=== PATIENT | male | born 1950 | race Caucasian/White ===

== ENCOUNTER 2016-05-29 13:26 | Emergency (ER) | payer OTHER ==
[2016-05-29 13:32] VITALS: BP 106/54; BMI 20.9
--- NOTE | 2016-05-29 13:58 | DR.GENAD ---
HPI - Complaint/Symptoms Chief Complaint Doctors Comments: Patient admits to being an alcoholic drank a quart today but ususlly much more. Patient is not ready to quit drinking Chief Complaint:: headache, patient's stated that patient fell and hit his head on the sidewalk. stated that patient has been drinking - Source History Provided: Patient - Mode of Arrival Mode of Arrival: EMS - Timing Onset of Chief Complaint: 05/29/16 PMH - PMH Past Medical History: Yes Past Medical History: Anxiety, Depression, Hypertension Past Surgical History: Yes Surgical History: Other Unable to Obtain Due To: Altered mental status - Family History History of Family Medical Conditions: Yes Family Medical History: Hypertension - Social History Does patient currently use any type of tobacco product: Yes Have you used tobacco products in the last 12 months: Yes Type of Tobacco Use: Smokeless Does any household member use tobacco: No Alcohol Use: Heavy Do you use any recreational Drugs:: No Lives With: Spouse Lives Where: Home - infectious screening In the last 2 months have you had wt loss of >10#?: NO Have you had fever, night sweats or hemotysis?: No Have you traveled outside the country in the last 6 months?: No Isolation: Standard ROS - Review of Systems Constitutional: No Symptoms Reported Eyes: No Symptoms Reported ENTM: No Symptoms Reported Cardiovascular: No Symptoms Reported Gastrointestinal/Abdominal: No Symptoms Reported Genitourinary: No Symptoms Reported Neurological: No Symptoms Reported Musculoskeletal: No Symptoms Reported Integumentary: No Symptoms Reported Hematologic/Lymphatic: No Symptoms Reported Endocrine: No Symptoms Reported Psychiatric: No Symptoms Reported All Other Systems: Reviewed and Negative PE - Vital Signs Vitals: Temperature 98.9 F Pulse Rate 77 Respiratory Rate 18 Blood Pressure [Left Arm] 132/66 Blood Pressure [Right Arm] 150/68 Blood Pressure 106/54 O2 Sat by Pulse Oximetry 96 - General Limitations: No Limitations General Appearance: Alert, In No Apparent Distress - Head Head Exam: Normal Inspection, Atraumatic - Eyes Eye exam: Normal Appearance, PERRL - ENT ENT Exam: Normal Exam TM/Canal Exam: Bilateral Normal Nose Exam: Normal Nose Exam Mouth Exam: Normal Inspection Throat Exam: Normal Inspection - Neck Neck Exam: Normal Inspection - Chest Chest Inspection: Normal Inspection - Respiratory Respiratory Exam: Normal Lung Sounds Bilat Respiratory Exam: Bilateral Clear to Auscultation - Cardiovascular Cardiovascular Exam: Regular Rate, Normal Rhythm - Abdominal Exam Abdominal Exam: Normal Inspection Abdominal Tenderness: negative: RUQ, RLQ, LUQ, LLQ, Epigastrium, Suprapubic, Diffuse, Mild, Moderate, Severe, Other - Extremities Extremities Exam: Normal Inspection, Full ROM - Back Back Exam: Normal Inspection - Neurologic Neurological Exam: Alert, Oriented X3, CN II-XII Intact - Psychiatric Psychiatric Exam: Normal Affect. negative: Homicidal Ideation, Suicidal Ideation - Skin Skin Exam: Warm, Dry, Intact ROR - Labs Reviewed Laboratory Results Reviewed?: Yes (Etoh: 285) Result Diagrams: 05/29/16 14:13 05/29/16 14:13 Laboratory: WBC 4.4 X10^3/uL (3.6-10.0) 05/29/16 14:13 RBC 3.98 X10^6/uL (4.7-6.0) L 05/29/16 14:13 Hgb 12.9 g/dL (13.5-18.0) L 05/29/16 14:13 Hct 38.4 % (42.0-54.0) L 05/29/16 14:13 MCV 96.6 fL (80.0-100.0) 05/29/16 14:13 MCH 32.5 pg (27.0-34.0) 05/29/16 14:13 MCHC 33.7 g/dL (33.0-35.0) 05/29/16 14:13 RDW 13.1 % (11.6-16.5) 05/29/16 14:13 Plt Count 222 X10^3/uL (150.0-450.0) 05/29/16 14:13 MPV 8.4 fL (7.4-11.0) 05/29/16 14:13 Neut % 53.2 % (42.0-75.0) 05/29/16 14:13 Lymph % 28.5 % (21.0-51.0) 05/29/16 14:13 [place] % 12.7 % (0.0-13.0) 05/29/16 14:13 Eos % 4.9 % (0.9-2.9) H 05/29/16 14:13 Baso % 0.7 % (0.2-1.0) 05/29/16 14:13 Neut # 2.3 x10^3/uL (2.2-4.8) 05/29/16 14:13 Lymph # 1.3 X10^3/uL (1.3-2.9) 05/29/16 14:13 [place] # 0.6 x10^3/uL (0.3-0.8) 05/29/16 14:13 Eos # 0.2 x10^3/uL (0.0-0.2) 05/29/16 14:13 Baso # 0.0 X10^3/uL (0.0-0.1) 05/29/16 14:13 Absolute Nucleated RBC 0.1 /100WBC 05/29/16 14:13 Sodium 141 mmol/L (136-145) 05/29/16 14:13 Corrected Sodium TNP 05/29/16 14:13 Potassium 4.1 mmol/L (3.5-5.1) 05/29/16 14:13 Chloride 108 mmol/L (98-107) H 05/29/16 14:13 Carbon Dioxide 27.3 mmol/L (21-32) 05/29/16 14:13 BUN 9 mg/dL (7-18) 05/29/16 14:13 Creatinine 1.05 mg/dL (0.70-1.30) 05/29/16 14:13 Est GFR (MDRD) Af Amer > 60 (>60) 05/29/16 14:13 Est GFR (MDRD) Non-Af > 60 (>60) 05/29/16 14:13 Glucose 88 mg/dL (65-99) 05/29/16 14:13 Calcium 7.9 mg/dL (8.5-10.1) L 05/29/16 14:13 Corrected Calcium 8.6 mg/dL (8.5-10.1) 05/29/16 14:13 Total Bilirubin 0.20 mg/dL (0.2-1.0) 05/29/16 14:13 AST 28 Units/L (15-37) 05/29/16 14:13 ALT 33 Units/L (12-78) 05/29/16 14:13 Alkaline Phosphatase 66 Units/L (46-116) 05/29/16 14:13 Total Protein 6.6 g/dL (6.4-8.2) 05/29/16 14:13 Albumin 3.1 g/dL (3.4-5.0) L 05/29/16 14:13 Globulin 3.5 g/dL (2.5-4.5) 05/29/16 14:13 Albumin/Globulin Ratio 0.9 Ratio (1.1-2.1) L 05/29/16 14:13 Urine Opiates Screen Negative (NEG=<300) 05/29/16 14:13 Urine Methadone Screen Negative (NEG=<300) 05/29/16 14:13 Ur Barbiturates Screen Negative (NEG=<200) 05/29/16 14:13 Ur Phencyclidine Scrn Negative (NEG=<25) 05/29/16 14:13 Ur Amphetamines Screen Negative (NEG=<1000) 05/29/16 14:13 U Benzodiazepines Scrn Negative (NEG=<200) 05/29/16 14:13 Urine Cocaine Screen Positive (NEG=<300) 05/29/16 14:13 U Marijuana (THC) Screen Negative (NEG=<50) 05/29/16 14:13 Ethyl Alcohol mg/dL 257 mg/dL (0-19.9) H 05/29/16 14:13 - Diagnosis Discharge Problem: Alcohol intoxication Qualifiers: Complication of substance-induced condition: uncomplicated Qualified Code(s): F10.120 - Alcohol abuse with intoxication, uncomplicated - Discharge Plan Condition: Stable - Follow ups/Referrals Follow ups/Referrals: Misc [Primary Care Provider] - 3 days - Instructions
[2016-05-29 14:33] LABS: ALANINE AMINOTRANSFERASE 33 Units/L (12-78); ALBUMIN 3.1 g/dL (3.4-5.0); ALKALINE PHOSPHATASE 66 Units/L (46-116); ASPARTATE AMINO TRANSFERASE 28 Units/L (15-37); BLOOD ALCOHOL 257 mg/dL (0-19.9); BLOOD UREA NITROGEN 9 mg/dL (7-18); CALCIUM 7.9 mg/dL (8.5-10.1); CARBON DIOXIDE 27.3 mmol/L (21-32); CHLORIDE 108 mmol/L (98-107); COR CA(FOR HYPOALB) 8.6 mg/dL (8.5-10.1); CREATININE 1.05 mg/dL (0.70-1.30); GLUCOSE 88 mg/dL (65-99); SODIUM 141 mmol/L (136-145); TOTAL PROTEIN 6.6 g/dL (6.4-8.2); eGFR BLACK RACES > 60 (>60); eGFR NON BLACK RACES > 60 (>60)
[2016-05-29 14:36] LABS: BASOPHILS % (AUTO) 0.7 % (0.2-1.0); EOSINOPHILS # (AUTO) 0.2 x10^3/uL (0.0-0.2); EOSINOPHILS % (AUTO) 4.9 % (0.9-2.9); HEMATOCRIT 38.4 % (42.0-54.0); HEMOGLOBIN 12.9 g/dL (13.5-18.0); LYMPHOCYTES # (AUTO) 1.3 X10^3/uL (1.3-2.9); LYMPHOCYTES % (AUTO) 28.5 % (21.0-51.0); MEAN CORPUSCULAR HEMOGLOBIN 32.5 pg (27.0-34.0); MEAN CORPUSCULAR HGB CONC 33.7 g/dL (33.0-35.0); MEAN CORPUSCULAR VOLUME 96.6 fL (80.0-100.0); MEAN PLATELET VOLUME 8.4 fL (7.4-11.0); MONOCYTES # (AUTO) 0.6 x10^3/uL (0.3-0.8); MONOCYTES % (AUTO) 12.7 % (0.0-13.0); NEUTROPHILS # (AUTO) 2.3 x10^3/uL (2.2-4.8); NEUTROPHILS % (AUTO) 53.2 % (42.0-75.0); PLATELET COUNT 222 X10^3/uL (150.0-450.0); RED BLOOD COUNT 3.98 X10^6/uL (4.7-6.0); RED CELL DISTRIBUTION WIDTH 13.1 % (11.6-16.5); WHITE BLOOD COUNT 4.4 X10^3/uL (3.6-10.0)
--- NOTE | 2016-05-29 14:51 | CT ---
HISTORY: Fall, occipital trauma Study: CT brain without contrast Comparison: 03/28/2016 Technique: Multiple axial images of the brain were obtained from the skull base to the vertex without administr ation of IV contrast. Dose reduction techniques including Automated Exposure Control (AEC) and adju stment of mA and kV were utilized. Findings: Overall stable appearance of the brain parenchyma with mild cerebral atrophy and nonspecific white m atter hypoattenuation. No evidence of acute hemorrhage, midline shift, mass effect or abnormal extr a-axial fluid collection. The ventricular system is symmetric and nondilated. The soft tissues and osseous structures are unremarkable. The visualized paranasal sinuses are clear. IMPRESSION: 1. Stable head CT without acute abnormality. Reported By:
== END 2016-05-29 15:08 | disposition home or self-care (01) ==
LOC: ER 13:26
DX: F10.120 Alcohol abuse with intoxication, uncomplicated (principal); R51 Headache
CPT/HCPCS: 36415; 70450; 80053; 80307; 80320; 85025; 99283; G0434; G6040

== ENCOUNTER 2016-07-08 13:54 | Emergency (ER) | payer OTHER ==
[2016-07-08 14:01] VITALS: BP 114/61; BMI 24.3
--- NOTE | 2016-07-08 15:13 | DR.GENAD ---
HPI - PCP Primary Care Physician: ana - HPI Comment HPI Comment: PATIENT HAVE SWELLING RIGHT LEG WITH PALPABLE CORD. CHEST PAIN AND COUGH ALSO. HISTORY PULMONARY EMBOLISM IN THE PAST. NO FEVER. - Complaint/Symptoms Chief Complaint Doctors Comments: PAIN RIGHT LEG WITH PALPABLE CORD TIMES 3 DAYS. CHEST PAIN AND COUGH TIMES ONE DAY. Chief Complaint:: right leg pain and swelling x 3 days - Nurses notes reviewed Nurses Notes Review: Yes - Source History Provided: Patient - Mode of Arrival Mode of Arrival: Ambulatory - Timing Onset of Chief Complaint: 07/05/16 Came on: Suddenly - Duration Duration: Constant Duration: Days - Severity Severity: Moderate PMH - PMH Past Medical History: Yes Past Medical History: Anxiety, Depression, Hypertension Past Surgical History: Yes Surgical History: Other Past Surgical History Comment: robles filter - Family History History of Family Medical Conditions: Yes Family Medical History: Hypertension - Social History Does patient currently use any type of tobacco product: No Have you used tobacco products in the last 12 months: No Type of Tobacco Use: None Does any household member use tobacco: No Alcohol Use: None Do you use any recreational Drugs:: No Lives With: Family Lives Where: Home - infectious screening In the last 2 months have you had wt loss of >10#?: NO Have you had fever, night sweats or hemotysis?: No Have you traveled outside the country in the last 6 months?: No Isolation: Standard ROS - Review of Systems Constitutional: No Symptoms Reported. negative: See HPI, Fever, Weakness, Fatigue Eyes: No Symptoms Reported. negative: Eye Pain, Discharge ENTM: Nose Congestion. negative: Ear Pain, Nose Discharge, Throat Pain Respiratoy: Productive Cough, Short of Breath. negative: Wheezing, Hemoptysis Cardiovascular: Chest Pain. negative: Edema, Palpitations, Syncope Gastrointestinal/Abdominal: No Symptoms Reported. negative: Abdominal Pain, Diarrhea, Nausea, Vomiting Genitourinary: No Symptoms Reported. negative: Dysuria, Frequency, Hematuria Neurological: negative: Headache, Weakness, Dizziness Musculoskeletal: Muscle Pain Integumentary: Other (PALPABLE CORD.) Hematologic/Lymphatic: Blood Clots (PREVIOUSLY) Endocrine: No Symptoms Reported All Other Systems: Reviewed and Negative PE - Vital Signs Vitals: Temperature 99.1 F Pulse Rate 89 Respiratory Rate 16 Blood Pressure [Left Arm] 132/66 Blood Pressure [Right Arm] 150/68 Blood Pressure 114/61 O2 Sat by Pulse Oximetry 98 - General Limitations: No Limitations General Appearance: Alert - Head Head Exam: Normal Inspection - Eyes Eye exam: Normal Appearance - ENT ENT Exam: Normal External Ear Exam External Ear Exam: Normal External Inspection TM/Canal Exam: Bilateral Normal Nose Exam: Normal Nose Exam Mouth Exam: Normal Inspection Throat Exam: Normal Inspection - Neck Neck Exam: Normal Inspection - Chest Chest Inspection: Symmetric Chest Wall Rise - Respiratory Respiratory Exam: Normal Lung Sounds Bilat Respiratory Exam: Bilateral Rhonchi, Lower Rhonchi - Cardiovascular Cardiovascular Exam: Regular Rate, Normal Rhythm, Normal Heart Sounds - Abdominal Exam Abdominal Exam: Normal Bowel Sounds, Soft. negative: Tenderness - Extremities Extremities Exam: Tenderness (ANTERIOR RIGHT LEG WITH PALPABLE CORD.) - Back Back Exam: Normal Inspection - Neurologic Neurological Exam: Alert, Oriented X3, CN II-XII Intact, Normal Gait, Reflexes Normal. negative: Motor Sensory Deficit - Psychiatric Psychiatric Exam: Normal Affect, Normal Mood - Skin Skin Exam: Erythema MDM - Additional Information Additional Information Obtained From: Family - Differential Diagnosis Differential Diagnosis: DVT, PULMONARY EMBOLISM, PNEUMONIA, BRONCHITIS Course - Treatment Treatment: SEE ORDERS. - Reevaluation 1st: Improved - Consultation Consultation Comments: DIACUSS PATIENT WITH DR. KERR. HE WANT PATIENT TO HAVE ASPIRIN AND FOLLOW UP WITH HIM IN THE OFFICE. - Education/Counseling Education/Counseling: Patient, Family, Education Educated On: Treatment, Diagnosis, Needs for Follow Up ROR - Labs Reviewed Laboratory Results Reviewed?: Yes Result Diagrams: 07/08/16 15:34 07/08/16 15:34 Laboratory: WBC 8.0 X10^3/uL (3.6-10.0) 07/08/16 15:34 RBC 4.80 X10^6/uL (4.7-6.0) 07/08/16 15:34 Hgb 15.6 g/dL (13.5-18.0) 07/08/16 15:34 Hct 46.2 % (42.0-54.0) 07/08/16 15:34 MCV 96.4 fL (80.0-100.0) 07/08/16 15:34 MCH 32.6 pg (27.0-34.0) 07/08/16 15:34 MCHC 33.8 g/dL (33.0-35.0) 07/08/16 15:34 RDW 13.1 % (11.6-16.5) 07/08/16 15:34 Plt Count 213 X10^3/uL (150.0-450.0) 07/08/16 15:34 MPV 8.4 fL (7.4-11.0) 07/08/16 15:34 Neut % 89.2 % (42.0-75.0) H 07/08/16 15:34 Lymph % 4.7 % (21.0-51.0) L 07/08/16 15:34 [place] % 4.8 % (0.0-13.0) 07/08/16 15:34 Eos % 0.9 % (0.9-2.9) 07/08/16 15:34 Baso % 0.4 % (0.2-1.0) 07/08/16 15:34 Neut # 7.1 x10^3/uL (2.2-4.8) H 07/08/16 15:34 Lymph # 0.4 X10^3/uL (1.3-2.9) L 07/08/16 15:34 [place] # 0.4 x10^3/uL (0.3-0.8) 07/08/16 15:34 Eos # 0.1 x10^3/uL (0.0-0.2) 07/08/16 15:34 Baso # 0.0 X10^3/uL (0.0-0.1) 07/08/16 15:34 Absolute Nucleated RBC 0.0 /100WBC 07/08/16 15:34 INR Target Range - 07/08/16 15:34 INR 0.98 (0.8-1.3) 07/08/16 15:34 PTT 38.2 SECONDS (22.9-36.5) H 07/08/16 15:34 PTT Comment - 07/08/16 15:34 D-Dimer 1870 ng/mL (0-400) H* 07/08/16 15:34 Sodium 143 mmol/L (136-145) 07/08/16 15:34 Corrected Sodium 143 mmol/L (136-145) 07/08/16 15:34 Potassium 4.7 mmol/L (3.5-5.1) 07/08/16 15:34 Chloride 104 mmol/L (98-107) 07/08/16 15:34 Carbon Dioxide 32.7 mmol/L (21-32) H 07/08/16 15:34 BUN 15 mg/dL (7-18) 07/08/16 15:34 Creatinine 1.20 mg/dL (0.70-1.30) 07/08/16 15:34 Est GFR (MDRD) Af Amer > 60 (>60) 07/08/16 15:34 Est GFR (MDRD) Non-Af > 60 (>60) 07/08/16 15:34 Glucose 116 mg/dL (65-99) H 07/08/16 15:34 Calcium 9.2 mg/dL (8.5-10.1) 07/08/16 15:34 Corrected Calcium TNP 07/08/16 15:34 Total Bilirubin 0.50 mg/dL (0.2-1.0) 07/08/16 15:34 AST 35 Units/L (15-37) 07/08/16 15:34 ALT 31 Units/L (12-78) 07/08/16 15:34 Alkaline Phosphatase 91 Units/L (46-116) 07/08/16 15:34 Total Protein 8.1 g/dL (6.4-8.2) 07/08/16 15:34 Albumin 3.7 g/dL (3.4-5.0) 07/08/16 15:34 Globulin 4.4 g/dL (2.5-4.5) 07/08/16 15:34 Albumin/Globulin Ratio 0.8 Ratio (1.1-2.1) L 07/08/16 15:34 - XRAY XRAY Interpreted by: Radiologist XRAY Findings: REPORT DISCUSS WITH PATIENT. - Diagnosis Discharge Problem: Bronchitis Superficial thrombophlebitis Qualifiers: Superficial thrombophlebitis-Involved body area: lower extremity Laterality: right Qualified Code(s): I80.01 - Phlebitis and thrombophlebitis of superficial vessels of right lower extremity Chest pain Qualifiers: Chest pain type: other chest pain Qualified Code(s): R07.89 - Other chest pain ; R07.8 - Other chest pain - Discharge Plan Disposition: HOME, SELF-CARE Condition: Stable Prescriptions: Aspirin [ASPIRIN 325 MG *] 325 mg PO DAILY #100 tab Cephalexin [Keflex Cap 500 mg] 500 mg PO BID #20 cap Tramadol HCl 50 mg PO Q8H PRN #15 tab PRN Reason: Pain - Follow ups/Referrals Follow ups/Referrals: JANES KERR [Primary Care Provider] - 3 days - Instructions Instructions: Venous Thromboembolism, Venous Thromboembolism Prevention, Acute Bronchitis, Decb-ng-[id number] Additional Instructions: return to ed if worse.
[2016-07-08] MEDS ORDERED: TORADOL 60 MG VIAL IM ONE (15:17)
[2016-07-08] MEDS ORDERED: TORADOL 60 MG VIAL ONE (15:22)
[2016-07-08 15:43] LABS: BASOPHILS % (AUTO) 0.4 % (0.2-1.0); EOSINOPHILS # (AUTO) 0.1 x10^3/uL (0.0-0.2); EOSINOPHILS % (AUTO) 0.9 % (0.9-2.9); HEMATOCRIT 46.2 % (42.0-54.0); HEMOGLOBIN 15.6 g/dL (13.5-18.0); LYMPHOCYTES # (AUTO) 0.4 X10^3/uL (1.3-2.9); LYMPHOCYTES % (AUTO) 4.7 % (21.0-51.0); MEAN CORPUSCULAR HEMOGLOBIN 32.6 pg (27.0-34.0); MEAN CORPUSCULAR HGB CONC 33.8 g/dL (33.0-35.0); MEAN CORPUSCULAR VOLUME 96.4 fL (80.0-100.0); MEAN PLATELET VOLUME 8.4 fL (7.4-11.0); MONOCYTES # (AUTO) 0.4 x10^3/uL (0.3-0.8); MONOCYTES % (AUTO) 4.8 % (0.0-13.0); NEUTROPHILS # (AUTO) 7.1 x10^3/uL (2.2-4.8); NEUTROPHILS % (AUTO) 89.2 % (42.0-75.0); PLATELET COUNT 213 X10^3/uL (150.0-450.0); RED CELL DISTRIBUTION WIDTH 13.1 % (11.6-16.5)
[2016-07-08 16:05] LABS: ALANINE AMINOTRANSFERASE 31 Units/L (12-78); ALBUMIN 3.7 g/dL (3.4-5.0); ALKALINE PHOSPHATASE 91 Units/L (46-116); ASPARTATE AMINO TRANSFERASE 35 Units/L (15-37); BLOOD UREA NITROGEN 15 mg/dL (7-18); CALCIUM 9.2 mg/dL (8.5-10.1); CARBON DIOXIDE 32.7 mmol/L (21-32); CHLORIDE 104 mmol/L (98-107); COR NA(FOR HYPERGLY) 143 mmol/L (136-145); GLUCOSE 116 mg/dL (65-99); SODIUM 143 mmol/L (136-145); TOTAL PROTEIN 8.1 g/dL (6.4-8.2); eGFR BLACK RACES > 60 (>60); eGFR NON BLACK RACES > 60 (>60)
[2016-07-08 16:22] LABS: D DIMER 1870 ng/mL (0-400)
--- NOTE | 2016-07-08 16:38 | VAS ---
HISTORY: Pain Study: Venous Doppler study of the right leg. Comparison: None TECHNIQUE: Multiple minor scale and color flow Doppler images of the deep venous system were obtaine d of the right lower extremity. FINDINGS: The deep venous system of the right lower extremity was evaluated from the level of the common femor al vein through the popliteal vein. Normal color flow and augmentation can be observed in the commo n femoral, superficial femoral and popliteal vein. There is a prominent collateral vessel extending from the popliteal vein medially with echogenic thrombus seen throughout the collateral vein with no flow within it.. In addition, normal compression pain throughout the deep venous system. IMPRESSION: Segmental thrombus seen in a popliteal collateral vein extending superficially with no clot seen in the deep venous system in the right leg. Reported By:
[2016-07-08] MEDS ORDERED: ZOFRAN INJ 4 MG VIAL IVP ONE (17:13)
[2016-07-08] MEDS ORDERED: MORPHINE SULFATE INJ 4 MG IVP ONE (17:13)
[2016-07-08] MEDS ORDERED: ZOFRAN INJ 4 MG VIAL ONE (17:18)
[2016-07-08] MEDS ORDERED: MORPHINE SULFATE INJ 4 MG ONE (17:18)
[2016-07-08] MEDS ORDERED: NS 100 ML IV 100 ML IV ONE (17:28)
--- NOTE | 2016-07-08 18:07 | CT ---
HISTORY: Chest pain history of thrombophlebitis Study: CTA chest with contrast Comparison: 10/18/2015 Technique: Multiple axial images of the chest were obtained from the thoracic inlet to the upper abd omen after the administration of 75 cc Omnipaque 350. Coronal and sagittal 3D MIP reconstructions we re performed. Findings: The thyroid gland is unremarkable. The aorta is normal caliber with no filling defects. The pulmonar y arteries are well opacified with no filling defect or vessel cut off seen. There are some small ly mph nodes scattered along the AP window measuring up to 9 mm which are less prominent . There are so me small pretracheal lymph nodes with the largest at the ree measuring 9 mm which are also less p rominent. The adrenals are normal. There is an IVC filter in place with the tip of the filter just b elow or at the right renal vein which and unchanged in position . The visualized upper abdomen is un remarkable. Mild degenerative changes are seen throughout the spine with no aggressive osseous lesio n. There is mild pleural thickening and scarring along both apices extending into the upper lobes po steriorly which is unchanged. There is mild linear scarring along the lung bases which is unchanged. There is a 7 mm pleural-based nodule along the left lung base extending into the posterior sulcus w hich is noncalcified and was not seen previously .There is a tiny 2-3 mm subpleural nodule or scar a long the right middle lobe anteriorly which is more apparent along the right upper lobe anteriorly w hich is more which is unchanged. Moderate degenerative changes are seen throughout the spine with no aggressive osseous lesion. IMPRESSION: No evidence of a pulmonary embolus. Unremarkable thoracic aorta. Small lymph nodes scattered throughout the mediastinum which are not pathologic by size criteria and appear less prominent and less numerous. 7 mm pleural-based nodule left lower lobe which is more apparent ,recommend short-term followup to a ssure stability . Mildb biapical pleural thickening and scarring and mild linear scarring along the lung bases with a subpleural nodule or scar along the right upper lobe anteriorly which is unchanged with no acute inf iltrate or effusion. IVC filter in good position and unchanged from the prior study. Reported By:
[2016-07-08] MEDS ORDERED: ECOTRIN TAB 325 MG PO ONE (19:00)
[2016-07-08] MEDS ORDERED: ASPIRIN ONE (19:01)
== END 2016-07-08 19:12 | disposition home or self-care (01) ==
LOC: ER 14:08
DX: J40 Bronchitis, not specified as acute or chronic (principal); I80.01 Phlebitis and thrombophlebitis of superficial vessels of right lower extremity; R07.89 Other chest pain
CPT/HCPCS: 36415; 71275; 80053; 85025; 85378; 85610; 85730; 93971; 96365; 96372; 96374; 96375; 99283; A4222; J1885; J2270; J2405

== ENCOUNTER 2016-08-16 12:26 | Inpatient (IN) | payer OTHER ==
[2016-08-16 12:47] LABS: BASOPHILS % (AUTO) 0.3 % (0.2-1.0); EOSINOPHILS # (AUTO) 0.1 x10^3/uL (0.0-0.2); HEMATOCRIT 43.1 % (42.0-54.0); HEMOGLOBIN 14.2 g/dL (13.5-18.0); LYMPHOCYTES # (AUTO) 1.1 X10^3/uL (1.3-2.9); LYMPHOCYTES % (AUTO) 15.6 % (21.0-51.0); MEAN PLATELET VOLUME 8.2 fL (7.4-11.0); MONOCYTES # (AUTO) 0.8 x10^3/uL (0.3-0.8); MONOCYTES % (AUTO) 10.5 % (0.0-13.0); NEUTROPHILS # (AUTO) 5.3 x10^3/uL (2.2-4.8); NEUTROPHILS % (AUTO) 72.6 % (42.0-75.0); PLATELET COUNT 124 X10^3/uL (150.0-450.0); RED BLOOD COUNT 4.31 X10^6/uL (4.7-6.0); RED CELL DISTRIBUTION WIDTH 14.9 % (11.6-16.5); WHITE BLOOD COUNT 7.3 X10^3/uL (3.6-10.0)
--- NOTE | 2016-08-16 12:50 | RAD ---
HISTORY: Respiratory distress. Study: Portable chest. Comparison: Chest x-ray dated April 06, 2016. Findings: The trachea is midline. The cardiac silhouette is unremarkable. The lungs are clear without focal infiltrate or effusion. The bony thorax is unremarkable. IMPRESSION: 1. No acute cardiopulmonary disease. Reported By:
--- NOTE | 2016-08-16 12:52 | DR.SOBA ---
HPI - Time Seen Time seen: 12:40 - Primary Care Physician Primary Care Physician: NFD - Complaints Chief Complaint Doctors Comments: I agree with complaint of admitting nurse concerning patient.. Chief Complaint:: EMS WAS CALLED OUT FOR A FALL WITH LEG PAIN. UPON ARRIVAL OF EMS PT WAS FOUND SITTING IN RECYLNER, SOB, LABORED BREATHING, SKIN CYNOTIC SPO2 NOTED 73% ON ROOM AIR. UPON ARRIVAL TO ED NOTED PT TO BE A&OX3. RT LOWER EXT SWOLLEN AND WARM TO TOUCH LT LOWER EXT WARM TO TOUCH. PT STATES HE HAS BEEN TREATED FOR DVT PREVIOUSLY. PT ALSO STATES HE HAS INGESTED 1/2 QUART OF LIQUOR. - Source History Provided: Patient, EMS - Mode of Arrival Mode of Arrival: EMS - Timing Onset of Chief Complaint: 08/16/16 PMH - PMH Past Medical History: Yes Past Medical History: Anxiety, Depression, Hypertension Past Medical History Comment: ETOH ABUSE Past Surgical History: Yes Surgical History: Other - Family History History of Family Medical Conditions: Yes Family Medical History: Hypertension - Social History Does any household member use tobacco: No Alcohol Use: DAILY Do you use any recreational Drugs:: No Lives With: Family Lives Where: Home - infectious screening In the last 2 months have you had wt loss of >10#?: NO Have you had fever, night sweats or hemotysis?: No Have you traveled outside the country in the last 6 months?: No Isolation: Standard ROS - Review of Systems Eyes: No Symptoms Reported ENTM: No Symptoms Reported Respiratoy: No Symptoms Reported Cardiovascular: No Symptoms Reported Gastrointestinal/Abdominal: No Symptoms Reported Genitourinary: No Symptoms Reported Neurological: No Symptoms Reported Musculoskeletal: No Symptoms Reported Integumentary: No Symptoms Reported Hematologic/Lymphatic: No Symptoms Reported Endocrine: No Symptoms Reported Psychiatric: No Symptoms Reported All Other Systems: Reviewed and Negative PE - Vital Signs Vitals: Temperature 97.9 F Pulse Rate [Right Brachial] 84 Pulse Rate 109 Respiratory Rate 18 Blood Pressure [Left Arm] 132/66 Blood Pressure [Right Arm] 122/59 Blood Pressure 106/58 O2 Sat by Pulse Oximetry 95 - General Limitations: No Limitations General Appearance: Alert, In No Apparent Distress - Head Head Exam: Normal Inspection, Atraumatic - Eyes Eye exam: Normal Appearance, PERRL, EOMI - ENT ENT Exam: Normal Exam - Neck Neck Exam: Normal Inspection, Full ROM - Chest Chest Inspection: Normal Inspection - Respiratory Respiratory Exam: Normal Lung Sounds Bilat Respiratory Exam: Bilateral Clear to Auscultation - Cardiovascular Cardiovascular Exam: Regular Rate - Abdominal Exam Abdominal Exam: Normal Inspection Abdominal Tenderness: negative: RUQ, RLQ, LUQ, LLQ, Epigastrium, Suprapubic, Diffuse, Mild, Moderate, Severe, Other - Extremities Extremities Exam: Normal Inspection, Full ROM - Back Back Exam: Normal Inspection - Neurologic Neurological Exam: Alert, Oriented X3, CN II-XII Intact - Psychiatric Psychiatric Exam: Normal Affect - Skin Skin Exam: Warm, Dry, Intact Course - Reevaluation 1st: Improved - Consultation Called: 02:45 (Dr Kerr agreed to admit for further therapy) ROR - Labs Reviewed Result Diagrams: 08/16/16 12:35 08/16/16 12:35 Laboratory: WBC 7.3 X10^3/uL (3.6-10.0) 08/16/16 12:35 RBC 4.31 X10^6/uL (4.7-6.0) L 08/16/16 12:35 Hgb 14.2 g/dL (13.5-18.0) 08/16/16 12:35 Hct 43.1 % (42.0-54.0) 08/16/16 12:35 MCV 100.0 fL (80.0-100.0) 08/16/16 12:35 MCH 33.0 pg (27.0-34.0) 08/16/16 12:35 MCHC 33.0 g/dL (33.0-35.0) 08/16/16 12:35 RDW 14.9 % (11.6-16.5) 08/16/16 12:35 Plt Count 124 X10^3/uL (150.0-450.0) L 08/16/16 12:35 MPV 8.2 fL (7.4-11.0) 08/16/16 12:35 Neut % 72.6 % (42.0-75.0) 08/16/16 12:35 Lymph % 15.6 % (21.0-51.0) L 08/16/16 12:35 [place] % 10.5 % (0.0-13.0) 08/16/16 12:35 Eos % 1.0 % (0.9-2.9) 08/16/16 12:35 Baso % 0.3 % (0.2-1.0) 08/16/16 12:35 Neut # 5.3 x10^3/uL (2.2-4.8) H 08/16/16 12:35 Lymph # 1.1 X10^3/uL (1.3-2.9) L 08/16/16 12:35 [place] # 0.8 x10^3/uL (0.3-0.8) 08/16/16 12:35 Eos # 0.1 x10^3/uL (0.0-0.2) 08/16/16 12:35 Baso # 0.0 X10^3/uL (0.0-0.1) 08/16/16 12:35 Absolute Nucleated RBC 0.0 /100WBC 08/16/16 12:35 D-Dimer 3310 ng/mL (0-400) H* 08/16/16 12:35 Sample Site Right radial 08/16/16 13:50 ABG pH 7.380 (7.35-7.45) 08/16/16 13:50 ABG pCO2 31.0 mmHg (35.0-45.0) L 08/16/16 13:50 ABG pO2 63.0 mmHg (80.0-100.0) L 08/16/16 13:50 ABG HCO3 18.3 mmol/L (22-26) L 08/16/16 13:50 ABG O2 Saturation 91.0 % (90-100) 08/16/16 13:50 ABG Base Excess -5.8 mmol/L (-2.0-2.0) L 08/16/16 13:50 Harpreet Test Pos 08/16/16 13:50 A-a Gradient 48.0 mmHg 08/16/16 13:50 FiO2 21.000 08/16/16 13:50 Blood Gas Comments Margarita well aw 08/16/16 13:50 Sodium 140 mmol/L (136-145) 08/16/16 12:35 Corrected Sodium 141 mmol/L (136-145) 08/16/16 12:35 Potassium 4.8 mmol/L (3.5-5.1) 08/16/16 12:35 Chloride 102 mmol/L (98-107) 08/16/16 12:35 Carbon Dioxide 16.8 mmol/L (21-32) L 08/16/16 12:35 BUN 9 mg/dL (7-18) 08/16/16 12:35 Creatinine 1.23 mg/dL (0.70-1.30) 08/16/16 12:35 Est GFR (MDRD) Af Amer > 60 (>60) 08/16/16 12:35 Est GFR (MDRD) Non-Af > 60 (>60) 08/16/16 12:35 Glucose 162 mg/dL (65-99) H 08/16/16 12:35 Calcium 8.4 mg/dL (8.5-10.1) L 08/16/16 12:35 Corrected Calcium 9.0 mg/dL (8.5-10.1) 08/16/16 12:35 Total Bilirubin 0.70 mg/dL (0.2-1.0) 08/16/16 12:35 AST 33 Units/L (15-37) 08/16/16 12:35 ALT 29 Units/L (12-78) 08/16/16 12:35 Alkaline Phosphatase 99 Units/L (46-116) 08/16/16 12:35 Creatine Kinase 100 Units/L (39-308) 08/16/16 12:35 CK-MB (CK-2) < 1.0 ng/mL (0-4.0) 08/16/16 12:35 CK/CKMB % Calc 1.0 % (<4) 08/16/16 12:35 Troponin I < 0.02 ng/mL (0-1.5) 08/16/16 12:35 Total Protein 7.3 g/dL (6.4-8.2) 08/16/16 12:35 Albumin 3.3 g/dL (3.4-5.0) L 08/16/16 12:35 Globulin 4.0 g/dL (2.5-4.5) 08/16/16 12:35 Albumin/Globulin Ratio 0.8 Ratio (1.1-2.1) L 08/16/16 12:35 Ethyl Alcohol mg/dL 49 mg/dL (0-19.9) H 08/16/16 12:35 - XRAY XRAY Interpreted by: Radiologist (CTA with contrast:Impression Exam positive for acute pulmonary thromboembolic disease involving 1 segmental branch to the lower lobe on the right and 2 segmental branches to the lower lobe on the left. Peripheral infiltrate laterally in the left lower lobe possible early developinng infarct. Bibasilar bronchiectasis) - Diagnosis Discharge Problem: Pulmonary embolism on right, Pulmonary embolism on left - Discharge Plan Condition: Stable - Follow ups/Referrals Follow ups/Referrals: JANES KERR [Primary Care Provider] - 3 days - Instructions
[2016-08-16 13:11] LABS: BLOOD UREA NITROGEN 9 mg/dL (7-18); CALCIUM 8.4 mg/dL (8.5-10.1); CARBON DIOXIDE 16.8 mmol/L (21-32); CHLORIDE 102 mmol/L (98-107); COR NA(FOR HYPERGLY) 141 mmol/L (136-145); CREATININE 1.23 mg/dL (0.70-1.30); GLUCOSE 162 mg/dL (65-99); SODIUM 140 mmol/L (136-145); TROPONIN I < 0.02 ng/mL (0-1.5); eGFR BLACK RACES > 60 (>60); eGFR NON BLACK RACES > 60 (>60)
[2016-08-16 13:16] LABS: ALANINE AMINOTRANSFERASE 29 Units/L (12-78); ALBUMIN 3.3 g/dL (3.4-5.0); ALKALINE PHOSPHATASE 99 Units/L (46-116); ASPARTATE AMINO TRANSFERASE 33 Units/L (15-37); CREATINE KINASE 100 Units/L (39-308); CREATINE KINASE MB < 1.0 ng/mL (0-4.0); TOTAL PROTEIN 7.3 g/dL (6.4-8.2)
[2016-08-16 13:24] LABS: D DIMER 3310 ng/mL (0-400)
[2016-08-16] MEDS ORDERED: NS 100 ML IV 100 ML IV ONE (13:34)
[2016-08-16 14:03] LABS: ABG ALLEN TEST POS; ABG BASE EXCESS -5.8 mmol/L (-2.0-2.0); ABG HCO3 18.3 mmol/L (22-26)
--- NOTE | 2016-08-16 14:34 | CT ---
HISTORY: Shortness of breath, elevated D-dimer Study: CTA chest with contrast for pulmonary embolism Comparison: July 08, 2016 Technique: Axial post-contrast images with coronal, sagittal, and 3 dimensional maximum intensity pr ojection images obtained in evaluated. Dose reduction procedures were use with MA/kv adjusted for xenia dy size Findings: The examination is positive for acute pulmonary thromboembolic disease involving 2 segmental branche s to the left lower lobe at a single vessel to a posterior medial right lower lobe segment. No other emboli are identified. These findings are best visualized on series 8 coronal image 30, series 8 co tc image 36 and series 8 coronal image 39. Examination of the mediastinum demonstrated no evidenc e for enlarged mediastinal or hilar adenopathy. No pleural effusions are identified. Those portions of the upper abdominal organs visualized were within normal limits. Examination of the lung oneill d emonstrated mild biapical pleural thickening no parenchymal nodules, or peribronchial thickening is identified. Moderate bibasilar bronchiectasis is present. There is a peripheral infiltrate in the l eft lower lobe in the area supply by the affected left lower lobe arteries possibly indicating early infarction. IMPRESSION: Exam positive for acute pulmonary thromboembolic disease involving 1 segmental branch to the lower l obe on the right and 2 segmental branches to the lower lobe on the left Peripheral infiltrate laterally in the left lower lobe possibly early developing infarct. Bibasilar bronchiectasis Reported By:
[2016-08-16] MEDS ORDERED: LOVENOX INJ 80 MG SYR SC ONE (16:17)
[2016-08-16] MEDS: LOVENOX INJ 80 MG SYR SC SCH (16:23)
[2016-08-16 17:10] VITALS: BMI 25.1
[2016-08-16] MEDS ORDERED: PREVNAR 13 IM ONE (17:13)
[2016-08-16] MEDS: NS 1000 ML 1,000 ML IV SCH (18:27)
[2016-08-16] MEDS: ULTRAM PO PRN (20:16)
[2016-08-16] MEDS: ELIQUIS PO SCH (20:16)
[2016-08-16 23:29] LABS: BILIRUBIN,URINE NEGATIVE (NEGATIVE); BLOOD/HEMOGLOBIN,URINE 2+ (NEGATIVE); GLUCOSE, URINE NEGATIVE (NEGATIVE); KETONES,URINE NEGATIVE (NEGATIVE); LEUKOCYTE ESTERASE ,URINE NEGATIVE (NEGATIVE); NITRITES,URINE NEGATIVE (NEGATIVE); PROTEIN,URINE 1+ (NEGATIVE); UROBILINOGEN,URINE NORMAL (NORMAL)
[2016-08-16 23:36] LABS: APPEARANCE,URINE CLEAR (CLEAR); BACTERIA,URINE NEGATIVE /HPF (NEGATIVE); COLOR,URINE YELLOW (YELLOW); RBC,URINE 0-3 /HPF (NEGATIVE); SQUAMOUS EPITHELIAL CELL,UR RARE /HPF (NEGATIVE)
[2016-08-17] MEDS: ULTRAM PO PRN (04:23)
[2016-08-17] MEDS: LOVENOX INJ 80 MG SYR SC SCH (04:34)
[2016-08-17 06:18] LABS: BASOPHILS % (AUTO) 0.3 % (0.2-1.0); EOSINOPHILS % (AUTO) 0.6 % (0.9-2.9); HEMATOCRIT 39.3 % (42.0-54.0); HEMOGLOBIN 13.3 g/dL (13.5-18.0); LYMPHOCYTES # (AUTO) 0.7 X10^3/uL (1.3-2.9); LYMPHOCYTES % (AUTO) 14.2 % (21.0-51.0); MEAN CORPUSCULAR HEMOGLOBIN 32.9 pg (27.0-34.0); MEAN CORPUSCULAR HGB CONC 33.9 g/dL (33.0-35.0); MEAN CORPUSCULAR VOLUME 96.9 fL (80.0-100.0); MEAN PLATELET VOLUME 8.7 fL (7.4-11.0); MONOCYTES # (AUTO) 0.6 x10^3/uL (0.3-0.8); MONOCYTES % (AUTO) 11.6 % (0.0-13.0); NEUTROPHILS # (AUTO) 3.7 x10^3/uL (2.2-4.8); NEUTROPHILS % (AUTO) 73.3 % (42.0-75.0); PLATELET COUNT 99 X10^3/uL (150.0-450.0); RED BLOOD COUNT 4.06 X10^6/uL (4.7-6.0); RED CELL DISTRIBUTION WIDTH 14.7 % (11.6-16.5)
[2016-08-17 06:20] LABS: ALANINE AMINOTRANSFERASE 24 Units/L (12-78); ALBUMIN 2.9 g/dL (3.4-5.0); ALKALINE PHOSPHATASE 83 Units/L (46-116); ASPARTATE AMINO TRANSFERASE 27 Units/L (15-37); BLOOD UREA NITROGEN 10 mg/dL (7-18); CALCIUM 8.2 mg/dL (8.5-10.1); CARBON DIOXIDE 29.3 mmol/L (21-32); CHLORIDE 103 mmol/L (98-107); COR CA(FOR HYPOALB) 9.1 mg/dL (8.5-10.1); CREATININE 0.86 mg/dL (0.70-1.30); GLUCOSE 86 mg/dL (65-99); SODIUM 140 mmol/L (136-145); TOTAL PROTEIN 6.8 g/dL (6.4-8.2); eGFR BLACK RACES > 60 (>60); eGFR NON BLACK RACES > 60 (>60)
[2016-08-17] MEDS: NS 1000 ML 1,000 ML IV SCH (06:52)
[2016-08-17] MEDS: ELIQUIS PO SCH (08:47)
[2016-08-17 10:08] VITALS: BP 136/66
== END 2016-08-17 15:22 | disposition home or self-care (01) | DRG 176 ==
LOC: ER 12:35 → ICU 14:53
PROVIDERS: ADMIT Obstetrics & Gynecology Obstetrics; ATTEND Obstetrics & Gynecology Obstetrics
PROC: 3E0234Z Introduction of Serum, Toxoid and Vaccine into Muscle, Percutaneous Approach (ICD-10-PCS; principal; 2016-08-16)
DX: I26.99 Other pulmonary embolism without acute cor pulmonale (principal); I82.493 Acute embolism and thrombosis of other specified deep vein of lower extremity, bilateral; M79.89 Other specified soft tissue disorders; W18.39XA Other fall on same level, initial encounter; I10 Essential (primary) hypertension; Z86.711 Personal history of pulmonary embolism; F10.129 Alcohol abuse with intoxication, unspecified; R06.02 Shortness of breath; Z23 Encounter for immunization
CPT/HCPCS: 36415; 36600; 71010; 71275; 80053; 80320; 81001; 82550; 82553; 82803; 84484; 85025; 85378; 85610; 93005; 93010; 96365; 99284; A4216; 90670; G6040; J1650

== ENCOUNTER 2016-10-24 14:30 | Emergency (ER) | payer OTHER ==
[2016-10-24 14:40] VITALS: BP 96/61; BMI 24.4
--- NOTE | 2016-10-24 15:26 | DR.GENAD ---
HPI - PCP Primary Care Physician: CIRILO - HPI Comment HPI Comment: Pt c/o 2 day h/o exertional SOB and dizziness. He reports taking his BP meds only when his BP is elevated. PMH is significant for PEs s/p Patricia filter placement. He admits to drinking at least "a 25 ounce of beer daily and I had one this morning". - Complaint/Symptoms Chief Complaint Doctors Comments: "I'm dizzy and SOB when I try to do anything". Chief Complaint:: BLOOD CLOT AND SHORTNESS OF BREATH. WAS DIAGNOSISED WITH BLOOD CLOT TO LUNGS AND LEG. HAS HAD INCREASED SHORTNESS OF BREATH WITH WALKING THIS PAST FRIDAY Self Treatment fo Chief Complaint: TAKING HOME MEDS - Nurses notes reviewed Nurses Notes Review: Yes - Source History Provided: Patient - Mode of Arrival Mode of Arrival: Ambulatory - Timing Onset of Chief Complaint: 10/22/16 - Duration Duration: Intermittent How lon Duration: Days - Severity Severity: Moderate - Modifying Factors Worsens:: movement, walking Improves:: rest PMH - PMH Past Medical History: Yes Past Medical History: Anxiety, Depression, Hypertension Past Medical History Comment: BLOOD CLOTS Past Surgical History: Yes Surgical History: Other - Family History History of Family Medical Conditions: Yes Family Medical History: Hypertension - Social History Does patient currently use any type of tobacco product: Yes (dips) Have you used tobacco products in the last 12 months: Yes Type of Tobacco Use: dip How many years tobacco product used: 30 Alcohol Use: Rarely Do you use any recreational Drugs:: No Lives With: Family Lives Where: Home - infectious screening In the last 2 months have you had wt loss of >10#?: NO Have you had fever, night sweats or hemotysis?: No Have you traveled outside the country in the last 6 months?: No Isolation: Standard ROS - Review of Systems Constitutional: Weakness Eyes: No Symptoms Reported ENTM: No Symptoms Reported Respiratoy: See HPI, Short of Breath Cardiovascular: No Symptoms Reported Gastrointestinal/Abdominal: No Symptoms Reported Genitourinary: No Symptoms Reported Neurological: See HPI, Dizziness Musculoskeletal: No Symptoms Reported Integumentary: No Symptoms Reported Hematologic/Lymphatic: No Symptoms Reported Endocrine: No Symptoms Reported Psychiatric: No Symptoms Reported All Other Systems: Reviewed and Negative PE - Vital Signs Vitals: Temperature 98.4 F Pulse Rate 88 Respiratory Rate 16 Blood Pressure [Left Arm] 136/66 Blood Pressure [Right Arm] 116/60 Blood Pressure 96/61 O2 Sat by Pulse Oximetry 97 - General Limitations: No Limitations General Appearance: Alert, In No Apparent Distress - Head Head Exam: Normal Inspection - Eyes Eye exam: Normal Appearance - ENT Throat Exam: Normal Inspection - Neck Neck Exam: Normal Inspection, Full ROM, Trachea Midline - Chest Chest Inspection: Normal Inspection, Symmetric Chest Wall Rise - Respiratory Respiratory Exam: Normal Lung Sounds Bilat Respiratory Exam: Bilateral Clear to Auscultation - Cardiovascular Cardiovascular Exam: Regular Rate, Normal Rhythm, Normal Heart Sounds - Abdominal Exam Abdominal Exam: Normal Inspection, Normal Bowel Sounds, Soft - Extremities Extremities Exam: Normal Inspection - Neurologic Neurological Exam: Alert, Oriented X3, CN II-XII Intact - Psychiatric Psychiatric Exam: Normal Affect, Normal Mood - Skin Skin Exam: Warm, Dry, Intact, Normal Color [facility] - Differential Diagnosis Differential Diagnosis: bronchitis, bronchospasms, PE, ROR - Labs Reviewed Result Diagrams: 10/24/16 15:41 10/24/16 15:41 Laboratory: WBC 5.4 X10^3/uL (3.6-10.0) 10/24/16 15:41 RBC 3.79 X10^6/uL (4.7-6.0) L 10/24/16 15:41 Hgb 12.5 g/dL (13.5-18.0) L 10/24/16 15:41 Hct 36.9 % (42.0-54.0) L 10/24/16 15:41 MCV 97.3 fL (80.0-100.0) 10/24/16 15:41 MCH 32.8 pg (27.0-34.0) 10/24/16 15:41 MCHC 33.7 g/dL (33.0-35.0) 10/24/16 15:41 RDW 14.2 % (11.6-16.5) 10/24/16 15:41 Plt Count 139 X10^3/uL (150.0-450.0) L 10/24/16 15:41 MPV 8.1 fL (7.4-11.0) 10/24/16 15:41 Neut % 77.5 % (42.0-75.0) H 10/24/16 15:41 Lymph % 13.7 % (21.0-51.0) L 10/24/16 15:41 [place] % 7.1 % (0.0-13.0) 10/24/16 15:41 Eos % 1.4 % (0.9-2.9) 10/24/16 15:41 Baso % 0.3 % (0.2-1.0) 10/24/16 15:41 Neut # 4.2 x10^3/uL (2.2-4.8) 10/24/16 15:41 Lymph # 0.7 X10^3/uL (1.3-2.9) L 10/24/16 15:41 [place] # 0.4 x10^3/uL (0.3-0.8) 10/24/16 15:41 Eos # 0.1 x10^3/uL (0.0-0.2) 10/24/16 15:41 Baso # 0.0 X10^3/uL (0.0-0.1) 10/24/16 15:41 Absolute Nucleated RBC 0.0 /100WBC 10/24/16 15:41 D-Dimer 4760 ng/mL (0-400) H* 10/24/16 15:41 Sodium 140 mmol/L (136-145) 10/24/16 15:41 Corrected Sodium TNP 10/24/16 15:41 Potassium 4.5 mmol/L (3.5-5.1) 10/24/16 15:41 Chloride 105 mmol/L (98-107) 10/24/16 15:41 Carbon Dioxide 28.5 mmol/L (21-32) 10/24/16 15:41 BUN 8 mg/dL (7-18) 10/24/16 15:41 Creatinine 1.01 mg/dL (0.70-1.30) 10/24/16 15:41 Est GFR (MDRD) Af Amer > 60 (>60) 10/24/16 15:41 Est GFR (MDRD) Non-Af > 60 (>60) 10/24/16 15:41 Glucose 87 mg/dL (65-99) 10/24/16 15:41 Calcium 8.1 mg/dL (8.5-10.1) L 10/24/16 15:41 Corrected Calcium 8.7 mg/dL (8.5-10.1) 10/24/16 15:41 Total Bilirubin 0.40 mg/dL (0.2-1.0) 10/24/16 15:41 AST 20 Units/L (15-37) 10/24/16 15:41 ALT 20 Units/L (12-78) 10/24/16 15:41 Alkaline Phosphatase 71 Units/L (46-116) 10/24/16 15:41 Total Protein 6.9 g/dL (6.4-8.2) 10/24/16 15:41 Albumin 3.2 g/dL (3.4-5.0) L 10/24/16 15:41 Globulin 3.7 g/dL (2.5-4.5) 10/24/16 15:41 Albumin/Globulin Ratio 0.9 Ratio (1.1-2.1) L 10/24/16 15:41 Specimen Type Clean catch urine 10/24/16 16:13 Urine Color Yellow (YELLOW) 10/24/16 16:13 Urine Appearance Hazy (CLEAR) 10/24/16 16:13 Urine pH 5.0 (5.0 - 8.0) 10/24/16 16:13 Ur Specific [place] 1.010 (1.000-1.030) 10/24/16 16:13 Urine Protein 1+ (NEGATIVE) 10/24/16 16:13 Urine Glucose (UA) Negative (NEGATIVE) 10/24/16 16:13 Urine Ketones Negative (NEGATIVE) 10/24/16 16:13 Urine Occult Blood 1+ (NEGATIVE) 10/24/16 16:13 Urine Nitrite Negative (NEGATIVE) 10/24/16 16:13 Urine Bilirubin Negative (NEGATIVE) 10/24/16 16:13 Urine Urobilinogen Normal (NORMAL) 10/24/16 16:13 Ur Leukocyte Esterase 1+ (NEGATIVE) 10/24/16 16:13 Urine RBC 0-2 /HPF (NEGATIVE) 10/24/16 16:13 Urine WBC 3-5 /HPF (NEGATIVE) 10/24/16 16:13 Ur Squamous Epith Cells Rare /HPF (NEGATIVE) 10/24/16 16:13 Urine Bacteria Trace /HPF (NEGATIVE) 10/24/16 16:13 Hyaline Casts Few /LPF (NEGATIVE) 10/24/16 16:13 Urine Mucus Few /HPF (NEGATIVE) 10/24/16 16:13 Ur Culture Indicated? No/not indicated 10/24/16 16:13 Urine Opiates Screen Positive (NEG=<300) 10/24/16 16:13 Urine Methadone Screen Negative (NEG=<300) 10/24/16 16:13 Ur Barbiturates Screen Negative (NEG=<200) 10/24/16 16:13 Ur Phencyclidine Scrn Negative (NEG=<25) 10/24/16 16:13 Ur Amphetamines Screen Negative (NEG=<1000) 10/24/16 16:13 U Benzodiazepines Scrn Negative (NEG=<200) 10/24/16 16:13 Urine Cocaine Screen Positive (NEG=<300) 10/24/16 16:13 U Marijuana (THC) Screen Negative (NEG=<50) 10/24/16 16:13 - Diagnosis Discharge Problem: SOB (shortness of breath) on exertion, Dizziness, Cocaine abuse - Discharge Plan Disposition: 01 HOME, SELF-CARE Condition: Stable - Follow ups/Referrals Follow ups/Referrals: JANES KERR [Primary Care Provider] - 3 days - Instructions Instructions: Shortness of Breath, [id number]
[2016-10-24 15:50] LABS: BASOPHILS % (AUTO) 0.3 % (0.2-1.0); EOSINOPHILS # (AUTO) 0.1 x10^3/uL (0.0-0.2); EOSINOPHILS % (AUTO) 1.4 % (0.9-2.9); HEMATOCRIT 36.9 % (42.0-54.0); HEMOGLOBIN 12.5 g/dL (13.5-18.0); LYMPHOCYTES # (AUTO) 0.7 X10^3/uL (1.3-2.9); LYMPHOCYTES % (AUTO) 13.7 % (21.0-51.0); MEAN CORPUSCULAR HEMOGLOBIN 32.8 pg (27.0-34.0); MEAN CORPUSCULAR HGB CONC 33.7 g/dL (33.0-35.0); MEAN CORPUSCULAR VOLUME 97.3 fL (80.0-100.0); MEAN PLATELET VOLUME 8.1 fL (7.4-11.0); MONOCYTES # (AUTO) 0.4 x10^3/uL (0.3-0.8); MONOCYTES % (AUTO) 7.1 % (0.0-13.0); NEUTROPHILS # (AUTO) 4.2 x10^3/uL (2.2-4.8); NEUTROPHILS % (AUTO) 77.5 % (42.0-75.0); PLATELET COUNT 139 X10^3/uL (150.0-450.0); RED BLOOD COUNT 3.79 X10^6/uL (4.7-6.0); RED CELL DISTRIBUTION WIDTH 14.2 % (11.6-16.5); WHITE BLOOD COUNT 5.4 X10^3/uL (3.6-10.0)
[2016-10-24 16:00] LABS: ALANINE AMINOTRANSFERASE 20 Units/L (12-78); ALBUMIN 3.2 g/dL (3.4-5.0); ALKALINE PHOSPHATASE 71 Units/L (46-116); ASPARTATE AMINO TRANSFERASE 20 Units/L (15-37); BLOOD UREA NITROGEN 8 mg/dL (7-18); CALCIUM 8.1 mg/dL (8.5-10.1); CARBON DIOXIDE 28.5 mmol/L (21-32); CHLORIDE 105 mmol/L (98-107); COR CA(FOR HYPOALB) 8.7 mg/dL (8.5-10.1); CREATININE 1.01 mg/dL (0.70-1.30); GLUCOSE 87 mg/dL (65-99); SODIUM 140 mmol/L (136-145); TOTAL PROTEIN 6.9 g/dL (6.4-8.2); eGFR BLACK RACES > 60 (>60); eGFR NON BLACK RACES > 60 (>60)
[2016-10-24 16:21] LABS: D DIMER 4760 ng/mL (0-400)
[2016-10-24 16:21] LABS: BILIRUBIN,URINE NEGATIVE (NEGATIVE); BLOOD/HEMOGLOBIN,URINE 1+ (NEGATIVE); GLUCOSE, URINE NEGATIVE (NEGATIVE); KETONES,URINE NEGATIVE (NEGATIVE); LEUKOCYTE ESTERASE ,URINE 1+ (NEGATIVE); NITRITES,URINE NEGATIVE (NEGATIVE); PROTEIN,URINE 1+ (NEGATIVE); UROBILINOGEN,URINE NORMAL (NORMAL)
[2016-10-24 16:27] LABS: APPEARANCE,URINE HAZY (CLEAR); BACTERIA,URINE TRACE /HPF (NEGATIVE); COLOR,URINE YELLOW (YELLOW); HYALINE CASTS, URINE FEW /LPF (NEGATIVE); MUCUS,URINE FEW /HPF (NEGATIVE); RBC,URINE 0-2 /HPF (NEGATIVE); SQUAMOUS EPITHELIAL CELL,UR RARE /HPF (NEGATIVE)
[2016-10-24] MEDS ORDERED: NS 100 ML IV 100 ML IV ONE (16:31)
--- NOTE | 2016-10-24 16:38 | RAD ---
HISTORY: Shortness of breath. Blood clot to lung and leg. Study: Chest two views Comparison: August 16, 2016. Findings: The trachea is midline. The cardiac silhouette is unremarkable. The lungs are clear without focal infiltrate or effusion. The bony thorax is unremarkable. IMPRESSION: 1. No acute cardiopulmonary disease. Reported By:
--- NOTE | 2016-10-24 17:44 | CT ---
History: Chest pain and shortness of breath Study: CTA chest with contrast. Sagittal and coronal and axial MIPS of the pulmonary arteries were d isplayed. Comparison: August 16, 2016 Findings: The lungs are hyperinflated and there is minimal subsegmental atelectasis in the right low er lobe. There is unchanged thrombosis in the posterior basilar segment of the right lower lobe pulm onary artery. There is persistent thrombosis in the lateral basilar segment of the left lower lobe p ulmonary artery as well as the superior segment branch. The aorta is unremarkable. There is a filter in the IVC. There is no adenopathy. There is no pleural effusion. 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 Reported By:
== END 2016-10-24 18:30 | disposition home or self-care (01) ==
LOC: ER 14:30
DX: R06.02 Shortness of breath (principal); R42 Dizziness and giddiness; F14.10 Cocaine abuse, uncomplicated
CPT/HCPCS: 36415; 71020; 71275; 80053; 80307; 81001; 85025; 85378; 93005; 93010; 96365; 96374; 99283; A4222; G0434

== ENCOUNTER 2016-10-27 11:17 | Inpatient (IN) | payer OTHER ==
--- NOTE | 2016-10-27 11:30 | DR.GENAD ---
HPI - PCP Primary Care Physician: KERR - Complaint/Symptoms Chief Complaint Doctors Comments: Patient admits to swelling and pain of the right lower extremity. He denies trauma. He has a history of DVT and is on Eliquis. Chief Complaint:: PT C/O RT LOWER LEG WITH SWELLING. PT STATES HE HAS BEEN HAVING PAIN FOR A FEW DAYS. NOTED RT LOWER LEG TO BE WARM TO TOUCH. - Source History Provided: Patient, EMS - Mode of Arrival Mode of Arrival: EMS - Timing Onset of Chief Complaint: 10/25/16 PMH - PMH Past Medical History: Yes Past Medical History: Anxiety, Depression, Hypertension Past Surgical History: Yes Surgical History: Other - Family History History of Family Medical Conditions: Yes Family Medical History: Hypertension - Social History Does any household member use tobacco: No Alcohol Use: Heavy Do you use any recreational Drugs:: No Lives With: Family Lives Where: Home - infectious screening In the last 2 months have you had wt loss of >10#?: NO Have you had fever, night sweats or hemotysis?: No Have you traveled outside the country in the last 6 months?: No Isolation: Standard ROS - Review of Systems Constitutional: negative: Diaphoresis Eyes: No Symptoms Reported ENTM: No Symptoms Reported Respiratoy: No Symptoms Reported Cardiovascular: No Symptoms Reported Gastrointestinal/Abdominal: No Symptoms Reported Genitourinary: No Symptoms Reported Neurological: No Symptoms Reported Musculoskeletal: Leg (bilateral leg pain) Integumentary: Change in Color (dusky) Hematologic/Lymphatic: No Symptoms Reported Endocrine: No Symptoms Reported Psychiatric: No Symptoms Reported All Other Systems: Reviewed and Negative PE - Vital Signs Vitals: Temperature 99.5 F Pulse Rate 67 Respiratory Rate 20 Blood Pressure [Left Arm] 136/66 Blood Pressure [Right Arm] 116/60 Blood Pressure 111/60 O2 Sat by Pulse Oximetry 97 - General Limitations: No Limitations General Appearance: Alert, In No Apparent Distress - Head Head Exam: Normal Inspection, Atraumatic - Eyes Eye exam: Normal Appearance, PERRL, EOMI - ENT ENT Exam: Normal Exam External Ear Exam: Normal External Inspection TM/Canal Exam: Bilateral Normal Nose Exam: Normal Nose Exam, Sinus Tenderness Mouth Exam: Normal Inspection Throat Exam: Normal Inspection - Neck Neck Exam: Normal Inspection, Full ROM - Chest Chest Inspection: Normal Inspection, Symmetric Chest Wall Rise - Respiratory Respiratory Exam: Normal Lung Sounds Bilat Respiratory Exam: Bilateral Clear to Auscultation - Cardiovascular Cardiovascular Exam: Regular Rate, Normal Rhythm - Abdominal Exam Abdominal Exam: Normal Inspection, Normal Bowel Sounds, Soft Abdominal Tenderness: negative: RUQ, RLQ, LUQ, LLQ, Epigastrium, Suprapubic, Diffuse, Mild, Moderate, Severe, Other - Extremities Extremities Exam: Tenderness, Edema - Back Back Exam: Normal Inspection - Neurologic Neurological Exam: Alert, Oriented X3, CN II-XII Intact - Psychiatric Psychiatric Exam: Normal Affect, Normal Mood - Skin Skin Exam: Warm, Dry, Intact Course - Consultation Called: 14:50 (Dr Whitlock agreed to admit for further evaluation and treatment) ROR - Labs Reviewed Result Diagrams: 10/27/16 11:36 10/27/16 11:36 Laboratory: WBC 7.5 X10^3/uL (3.6-10.0) 10/27/16 11:36 RBC 3.64 X10^6/uL (4.7-6.0) L 10/27/16 11:36 Hgb 12.0 g/dL (13.5-18.0) L 10/27/16 11:36 Hct 34.8 % (42.0-54.0) L 10/27/16 11:36 MCV 95.8 fL (80.0-100.0) 10/27/16 11:36 MCH 33.0 pg (27.0-34.0) 10/27/16 11:36 MCHC 34.4 g/dL (33.0-35.0) 10/27/16 11:36 RDW 14.4 % (11.6-16.5) 10/27/16 11:36 Plt Count 128 X10^3/uL (150.0-450.0) L 10/27/16 11:36 MPV 8.5 fL (7.4-11.0) 10/27/16 11:36 Neut % 79.7 % (42.0-75.0) H 10/27/16 11:36 Lymph % 9.8 % (21.0-51.0) L 10/27/16 11:36 [place] % 7.3 % (0.0-13.0) 10/27/16 11:36 Eos % 2.2 % (0.9-2.9) 10/27/16 11:36 Baso % 1.0 % (0.2-1.0) 10/27/16 11:36 Neut # 6.0 x10^3/uL (2.2-4.8) H 10/27/16 11:36 Lymph # 0.7 X10^3/uL (1.3-2.9) L 10/27/16 11:36 [place] # 0.5 x10^3/uL (0.3-0.8) 10/27/16 11:36 Eos # 0.2 x10^3/uL (0.0-0.2) 10/27/16 11:36 Baso # 0.1 X10^3/uL (0.0-0.1) 10/27/16 11:36 Absolute Nucleated RBC 0.0 /100WBC 10/27/16 11:36 D-Dimer > 5000 ng/mL (0-400) H* 10/27/16 11:36 Sodium 141 mmol/L (136-145) 10/27/16 11:36 Corrected Sodium TNP 10/27/16 11:36 Potassium 4.0 mmol/L (3.5-5.1) 10/27/16 11:36 Chloride 104 mmol/L (98-107) 10/27/16 11:36 Carbon Dioxide 29.9 mmol/L (21-32) 10/27/16 11:36 BUN 8 mg/dL (7-18) 10/27/16 11:36 Creatinine 0.96 mg/dL (0.70-1.30) 10/27/16 11:36 Est GFR (MDRD) Af Amer > 60 (>60) 10/27/16 11:36 Est GFR (MDRD) Non-Af > 60 (>60) 10/27/16 11:36 Glucose 87 mg/dL (65-99) 10/27/16 11:36 Calcium 8.0 mg/dL (8.5-10.1) L 10/27/16 11:36 Corrected Calcium 8.9 mg/dL (8.5-10.1) 10/27/16 11:36 Total Bilirubin 0.60 mg/dL (0.2-1.0) 10/27/16 11:36 AST 14 Units/L (15-37) L 10/27/16 11:36 ALT 16 Units/L (12-78) 10/27/16 11:36 Alkaline Phosphatase 73 Units/L (46-116) 10/27/16 11:36 Total Protein 6.8 g/dL (6.4-8.2) 10/27/16 11:36 Albumin 2.9 g/dL (3.4-5.0) L 10/27/16 11:36 Globulin 3.9 g/dL (2.5-4.5) 10/27/16 11:36 Albumin/Globulin Ratio 0.7 Ratio (1.1-2.1) L 10/27/16 11:36 - XRAY XRAY Interpreted by: Radiologist (Findings: The deep venous system of the right and left lower extremities were evaluated from the level of the common femoral vein through the popliteal vein. Absent flow, compression and augmentation in the common femoral vein, superficial femoral veins and popliteal veins bilaterally consistent with bilateral DVT. Impression: Venous Doppler of the bilateral lower extremities demonstrates extensive thrombosis of the bilateral lower extremity venous system as discussed.) - Diagnosis Discharge Problem: DVT, bilateral lower limbs Qualifiers: Affected thrombotic vein of extremity: femoral Chronicity: acute Qualified Code (s): I82.413 - Acute embolism and thrombosis of femoral vein, bilateral - Discharge Plan Condition: Stable - Follow ups/Referrals Follow ups/Referrals: JANES KERR [Primary Care Provider] - 3 days - Instructions
[2016-10-27 11:51] LABS: BASOPHILS # (AUTO) 0.1 X10^3/uL (0.0-0.1); EOSINOPHILS # (AUTO) 0.2 x10^3/uL (0.0-0.2); EOSINOPHILS % (AUTO) 2.2 % (0.9-2.9); HEMATOCRIT 34.8 % (42.0-54.0); LYMPHOCYTES # (AUTO) 0.7 X10^3/uL (1.3-2.9); LYMPHOCYTES % (AUTO) 9.8 % (21.0-51.0); MEAN CORPUSCULAR HGB CONC 34.4 g/dL (33.0-35.0); MEAN CORPUSCULAR VOLUME 95.8 fL (80.0-100.0); MEAN PLATELET VOLUME 8.5 fL (7.4-11.0); MONOCYTES # (AUTO) 0.5 x10^3/uL (0.3-0.8); MONOCYTES % (AUTO) 7.3 % (0.0-13.0); NEUTROPHILS % (AUTO) 79.7 % (42.0-75.0); PLATELET COUNT 128 X10^3/uL (150.0-450.0); RED BLOOD COUNT 3.64 X10^6/uL (4.7-6.0); RED CELL DISTRIBUTION WIDTH 14.4 % (11.6-16.5); WHITE BLOOD COUNT 7.5 X10^3/uL (3.6-10.0)
[2016-10-27 12:01] LABS: ALANINE AMINOTRANSFERASE 16 Units/L (12-78); ALBUMIN 2.9 g/dL (3.4-5.0); ALKALINE PHOSPHATASE 73 Units/L (46-116); ASPARTATE AMINO TRANSFERASE 14 Units/L (15-37); BLOOD UREA NITROGEN 8 mg/dL (7-18); CARBON DIOXIDE 29.9 mmol/L (21-32); CHLORIDE 104 mmol/L (98-107); COR CA(FOR HYPOALB) 8.9 mg/dL (8.5-10.1); CREATININE 0.96 mg/dL (0.70-1.30); GLUCOSE 87 mg/dL (65-99); SODIUM 141 mmol/L (136-145); TOTAL PROTEIN 6.8 g/dL (6.4-8.2); eGFR BLACK RACES > 60 (>60); eGFR NON BLACK RACES > 60 (>60)
[2016-10-27] MEDS ORDERED: DILAUDID INJ IM ONE (12:06)
[2016-10-27] MEDS ORDERED: DILAUDID INJ ONE (12:11)
[2016-10-27 12:16] LABS: D DIMER > 5000 ng/mL (0-400)
--- NOTE | 2016-10-27 14:32 | VAS ---
HISTORY: Elevated D-dimer. Bilateral leg pain. Known history of pulmonary artery clot in IVC filter. Study: Bilateral lower extremity venous Doppler Comparison: none TECHNIQUE: Multiple minor scale and color flow Doppler images of the deep venous system were obtaine d of the right and left lower extremity. FINDINGS: The deep venous system of the right and left lower extremities were evaluated from the level of the common femoral vein through the popliteal vein Absent flow, compression and augmentation in the common femoral vein, superficial femoral veins and popliteal veins bilaterally consistent with bilateral DVT. IMPRESSION: Venous Doppler of the bilateral lower extremities demonstrates extensive thrombosis of the bilateral lower extremity venous system as discussed above Reported By:
[2016-10-27] MEDS ORDERED: ZOFRAN INJ 4 MG VIAL IVP PRN (15:26)
[2016-10-27] MEDS ORDERED: HEPARIN SODIUM IN D5W 25,000 UNITS/500 ML BAG IV ONE (15:44)
[2016-10-27] MEDS ORDERED: NS 1000 ML 1,000 ML ONE (15:44)
[2016-10-27] MEDS ORDERED: HEPARIN SODIUM INJ 5000 UNITS ONE ×2 (15:46→22:40)
[2016-10-27] MEDS ORDERED: HEPARIN SODIUM INJ 5000 UNITS IVP ONE ×2 (15:56→22:40)
[2016-10-27] MEDS: HEPARIN SODIUM IN D5W 25,000 UNITS/500 ML BAG IV PRN (15:57)
[2016-10-27] MEDS: NS 1000 ML 1,000 ML IV SCH (15:58)
[2016-10-27 17:08] VITALS: BMI 25.1
[2016-10-27] MEDS: MORPHINE SULFATE INJ 4 MG IVP PRN (17:28)
[2016-10-27 18:39] LABS: BILIRUBIN,URINE NEGATIVE (NEGATIVE); BLOOD/HEMOGLOBIN,URINE 2+ (NEGATIVE); GLUCOSE, URINE NEGATIVE (NEGATIVE); KETONES,URINE NEGATIVE (NEGATIVE); LEUKOCYTE ESTERASE ,URINE 2+ (NEGATIVE); NITRITES,URINE NEGATIVE (NEGATIVE); PROTEIN,URINE NEGATIVE (NEGATIVE); UROBILINOGEN,URINE NORMAL (NORMAL)
[2016-10-27 18:50] LABS: APPEARANCE,URINE CLEAR (CLEAR); COLOR,URINE YELLOW (YELLOW)
[2016-10-27 19:11] LABS: AMORPHOUS SEDIMENT,UR 1+ /HPF (NEGATIVE); BACTERIA,URINE NEGATIVE /HPF (NEGATIVE); SQUAMOUS EPITHELIAL CELL,UR RARE /HPF (NEGATIVE)
[2016-10-27 19:12] LABS: FINE GRANULAR CASTS,URINE FEW /LPF (NEGATIVE); HYALINE CASTS, URINE MODERATE /LPF (NEGATIVE); MUCUS,URINE MODERATE /HPF (NEGATIVE)
[2016-10-28] MEDS: MORPHINE SULFATE INJ 4 MG IVP PRN ×2 (00:05→07:50)
[2016-10-28] MEDS: NS 1000 ML 1,000 ML IV SCH ×3 (00:07→21:28)
[2016-10-28 05:38] LABS: BASOPHILS % (AUTO) 0.3 % (0.2-1.0); EOSINOPHILS # (AUTO) 0.2 x10^3/uL (0.0-0.2); EOSINOPHILS % (AUTO) 3.9 % (0.9-2.9); HEMATOCRIT 31.7 % (42.0-54.0); HEMOGLOBIN 10.8 g/dL (13.5-18.0); LYMPHOCYTES # (AUTO) 0.9 X10^3/uL (1.3-2.9); LYMPHOCYTES % (AUTO) 16.5 % (21.0-51.0); MEAN CORPUSCULAR HEMOGLOBIN 33.3 pg (27.0-34.0); MEAN CORPUSCULAR HGB CONC 34.1 g/dL (33.0-35.0); MEAN CORPUSCULAR VOLUME 97.8 fL (80.0-100.0); MEAN PLATELET VOLUME 8.8 fL (7.4-11.0); MONOCYTES # (AUTO) 0.5 x10^3/uL (0.3-0.8); MONOCYTES % (AUTO) 9.6 % (0.0-13.0); NEUTROPHILS # (AUTO) 3.8 x10^3/uL (2.2-4.8); NEUTROPHILS % (AUTO) 69.7 % (42.0-75.0); PLATELET COUNT 115 X10^3/uL (150.0-450.0); RED BLOOD COUNT 3.24 X10^6/uL (4.7-6.0); RED CELL DISTRIBUTION WIDTH 14.5 % (11.6-16.5); WHITE BLOOD COUNT 5.4 X10^3/uL (3.6-10.0)
[2016-10-28 05:44] LABS: ALANINE AMINOTRANSFERASE 12 Units/L (12-78); ALBUMIN 2.3 g/dL (3.4-5.0); ALKALINE PHOSPHATASE 61 Units/L (46-116); ASPARTATE AMINO TRANSFERASE 12 Units/L (15-37); BLOOD UREA NITROGEN 9 mg/dL (7-18); CALCIUM 7.3 mg/dL (8.5-10.1); CARBON DIOXIDE 29.2 mmol/L (21-32); CHLORIDE 106 mmol/L (98-107); COR CA(FOR HYPOALB) 8.7 mg/dL (8.5-10.1); CREATININE 0.92 mg/dL (0.70-1.30); GLUCOSE 98 mg/dL (65-99); SODIUM 140 mmol/L (136-145); TOTAL PROTEIN 5.8 g/dL (6.4-8.2); eGFR BLACK RACES > 60 (>60); eGFR NON BLACK RACES > 60 (>60)
[2016-10-28] MEDS ORDERED: LEXAPRO ONE (10:36)
[2016-10-28] MEDS: ULTRAM PO PRN ×3 (10:42→23:44)
[2016-10-28] MEDS: XARELTO PO SCH ×2 (10:43→21:27)
[2016-10-28] MEDS: LEXAPRO PO SCH (10:43)
[2016-10-28] MEDS: HEPARIN SODIUM IN D5W 25,000 UNITS/500 ML BAG IV PRN (13:55)
[2016-10-29] MEDS: ULTRAM PO PRN ×4 (06:33→21:14)
[2016-10-29] MEDS ORDERED: LEXAPRO ONE (08:38)
[2016-10-29] MEDS: XARELTO PO SCH ×2 (09:08→21:14)
[2016-10-29] MEDS: LEXAPRO PO SCH (09:08)
[2016-10-29] MEDS: NS 1000 ML 1,000 ML IV SCH ×2 (10:49→22:16)
[2016-10-30] MEDS: ULTRAM PO PRN ×4 (02:26→17:10)
[2016-10-30 07:47] LABS: BASOPHILS % (AUTO) 0.5 % (0.2-1.0); EOSINOPHILS # (AUTO) 0.2 x10^3/uL (0.0-0.2); HEMATOCRIT 33.4 % (42.0-54.0); HEMOGLOBIN 11.4 g/dL (13.5-18.0); LYMPHOCYTES # (AUTO) 0.6 X10^3/uL (1.3-2.9); MEAN CORPUSCULAR HEMOGLOBIN 33.1 pg (27.0-34.0); MEAN CORPUSCULAR HGB CONC 34.3 g/dL (33.0-35.0); MEAN CORPUSCULAR VOLUME 96.6 fL (80.0-100.0); MEAN PLATELET VOLUME 7.9 fL (7.4-11.0); MONOCYTES # (AUTO) 0.5 x10^3/uL (0.3-0.8); MONOCYTES % (AUTO) 10.2 % (0.0-13.0); NEUTROPHILS # (AUTO) 3.2 x10^3/uL (2.2-4.8); NEUTROPHILS % (AUTO) 70.3 % (42.0-75.0); PLATELET COUNT 205 X10^3/uL (150.0-450.0); RED BLOOD COUNT 3.46 X10^6/uL (4.7-6.0); RED CELL DISTRIBUTION WIDTH 14.1 % (11.6-16.5); WHITE BLOOD COUNT 4.5 X10^3/uL (3.6-10.0)
[2016-10-30 08:00] LABS: ALANINE AMINOTRANSFERASE 12 Units/L (12-78); ALBUMIN 2.4 g/dL (3.4-5.0); ALKALINE PHOSPHATASE 58 Units/L (46-116); ASPARTATE AMINO TRANSFERASE 13 Units/L (15-37); BLOOD UREA NITROGEN 8 mg/dL (7-18); CALCIUM 7.8 mg/dL (8.5-10.1); CARBON DIOXIDE 33.2 mmol/L (21-32); CHLORIDE 108 mmol/L (98-107); COR CA(FOR HYPOALB) 9.1 mg/dL (8.5-10.1); CREATININE 0.83 mg/dL (0.70-1.30); GLUCOSE 84 mg/dL (65-99); SODIUM 142 mmol/L (136-145); TOTAL PROTEIN 6.3 g/dL (6.4-8.2); eGFR BLACK RACES > 60 (>60); eGFR NON BLACK RACES > 60 (>60)
[2016-10-30] MEDS ORDERED: LEXAPRO ONE (08:51)
[2016-10-30] MEDS: XARELTO PO SCH ×2 (08:53→21:10)
[2016-10-30] MEDS: LEXAPRO PO SCH (08:53)
[2016-10-30] MEDS: TORADOL 30 MG VIAL IVP PRN ×2 (13:15→19:46)
[2016-10-30] MEDS: NS 1000 ML 1,000 ML IV SCH (17:23)
--- NOTE | 2016-10-30 21:09 | PCM.PROG ---
Progress Note - Progress Note for Day of Date: 10/30/16 - Subjective Subjective: IS A PATIENT OF WHO WAS ADMITTED FOR BILATERAL LOWER EXTREMITY DVTs. HE IS ALERT AND ORIENTED THIS AM. HE IS LYING IN BED WITH AT BEDSIDE. HE HAS COMPLAINTS OF BILATERAL LEG PAIN. VITALS THIS AM ARE 98.4-69-18-97%-167/81. CBC WNL EXCEPT RBC 3.46, HGB 11.4, HCT 33.4. PTT 73.3. CMP WNL EXCEPT CHLORIDE 108, CARBON DIOXIDE 33.2, CALCIUM 7.8, AST 13, TOTAL PROTEIN 6.3, ALBUMIN 2.4. WE WILL ORDER TORADOL 30MG IVP Q8H PRN AND CONTINUE WITH CURRENT PLAN OF CARE. WE WILL RECHECK LABS AND FOLLOW UP WITH PATIENT IN AM. - Past Medical Family Social History Past Med/Fam/Surg Hx: No changes since H&P Allergies: Allergies No Known Drug Allergies Allergy (Verified 10/24/16 14:33) - Review of Systems ROS: No change since H&P - Vital Signs and I&O's Vital Signs: Temperature 98.4 F Pulse Rate [Right Brachial] 68 Pulse Rate 67 Respiratory Rate 18 Blood Pressure [Left Arm] 136/66 Blood Pressure [Right Arm] 180/83 Blood Pressure 111/60 O2 Sat by Pulse Oximetry 97 Intake and Output: Intake & Output 10/28/16 10/29/16 10/30/16 10/31/16 11:59 11:59 11:59 11:59 Intake Total 3545 3341 3580 1640 Output Total 1000 1200 2500 200 Balance 2545 2141 1080 1440 - Physical Exam Oriented: Normal Eyes: Normal Ear: Normal Nose: Normal Throat: Normal Respiratory: Normal Cardiovascular: Normal, Edema (BILATERAL LOWER EXTREMITY EDEMA ) : Normal Auscultation: Bowel Sounds: Normal Palpation: Normal Tenderness: Normal Skin: Red (BILATERAL LOWER EXTREMITIES ), Tender Musculoskeletal: Normal Psychiatric: Normal Mood Description: Calm Affect: Normal Speech Pattern: Clear, Appropriate - Laboratory and Diagnostics Result Diagrams: 10/30/16 07:30 10/30/16 07:30 Labs: 10/27/16 18:14 Urine,Clean Catch Urine Culture - Final Laboratory WBC 4.5 X10^3/uL (3.6-10.0) 10/30/16 07:30 RBC 3.46 X10^6/uL (4.7-6.0) L 10/30/16 07:30 Hgb 11.4 g/dL (13.5-18.0) L 10/30/16 07:30 Hct 33.4 % (42.0-54.0) L 10/30/16 07:30 MCV 96.6 fL (80.0-100.0) 10/30/16 07:30 MCH 33.1 pg (27.0-34.0) 10/30/16 07: MCHC 34.3 g/dL (33.0-35.0) 10/30/16 07:30 RDW 14.1 % (11.6-16.5) 10/30/16 07:30 Plt Count 205 X10^3/uL (150.0-450.0) 10/30/16 07:30 MPV 7.9 fL (7.4-11.0) 10/30/16 07:30 Neut % 70.3 % (42.0-75.0) 10/30/16 07:30 Lymph % 14.0 % (21.0-51.0) L 10/30/16 07:30 [place] % 10.2 % (0.0-13.0) 10/30/16 07:30 Eos % 5.0 % (0.9-2.9) H 10/30/16 07:30 Baso % 0.5 % (0.2-1.0) 10/30/16 07:30 Neut # 3.2 x10^3/uL (2.2-4.8) 10/30/16 07:30 Lymph # 0.6 X10^3/uL (1.3-2.9) L 10/30/16 07:30 [place] # 0.5 x10^3/uL (0.3-0.8) 10/30/16 07:30 Eos # 0.2 x10^3/uL (0.0-0.2) 10/30/16 07:30 Baso # 0.0 X10^3/uL (0.0-0.1) 10/30/16 07:30 Absolute Nucleated RBC 0.0 /100WBC 10/30/16 07:30 PTT 73.3 SECONDS (22.9-36.5) H 10/29/16 06:15 PTT Comment - 10/29/16 06:15 D-Dimer > 5000 ng/mL (0-400) H* 10/27/16 11:36 Sodium 142 mmol/L (136-145) 10/30/16 07:30 Corrected Sodium TNP 10/30/16 07:30 Potassium 4.1 mmol/L (3.5-5.1) 10/30/16 07:30 Chloride 108 mmol/L (98-107) H 10/30/16 07:30 Carbon Dioxide 33.2 mmol/L (21-32) H 10/30/16 07:30 BUN 8 mg/dL (7-18) 10/30/16 07:30 Creatinine 0.83 mg/dL (0.70-1.30) 10/30/16 07:30 Est GFR (MDRD) Af Amer > 60 (>60) 10/30/16 07:30 Est GFR (MDRD) Non-Af > 60 (>60) 10/30/16 07:30 Glucose 84 mg/dL (65-99) 10/30/16 07:30 Calcium 7.8 mg/dL (8.5-10.1) L 10/30/16 07:30 Corrected Calcium 9.1 mg/dL (8.5-10.1) 10/30/16 07:30 Total Bilirubin 0.20 mg/dL (0.2-1.0) 10/30/16 07:30 AST 13 Units/L (15-37) L 10/30/16 07:30 ALT 12 Units/L (12-78) 10/30/16 07:30 Alkaline Phosphatase 58 Units/L (46-116) 10/30/16 07:30 Total Protein 6.3 g/dL (6.4-8.2) L 10/30/16 07:30 Albumin 2.4 g/dL (3.4-5.0) L 10/30/16 07:30 Globulin 3.9 g/dL (2.5-4.5) 10/30/16 07:30 Albumin/Globulin Ratio 0.6 Ratio (1.1-2.1) L 10/30/16 07:30 Specimen Type Clean catch urine 10/27/16 18:14 Urine Color Yellow (YELLOW) 10/27/16 18:14 Urine Appearance Clear (CLEAR) 10/27/16 18:14 Urine pH 5.0 (5.0 - 8.0) 10/27/16 18:14 Ur Specific [place] 1.015 (1.000-1.030) 10/27/16 18:14 Urine Protein Negative (NEGATIVE) 10/27/16 18:14 Urine Glucose (UA) Negative (NEGATIVE) 10/27/16 18:14 Urine Ketones Negative (NEGATIVE) 10/27/16 18:14 Urine Occult Blood 2+ (NEGATIVE) 10/27/16 18:14 Urine Nitrite Negative (NEGATIVE) 10/27/16 18:14 Urine Bilirubin Negative (NEGATIVE) 10/27/16 18:14 Urine Urobilinogen Normal (NORMAL) 10/27/16 18:14 Ur Leukocyte Esterase 2+ (NEGATIVE) 10/27/16 18:14 Urine RBC 01 - 04 /HPF (NEGATIVE) 10/27/16 18:14 Urine WBC 25 - 35 /HPF (NEGATIVE) 10/27/16 18:14 Ur Squamous Epith Cells Rare /HPF (NEGATIVE) 10/27/16 18:14 Amorphous Sediment 1+ /HPF (NEGATIVE) 10/27/16 18:14 Urine Bacteria Negative /HPF (NEGATIVE) 10/27/16 18:14 Hyaline Casts Moderate /LPF (NEGATIVE) 10/27/16 18:14 Fine Granular Casts Few /LPF (NEGATIVE) 10/27/16 18:14 Urine Mucus Moderate /HPF (NEGATIVE) 10/27/16 18:14 Ur Culture Indicated? Yes/culture set up 10/27/16 18:14 - Plan (1) DVT, bilateral lower limbs Status: Acute Qualifiers: Affected thrombotic vein of extremity: femoral Chronicity: acute Qualified Code(s): I82.413 - Acute embolism and thrombosis of femoral vein, bilateral Plan: CONTINUE XARELTO, CONTINUE TO MONITOR
[2016-10-30] MEDS: ROCEPHIN VIAL 1 GM 1 GM in NS 50 ML IV + SPIKE MINIBAG* 50 ML IV SCH (22:39)
[2016-10-31] MEDS: TORADOL 30 MG VIAL IVP PRN ×4 (02:11→20:43)
[2016-10-31] MEDS: NS 1000 ML 1,000 ML IV SCH ×2 (05:30→11:05)
[2016-10-31 05:51] LABS: ALANINE AMINOTRANSFERASE 12 Units/L (12-78); ALBUMIN 2.4 g/dL (3.4-5.0); ALKALINE PHOSPHATASE 56 Units/L (46-116); ASPARTATE AMINO TRANSFERASE 14 Units/L (15-37); BLOOD UREA NITROGEN 12 mg/dL (7-18); CARBON DIOXIDE 33.4 mmol/L (21-32); CHLORIDE 107 mmol/L (98-107); COR CA(FOR HYPOALB) 9.3 mg/dL (8.5-10.1); CREATININE 0.85 mg/dL (0.70-1.30); GLUCOSE 89 mg/dL (65-99); SODIUM 145 mmol/L (136-145); TOTAL PROTEIN 6.2 g/dL (6.4-8.2); eGFR BLACK RACES > 60 (>60); eGFR NON BLACK RACES > 60 (>60)
[2016-10-31 06:23] LABS: BASOPHILS % (AUTO) 0.5 % (0.2-1.0); EOSINOPHILS # (AUTO) 0.2 x10^3/uL (0.0-0.2); EOSINOPHILS % (AUTO) 5.8 % (0.9-2.9); HEMATOCRIT 32.7 % (42.0-54.0); HEMOGLOBIN 11.1 g/dL (13.5-18.0); LYMPHOCYTES # (AUTO) 0.8 X10^3/uL (1.3-2.9); LYMPHOCYTES % (AUTO) 23.3 % (21.0-51.0); MEAN CORPUSCULAR HEMOGLOBIN 32.6 pg (27.0-34.0); MEAN CORPUSCULAR HGB CONC 34.1 g/dL (33.0-35.0); MEAN CORPUSCULAR VOLUME 95.8 fL (80.0-100.0); MEAN PLATELET VOLUME 8.1 fL (7.4-11.0); MONOCYTES # (AUTO) 0.4 x10^3/uL (0.3-0.8); MONOCYTES % (AUTO) 10.5 % (0.0-13.0); NEUTROPHILS # (AUTO) 2.2 x10^3/uL (2.2-4.8); NEUTROPHILS % (AUTO) 59.9 % (42.0-75.0); PLATELET COUNT 249 X10^3/uL (150.0-450.0); RED BLOOD COUNT 3.41 X10^6/uL (4.7-6.0); RED CELL DISTRIBUTION WIDTH 14.7 % (11.6-16.5); WHITE BLOOD COUNT 3.6 X10^3/uL (3.6-10.0)
[2016-10-31] MEDS ORDERED: LEXAPRO ONE (07:59)
[2016-10-31] MEDS: ROCEPHIN VIAL 1 GM 1 GM in NS 50 ML IV + SPIKE MINIBAG* 50 ML IV SCH (08:49)
[2016-10-31] MEDS: LEXAPRO PO SCH (08:50)
[2016-10-31] MEDS: XARELTO PO SCH (08:50)
[2016-10-31] MEDS ORDERED: ZOFRAN INJ 4 MG VIAL IVP PRN (11:06)
--- NOTE | 2016-10-31 12:02 | PCM.PROG ---
Progress Note - Subjective Subjective: IS ALERT AND ORIENTED THIS AM. HE IS LYING IN BED WITH AT BEDSIDE. HE CONTINUES WITH COMPLAINTS OF BILATERAL LEG PAIN. VITALS THIS AM ARE 97.5-66-20-98%-186/95. CBC WNL EXCEPT RBC 3.41, HGB 11.1, HCT 32.7. INR 1.55, PTT 66.7. CMP WNL EXCEPT CARBON DIOXIDE 33.4, CALCIUM 8.0, AST 14, TOTAL PROTEIN 6.2, ALBUMIN 2.4. WE SPOKE WITH PATIENT ABOUT COURSE OF TREATMENT AND ABILITY TO OBTAIN MEDICATIONS AFTER DISCHARGE. PATIENT REPORTED THAT HE WOULD NOT BE ABLE TO PAY FOR THE XARELTO OR ELIQUIS DUE TO HIGH COST. WE WILL DISCONTINUE XARELTO AND START COUMADIN 5MG HS. WE WILL TRANSFER PATIENT TO ICU AND PLACE ON A HEPARIN DRIP UNTIL WE CAN GET PATIENT TO A THERAPUTIC LEVEL ON COUMADIN. WE WILL RECHECK LABS AND FOLLOW UP WITH PATIENT IN AM. - Past Medical Family Social History Past Med/Fam/Surg Hx: No changes since H&P Allergies: Allergies No Known Drug Allergies Allergy (Verified 10/24/16 14:33) - Review of Systems ROS: No change since H&P - Vital Signs and I&O's Vital Signs: Temperature 97.5 F Pulse Rate [Right Brachial] 67 Pulse Rate 67 Respiratory Rate 12 Blood Pressure [Left Arm] 136/66 Blood Pressure [Right Arm] 161/80 Blood Pressure 111/60 O2 Sat by Pulse Oximetry 98 Intake and Output: Intake & Output 10/28/16 10/29/16 10/30/16 10/31/16 11:59 11:59 11:59 11:59 Intake Total 3545 3341 3580 5279 Output Total 1000 1200 2500 2950 Balance 2545 2141 1080 2329 - Physical Exam Oriented: Normal Eyes: Normal Ear: Normal Nose: Normal Throat: Normal Respiratory: Normal Cardiovascular: Normal, Edema (BILATERAL LOWER EXTREMITY EDEMA ) : Normal Auscultation: Bowel Sounds: Normal Palpation: Normal Tenderness: Normal Skin: Red (BILATERAL LOWER EXTREMITIES ), Tender Musculoskeletal: Normal Psychiatric: Normal Mood Description: Calm Affect: Normal Speech Pattern: Clear, Appropriate - Laboratory and Diagnostics Result Diagrams: 10/31/16 04:00 10/31/16 04:00 Labs: 10/27/16 18:14 Urine,Clean Catch Urine Culture - Final Laboratory WBC 3.6 X10^3/uL (3.6-10.0) 10/31/16 04:00 RBC 3.41 X10^6/uL (4.7-6.0) L 10/31/16 04:00 Hgb 11.1 g/dL (13.5-18.0) L 10/31/16 04:00 Hct 32.7 % (42.0-54.0) L 10/31/16 04:00 MCV 95.8 fL (80.0-100.0) 10/31/16 04:00 MCH 32.6 pg (27.0-34.0) 10/31/16 04:00 MCHC 34.1 g/dL (33.0-35.0) 10/31/16 04:00 RDW 14.7 % (11.6-16.5) 10/31/16 04:00 Plt Count 249 X10^3/uL (150.0-450.0) 10/31/16 04:00 MPV 8.1 fL (7.4-11.0) 10/31/16 04:00 Neut % 59.9 % (42.0-75.0) 10/31/16 04:00 Lymph % 23.3 % (21.0-51.0) 10/31/16 04:00 [place] % 10.5 % (0.0-13.0) 10/31/16 04:00 Eos % 5.8 % (0.9-2.9) H 10/31/16 04:00 Baso % 0.5 % (0.2-1.0) 10/31/16 04:00 Neut # 2.2 x10^3/uL (2.2-4.8) 10/31/16 04:00 Lymph # 0.8 X10^3/uL (1.3-2.9) L 10/31/16 04:00 [place] # 0.4 x10^3/uL (0.3-0.8) 10/31/16 04:00 Eos # 0.2 x10^3/uL (0.0-0.2) 10/31/16 04:00 Baso # 0.0 X10^3/uL (0.0-0.1) 10/31/16 04:00 Absolute Nucleated RBC 0.1 /100WBC 10/31/16 04:00 INR Target Range - 10/31/16 04:00 INR 1.55 (0.8-1.3) H 10/31/16 04:00 PTT 73.3 SECONDS (22.9-36.5) H 10/29/16 06:15 PTT Comment - 10/29/16 06:15 D-Dimer > 5000 ng/mL (0-400) H* 10/27/16 11:36 Sodium 145 mmol/L (136-145) 10/31/16 04:00 Corrected Sodium TNP 10/31/16 04:00 Potassium 3.7 mmol/L (3.5-5.1) 10/31/16 04:00 Chloride 107 mmol/L (98-107) 10/31/16 04:00 Carbon Dioxide 33.4 mmol/L (21-32) H 10/31/16 04:00 BUN 12 mg/dL (7-18) 10/31/16 04:00 Creatinine 0.85 mg/dL (0.70-1.30) 10/31/16 04:00 Est GFR (MDRD) Af Amer > 60 (>60) 10/31/16 04:00 Est GFR (MDRD) Non-Af > 60 (>60) 10/31/16 04:00 Glucose 89 mg/dL (65-99) 10/31/16 04:00 Calcium 8.0 mg/dL (8.5-10.1) L 10/31/16 04:00 Corrected Calcium 9.3 mg/dL (8.5-10.1) 10/31/16 04:00 Total Bilirubin 0.20 mg/dL (0.2-1.0) 10/31/16 04:00 AST 14 Units/L (15-37) L 10/31/16 04:00 ALT 12 Units/L (12-78) 10/31/16 04:00 Alkaline Phosphatase 56 Units/L (46-116) 10/31/16 04:00 Total Protein 6.2 g/dL (6.4-8.2) L 10/31/16 04:00 Albumin 2.4 g/dL (3.4-5.0) L 10/31/16 04:00 Globulin 3.8 g/dL (2.5-4.5) 10/31/16 04:00 Albumin/Globulin Ratio 0.6 Ratio (1.1-2.1) L 10/31/16 04:00 Specimen Type Clean catch urine 10/27/16 18:14 Urine Color Yellow (YELLOW) 10/27/16 18:14 Urine Appearance Clear (CLEAR) 10/27/16 18:14 Urine pH 5.0 (5.0 - 8.0) 10/27/16 18:14 Ur Specific [place] 1.015 (1.000-1.030) 10/27/16 18:14 Urine Protein Negative (NEGATIVE) 10/27/16 18:14 Urine Glucose (UA) Negative (NEGATIVE) 10/27/16 18:14 Urine Ketones Negative (NEGATIVE) 10/27/16 18:14 Urine Occult Blood 2+ (NEGATIVE) 10/27/16 18:14 Urine Nitrite Negative (NEGATIVE) 10/27/16 18:14 Urine Bilirubin Negative (NEGATIVE) 10/27/16 18:14 Urine Urobilinogen Normal (NORMAL) 10/27/16 18:14 Ur Leukocyte Esterase 2+ (NEGATIVE) 10/27/16 18:14 Urine RBC 01 - 04 /HPF (NEGATIVE) 10/27/16 18:14 Urine WBC 25 - 35 /HPF (NEGATIVE) 10/27/16 18:14 Ur Squamous Epith Cells Rare /HPF (NEGATIVE) 10/27/16 18:14 Amorphous Sediment 1+ /HPF (NEGATIVE) 10/27/16 18:14 Urine Bacteria Negative /HPF (NEGATIVE) 10/27/16 18:14 Hyaline Casts Moderate /LPF (NEGATIVE) 10/27/16 18:14 Fine Granular Casts Few /LPF (NEGATIVE) 10/27/16 18:14 Urine Mucus Moderate /HPF (NEGATIVE) 10/27/16 18:14 Ur Culture Indicated? Yes/culture set up 10/27/16 18:14 - Plan (1) DVT, bilateral lower limbs Status: Acute Qualifiers: Affected thrombotic vein of extremity: femoral Chronicity: acute Qualified Code(s): I82.413 - Acute embolism and thrombosis of femoral vein, bilateral Plan: D/C XARELTO, START COUMADIN 5MG HS AND HEPARIN DRIP PER PROTOCOL, CONTINUE TO MONITOR LABS
[2016-10-31] MEDS ORDERED: HEPARIN SODIUM INJ 5000 UNITS IVP ONE (12:13)
[2016-10-31] MEDS: HEPARIN SODIUM IN D5W 25,000 UNITS/500 ML BAG IV PRN (12:24)
[2016-10-31] MEDS: COUMADIN TAB 5 MG PO SCH (20:44)
[2016-11-01] MEDS: NS 1000 ML 1,000 ML IV SCH ×2 (00:08→14:12)
[2016-11-01] MEDS: TORADOL 30 MG VIAL IVP PRN ×4 (02:37→20:49)
[2016-11-01 05:51] LABS: BASOPHILS % (AUTO) 0.7 % (0.2-1.0); EOSINOPHILS # (AUTO) 0.3 x10^3/uL (0.0-0.2); HEMATOCRIT 32.8 % (42.0-54.0); HEMOGLOBIN 11.2 g/dL (13.5-18.0); LYMPHOCYTES % (AUTO) 22.1 % (21.0-51.0); MEAN CORPUSCULAR HEMOGLOBIN 32.5 pg (27.0-34.0); MEAN CORPUSCULAR HGB CONC 34.1 g/dL (33.0-35.0); MEAN CORPUSCULAR VOLUME 95.4 fL (80.0-100.0); MEAN PLATELET VOLUME 8.3 fL (7.4-11.0); MONOCYTES # (AUTO) 0.5 x10^3/uL (0.3-0.8); MONOCYTES % (AUTO) 10.6 % (0.0-13.0); NEUTROPHILS # (AUTO) 2.6 x10^3/uL (2.2-4.8); NEUTROPHILS % (AUTO) 60.6 % (42.0-75.0); PLATELET COUNT 262 X10^3/uL (150.0-450.0); RED BLOOD COUNT 3.44 X10^6/uL (4.7-6.0); RED CELL DISTRIBUTION WIDTH 14.3 % (11.6-16.5); WHITE BLOOD COUNT 4.3 X10^3/uL (3.6-10.0)
[2016-11-01 05:59] LABS: ALANINE AMINOTRANSFERASE 14 Units/L (12-78); ALBUMIN 2.5 g/dL (3.4-5.0); ALKALINE PHOSPHATASE 54 Units/L (46-116); ASPARTATE AMINO TRANSFERASE 18 Units/L (15-37); BLOOD UREA NITROGEN 13 mg/dL (7-18); CALCIUM 8.1 mg/dL (8.5-10.1); CARBON DIOXIDE 34.9 mmol/L (21-32); CHLORIDE 106 mmol/L (98-107); COR CA(FOR HYPOALB) 9.3 mg/dL (8.5-10.1); CREATININE 0.83 mg/dL (0.70-1.30); GLUCOSE 84 mg/dL (65-99); SODIUM 144 mmol/L (136-145); TOTAL PROTEIN 6.5 g/dL (6.4-8.2); eGFR BLACK RACES > 60 (>60); eGFR NON BLACK RACES > 60 (>60)
[2016-11-01] MEDS ORDERED: LEXAPRO ONE (08:14)
[2016-11-01] MEDS: LEXAPRO PO SCH (08:24)
[2016-11-01] MEDS: ROCEPHIN VIAL 1 GM 1 GM in NS 50 ML IV + SPIKE MINIBAG* 50 ML IV SCH (08:24)
--- NOTE | 2016-11-01 10:46 | PCM.PROG ---
Progress Note - Progress Note for Day of Date: 11/01/16 - Subjective Subjective: IS ALERT AND ORIENTED THIS AM. HE IS LYING IN BED WITH AT BEDSIDE. HE DENIES PAIN AND VOICES NO COMPLAINTS THIS AM. HE REPORTS FEELING WELL. HE CONTINUES WITH BILATERAL LOWER EXTREMITY EDEMA. VITALS THIS AM ARE 98.4-65-16-98%-154/79. CBC WNL EXCEPT RBC 3.44, HGB 11.2, HCT 32.8. INR 1.16 , PTT 76.5. CMP WNL EXCEPT CARBON DIOXIDE 34.9, CALCIUM 8.1, ALBUMIN 2.5. WE WILL CONTINUE ON HEPARIN DRIP UNTIL WE CAN GET PATIENT TO A THERAPUTIC LEVEL ON COUMADIN. WE PLAN TO RECHECK LABS AND FOLLOW UP WITH PATIENT IN AM. - Past Medical Family Social History Past Med/Fam/Surg Hx: No changes since H&P Allergies: Allergies No Known Drug Allergies Allergy (Verified 10/24/16 14:33) - Review of Systems ROS: No change since H&P - Vital Signs and I&O's Vital Signs: Temperature 98.4 F Pulse Rate [Right Brachial] 65 Pulse Rate 67 Respiratory Rate 16 Blood Pressure [Left Arm] 136/66 Blood Pressure [Right Arm] 154/79 Blood Pressure 111/60 O2 Sat by Pulse Oximetry 98 Intake and Output: Intake & Output 10/29/16 10/30/16 10/31/16 11/01/16 11:59 11:59 11:59 11:59 Intake Total 3341 3580 5279 4825 Output Total 1200 2500 2950 3240 Balance 2141 1080 2329 1585 - Physical Exam Oriented: Normal Eyes: Normal Ear: Normal Nose: Normal Throat: Normal Respiratory: Normal Cardiovascular: Normal, Edema (BILATERAL LOWER EXTREMITY EDEMA ) : Normal Auscultation: Bowel Sounds: Normal Palpation: Normal Tenderness: Normal Skin: Red (BILATERAL LOWER EXTREMITIES ), Tender Musculoskeletal: Normal Psychiatric: Normal Mood Description: Calm Affect: Normal Speech Pattern: Clear, Appropriate - Laboratory and Diagnostics Result Diagrams: 11/01/16 04:30 11/01/16 04:30 Labs: 10/27/16 18:14 Urine,Clean Catch Urine Culture - Final Laboratory WBC 4.3 X10^3/uL (3.6-10.0) 11/01/16 04:30 RBC 3.44 X10^6/uL (4.7-6.0) L 11/01/16 04:30 Hgb 11.2 g/dL (13.5-18.0) L 11/01/16 04:30 Hct 32.8 % (42.0-54.0) L 11/01/16 04:30 MCV 95.4 fL (80.0-100.0) 11/01/16 04:30 MCH 32.5 pg (27.0-34.0) 11/01/16 04:30 MCHC 34.1 g/dL (33.0-35.0) 11/01/16 04:30 RDW 14.3 % (11.6-16.5) 11/01/16 04:30 Plt Count 262 X10^3/uL (150.0-450.0) 11/01/16 04:30 MPV 8.3 fL (7.4-11.0) 11/01/16 04:30 Neut % 60.6 % (42.0-75.0) 11/01/16 04:30 Lymph % 22.1 % (21.0-51.0) 11/01/16 04:30 [place] % 10.6 % (0.0-13.0) 11/01/16 04:30 Eos % 6.0 % (0.9-2.9) H 11/01/16 04:30 Baso % 0.7 % (0.2-1.0) 11/01/16 04:30 Neut # 2.6 x10^3/uL (2.2-4.8) 11/01/16 04:30 Lymph # 1.0 X10^3/uL (1.3-2.9) L 11/01/16 04:30 [place] # 0.5 x10^3/uL (0.3-0.8) 11/01/16 04:30 Eos # 0.3 x10^3/uL (0.0-0.2) H 11/01/16 04:30 Baso # 0.0 X10^3/uL (0.0-0.1) 11/01/16 04:30 Absolute Nucleated RBC 0.1 /100WBC 11/01/16 04:30 INR Target Range - 11/01/16 04:30 INR 1.16 (0.8-1.3) 11/01/16 04:30 PTT 76.5 SECONDS (22.9-36.5) H 11/01/16 07:08 PTT Comment - 11/01/16 07:08 D-Dimer > 5000 ng/mL (0-400) H* 10/27/16 11:36 Sodium 144 mmol/L (136-145) 11/01/16 04:30 Corrected Sodium TNP 11/01/16 04:30 Potassium 3.7 mmol/L (3.5-5.1) 11/01/16 04:30 Chloride 106 mmol/L (98-107) 11/01/16 04:30 Carbon Dioxide 34.9 mmol/L (21-32) H 11/01/16 04:30 BUN 13 mg/dL (7-18) 11/01/16 04:30 Creatinine 0.83 mg/dL (0.70-1.30) 11/01/16 04:30 Est GFR (MDRD) Af Amer > 60 (>60) 11/01/16 04:30 Est GFR (MDRD) Non-Af > 60 (>60) 11/01/16 04:30 Glucose 84 mg/dL (65-99) 11/01/16 04:30 Calcium 8.1 mg/dL (8.5-10.1) L 11/01/16 04:30 Corrected Calcium 9.3 mg/dL (8.5-10.1) 11/01/16 04:30 Total Bilirubin 0.20 mg/dL (0.2-1.0) 11/01/16 04:30 AST 18 Units/L (15-37) 11/01/16 04:30 ALT 14 Units/L (12-78) 11/01/16 04:30 Alkaline Phosphatase 54 Units/L (46-116) 11/01/16 04:30 Total Protein 6.5 g/dL (6.4-8.2) 11/01/16 04:30 Albumin 2.5 g/dL (3.4-5.0) L 11/01/16 04:30 Globulin 4.0 g/dL (2.5-4.5) 11/01/16 04:30 Albumin/Globulin Ratio 0.6 Ratio (1.1-2.1) L 11/01/16 04:30 Specimen Type Clean catch urine 10/27/16 18:14 Urine Color Yellow (YELLOW) 10/27/16 18:14 Urine Appearance Clear (CLEAR) 10/27/16 18:14 Urine pH 5.0 (5.0 - 8.0) 10/27/16 18:14 Ur Specific [place] 1.015 (1.000-1.030) 10/27/16 18:14 Urine Protein Negative (NEGATIVE) 10/27/16 18:14 Urine Glucose (UA) Negative (NEGATIVE) 10/27/16 18:14 Urine Ketones Negative (NEGATIVE) 10/27/16 18:14 Urine Occult Blood 2+ (NEGATIVE) 10/27/16 18:14 Urine Nitrite Negative (NEGATIVE) 10/27/16 18:14 Urine Bilirubin Negative (NEGATIVE) 10/27/16 18:14 Urine Urobilinogen Normal (NORMAL) 10/27/16 18:14 Ur Leukocyte Esterase 2+ (NEGATIVE) 10/27/16 18:14 Urine RBC 01 - 04 /HPF (NEGATIVE) 10/27/16 18:14 Urine WBC 25 - 35 /HPF (NEGATIVE) 10/27/16 18:14 Ur Squamous Epith Cells Rare /HPF (NEGATIVE) 10/27/16 18:14 Amorphous Sediment 1+ /HPF (NEGATIVE) 10/27/16 18:14 Urine Bacteria Negative /HPF (NEGATIVE) 10/27/16 18:14 Hyaline Casts Moderate /LPF (NEGATIVE) 10/27/16 18:14 Fine Granular Casts Few /LPF (NEGATIVE) 10/27/16 18:14 Urine Mucus Moderate /HPF (NEGATIVE) 10/27/16 18:14 Ur Culture Indicated? Yes/culture set up 10/27/16 18:14 - Plan (1) DVT, bilateral lower limbs Status: Acute Qualifiers: Affected thrombotic vein of extremity: femoral Chronicity: acute Qualified Code(s): I82.413 - Acute embolism and thrombosis of femoral vein, bilateral Plan: CONTINUE COUMADIN 5MG HS AND HEPARIN DRIP PER PROTOCOL, CONTINUE TO MONITOR LABS
[2016-11-01] MEDS: HEPARIN SODIUM IN D5W 25,000 UNITS/500 ML BAG IV PRN (11:15)
[2016-11-01] MEDS: COUMADIN TAB 5 MG PO SCH (20:48)
[2016-11-01] MEDS: KLONOPIN TAB 0.5 MG PO SCH (20:48)
[2016-11-02] MEDS: NS 1000 ML 1,000 ML IV SCH ×2 (03:30→21:13)
[2016-11-02] MEDS: TORADOL 30 MG VIAL IVP PRN ×4 (03:30→21:14)
[2016-11-02 05:21] LABS: BASOPHILS % (AUTO) 0.4 % (0.2-1.0); EOSINOPHILS # (AUTO) 0.3 x10^3/uL (0.0-0.2); HEMATOCRIT 33.3 % (42.0-54.0); HEMOGLOBIN 11.5 g/dL (13.5-18.0); LYMPHOCYTES % (AUTO) 24.5 % (21.0-51.0); MEAN CORPUSCULAR HEMOGLOBIN 33.1 pg (27.0-34.0); MEAN CORPUSCULAR HGB CONC 34.4 g/dL (33.0-35.0); MEAN CORPUSCULAR VOLUME 96.1 fL (80.0-100.0); MEAN PLATELET VOLUME 7.9 fL (7.4-11.0); MONOCYTES # (AUTO) 0.5 x10^3/uL (0.3-0.8); MONOCYTES % (AUTO) 12.5 % (0.0-13.0); NEUTROPHILS # (AUTO) 2.4 x10^3/uL (2.2-4.8); NEUTROPHILS % (AUTO) 56.6 % (42.0-75.0); PLATELET COUNT 289 X10^3/uL (150.0-450.0); RED BLOOD COUNT 3.47 X10^6/uL (4.7-6.0); WHITE BLOOD COUNT 4.2 X10^3/uL (3.6-10.0)
[2016-11-02 05:27] LABS: ALANINE AMINOTRANSFERASE 15 Units/L (12-78); ALBUMIN 2.6 g/dL (3.4-5.0); ALKALINE PHOSPHATASE 53 Units/L (46-116); ASPARTATE AMINO TRANSFERASE 20 Units/L (15-37); BLOOD UREA NITROGEN 10 mg/dL (7-18); CALCIUM 8.5 mg/dL (8.5-10.1); CARBON DIOXIDE 33.1 mmol/L (21-32); CHLORIDE 105 mmol/L (98-107); COR CA(FOR HYPOALB) 9.6 mg/dL (8.5-10.1); CREATININE 0.82 mg/dL (0.70-1.30); GLUCOSE 84 mg/dL (65-99); SODIUM 143 mmol/L (136-145); TOTAL PROTEIN 6.7 g/dL (6.4-8.2); eGFR BLACK RACES > 60 (>60); eGFR NON BLACK RACES > 60 (>60)
[2016-11-02 06:08] LABS: MAGNESIUM 1.5 mg/dL (1.7-2.9)
[2016-11-02] MEDS ORDERED: POTASSIUM CHLORIDE LIQ 20 MEQ UDC ONE (06:20)
[2016-11-02] MEDS ORDERED: MAGNESIUM SULFATE 1 GM/100 mL PREMIX 1 GM/100 ML BAG IV ONE ×2 (06:20→06:23)
[2016-11-02] MEDS ORDERED: K-DUR TAB 20 MEQ PO ONE ×2 (06:20→06:21)
[2016-11-02] MEDS ORDERED: K-RIDER 10 MEQ/NS 100 ML 10 MEQ/100 ML BAG IV PRN (06:23)
[2016-11-02] MEDS ORDERED: POTASSIUM CHLORIDE LIQ 20 MEQ UDC PO PRN (06:23)
[2016-11-02] MEDS ORDERED: K-LYTE EFFERVESCENT PO PRN (06:23)
[2016-11-02] MEDS: K-DUR TAB 20 MEQ PO PRN (06:29)
[2016-11-02] MEDS ORDERED: LEXAPRO ONE (07:52)
[2016-11-02] MEDS: ROCEPHIN VIAL 1 GM 1 GM in NS 50 ML IV + SPIKE MINIBAG* 50 ML IV SCH (08:00)
[2016-11-02] MEDS: HEPARIN SODIUM IN D5W 25,000 UNITS/500 ML BAG IV PRN (08:00)
[2016-11-02] MEDS: ULTRAM PO PRN ×3 (09:11→21:14)
[2016-11-02] MEDS: LEXAPRO PO SCH (09:12)
[2016-11-02] MEDS: KLONOPIN TAB 0.5 MG PO SCH (21:14)
[2016-11-02] MEDS: COUMADIN TAB 5 MG PO SCH (21:15)
[2016-11-03] MEDS: HEPARIN SODIUM IN D5W 25,000 UNITS/500 ML BAG IV PRN ×2 (02:40→21:28)
[2016-11-03] MEDS: TORADOL 30 MG VIAL IVP PRN ×4 (03:44→21:27)
[2016-11-03] MEDS: ULTRAM PO PRN ×4 (03:45→21:26)
[2016-11-03] MEDS: NS 1000 ML 1,000 ML IV SCH ×3 (04:00→17:43)
[2016-11-03 06:27] LABS: BASOPHILS % (AUTO) 0.9 % (0.2-1.0); EOSINOPHILS # (AUTO) 0.3 x10^3/uL (0.0-0.2); EOSINOPHILS % (AUTO) 6.9 % (0.9-2.9); HEMATOCRIT 35.4 % (42.0-54.0); HEMOGLOBIN 11.9 g/dL (13.5-18.0); LYMPHOCYTES # (AUTO) 1.1 X10^3/uL (1.3-2.9); LYMPHOCYTES % (AUTO) 28.4 % (21.0-51.0); MEAN CORPUSCULAR HGB CONC 33.5 g/dL (33.0-35.0); MEAN CORPUSCULAR VOLUME 95.3 fL (80.0-100.0); MEAN PLATELET VOLUME 7.4 fL (7.4-11.0); MONOCYTES # (AUTO) 0.4 x10^3/uL (0.3-0.8); MONOCYTES % (AUTO) 10.3 % (0.0-13.0); NEUTROPHILS # (AUTO) 2.1 x10^3/uL (2.2-4.8); NEUTROPHILS % (AUTO) 53.5 % (42.0-75.0); PLATELET COUNT 337 X10^3/uL (150.0-450.0); RED BLOOD COUNT 3.72 X10^6/uL (4.7-6.0); RED CELL DISTRIBUTION WIDTH 14.2 % (11.6-16.5); WHITE BLOOD COUNT 3.9 X10^3/uL (3.6-10.0)
[2016-11-03 06:51] LABS: ALANINE AMINOTRANSFERASE 19 Units/L (12-78); ALBUMIN 2.8 g/dL (3.4-5.0); ALKALINE PHOSPHATASE 53 Units/L (46-116); ASPARTATE AMINO TRANSFERASE 24 Units/L (15-37); BLOOD UREA NITROGEN 13 mg/dL (7-18); CHLORIDE 106 mmol/L (98-107); GLUCOSE 86 mg/dL (65-99); SODIUM 142 mmol/L (136-145); TOTAL PROTEIN 6.8 g/dL (6.4-8.2); eGFR BLACK RACES > 60 (>60); eGFR NON BLACK RACES > 60 (>60)
[2016-11-03] MEDS ORDERED: LEXAPRO ONE (09:54)
[2016-11-03] MEDS: ROCEPHIN VIAL 1 GM 1 GM in NS 50 ML IV + SPIKE MINIBAG* 50 ML IV SCH (09:56)
[2016-11-03] MEDS: LEXAPRO PO SCH (09:57)
[2016-11-03] MEDS ORDERED: COUMADIN TAB 5 MG PO ONE (15:02)
[2016-11-03] MEDS ORDERED: COUMADIN TAB 7.5 MG PO SCH (21:00)
[2016-11-03] MEDS: KLONOPIN TAB 0.5 MG PO SCH (21:26)
[2016-11-04] MEDS: ULTRAM PO PRN ×4 (03:40→21:33)
[2016-11-04] MEDS: TORADOL 30 MG VIAL IVP PRN ×4 (03:40→21:34)
[2016-11-04 05:32] LABS: BASOPHILS % (AUTO) 0.9 % (0.2-1.0); EOSINOPHILS # (AUTO) 0.3 x10^3/uL (0.0-0.2); EOSINOPHILS % (AUTO) 6.6 % (0.9-2.9); HEMATOCRIT 32.8 % (42.0-54.0); HEMOGLOBIN 11.2 g/dL (13.5-18.0); LYMPHOCYTES # (AUTO) 1.2 X10^3/uL (1.3-2.9); LYMPHOCYTES % (AUTO) 27.1 % (21.0-51.0); MEAN CORPUSCULAR HEMOGLOBIN 32.8 pg (27.0-34.0); MEAN CORPUSCULAR HGB CONC 34.2 g/dL (33.0-35.0); MEAN CORPUSCULAR VOLUME 95.9 fL (80.0-100.0); MEAN PLATELET VOLUME 8.4 fL (7.4-11.0); MONOCYTES # (AUTO) 0.4 x10^3/uL (0.3-0.8); MONOCYTES % (AUTO) 9.8 % (0.0-13.0); NEUTROPHILS # (AUTO) 2.5 x10^3/uL (2.2-4.8); NEUTROPHILS % (AUTO) 55.6 % (42.0-75.0); PLATELET COUNT 307 X10^3/uL (150.0-450.0); RED BLOOD COUNT 3.42 X10^6/uL (4.7-6.0); RED CELL DISTRIBUTION WIDTH 14.3 % (11.6-16.5); WHITE BLOOD COUNT 4.5 X10^3/uL (3.6-10.0)
[2016-11-04 05:34] LABS: ALANINE AMINOTRANSFERASE 15 Units/L (12-78); ALBUMIN 2.6 g/dL (3.4-5.0); ALKALINE PHOSPHATASE 47 Units/L (46-116); ASPARTATE AMINO TRANSFERASE 22 Units/L (15-37); BLOOD UREA NITROGEN 17 mg/dL (7-18); CALCIUM 8.5 mg/dL (8.5-10.1); CARBON DIOXIDE 31.8 mmol/L (21-32); CHLORIDE 108 mmol/L (98-107); COR CA(FOR HYPOALB) 9.6 mg/dL (8.5-10.1); CREATININE 0.88 mg/dL (0.70-1.30); GLUCOSE 85 mg/dL (65-99); SODIUM 143 mmol/L (136-145); TOTAL PROTEIN 6.3 g/dL (6.4-8.2); eGFR BLACK RACES > 60 (>60); eGFR NON BLACK RACES > 60 (>60)
[2016-11-04] MEDS: NS 1000 ML 1,000 ML IV SCH ×2 (06:21→14:47)
[2016-11-04] MEDS ORDERED: HEPARIN SODIUM INJ 5000 UNITS ONE (07:53)
[2016-11-04] MEDS ORDERED: HEPARIN SODIUM INJ 5000 UNITS IVP ONE (07:54)
[2016-11-04] MEDS ORDERED: LEXAPRO ONE (08:17)
[2016-11-04] MEDS: ROCEPHIN VIAL 1 GM 1 GM in NS 50 ML IV + SPIKE MINIBAG* 50 ML IV SCH (08:22)
[2016-11-04] MEDS: K-DUR TAB 20 MEQ PO PRN (08:23)
[2016-11-04] MEDS: LEXAPRO PO SCH (08:23)
[2016-11-04] MEDS ORDERED: THIAMINE HCL INJ IV SCH (09:00)
[2016-11-04] MEDS ORDERED: THIAMINE HCL INJ IM SCH (09:00)
[2016-11-04] MEDS: THIAMINE HCL INJ IM SCH (09:54)
[2016-11-04] MEDS: COUMADIN TAB 10 MG PO SCH ×2 (09:55→20:19)
[2016-11-04] MEDS: HEPARIN SODIUM IN D5W 25,000 UNITS/500 ML BAG IV PRN (17:33)
[2016-11-04] MEDS: KLONOPIN TAB 0.5 MG PO SCH (20:20)
[2016-11-05] MEDS: NS 1000 ML 1,000 ML IV SCH ×3 (03:46→18:02)
[2016-11-05] MEDS: TORADOL 30 MG VIAL IVP PRN ×4 (04:10→22:23)
[2016-11-05] MEDS: ULTRAM PO PRN ×4 (04:18→22:23)
[2016-11-05 04:54] LABS: BASOPHILS % (AUTO) 0.8 % (0.2-1.0); EOSINOPHILS # (AUTO) 0.3 x10^3/uL (0.0-0.2); EOSINOPHILS % (AUTO) 4.7 % (0.9-2.9); HEMOGLOBIN 11.5 g/dL (13.5-18.0); LYMPHOCYTES # (AUTO) 1.3 X10^3/uL (1.3-2.9); LYMPHOCYTES % (AUTO) 22.8 % (21.0-51.0); MEAN CORPUSCULAR HEMOGLOBIN 32.4 pg (27.0-34.0); MEAN CORPUSCULAR HGB CONC 33.7 g/dL (33.0-35.0); MEAN CORPUSCULAR VOLUME 96.2 fL (80.0-100.0); MEAN PLATELET VOLUME 8.4 fL (7.4-11.0); MONOCYTES # (AUTO) 0.5 x10^3/uL (0.3-0.8); NEUTROPHILS # (AUTO) 3.5 x10^3/uL (2.2-4.8); NEUTROPHILS % (AUTO) 62.7 % (42.0-75.0); PLATELET COUNT 319 X10^3/uL (150.0-450.0); RED BLOOD COUNT 3.54 X10^6/uL (4.7-6.0); RED CELL DISTRIBUTION WIDTH 14.4 % (11.6-16.5); WHITE BLOOD COUNT 5.5 X10^3/uL (3.6-10.0)
[2016-11-05 05:04] LABS: ALANINE AMINOTRANSFERASE 21 Units/L (12-78); ALBUMIN 2.7 g/dL (3.4-5.0); ALKALINE PHOSPHATASE 47 Units/L (46-116); ASPARTATE AMINO TRANSFERASE 25 Units/L (15-37); BLOOD UREA NITROGEN 14 mg/dL (7-18); CALCIUM 8.7 mg/dL (8.5-10.1); CARBON DIOXIDE 31.1 mmol/L (21-32); CHLORIDE 107 mmol/L (98-107); COR CA(FOR HYPOALB) 9.7 mg/dL (8.5-10.1); CREATININE 0.88 mg/dL (0.70-1.30); GLUCOSE 90 mg/dL (65-99); SODIUM 145 mmol/L (136-145); TOTAL PROTEIN 6.5 g/dL (6.4-8.2); eGFR BLACK RACES > 60 (>60); eGFR NON BLACK RACES > 60 (>60)
[2016-11-05] MEDS ORDERED: LEXAPRO ONE (08:08)
[2016-11-05] MEDS: ROCEPHIN VIAL 1 GM 1 GM in NS 50 ML IV + SPIKE MINIBAG* 50 ML IV SCH (08:50)
[2016-11-05] MEDS: THIAMINE HCL INJ IM SCH (08:51)
[2016-11-05] MEDS: LEXAPRO PO SCH (08:51)
[2016-11-05] MEDS ORDERED: COUMADIN TAB 10 MG PO ONE (08:56)
[2016-11-05] MEDS: COZAAR PO SCH (09:49)
[2016-11-05] MEDS: HEPARIN SODIUM IN D5W 25,000 UNITS/500 ML BAG IV PRN (11:45)
[2016-11-05] MEDS: KLONOPIN TAB 0.5 MG PO SCH (20:45)
[2016-11-05] MEDS: COUMADIN TAB 10 MG PO SCH (20:45)
[2016-11-06] MEDS: NS 1000 ML 1,000 ML IV SCH ×3 (04:05→20:32)
[2016-11-06] MEDS: ULTRAM PO PRN ×4 (04:30→22:51)
[2016-11-06 05:24] LABS: BASOPHILS % (AUTO) 0.5 % (0.2-1.0); EOSINOPHILS # (AUTO) 0.3 x10^3/uL (0.0-0.2); EOSINOPHILS % (AUTO) 4.8 % (0.9-2.9); HEMATOCRIT 33.3 % (42.0-54.0); HEMOGLOBIN 11.3 g/dL (13.5-18.0); LYMPHOCYTES # (AUTO) 0.8 X10^3/uL (1.3-2.9); LYMPHOCYTES % (AUTO) 14.9 % (21.0-51.0); MEAN CORPUSCULAR HEMOGLOBIN 32.6 pg (27.0-34.0); MEAN CORPUSCULAR HGB CONC 34.1 g/dL (33.0-35.0); MEAN CORPUSCULAR VOLUME 95.6 fL (80.0-100.0); MEAN PLATELET VOLUME 7.8 fL (7.4-11.0); MONOCYTES # (AUTO) 0.5 x10^3/uL (0.3-0.8); MONOCYTES % (AUTO) 9.2 % (0.0-13.0); NEUTROPHILS # (AUTO) 3.9 x10^3/uL (2.2-4.8); NEUTROPHILS % (AUTO) 70.6 % (42.0-75.0); PLATELET COUNT 300 X10^3/uL (150.0-450.0); RED BLOOD COUNT 3.48 X10^6/uL (4.7-6.0); RED CELL DISTRIBUTION WIDTH 14.3 % (11.6-16.5); WHITE BLOOD COUNT 5.5 X10^3/uL (3.6-10.0)
[2016-11-06 05:32] LABS: ALANINE AMINOTRANSFERASE 22 Units/L (12-78); ALBUMIN 2.8 g/dL (3.4-5.0); ALKALINE PHOSPHATASE 50 Units/L (46-116); ASPARTATE AMINO TRANSFERASE 24 Units/L (15-37); BLOOD UREA NITROGEN 10 mg/dL (7-18); CALCIUM 8.8 mg/dL (8.5-10.1); CARBON DIOXIDE 31.2 mmol/L (21-32); CHLORIDE 107 mmol/L (98-107); COR CA(FOR HYPOALB) 9.8 mg/dL (8.5-10.1); CREATININE 0.78 mg/dL (0.70-1.30); GLUCOSE 92 mg/dL (65-99); SODIUM 143 mmol/L (136-145); TOTAL PROTEIN 6.7 g/dL (6.4-8.2); eGFR BLACK RACES > 60 (>60); eGFR NON BLACK RACES > 60 (>60)
[2016-11-06] MEDS: HEPARIN SODIUM IN D5W 25,000 UNITS/500 ML BAG IV PRN ×3 (05:53→12:45)
[2016-11-06] MEDS ORDERED: LEXAPRO ONE (09:27)
[2016-11-06] MEDS: COZAAR PO SCH (09:35)
[2016-11-06] MEDS: THIAMINE HCL INJ IM SCH (09:36)
[2016-11-06] MEDS: LEXAPRO PO SCH (09:36)
[2016-11-06] MEDS: TORADOL 30 MG VIAL IVP PRN ×3 (11:12→22:51)
[2016-11-06] MEDS: KLONOPIN TAB 0.5 MG PO SCH (20:29)
[2016-11-06] MEDS: COUMADIN TAB 10 MG PO SCH ×2 (20:29→22:25)
[2016-11-07] MEDS: TORADOL 30 MG VIAL IVP PRN ×4 (05:01→23:39)
[2016-11-07] MEDS: ULTRAM PO PRN ×3 (05:01→17:17)
[2016-11-07] MEDS: HEPARIN SODIUM IN D5W 25,000 UNITS/500 ML BAG IV PRN (05:01)
[2016-11-07] MEDS ORDERED: LEXAPRO ONE (08:33)
[2016-11-07] MEDS: NS 1000 ML 1,000 ML IV SCH ×2 (08:36→13:20)
[2016-11-07] MEDS: COZAAR PO SCH (08:36)
[2016-11-07] MEDS: NORVASC TAB 5 MG PO SCH (08:37)
[2016-11-07] MEDS: LEXAPRO PO SCH (08:37)
[2016-11-07] MEDS: THIAMINE HCL INJ IM SCH (08:38)
[2016-11-07] MEDS: COUMADIN TAB 10 MG PO SCH (21:13)
[2016-11-07] MEDS: KLONOPIN TAB 0.5 MG PO SCH (21:15)
[2016-11-08] MEDS: NS 1000 ML 1,000 ML IV SCH (01:21)
[2016-11-08] MEDS: TORADOL 30 MG VIAL IVP PRN (06:06)
[2016-11-08] MEDS: ULTRAM PO PRN (06:08)
[2016-11-08] MEDS: HEPARIN SODIUM IN D5W 25,000 UNITS/500 ML BAG IV PRN (06:23)
[2016-11-08] MEDS ORDERED: LEXAPRO ONE (08:23)
[2016-11-08] MEDS: NORVASC TAB 5 MG PO SCH (08:31)
[2016-11-08] MEDS: THIAMINE HCL INJ IM SCH (08:31)
[2016-11-08] MEDS: COZAAR PO SCH (08:31)
[2016-11-08] MEDS: LEXAPRO PO SCH (08:31)
[2016-11-08 12:08] VITALS: BP 196/93
== END 2016-11-08 12:10 | disposition home or self-care (01) | DRG 300 ==
LOC: ER 11:28 → ICU 15:19 → MED/SURG 10-29 13:40 → ICU 10-31 10:40
PROVIDERS: ADMIT Internal Medicine; ATTEND Obstetrics & Gynecology Obstetrics
DX: I82.413 Acute embolism and thrombosis of femoral vein, bilateral (principal); I27.82 Chronic pulmonary embolism; E51.2 Wernicke's encephalopathy; M79.604 Pain in right leg; M79.89 Other specified soft tissue disorders; Z86.718 Personal history of other venous thrombosis and embolism; F41.8 Other specified anxiety disorders; I10 Essential (primary) hypertension; F32.89 Other specified depressive episodes; R60.0 Localized edema; Z79.01 Long term (current) use of anticoagulants
CPT/HCPCS: 36415; 80053; 81001; 83735; 84132; 85025; 85378; 85610; 85730; 87086; 93306; 93970; 96365; 96372; 96374; 96375; 99284; A4216; A4222; J0696; J1644; J1885; J2270; J3411

== ENCOUNTER 2016-11-10 18:44 | Emergency (ER) | payer OTHER ==
[2016-11-10 18:51] VITALS: BP 154/78; BMI 25.1
[2016-11-10] MEDS ORDERED: ULTRAM PO ONE (21:54)
[2016-11-10] MEDS ORDERED: ULTRAM ONE ×2 (21:58→22:25)
--- NOTE | 2016-11-10 21:58 | DR.GENAD ---
HPI - PCP Primary Care Physician: ana - HPI Comment HPI Comment: pain in legs - Complaint/Symptoms Chief Complaint Doctors Comments: He complained of pain his legs. He came in to be seen as he was concerned about this. He relates a hx. of just being d/c from this hospital on 11/08/16 after about 1 week of stay. He was treated for b /l DVT of LEs. There is a hx of chronic P.E. He was sent home 2 days ago on Coumadin 17.5 mg daily with directions to have an INR repeated tomorrow. PCP f/ u is on 11/15/16. He has not taken his Coumadin dose yet today. Chief Complaint:: pt states" i just got out of the hospital friday and my rt leg is still hurting" - Nurses notes reviewed Nurses Notes Review: Yes - Source History Provided: Patient - Mode of Arrival Mode of Arrival: Ambulatory - Timing Onset of Chief Complaint: 11/10/16 Came on: Gradually - Modifying Factors Worsens:: nothing Improves:: nothing - Associated Signs and Symptoms Associated Signs and Symptoms: none PMH - PMH Past Medical History: Yes Past Medical History: Anxiety, Depression, Hypertension Past Medical History Comment: B/L DVT (Recent), Chronic DVT Past Surgical History: Yes Surgical History: Other - Family History History of Family Medical Conditions: Yes Family Medical History: Hypertension - Social History Type of Tobacco Use: Cigarettes Does any household member use tobacco: No Alcohol Use: Occasionally Do you use any recreational Drugs:: No Lives With: Family Lives Where: Home - infectious screening In the last 2 months have you had wt loss of >10#?: NO Have you had fever, night sweats or hemotysis?: No Have you traveled outside the country in the last 6 months?: No Isolation: Standard ROS - Review of Systems Constitutional: No Symptoms Reported Eyes: No Symptoms Reported ENTM: No Symptoms Reported Respiratoy: No Symptoms Reported Cardiovascular: No Symptoms Reported Gastrointestinal/Abdominal: No Symptoms Reported Genitourinary: No Symptoms Reported Neurological: No Symptoms Reported Musculoskeletal: No Symptoms Reported, Leg (Rt. leg pain) Integumentary: No Symptoms Reported Hematologic/Lymphatic: No Symptoms Reported Endocrine: No Symptoms Reported Psychiatric: No Symptoms Reported All Other Systems: Reviewed and Negative PE - Vital Signs Vitals: Temperature 98.2 F Pulse Rate 77 Respiratory Rate 18 Blood Pressure [Left Arm] 136/66 Blood Pressure [Right Arm] 196/93 Blood Pressure 154/78 O2 Sat by Pulse Oximetry 98 - General Limitations: No Limitations General Appearance: Alert, In No Apparent Distress - Head Head Exam: Normal Inspection - Eyes Eye exam: Normal Appearance - ENT ENT Exam: Normal Exam External Ear Exam: Normal External Inspection TM/Canal Exam: Bilateral Normal Nose Exam: Normal Nose Exam Mouth Exam: Normal Inspection Throat Exam: Normal Inspection - Neck Neck Exam: Normal Inspection - Chest Chest Inspection: Normal Inspection - Respiratory Respiratory Exam: Normal Lung Sounds Bilat Respiratory Exam: Bilateral Clear to Auscultation - Cardiovascular Cardiovascular Exam: Regular Rate, Normal Rhythm - Abdominal Exam Abdominal Exam: Normal Inspection, Normal Bowel Sounds, Soft - Extremities Extremities Exam: Normal Inspection, Other (mild swelling to Rt. leg. Negative Moe's sign.) - Back Back Exam: Normal Inspection - Neurologic Neurological Exam: Alert, Oriented X3 - Psychiatric Psychiatric Exam: Normal Affect, Normal Mood - Skin Skin Exam: Warm, Dry, Intact, Normal Color - Diagnosis Discharge Problem: DVT (deep venous thrombosis) - Discharge Plan Disposition: HOME, SELF-CARE Condition: Stable - Follow ups/Referrals Follow ups/Referrals: JANES KERR [Primary Care Provider] - 3 days - Instructions Additional Instructions: Take Coumadin dose daily and on time (about same time of day every day). Have INR done tomorrow and see PCP as schedule for next coming Friday- 11/15/16
== END 2016-11-10 22:29 | disposition home or self-care (01) ==
LOC: ER 18:56
DX: I82.403 Acute embolism and thrombosis of unspecified deep veins of lower extremity, bilateral (principal)
CPT/HCPCS: 99282

== ENCOUNTER → 2016-11-11 | Outpatient (CLI) | payer OTHER ==
[2016-11-10 18:51] VITALS: BP 154/78
== END | disposition home or self-care (01) ==
LOC: LAB 09:47
PROVIDERS: ATTEND Obstetrics & Gynecology Obstetrics
DX: I82.499 Acute embolism and thrombosis of other specified deep vein of unspecified lower extremity (principal); Z79.01 Long term (current) use of anticoagulants
CPT/HCPCS: 36415; 85610

== ENCOUNTER → 2016-11-15 | Outpatient (CLI) | payer OTHER ==
[2016-11-10 18:51] VITALS: BP 154/78
== END ==
LOC: LAB 09:23
PROVIDERS: ATTEND Obstetrics & Gynecology Obstetrics
DX: I82.409 Acute embolism and thrombosis of unspecified deep veins of unspecified lower extremity (principal); Z79.01 Long term (current) use of anticoagulants
CPT/HCPCS: 36415; 85610

== ENCOUNTER → 2016-11-20 | Outpatient (CLI) | payer OTHER ==
[2016-11-10 18:51] VITALS: BP 154/78
== END | disposition home or self-care (01) ==
LOC: LAB 10:21
PROVIDERS: ATTEND Obstetrics & Gynecology Obstetrics
DX: I82.409 Acute embolism and thrombosis of unspecified deep veins of unspecified lower extremity (principal); Z79.01 Long term (current) use of anticoagulants
CPT/HCPCS: 36415; 85610

== ENCOUNTER 2016-11-27 04:07 | Emergency (ER) | payer OTHER ==
[2016-11-27 04:22] VITALS: BP 142/72; BMI 24.4
[2016-11-27 04:54] LABS: BILIRUBIN,URINE NEGATIVE (NEGATIVE); BLOOD/HEMOGLOBIN,URINE 5+ (NEGATIVE); GLUCOSE, URINE NEGATIVE (NEGATIVE); KETONES,URINE NEGATIVE (NEGATIVE); LEUKOCYTE ESTERASE ,URINE 1+ (NEGATIVE); NITRITES,URINE NEGATIVE (NEGATIVE); PROTEIN,URINE 2+ (NEGATIVE); UROBILINOGEN,URINE NORMAL (NORMAL)
--- NOTE | 2016-11-27 04:55 | DR.GENAD ---
HPI - PCP Primary Care Physician: kerr - Complaint/Symptoms Chief Complaint Doctors Comments: Patient reports that he urine had some blood earlier yesterday but cleared. He states that bleeding time was prolonged last week and his pcp took him of coumadin. He has had two clots in his lower extremities recently. Chief Complaint:: pt states" i been voiding blood in my urine my stomach and back bone hurts" - Source History Provided: Patient - Mode of Arrival Mode of Arrival: Ambulatory - Timing Onset of Chief Complaint: 11/26/16 PMH - PMH Past Medical History: Yes Past Medical History: Anxiety, Depression, Hypertension Past Surgical History: Yes Surgical History: Other - Family History History of Family Medical Conditions: Yes Family Medical History: Hypertension - Social History Type of Tobacco Use: Cigarettes Does any household member use tobacco: No Alcohol Use: Heavy Do you use any recreational Drugs:: No Lives With: Family Lives Where: Home - infectious screening In the last 2 months have you had wt loss of >10#?: NO Have you had fever, night sweats or hemotysis?: No Have you traveled outside the country in the last 6 months?: No Isolation: Standard ROS - Review of Systems Eyes: No Symptoms Reported ENTM: No Symptoms Reported Respiratoy: No Symptoms Reported Cardiovascular: No Symptoms Reported Gastrointestinal/Abdominal: No Symptoms Reported, Abdominal Pain Genitourinary: No Symptoms Reported Neurological: No Symptoms Reported Musculoskeletal: No Symptoms Reported Integumentary: No Symptoms Reported Hematologic/Lymphatic: No Symptoms Reported Endocrine: No Symptoms Reported Psychiatric: No Symptoms Reported All Other Systems: Reviewed and Negative PE - Vital Signs Vitals: Temperature 98.6 F Pulse Rate 81 Respiratory Rate 18 Blood Pressure [Left Arm] 136/66 Blood Pressure [Right Arm] 196/93 Blood Pressure 142/72 O2 Sat by Pulse Oximetry 99 - General Limitations: No Limitations General Appearance: Alert, In No Apparent Distress - Head Head Exam: Normal Inspection, Atraumatic - Eyes Eye exam: Normal Appearance, PERRL, EOMI - ENT ENT Exam: Normal Exam External Ear Exam: Normal External Inspection TM/Canal Exam: Bilateral Normal Nose Exam: Normal Nose Exam Mouth Exam: Normal Inspection Throat Exam: Normal Inspection - Neck Neck Exam: Normal Inspection - Chest Chest Inspection: Normal Inspection - Respiratory Respiratory Exam: Normal Lung Sounds Bilat Respiratory Exam: Bilateral Clear to Auscultation - Cardiovascular Cardiovascular Exam: Regular Rate, Normal Rhythm - Abdominal Exam Abdominal Exam: Normal Inspection Abdominal Tenderness: negative: RUQ, RLQ, LUQ, LLQ, Epigastrium, Suprapubic, Diffuse, Mild, Moderate, Severe, Other - Extremities Extremities Exam: Normal Inspection - Back Back Exam: Normal Inspection - Neurologic Neurological Exam: Alert, Oriented X3, CN II-XII Intact - Psychiatric Psychiatric Exam: Normal Affect, Normal Mood - Skin Skin Exam: Warm, Dry, Intact ROR - Labs Reviewed Result Diagrams: 11/27/16 05:10 11/27/16 05:10 Laboratory: WBC 4.1 X10^3/uL (3.6-10.0) 11/27/16 05:10 RBC 3.62 X10^6/uL (4.7-6.0) L 11/27/16 05:10 Hgb 11.6 g/dL (13.5-18.0) L 11/27/16 05:10 Hct 34.0 % (42.0-54.0) L 11/27/16 05:10 MCV 93.8 fL (80.0-100.0) 11/27/16 05:10 MCH 32.1 pg (27.0-34.0) 11/27/16 05:10 MCHC 34.2 g/dL (33.0-35.0) 11/27/16 05:10 RDW 15.2 % (11.6-16.5) 11/27/16 05:10 Plt Count 213 X10^3/uL (150.0-450.0) 11/27/16 05:10 MPV 7.9 fL (7.4-11.0) 11/27/16 05:10 Neut % 67.7 % (42.0-75.0) 11/27/16 05:10 Lymph % 17.3 % (21.0-51.0) L 11/27/16 05:10 [place] % 9.1 % (0.0-13.0) 11/27/16 05:10 Eos % 5.4 % (0.9-2.9) H 11/27/16 05:10 Baso % 0.5 % (0.2-1.0) 11/27/16 05:10 Neut # 2.7 x10^3/uL (2.2-4.8) 11/27/16 05:10 Lymph # 0.7 X10^3/uL (1.3-2.9) L 11/27/16 05:10 [place] # 0.4 x10^3/uL (0.3-0.8) 11/27/16 05:10 Eos # 0.2 x10^3/uL (0.0-0.2) 11/27/16 05:10 Baso # 0.0 X10^3/uL (0.0-0.1) 11/27/16 05:10 Absolute Nucleated RBC 0.0 /100WBC 11/27/16 05:10 INR Target Range - 11/27/16 05:10 INR 1.91 (0.8-1.3) H 11/27/16 05:10 PTT 64.2 SECONDS (22.9-36.5) H 11/27/16 05:10 PTT Comment - 11/27/16 05:10 Sodium 141 mmol/L (136-145) 11/27/16 05:10 Corrected Sodium TNP 11/27/16 05:10 Potassium 4.1 mmol/L (3.5-5.1) 11/27/16 05:10 Chloride 106 mmol/L (98-107) 11/27/16 05:10 Carbon Dioxide 24.5 mmol/L (21-32) 11/27/16 05:10 BUN 17 mg/dL (7-18) 11/27/16 05:10 Creatinine 1.06 mg/dL (0.70-1.30) 11/27/16 05:10 Est GFR (MDRD) Af Amer > 60 (>60) 11/27/16 05:10 Est GFR (MDRD) Non-Af > 60 (>60) 11/27/16 05:10 Glucose 93 mg/dL (65-99) 11/27/16 05:10 Calcium 9.1 mg/dL (8.5-10.1) 11/27/16 05:10 Corrected Calcium TNP 11/27/16 05:10 Total Bilirubin 0.40 mg/dL (0.2-1.0) 11/27/16 05:10 AST 22 Units/L (15-37) 11/27/16 05:10 ALT 21 Units/L (12-78) 11/27/16 05:10 Alkaline Phosphatase 77 Units/L (46-116) 11/27/16 05:10 Total Protein 7.7 g/dL (6.4-8.2) 11/27/16 05:10 Albumin 3.6 g/dL (3.4-5.0) 11/27/16 05:10 Globulin 4.1 g/dL (2.5-4.5) 11/27/16 05:10 Albumin/Globulin Ratio 0.9 Ratio (1.1-2.1) L 11/27/16 05:10 Amylase 64 Units/L (25-115) 11/27/16 05:10 Lipase 129 Units/L (73-393) 11/27/16 05:10 Specimen Type Clean catch urine 11/27/16 04:41 Urine Color Yellow (YELLOW) 11/27/16 04:41 Urine Appearance Cloudy (CLEAR) 11/27/16 04:41 Urine pH 5.0 (5.0 - 8.0) 11/27/16 04:41 Ur Specific [place] 1.020 (1.000-1.030) 11/27/16 04:41 Urine Protein 2+ (NEGATIVE) 11/27/16 04:41 Urine Glucose (UA) Negative (NEGATIVE) 11/27/16 04:41 Urine Ketones Negative (NEGATIVE) 11/27/16 04:41 Urine Occult Blood 5+ (NEGATIVE) 11/27/16 04:41 Urine Nitrite Negative (NEGATIVE) 11/27/16 04:41 Urine Bilirubin Negative (NEGATIVE) 11/27/16 04:41 Urine Urobilinogen Normal (NORMAL) 11/27/16 04:41 Ur Leukocyte Esterase 1+ (NEGATIVE) 11/27/16 04:41 Urine RBC Tntc /HPF (NEGATIVE) 11/27/16 04:41 Urine WBC 6-8 /HPF (NEGATIVE) 11/27/16 04:41 Ur Squamous Epith Cells Rare /HPF (NEGATIVE) 11/27/16 04:41 Urine Bacteria 1+ /HPF (NEGATIVE) 11/27/16 04:41 Ur Culture Indicated? Yes/culture set up 11/27/16 04:41 Ethyl Alcohol mg/dL 48 mg/dL (0-19.9) H 11/27/16 05:10 - XRAY XRAY Interpreted by: Radiologist (CT abd/pelv: No evidence for obstructing renal or ureteral calculi; no significant abnormality on unenhanced examination) - Diagnosis Discharge Problem: No evidence of renal or ureteral calculi UTI (urinary tract infection) Qualifiers: Urinary tract infection type: acute cystitis Hematuria presence: with hematuria Qualified Code(s): N30.01 - Acute cystitis with hematuria - Discharge Plan Condition: Stable - Follow ups/Referrals Follow ups/Referrals: JANES KERR [Primary Care Provider] - 3 days - Instructions
[2016-11-27 05:01] LABS: APPEARANCE,URINE CLOUDY (CLEAR); BACTERIA,URINE 1+ /HPF (NEGATIVE); COLOR,URINE YELLOW (YELLOW); RBC,URINE TNTC /HPF (NEGATIVE); SQUAMOUS EPITHELIAL CELL,UR RARE /HPF (NEGATIVE)
[2016-11-27 05:23] LABS: BASOPHILS % (AUTO) 0.5 % (0.2-1.0); EOSINOPHILS # (AUTO) 0.2 x10^3/uL (0.0-0.2); EOSINOPHILS % (AUTO) 5.4 % (0.9-2.9); HEMOGLOBIN 11.6 g/dL (13.5-18.0); LYMPHOCYTES # (AUTO) 0.7 X10^3/uL (1.3-2.9); LYMPHOCYTES % (AUTO) 17.3 % (21.0-51.0); MEAN CORPUSCULAR HEMOGLOBIN 32.1 pg (27.0-34.0); MEAN CORPUSCULAR HGB CONC 34.2 g/dL (33.0-35.0); MEAN CORPUSCULAR VOLUME 93.8 fL (80.0-100.0); MEAN PLATELET VOLUME 7.9 fL (7.4-11.0); MONOCYTES # (AUTO) 0.4 x10^3/uL (0.3-0.8); MONOCYTES % (AUTO) 9.1 % (0.0-13.0); NEUTROPHILS # (AUTO) 2.7 x10^3/uL (2.2-4.8); NEUTROPHILS % (AUTO) 67.7 % (42.0-75.0); PLATELET COUNT 213 X10^3/uL (150.0-450.0); RED BLOOD COUNT 3.62 X10^6/uL (4.7-6.0); RED CELL DISTRIBUTION WIDTH 15.2 % (11.6-16.5); WHITE BLOOD COUNT 4.1 X10^3/uL (3.6-10.0)
[2016-11-27 05:48] LABS: AMYLASE 64 Units/L (25-115); BLOOD ALCOHOL 48 mg/dL (0-19.9); LIPASE 129 Units/L (73-393)
[2016-11-27 05:52] LABS: ALANINE AMINOTRANSFERASE 21 Units/L (12-78); ALBUMIN 3.6 g/dL (3.4-5.0); ALKALINE PHOSPHATASE 77 Units/L (46-116); ASPARTATE AMINO TRANSFERASE 22 Units/L (15-37); BLOOD UREA NITROGEN 17 mg/dL (7-18); CALCIUM 9.1 mg/dL (8.5-10.1); CARBON DIOXIDE 24.5 mmol/L (21-32); CHLORIDE 106 mmol/L (98-107); CREATININE 1.06 mg/dL (0.70-1.30); SODIUM 141 mmol/L (136-145); TOTAL PROTEIN 7.7 g/dL (6.4-8.2); eGFR BLACK RACES > 60 (>60); eGFR NON BLACK RACES > 60 (>60)
[2016-11-27] MEDS ORDERED: MORPHINE SULFATE INJ 4 MG IVP ONE (06:32)
[2016-11-27] MEDS ORDERED: MORPHINE SULFATE INJ 4 MG IM ONE (06:34)
[2016-11-27] MEDS ORDERED: MORPHINE SULFATE INJ 4 MG ONE (06:35)
--- NOTE | 2016-11-27 06:44 | CT ---
HISTORY: Lower abdominal pain, hematuria Study: CT abdomen pelvis without contrast Comparison: March 01, 2013 Technique: Axial non contrast images with coronal and sagittal reformats. Dose reduction procedures w ere used with MA/kv adjusted for body size. Findings: The lung bases are clear. The liver, spleen, adrenal glands, and pancreas are within normal limits to the limitations of an unenhanced examination. No opaque stones are visible within the gallbladder. T here is a CAVAL FILTER present. The kidneys are unobstructed and without stones. No ureteral calculi are identified. No intraperitoneal or retroperitoneal lymphadenopathy of significance is identified. The appendix is not identified with absolute certainty. There are no secondary signs of appendicitis present. There are no findings suggestive of diverticulitis or colitis. Examination of the pelvis dem onstrated no definite evidence for pelvic masses, pelvic fluid, or pelvic lymphadenopathy. No definit e bladder abnormality is identified. The bladder is incompletely distended. No lytic or blastic skele april lesions are identified. IMPRESSION: No evidence for obstructing renal or ureteral calculi. No significant abnormality on unenhanced examination Reported By:
== END 2016-11-27 07:32 | disposition home or self-care (01) ==
LOC: ER 04:07
DX: N30.01 Acute cystitis with hematuria (principal)
CPT/HCPCS: 36415; 74176; 80053; 80320; 81001; 82150; 83690; 85025; 85610; 85730; 87086; 96372; 99282; 99283; G6040; J2270

== ENCOUNTER → 2016-12-06 | Outpatient (CLI) | payer OTHER ==
[2016-11-27 04:22] VITALS: BP 142/72
== END ==
LOC: LAB 09:26
PROVIDERS: ATTEND Obstetrics & Gynecology Obstetrics
DX: I82.409 Acute embolism and thrombosis of unspecified deep veins of unspecified lower extremity (principal)
CPT/HCPCS: 36415; 85610

== ENCOUNTER 2016-12-26 19:15 | Emergency (ER) | payer OTHER ==
[2016-12-26 19:26] VITALS: BMI 25.1
--- NOTE | 2016-12-26 20:42 | DR.GENAD ---
HPI - PCP Primary Care Physician: nfd - Complaint/Symptoms Chief Complaint Doctors Comments: Patient states that he fell when getting out of the shower two days ago. Today he complains of left rib pain Chief Complaint:: left rib pain - Source History Provided: Patient - Mode of Arrival Mode of Arrival: Ambulatory - Timing Onset of Chief Complaint: 12/24/16 PMH - PMH Past Medical History: Yes Past Medical History: Anxiety, Depression, Hypertension Past Medical History Comment: blood clots in legs Past Surgical History: Yes Surgical History: Other Past Surgical History Comment: venous filter - Family History History of Family Medical Conditions: No Family Medical History: Hypertension - Social History Does patient currently use any type of tobacco product: No Have you used tobacco products in the last 12 months: No Type of Tobacco Use: None Alcohol Use: Occasionally Do you use any recreational Drugs:: No Lives With: Spouse Lives Where: Home - infectious screening In the last 2 months have you had wt loss of >10#?: NO Have you had fever, night sweats or hemotysis?: No Have you traveled outside the country in the last 6 months?: No Isolation: Standard ROS - Review of Systems Eyes: No Symptoms Reported ENTM: No Symptoms Reported Respiratoy: No Symptoms Reported Cardiovascular: No Symptoms Reported Gastrointestinal/Abdominal: No Symptoms Reported Genitourinary: No Symptoms Reported Neurological: No Symptoms Reported Musculoskeletal: Rib(s) (left lower rib pain) Integumentary: No Symptoms Reported, Other (ecchymosis of left iliac crest) Hematologic/Lymphatic: No Symptoms Reported Endocrine: No Symptoms Reported Psychiatric: No Symptoms Reported PE - Vital Signs Vitals: Temperature 98.6 F Pulse Rate 76 Respiratory Rate 16 Blood Pressure [Left Arm] 136/66 Blood Pressure [Right Arm] 196/93 Blood Pressure 121/56 O2 Sat by Pulse Oximetry 97 - General Limitations: No Limitations General Appearance: Alert, In No Apparent Distress - Head Head Exam: Normal Inspection, Atraumatic - Eyes Eye exam: Normal Appearance, PERRL, EOMI - ENT ENT Exam: Normal Exam External Ear Exam: Normal External Inspection TM/Canal Exam: Bilateral Normal Nose Exam: Normal Nose Exam Mouth Exam: Normal Inspection Throat Exam: Normal Inspection - Neck Neck Exam: Normal Inspection - Chest Chest Inspection: Normal Inspection - Respiratory Respiratory Exam: Normal Lung Sounds Bilat Respiratory Exam: Bilateral Clear to Auscultation - Cardiovascular Cardiovascular Exam: Regular Rate, Normal Rhythm - Abdominal Exam Abdominal Exam: Normal Inspection, Normal Bowel Sounds Abdominal Tenderness: negative: RUQ, RLQ, LUQ, LLQ, Epigastrium, Suprapubic, Diffuse, Mild, Moderate, Severe, Other - Extremities Extremities Exam: Normal Inspection, Full ROM - Back Back Exam: Normal Inspection, Full ROM - Neurologic Neurological Exam: Alert, Oriented X3, CN II-XII Intact - Psychiatric Psychiatric Exam: Normal Affect, Normal Mood - Skin Skin Exam: Warm, Other (ecchymosis of left lower rib cage and iliac crest) Course - Reevaluation 1st: Improved ROR - XRAY XRAY Interpreted by: Radiologist (Chest/Ribs: nondisplaced left 8th through 11th rib fractures laterally; No acute cardiopulmonary process) - Diagnosis Discharge Problem: Nondisplaced left 8th-11th rib fracture - Discharge Plan Condition: Stable - Follow ups/Referrals Follow ups/Referrals: NFD,None [Primary Care Provider] - 3 days - Instructions
--- NOTE | 2016-12-26 20:55 | RAD ---
HISTORY: Fall with left lower rib pain Study: Single frontal view of the chest and 3 views of the ribs. Comparison: None Findings: The cardiomediastinal silhouette is normal. No focal consolidations, pleural effusions or pneumothora x. Osseous structures demonstrate no acute abnormality. There appear to be acute, minimally displaced fractures of the left lateral 8th through 11th ribs. IMPRESSION: 1. Nondisplaced left 8th through 11th rib fractures laterally. 2. No acute cardiopulmonary process. Reported By:
[2016-12-26] MEDS ORDERED: MORPHINE SULFATE INJ 4 MG IM ONE (21:16)
[2016-12-26] MEDS ORDERED: MORPHINE SULFATE INJ 4 MG ONE (21:17)
[2016-12-26 21:37] VITALS: BP 124/66
== END 2016-12-26 21:35 | disposition home or self-care (01) ==
LOC: ER 19:29
DX: S22.42XA Multiple fractures of ribs, left side, initial encounter for closed fracture (principal); W19.XXXA Unspecified fall, initial encounter; Y92.89 Other specified places as the place of occurrence of the external cause
CPT/HCPCS: 71111; 96372; 99282; J2270

== ENCOUNTER → 2016-12-31 | Outpatient (CLI) | payer OTHER ==
[2016-12-26 21:37] VITALS: BP 124/66
[2016-12-31 08:52] LABS: BASOPHILS % (AUTO) 0.4 % (0.2-1.0); EOSINOPHILS # (AUTO) 0.1 x10^3/uL (0.0-0.2); EOSINOPHILS % (AUTO) 4.8 % (0.9-2.9); HEMATOCRIT 34.3 % (42.0-54.0); HEMOGLOBIN 11.6 g/dL (13.5-18.0); LYMPHOCYTES # (AUTO) 0.6 X10^3/uL (1.3-2.9); MEAN CORPUSCULAR HGB CONC 33.9 g/dL (33.0-35.0); MEAN CORPUSCULAR VOLUME 94.6 fL (80.0-100.0); MEAN PLATELET VOLUME 7.8 fL (7.4-11.0); MONOCYTES # (AUTO) 0.3 x10^3/uL (0.3-0.8); MONOCYTES % (AUTO) 10.7 % (0.0-13.0); NEUTROPHILS # (AUTO) 1.6 x10^3/uL (2.2-4.8); NEUTROPHILS % (AUTO) 61.1 % (42.0-75.0); PLATELET COUNT 157 X10^3/uL (150.0-450.0); RED BLOOD COUNT 3.62 X10^6/uL (4.7-6.0); RED CELL DISTRIBUTION WIDTH 16.6 % (11.6-16.5); WHITE BLOOD COUNT 2.7 X10^3/uL (3.6-10.0)
[2016-12-31 09:07] LABS: ALANINE AMINOTRANSFERASE 52 Units/L (12-78); ALBUMIN 3.6 g/dL (3.4-5.0); ALKALINE PHOSPHATASE 75 Units/L (46-116); ASPARTATE AMINO TRANSFERASE 101 Units/L (15-37); BLOOD UREA NITROGEN 10 mg/dL (7-18); CALCIUM 8.4 mg/dL (8.5-10.1); CARBON DIOXIDE 27.7 mmol/L (21-32); CHLORIDE 103 mmol/L (98-107); CHOLESTEROL 222 mg/dL (0-200); CREATININE 1.08 mg/dL (0.70-1.30); HDL CHOLESTEROL > 150 mg/dL (40-60); SODIUM 138 mmol/L (136-145); TOTAL PROTEIN 7.5 g/dL (6.4-8.2); TRIGLYCERIDES 37 mg/dL (0-150); eGFR BLACK RACES > 60 (>60); eGFR NON BLACK RACES > 60 (>60)
[2016-12-31 09:41] LABS: TOTAL PSA 0.61 ng/mL (0.13-4.0)
--- NOTE | 2016-12-31 09:45 | RAD ---
HISTORY: Knee pain Study: Right knee series Comparison: None Findings: There is mild joint space narrowing in the knee with minimal osteophytes. No fracture or dislocation is seen. There is moderate narrowing of the patellofemoral joint with mild osteophytes. There is a sm all suprapatellar effusion. No calcifications are seen in the joint and the bones are well mineralize d. IMPRESSION: Mild osteoarthritic changes in the knee and a small suprapatellar effusion with no acute bony abnorma lity. Reported By:
--- NOTE | 2016-12-31 10:13 | RAD ---
History: Hip and knee pain Study: Hips bilateral Findings: Supine views of the pelvis in neutral and frog leg positions are performed. There are no pr evious studies for comparative purposes. Within the inner trochanteric region of the right femur is a 5.1 by 4.6 cm lesion with thin peripheral calcification. This may represent an enchondroma consideri ng calcification of the internal matrix as well. The hip joints are symmetric and in appearance with minimal spurring from the femoral necks. The SI joints appear unremarkable. No fracture or bony destr uctive process is seen. Impression: Mild osteoarthrosis of both hips. Probable enchondroma proximal right femur. Reported By:
--- NOTE | 2016-12-31 10:21 | RAD ---
HISTORY: Left knee pain Study: Three views of the left knee Comparison: None Findings: Images demonstrate tricompartment space narrowing. Spurring is seen along the medial tibial plateau. Spurring is also demonstrated along the superior and posterior margins of the patella. No evidence of acute displaced fracture or dislocation is identified. IMPRESSION: 1. Degenerative changes as noted above. Reported By:
== END | disposition home or self-care (01) ==
LOC: LAB 08:06
PROVIDERS: ATTEND Nurse Practitioner Family
DX: Z51.81 Encounter for therapeutic drug level monitoring (principal); I10 Essential (primary) hypertension; E78.4 Other hyperlipidemia; Z12.5 Encounter for screening for malignant neoplasm of prostate; M25.561 Pain in right knee; M25.562 Pain in left knee; M25.551 Pain in right hip; M25.552 Pain in left hip; M16.0 Bilateral primary osteoarthritis of hip; M25.461 Effusion, right knee; M17.0 Bilateral primary osteoarthritis of knee; R35.0 Frequency of micturition
CPT/HCPCS: 36415; 73521; 73560; 80053; 80061; 84153; 85025; 85610

== ENCOUNTER → 2017-02-04 | Outpatient (CLI) | payer OTHER ==
[2017-02-07 06:37] LABS: VITAMIN D 25 OH 29 ng/mL (30-80)
== END ==
LOC: LAB 12:33
PROVIDERS: ATTEND Nurse Practitioner Family
DX: D53.8 Other specified nutritional anemias (principal)
CPT/HCPCS: 36415; 82306; 82607; 82728; 82746; 83540; 83550; 83918; 84466

== ENCOUNTER 2017-02-05 10:48 | Emergency (ER) | payer OTHER ==
[2017-02-05 10:54] VITALS: BP 154/73
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
[2017-02-05 12:12] LABS: BILIRUBIN,URINE NEGATIVE (NEGATIVE); BLOOD/HEMOGLOBIN,URINE 1+ (NEGATIVE); GLUCOSE, URINE NEGATIVE (NEGATIVE); KETONES,URINE NEGATIVE (NEGATIVE); LEUKOCYTE ESTERASE ,URINE NEGATIVE (NEGATIVE); NITRITES,URINE NEGATIVE (NEGATIVE); PROTEIN,URINE NEGATIVE (NEGATIVE); UROBILINOGEN,URINE NORMAL (NORMAL)
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
[2017-02-05 12:23] LABS: APPEARANCE,URINE CLEAR (CLEAR); BACTERIA,URINE NEGATIVE /HPF (NEGATIVE); COLOR,URINE YELLOW (YELLOW); RBC,URINE NONE SEEN /HPF (NEGATIVE); SQUAMOUS EPITHELIAL CELL,UR RARE /HPF (NEGATIVE)
[2017-02-05 12:24] LABS: AMORPHOUS SEDIMENT,UR TRACE /HPF (NEGATIVE); WHITE BLOOD CELL CASTS, URINE FEW /LPF (NEGATIVE)
[2017-02-05] MEDS ORDERED: TORADOL 60 MG VIAL IM ONE (12:35)
[2017-02-05] MEDS ORDERED: TORADOL 60 MG VIAL ONE (12:39)
[2017-02-05] MEDS ORDERED: XYLOCAINE 2 % (PLAIN) ONE (12:58)
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
== END 2017-02-05 14:30 | disposition home or self-care (01) ==
LOC: ER 10:50
PROC: 0WQ00ZZ Repair Head, Open Approach (ICD-10-PCS; principal; 2017-02-05)
DX: S01.91XA Laceration without foreign body of unspecified part of head, initial encounter (principal); S43.409A Unspecified sprain of unspecified shoulder joint, initial encounter; R51 Headache; M54.2 Cervicalgia; X58.XXXA Exposure to other specified factors, initial encounter; Y92.9 Unspecified place or not applicable
CPT/HCPCS: 70450; 72125; 73030; 81001; 96372; 99282; 99283; J1885; J2001

== ENCOUNTER 2017-02-13 08:46 | Outpatient (CLI) | payer OTHER ==
[2017-02-13 10:11] VITALS: BMI 28.1
--- NOTE | 2017-02-13 10:54 | VAS ---
HISTORY: Right calf pain. Study: Right lower extremity venous Doppler Comparison: October 27, 2016. TECHNIQUE: Real-time dynamic grayscale, color flow and complete spectral Doppler ultrasound examinat ion of the major deep venous structures were obtained of the right lower extremity. FINDINGS: Right lower extremity: Real-time examination shows occlusive thrombus within the common femoral, sup erficial femoral, and popliteal veins. There is poor compressibility throughout. Color flow imaging s hows no venous blood flow within the major vessels. Doppler examination shows absent venous waveforms . IMPRESSION: 1. Abnormal right lower extremity venous Doppler, with occlusive DVT identified from the common femo ral to popliteal veins. Reported By:
--- NOTE | 2017-02-17 09:32 | US ---
HISTORY: Abnormal LFTs Study: Liver ultrasound: Multiplanar ultrasonographic examination of the right upper abdominal quad rant was performed. Comparison: CT of the abdomen and pelvis from 03/01/2013 Findings: The liver is of normal size and echotexture. Mild fatty infiltration of the liver is noted. No evid ence of intrahepatic biliary duct dilatation is noted. The gallbladder shows no evidence of gallston es, pericholecystic fluid or gallbladder wall thickening. The common bile duct is normal at 1.9 mm. The right kidney is of normal size, echogenicity and echotexture measuring 10.4 cm in length by 5.6 by 5.3 cm. The pancreas nonvisualized. IMPRESSION: 1. Mild fatty infiltration of the liver. 2. Otherwise , negative right upper quadrant ultrasound. Reported By:
== END 2017-02-13 10:10 | disposition home or self-care (01) ==
LOC: RAD 08:46
PROVIDERS: ATTEND Nurse Practitioner Family
DX: M79.661 Pain in right lower leg (principal); R74.8 Abnormal levels of other serum enzymes; I82.491 Acute embolism and thrombosis of other specified deep vein of right lower extremity
CPT/HCPCS: 76705; 93971

== ENCOUNTER 2017-02-13 13:50 | Observation (INO) | payer OTHER ==
[2017-02-13 16:44] VITALS: BMI 24.3
--- NOTE | 2017-02-13 17:01 | RAD ---
Examination: AP chest History: SOB Comparison reference 10/24/2016. Findings: Continued normal heart size with clear lungs and pleural spaces. Impression: No change; no acute disease. Reported By:
[2017-02-13 17:19] LABS: BASOPHILS % (AUTO) 0.5 % (0.2-1.0); EOSINOPHILS % (AUTO) 0.9 % (0.9-2.9); HEMATOCRIT 38.4 % (42.0-54.0); LYMPHOCYTES # (AUTO) 0.7 X10^3/uL (1.3-2.9); LYMPHOCYTES % (AUTO) 14.6 % (21.0-51.0); MEAN CORPUSCULAR HEMOGLOBIN 32.7 pg (27.0-34.0); MEAN CORPUSCULAR HGB CONC 33.8 g/dL (33.0-35.0); MEAN CORPUSCULAR VOLUME 96.8 fL (80.0-100.0); MEAN PLATELET VOLUME 7.9 fL (7.4-11.0); MONOCYTES # (AUTO) 0.3 x10^3/uL (0.3-0.8); MONOCYTES % (AUTO) 6.3 % (0.0-13.0); NEUTROPHILS # (AUTO) 3.8 x10^3/uL (2.2-4.8); NEUTROPHILS % (AUTO) 77.7 % (42.0-75.0); PLATELET COUNT 297 X10^3/uL (150.0-450.0); RED BLOOD COUNT 3.97 X10^6/uL (4.7-6.0); RED CELL DISTRIBUTION WIDTH 16.5 % (11.6-16.5); WHITE BLOOD COUNT 4.9 X10^3/uL (3.6-10.0)
[2017-02-13 17:31] LABS: ALANINE AMINOTRANSFERASE 29 Units/L (12-78); ALBUMIN 4.1 g/dL (3.4-5.0); ALKALINE PHOSPHATASE 76 Units/L (46-116); ASPARTATE AMINO TRANSFERASE 37 Units/L (15-37); BLOOD UREA NITROGEN 11 mg/dL (7-18); CALCIUM 8.5 mg/dL (8.5-10.1); CARBON DIOXIDE 25.8 mmol/L (21-32); CHLORIDE 102 mmol/L (98-107); SODIUM 141 mmol/L (136-145); TOTAL PROTEIN 8.6 g/dL (6.4-8.2); eGFR BLACK RACES > 60 (>60); eGFR NON BLACK RACES > 60 (>60)
[2017-02-13] MEDS: LOVENOX INJ 80 MG SYR SC SCH (17:40)
[2017-02-13] MEDS: NS 1000 ML 1,000 ML IV SCH (17:41)
[2017-02-14] MEDS: NS 1000 ML 1,000 ML IV SCH ×2 (05:51→17:21)
[2017-02-14 06:10] LABS: BASOPHILS % (AUTO) 0.3 % (0.2-1.0); EOSINOPHILS # (AUTO) 0.1 x10^3/uL (0.0-0.2); EOSINOPHILS % (AUTO) 2.1 % (0.9-2.9); HEMATOCRIT 33.8 % (42.0-54.0); HEMOGLOBIN 11.4 g/dL (13.5-18.0); LYMPHOCYTES # (AUTO) 0.8 X10^3/uL (1.3-2.9); LYMPHOCYTES % (AUTO) 14.4 % (21.0-51.0); MEAN CORPUSCULAR HEMOGLOBIN 32.5 pg (27.0-34.0); MEAN CORPUSCULAR HGB CONC 33.9 g/dL (33.0-35.0); MEAN CORPUSCULAR VOLUME 95.9 fL (80.0-100.0); MEAN PLATELET VOLUME 7.9 fL (7.4-11.0); MONOCYTES # (AUTO) 0.4 x10^3/uL (0.3-0.8); MONOCYTES % (AUTO) 7.5 % (0.0-13.0); NEUTROPHILS % (AUTO) 75.7 % (42.0-75.0); PLATELET COUNT 248 X10^3/uL (150.0-450.0); RED BLOOD COUNT 3.52 X10^6/uL (4.7-6.0); RED CELL DISTRIBUTION WIDTH 16.1 % (11.6-16.5); WHITE BLOOD COUNT 5.3 X10^3/uL (3.6-10.0)
[2017-02-14 06:17] LABS: ALANINE AMINOTRANSFERASE 26 Units/L (12-78); ALKALINE PHOSPHATASE 61 Units/L (46-116); ASPARTATE AMINO TRANSFERASE 29 Units/L (15-37); BLOOD UREA NITROGEN 9 mg/dL (7-18); CALCIUM 7.9 mg/dL (8.5-10.1); CARBON DIOXIDE 25.1 mmol/L (21-32); CHLORIDE 111 mmol/L (98-107); COR CA(FOR HYPOALB) 8.7 mg/dL (8.5-10.1); CREATININE 0.91 mg/dL (0.70-1.30); SODIUM 147 mmol/L (136-145); TOTAL PROTEIN 6.9 g/dL (6.4-8.2); eGFR BLACK RACES > 60 (>60); eGFR NON BLACK RACES > 60 (>60)
[2017-02-14] MEDS: LOVENOX INJ 80 MG SYR SC SCH ×3 (09:00→22:18)
[2017-02-14] MEDS: COZAAR PO SCH (10:09)
[2017-02-14] MEDS: NORVASC TAB 5 MG PO SCH (10:09)
[2017-02-14] MEDS: XANAX PO SCH ×2 (10:38→22:14)
[2017-02-14] MEDS: PERCOCET TAB 5/325 MG PO PRN ×3 (10:38→22:14)
--- NOTE | 2017-02-14 11:06 | DR.H&P ---
H&P - History & Physical for Day of: H&P Date: 02/13/17 - Chief Complaint Chief Complaint: RLE PAIN AND SWELLING, DVT - Allergies Allergies/Adverse Reactions: Allergies Allergy/AdvReac Type Severity Reaction Status Date / Time No Known Drug Allergies Allergy Verified 02/05/17 10:49 - History of Present Illness History of Present Illness: IS A 66 YEAR OLD PATIENT OF OURS WHO IS A DIRECT ADMISSION FOR A RIGHT LOWER EXTREMITY DVT, CONFIRMED BY A VENOUS DOPPLER YESTERDAY. HE PRESENTED WITH COMPLAINTS OF RIGHT LOWER EXTREMITY PAIN AND SWELLING AND SHORTNESS OF BREATH. PATIENT HAS A KNOWN HISTORY OF DEEP VEIN THROMBOSIS, FOR WHICH HE IS PRESCRIBED COUMADIN. PATIENT WAS SENT FOR AN OUTPATIENT VENOUS DOPPLER WHICH REPORTED ABNORMAL RIGHT LOWER EXTREMITY VENOUS DOPPLER, WITH OCCLUSIVE DVT IDENTIFIED FROM THE COMMON FEMORAL TO POPLITEAL VEINS. WE PLANNED TO ADMIT PATIENT TO THE HOSPITAL FOR FURTHER EVALUATION AND TREATMENT. HE WAS STARTED ON LOVENOX 80MG SC BID. ON ARRIVAL TO THE FLOOR, PATIENTS VITAL SIGNS WERE 97.6-63-18-98%-150/77. LABS AND CHEST XRAY WERE OBTAINED. ABNORMAL LAB VALUES INCLUDE THE FOLLOWING: RBC 3.52, HGB 11.4, HCT 33.8, INR 3.60, TOTAL PROTEIN 8.6, A/G RATIO 0.9. CHEST XRAY REPORTED NO ACUTE CARDIOPULMONARY DISEASE. WE PLAN TO FOLLOW UP WITH AM LABS AND CONTINUE TO MONITOR PATIENT. - Past Medical History Past Medical History: Anxiety, Depression, Hypertension Additional Medical History: Hx Umbilical Hernia, DVTs. - Past Surgical History Surgical History: Other - Family History Family Medical History: Hypertension - Social History Does patient currently use any type of tobacco product: No Have you used tobacco products in the last 12 months: No Alcohol Use: DAILY Drug Use: None - Review of Systems Constitutional: No Symptoms Reported. denies: See HPI, Fever, Chills, Sweats, Weakness, Malaise, Other Eyes: No Symptoms Reported. denies: See HPI, Pain, Vision Change, Conjunctivae Inflammation, Eyelid Inflammation, Redness, Other ENT: No Symptoms Reported. denies: See HPI, Ear Pain, Ear Discharge, Nose Pain , Nose Discharge, Nose Congestion, Mouth Pain, Mouth Swelling, Throat Pain, Throat Swelling, Other Respiratory: Shortness of Breath Cardiovascular: Edema Gastrointestinal: No Symptoms Reported. denies: See HPI, Nausea, Vomiting, Abdominal Pain, Diarrhea, Constipation, Melena, Hematochezia, Other Genitourinary: No Symptoms Reported. denies: See HPI, Dysuria, Frequency, Incontinence, Hematuria, Retention, Other Musculoskeletal: Leg Pain (RIGHT LOWER EXTREMITY PAIN ) Skin: No Symptoms Reported. denies: See HPI, Rash, Lesions, Jaundice, Bruising , Wound, Ecchymosis, Other Neurological: No Symptoms Reported. denies: See HPI, Weakness, Numbness, Incoordination, Change in Speech, Confusion, Seizures, Other - Physical Exam Vital Signs: Temperature 100.1 F Pulse Rate [Right Radial] 68 Respiratory Rate 20 Blood Pressure [Left Arm] 136/66 Blood Pressure [Right Arm] 144/76 Blood Pressure 154/73 O2 Sat by Pulse Oximetry 97 Oriented: Normal Eyes: Normal. negative: Blurred Vision, Diplopia, Discharge, Pain, Redness, Photophobia, Other Ear: Normal. negative: Right, Left, Swelling, Ecchymosis, Hemotypanum, Abrasion , Laceration Nose: Normal. negative: Injected, Discharge, Blood, Other Throat: Normal. negative: Tonsillar Hypertrophy, Red, Exudate, Dry, Other Respiratory: Diminished Throughout. negative: Clear Throughout, Rhonchi Throughout, Rales Throughout, Wheezes Throughout, RUL Clear, RML Clear, RLL Clear, PAMELA Clear, LML Clear, LLL Clear, RUL Diminished, RML Diminished, RLL Diminished, PAMELA Diminished, LML Diminished, LLL Diminished, RUL Absent, RML Absent, RLL Absent, PAMELA Absent, LML Absent, LLL Absent, RUL Rhonchi, RML Rhonchi , RLL Rhonchi, PAMELA Rhonchi, LML Rhonchi, LLL Rhonchi, RUL Insp. Wheeze, RML Insp. Wheeze, RLL Insp. Wheeze, PAMELA Insp.Wheeze, LML Insp.Wheeze, LLL Insp.Wheeze, RUL Exp. Wheeze, RML Exp. Wheeze, RLL Exp. Wheeze, PAMELA Exp. Wheeze , LML Exp. Wheeze, LLL Exp. Wheeze, RUL Rales, RML Rales, RLL Rales, PAMELA Rales, LML Rales, LLL Rales, RUL Rub, RML Rub, RLL Rub, PAMELA Rub, LML Rub, LLL Rub, RUL Squeak, RML Squeak, RLL Squeak, PAMELA Squeak, LML Squeak, LLL Squeak Cardiovascular: Normal : Normal. negative: Dysuria, Hematuria, Frequency, Discharge, Testicular Pain , Bleeding, , Other Auscultation: Bowel Sounds: Normal. negative: Bruit, Absent, Increased, Decreased, High Pitched, Other Palpation: Normal. negative: Spleen Enlarged, Liver Enlarged, Mass Pulsatile, Other Tenderness: Normal. negative: Rebound, Guarding, Rigidity Skin: Normal Musculoskeletal: Right, Leg, Swelling, Tender Psychiatric: Normal Mood Description: Calm Affect: Normal Speech Pattern: Clear - Assessment/Plan (1) DVT (deep venous thrombosis) Qualifiers: DVT location: lower extremity Affected thrombotic vein of extremity: other lower extremity vein Chronicity: acute Laterality: right Qualified Code(s) : I82.491 - Acute embolism and thrombosis of other specified deep vein of right lower extremity Status: Acute Plan: LOVENOX 80MG SC BID, CONTINUE TO MONITOR
[2017-02-14] MEDS: XANAX PO PRN (16:43)
--- NOTE | 2017-02-14 22:35 | PCM.PROG ---
Progress Note - Progress Note for Day of Date: 02/14/17 - Subjective Subjective: WAS ADMITTED FOR RLE DVT. TODAY, HE IS ALERT AND ORIENTED , LYING IN BED ON MORNING ROUNDS. HE IS NOTED WITH COMPLAINTS OF RLE PAIN AND SWELLING. HE ALSO COMPLAINS OF ANXIETY AND RESTLESSNESS. ON EXAMINATION, PUPILS PERRL. HEART REGULAR IN RATE AND RHYTHM. LUNG SOUNDS ARE DIMINISHED THROUGHOUT. HE IS NOTED TO BE UTILIZING OXYGEN VIA NASAL CANNULA AT THIS TIME. ABDOMEN IS ROUND, SOFT, AND NON-TENDER WITH NORMAL BOWEL SOUNDS NOTED IN ALL QUADRANTS. RIGHT LOWER EXTREMITY IS NOTED WITH REDNESS AND EDEMA. PATIENT COMPLAINS OF TENDERNESS WHEN PALPATED. THERE IS GOOD MOVEMENT NOTED IN ALL EXTREMITIES. HIS VITAL SIGNS THIS MORNING ARE 100.1, 68,20-97%-144/76. ABNORMAL LAB VALUES INCLUDE THE FOLLOWING: RBC 3.52, HGB 1.4, HCT 33.8, INR 3.60, SODIUM 147, CHLORIDE 111, CALCIUM 7.9, TOTAL BILI 0.10, ALBUMIN 3.0. TODAY, WE WILL START XANAX 0.5 MG FOR ANXIETY AND PERCOCET 5/325MG PRN FOR PAIN. HE REPORTS A HISTORY OF PULMONARY EMBOLISM. WE WILL OBTAIN A CHEST CT WITH CONTRAST IN THE MORNING TO RULE OUT PE. OTHERWISE, WE WILL CONTINUE WITH CURRENT PLAN OF CARE. WE PLAN TO FOLLOW UP WITH AM LABS AND CONTINUE TO MONITOR PATIENT. - Past Medical Family Social History Past Med/Fam/Surg Hx: No changes since H&P Allergies: Allergies No Known Drug Allergies Allergy (Verified 02/05/17 10:49) - Review of Systems ROS: No change since H&P - Vital Signs and I&O's Vital Signs: Temperature 98.2 F Pulse Rate [Right Radial] 65 Respiratory Rate 20 Blood Pressure [Left Arm] 136/66 Blood Pressure [Right Arm] 121/63 Blood Pressure 154/73 O2 Sat by Pulse Oximetry 98 Intake and Output: Intake & Output 02/12/17 02/13/17 02/14/17 02/15/17 11:59 11:59 11:59 11:59 Intake Total 511 1582 Output Total 350 1200 Balance 161 382 - Physical Exam Oriented: Normal Eyes: Normal. negative: Blurred Vision, Diplopia, Discharge, Pain, Redness, Photophobia, Other Ear: Normal. negative: Right, Left, Swelling, Ecchymosis, Hemotypanum, Abrasion , Laceration Nose: Normal. negative: Injected, Discharge, Blood, Other Throat: Normal. negative: Tonsillar Hypertrophy, Red, Exudate, Dry, Other Respiratory: Right, Left, Generalized, Diminished Cardiovascular: Normal : Normal. negative: Dysuria, Hematuria, Frequency, Discharge, Testicular Pain , Bleeding, , Other Auscultation: Bowel Sounds: Normal. negative: Bruit, Absent, Increased, Decreased, High Pitched, Other Palpation: Normal Tenderness: Normal. negative: Rebound, Guarding, Rigidity Skin: Normal Musculoskeletal: Right, Leg, Swelling, Tender Psychiatric: Normal Mood Description: Calm Affect: Normal Speech Pattern: Clear, Appropriate - Laboratory and Diagnostics Result Diagrams: 02/14/17 05:55 02/14/17 05:55 Labs: Laboratory WBC 5.3 X10^3/uL (3.6-10.0) 02/14/17 05:55 RBC 3.52 X10^6/uL (4.7-6.0) L 02/14/17 05:55 Hgb 11.4 g/dL (13.5-18.0) L 02/14/17 05:55 Hct 33.8 % (42.0-54.0) L 02/14/17 05:55 MCV 95.9 fL (80.0-100.0) 02/14/17 05:55 MCH 32.5 pg (27.0-34.0) 02/14/17 05:55 MCHC 33.9 g/dL (33.0-35.0) 02/14/17 05:55 RDW 16.1 % (11.6-16.5) 02/14/17 05:55 Plt Count 248 X10^3/uL (150.0-450.0) 02/14/17 05:55 MPV 7.9 fL (7.4-11.0) 02/14/17 05:55 Neut % 75.7 % (42.0-75.0) H 02/14/17 05:55 Lymph % 14.4 % (21.0-51.0) L 02/14/17 05:55 [place] % 7.5 % (0.0-13.0) 02/14/17 05:55 Eos % 2.1 % (0.9-2.9) 02/14/17 05:55 Baso % 0.3 % (0.2-1.0) 02/14/17 05:55 Neut # 4.0 x10^3/uL (2.2-4.8) 02/14/17 05:55 Lymph # 0.8 X10^3/uL (1.3-2.9) L 02/14/17 05:55 [place] # 0.4 x10^3/uL (0.3-0.8) 02/14/17 05:55 Eos # 0.1 x10^3/uL (0.0-0.2) 02/14/17 05:55 Baso # 0.0 X10^3/uL (0.0-0.1) 02/14/17 05:55 Absolute Nucleated RBC 0.1 /100WBC 02/14/17 05:55 INR Target Range - 02/14/17 05:55 INR 3.60 (0.8-1.3) H 02/14/17 05:55 Sodium 147 mmol/L (136-145) H 02/14/17 05:55 Corrected Sodium TNP 02/14/17 05:55 Potassium 3.7 mmol/L (3.5-5.1) 02/14/17 05:55 Chloride 111 mmol/L (98-107) H 02/14/17 05:55 Carbon Dioxide 25.1 mmol/L (21-32) 02/14/17 05:55 BUN 9 mg/dL (7-18) 02/14/17 05:55 Creatinine 0.91 mg/dL (0.70-1.30) 02/14/17 05:55 Est GFR (MDRD) Af Amer > 60 (>60) 02/14/17 05:55 Est GFR (MDRD) Non-Af > 60 (>60) 02/14/17 05:55 Glucose 94 mg/dL (65-99) 02/14/17 05:55 Calcium 7.9 mg/dL (8.5-10.1) L 02/14/17 05:55 Corrected Calcium 8.7 mg/dL (8.5-10.1) 02/14/17 05:55 Total Bilirubin 0.10 mg/dL (0.2-1.0) L 02/14/17 05:55 AST 29 Units/L (15-37) 02/14/17 05:55 ALT 26 Units/L (12-78) 02/14/17 05:55 Alkaline Phosphatase 61 Units/L (46-116) 02/14/17 05:55 Total Protein 6.9 g/dL (6.4-8.2) 02/14/17 05:55 Albumin 3.0 g/dL (3.4-5.0) L 02/14/17 05:55 Globulin 3.9 g/dL (2.5-4.5) 02/14/17 05:55 Albumin/Globulin Ratio 0.8 Ratio (1.1-2.1) L 02/14/17 05:55 - Plan (1) DVT (deep venous thrombosis) Status: Acute Qualifiers: DVT location: lower extremity Affected thrombotic vein of extremity: other lower extremity vein Chronicity: acute Laterality: right Qualified Code(s) : I82.491 - Acute embolism and thrombosis of other specified deep vein of right lower extremity Plan: LOVENOX 80MG SC BID, CONTINUE TO MONITOR
[2017-02-15 05:49] LABS: ALANINE AMINOTRANSFERASE 21 Units/L (12-78); ALBUMIN 2.7 g/dL (3.4-5.0); ALKALINE PHOSPHATASE 60 Units/L (46-116); ASPARTATE AMINO TRANSFERASE 18 Units/L (15-37); BLOOD UREA NITROGEN 14 mg/dL (7-18); CALCIUM 7.9 mg/dL (8.5-10.1); CARBON DIOXIDE 26.8 mmol/L (21-32); CHLORIDE 111 mmol/L (98-107); COR CA(FOR HYPOALB) 8.9 mg/dL (8.5-10.1); CREATININE 1.01 mg/dL (0.70-1.30); SODIUM 145 mmol/L (136-145); TOTAL PROTEIN 6.1 g/dL (6.4-8.2); eGFR BLACK RACES > 60 (>60); eGFR NON BLACK RACES > 60 (>60)
[2017-02-15] MEDS: NS 1000 ML 1,000 ML IV SCH ×3 (05:52→20:25)
[2017-02-15] MEDS: PERCOCET TAB 5/325 MG PO PRN ×3 (05:52→18:36)
[2017-02-15] MEDS: XANAX PO PRN ×2 (05:52→15:12)
[2017-02-15 06:10] LABS: BASOPHILS % (AUTO) 0.2 % (0.2-1.0); EOSINOPHILS # (AUTO) 0.1 x10^3/uL (0.0-0.2); EOSINOPHILS % (AUTO) 2.2 % (0.9-2.9); HEMATOCRIT 31.9 % (42.0-54.0); HEMOGLOBIN 10.8 g/dL (13.5-18.0); LYMPHOCYTES # (AUTO) 0.9 X10^3/uL (1.3-2.9); LYMPHOCYTES % (AUTO) 18.8 % (21.0-51.0); MEAN CORPUSCULAR HEMOGLOBIN 33.1 pg (27.0-34.0); MEAN CORPUSCULAR HGB CONC 33.9 g/dL (33.0-35.0); MEAN CORPUSCULAR VOLUME 97.5 fL (80.0-100.0); MEAN PLATELET VOLUME 8.6 fL (7.4-11.0); MONOCYTES # (AUTO) 0.5 x10^3/uL (0.3-0.8); MONOCYTES % (AUTO) 10.5 % (0.0-13.0); NEUTROPHILS # (AUTO) 3.3 x10^3/uL (2.2-4.8); NEUTROPHILS % (AUTO) 68.3 % (42.0-75.0); PLATELET COUNT 219 X10^3/uL (150.0-450.0); RED BLOOD COUNT 3.27 X10^6/uL (4.7-6.0); RED CELL DISTRIBUTION WIDTH 16.2 % (11.6-16.5); WHITE BLOOD COUNT 4.8 X10^3/uL (3.6-10.0)
--- NOTE | 2017-02-15 06:44 | CT ---
CT angiogram chest with contrast Indication: History of pulmonary thromboembolus. Dyspnea. Comparison: 10/24/2016 CT chest Technique: Helical images through the chest after IV contrast per protocol. Coronal and sagittal refo rmats provided. Findings: Limited images through the upper abdomen show no acute abnormality. IVC filter is in place. Review of bone windows shows no destructive osseous lesion. Chest: Aortic arch and branch vessels are patent. Heart size is normal. Pulmonary artery bolus timing is adequate. Previous right lower lung segmental pulmonary thromboembolic filling defect has resolve d. Left lower lobe pulmonary artery filling defects have resolved. Minimal dependent atelectasis note d. There is no pneumothorax, effusion or consolidation. Impression: 1. Interval resolution of the bilateral lower lung pulmonary artery filling defects Two. No other acute abnormality seen. Reported By:
[2017-02-15] MEDS: COZAAR PO SCH (10:08)
[2017-02-15] MEDS: NORVASC TAB 5 MG PO SCH (10:08)
[2017-02-15] MEDS: LOVENOX INJ 80 MG SYR SC SCH ×3 (10:08→20:20)
[2017-02-15] MEDS: XANAX PO SCH ×3 (10:10→20:21)
[2017-02-16] MEDS: PERCOCET TAB 5/325 MG PO PRN ×2 (00:30→06:20)
[2017-02-16] MEDS: XANAX PO PRN ×2 (00:31→06:20)
--- NOTE | 2017-02-16 01:30 | PCM.PROG ---
Progress Note - Progress Note for Day of Date: 02/15/17 - Subjective Subjective: WAS ADMITTED FOR RLE DVT. TODAY, HE IS ALERT AND ORIENTED , LYING IN BED ON MORNING ROUNDS. HE CONTINUES WITH COMPLAINTS OF MODERATE RLE PAIN AND SWELLING. HE ALSO COMPLAINS OF ANXIETY AND RESTLESSNESS. ON EXAMINATION , PUPILS PERRL. HEART REGULAR IN RATE AND RHYTHM. LUNG SOUNDS ARE DIMINISHED THROUGHOUT. HE IS NOTED TO BE UTILIZING OXYGEN VIA NASAL CANNULA AT THIS TIME. ABDOMEN IS ROUND, SOFT, AND NON-TENDER WITH NORMAL BOWEL SOUNDS NOTED IN ALL QUADRANTS. RIGHT LOWER EXTREMITY IS NOTED WITH REDNESS AND EDEMA. PATIENT COMPLAINS OF MODERATE TENDERNESS WHEN PALPATED. THERE IS GOOD MOVEMENT NOTED IN ALL EXTREMITIES. HIS VITAL SIGNS THIS MORNING ARE 97.8-51-18-98%-133/77. HE REMAINS HEMODYNAMICALLY STABLE TODAY. INR IS WITHIN NORMAL RANGE AT 2.86. WE OBTAINED A CHEST CT WITH CONTRAST THIS MORNING TO RULE OUT PE DUE TO A KNOWN HISTORY OF PEs. 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 NO OTHER ACUTE ABNORMALITY SEEN. MINIMAL DEPENDENT ATELECTASIS NOTED. WE WILL CONTINUE WITH CURRENT PLAN OF CARE TODAY. WE PLAN TO FOLLOW UP WITH AM LABS AND CONTINUE TO MONITOR PATIENT. - Past Medical Family Social History Past Med/Fam/Surg Hx: No changes since H&P Allergies: Allergies No Known Drug Allergies Allergy (Verified 02/05/17 10:49) - Review of Systems ROS: No change since H&P - Vital Signs and I&O's Vital Signs: Temperature 97.9 F Pulse Rate [Left Brachial] 64 Pulse Rate [Right Radial] 57 Respiratory Rate 20 Blood Pressure [Left Arm] 141/67 Blood Pressure [Right Arm] 137/77 Blood Pressure 154/73 O2 Sat by Pulse Oximetry 98 Intake and Output: Intake & Output 02/13/17 02/14/17 02/15/17 02/16/17 11:59 11:59 11:59 11:59 Intake Total 511 3662 3973 Output Total 350 1200 1545 Balance 161 1222 2428 - Physical Exam Oriented: Normal Eyes: Normal. negative: Blurred Vision, Diplopia, Discharge, Pain, Redness, Photophobia, Other Ear: Normal. negative: Right, Left, Swelling, Ecchymosis, Hemotypanum, Abrasion , Laceration Nose: Normal. negative: Injected, Discharge, Blood, Other Throat: Normal. negative: Tonsillar Hypertrophy, Red, Exudate, Dry, Other Respiratory: Right, Left, Generalized, Diminished Cardiovascular: Normal : Normal. negative: Dysuria, Hematuria, Frequency, Discharge, Testicular Pain , Bleeding, , Other Auscultation: Bowel Sounds: Normal. negative: Bruit, Absent, Increased, Decreased, High Pitched, Other Palpation: Normal Tenderness: Normal. negative: Rebound, Guarding, Rigidity Skin: Normal Musculoskeletal: Right, Leg, Swelling, Tender Psychiatric: Normal Mood Description: Calm Affect: Normal Speech Pattern: Clear, Appropriate - Laboratory and Diagnostics Result Diagrams: 02/15/17 04:20 02/15/17 04:20 Labs: Laboratory WBC 4.8 X10^3/uL (3.6-10.0) 02/15/17 04:20 RBC 3.27 X10^6/uL (4.7-6.0) L 02/15/17 04:20 Hgb 10.8 g/dL (13.5-18.0) L 02/15/17 04:20 Hct 31.9 % (42.0-54.0) L 02/15/17 04:20 MCV 97.5 fL (80.0-100.0) 02/15/17 04:20 MCH 33.1 pg (27.0-34.0) 02/15/17 04:20 MCHC 33.9 g/dL (33.0-35.0) 02/15/17 04:20 RDW 16.2 % (11.6-16.5) 02/15/17 04:20 Plt Count 219 X10^3/uL (150.0-450.0) 02/15/17 04:20 MPV 8.6 fL (7.4-11.0) 02/15/17 04:20 Neut % 68.3 % (42.0-75.0) 02/15/17 04:20 Lymph % 18.8 % (21.0-51.0) L 02/15/17 04:20 [place] % 10.5 % (0.0-13.0) 02/15/17 04:20 Eos % 2.2 % (0.9-2.9) 02/15/17 04:20 Baso % 0.2 % (0.2-1.0) 02/15/17 04:20 Neut # 3.3 x10^3/uL (2.2-4.8) 02/15/17 04:20 Lymph # 0.9 X10^3/uL (1.3-2.9) L 02/15/17 04:20 Pierce # 0.5 x10^3/uL (0.3-0.8) 02/15/17 04:20 Eos # 0.1 x10^3/uL (0.0-0.2) 02/15/17 04:20 Baso # 0.0 X10^3/uL (0.0-0.1) 02/15/17 04:20 Absolute Nucleated RBC 0.0 /100WBC 02/15/17 04:20 INR Target Range - 02/15/17 04:20 INR 2.86 (0.8-1.3) H 02/15/17 04:20 Sodium 145 mmol/L (136-145) 02/15/17 04:20 Corrected Sodium TNP 02/15/17 04:20 Potassium 4.1 mmol/L (3.5-5.1) 02/15/17 04:20 Chloride 111 mmol/L (98-107) H 02/15/17 04:20 Carbon Dioxide 26.8 mmol/L (21-32) 02/15/17 04:20 BUN 14 mg/dL (7-18) 02/15/17 04:20 Creatinine 1.01 mg/dL (0.70-1.30) 02/15/17 04:20 Est GFR (MDRD) Af Amer > 60 (>60) 02/15/17 04:20 Est GFR (MDRD) Non-Af > 60 (>60) 02/15/17 04:20 Glucose 90 mg/dL (65-99) 02/15/17 04:20 Calcium 7.9 mg/dL (8.5-10.1) L 02/15/17 04:20 Corrected Calcium 8.9 mg/dL (8.5-10.1) 02/15/17 04:20 Total Bilirubin 0.30 mg/dL (0.2-1.0) 02/15/17 04:20 AST 18 Units/L (15-37) 02/15/17 04:20 ALT 21 Units/L (12-78) 02/15/17 04:20 Alkaline Phosphatase 60 Units/L (46-116) 02/15/17 04:20 Total Protein 6.1 g/dL (6.4-8.2) L 02/15/17 04:20 Albumin 2.7 g/dL (3.4-5.0) L 02/15/17 04:20 Globulin 3.4 g/dL (2.5-4.5) 02/15/17 04:20 Albumin/Globulin Ratio 0.8 Ratio (1.1-2.1) L 02/15/17 04:20 - Plan (1) DVT (deep venous thrombosis) Status: Acute Qualifiers: DVT location: lower extremity Affected thrombotic vein of extremity: other lower extremity vein Chronicity: acute Laterality: right Qualified Code(s) : I82.491 - Acute embolism and thrombosis of other specified deep vein of right lower extremity Plan: LOVENOX 80MG SC BID, CONTINUE TO MONITOR (2) Hypertension Status: Chronic Qualifiers: Hypertension type: essential hypertension Qualified Code(s): I10 - Essential (primary) hypertension Plan: CONTINUE NORVASC, CONTINUE COZAAR, CONTINUE TO MONITOR
[2017-02-16 06:07] LABS: BASOPHILS % (AUTO) 0.7 % (0.2-1.0); EOSINOPHILS # (AUTO) 0.2 x10^3/uL (0.0-0.2); EOSINOPHILS % (AUTO) 3.9 % (0.9-2.9); HEMATOCRIT 31.4 % (42.0-54.0); HEMOGLOBIN 10.5 g/dL (13.5-18.0); LYMPHOCYTES # (AUTO) 0.9 X10^3/uL (1.3-2.9); LYMPHOCYTES % (AUTO) 22.7 % (21.0-51.0); MEAN CORPUSCULAR HEMOGLOBIN 32.5 pg (27.0-34.0); MEAN CORPUSCULAR HGB CONC 33.3 g/dL (33.0-35.0); MEAN CORPUSCULAR VOLUME 97.6 fL (80.0-100.0); MEAN PLATELET VOLUME 9.1 fL (7.4-11.0); MONOCYTES # (AUTO) 0.4 x10^3/uL (0.3-0.8); MONOCYTES % (AUTO) 9.5 % (0.0-13.0); NEUTROPHILS # (AUTO) 2.5 x10^3/uL (2.2-4.8); NEUTROPHILS % (AUTO) 63.2 % (42.0-75.0); PLATELET COUNT 201 X10^3/uL (150.0-450.0); RED BLOOD COUNT 3.22 X10^6/uL (4.7-6.0); WHITE BLOOD COUNT 3.9 X10^3/uL (3.6-10.0)
[2017-02-16 06:25] LABS: ALANINE AMINOTRANSFERASE 19 Units/L (12-78); ALBUMIN 2.7 g/dL (3.4-5.0); ALKALINE PHOSPHATASE 51 Units/L (46-116); ASPARTATE AMINO TRANSFERASE 15 Units/L (15-37); BLOOD UREA NITROGEN 10 mg/dL (7-18); CALCIUM 7.8 mg/dL (8.5-10.1); CARBON DIOXIDE 24.1 mmol/L (21-32); CHLORIDE 110 mmol/L (98-107); COR CA(FOR HYPOALB) 8.8 mg/dL (8.5-10.1); CREATININE 0.92 mg/dL (0.70-1.30); SODIUM 143 mmol/L (136-145); TOTAL PROTEIN 5.9 g/dL (6.4-8.2); eGFR BLACK RACES > 60 (>60); eGFR NON BLACK RACES > 60 (>60)
[2017-02-16 08:32] VITALS: BP 154/67
[2017-02-16] MEDS ORDERED: MILK OF MAGNESIA PO SCH (09:00)
[2017-02-16] MEDS ORDERED: COLACE CAP 100 MG PO SCH (09:00)
[2017-02-16] MEDS: LOVENOX INJ 80 MG SYR SC SCH (09:23)
[2017-02-16] MEDS: COZAAR PO SCH (09:24)
[2017-02-16] MEDS: XANAX PO SCH (09:24)
[2017-02-16] MEDS: NORVASC TAB 5 MG PO SCH (09:24)
== END 2017-02-16 12:05 | disposition home or self-care (01) ==
LOC: UNDOADMOB 13:50 → MED/SURG 13:50 → OBS 16:10 → MED/SURG 16:10 → OBS 16:15 → MED/SURG 16:15 → OBS 19:23 → MED/SURG 02-14 17:53
PROVIDERS: ADMIT Internal Medicine; ATTEND Internal Medicine
DX: I82.431 Acute embolism and thrombosis of right popliteal vein (principal); I82.411 Acute embolism and thrombosis of right femoral vein; R06.02 Shortness of breath; Z79.01 Long term (current) use of anticoagulants; R79.1 Abnormal coagulation profile; F41.8 Other specified anxiety disorders; F32.89 Other specified depressive episodes; I10 Essential (primary) hypertension; D64.89 Other specified anemias
CPT/HCPCS: 36415; 71010; 71275; 76705; 80053; 85025; 85610; 93971; 94760; A4216; A4222; G0378; J1650

== ENCOUNTER → 2017-02-18 | Outpatient (CLI) | payer OTHER ==
[2017-02-05 10:54] VITALS: BP 154/73
--- NOTE | 2017-02-20 12:28 | MRI ---
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 The lesion demonstrates moderate, heterogeneous increased T2 signal; however, on T1 imaging there are multiple foci of increased T1 signal within the lesion which potentially represents inter lesion al deposition of fat however does not demonstrate complete saturation on fat saturated imaging potent ially representing proteinaceous debris or small amount intralesional hemorrhage. There is a thin jeremiah ear area of decreased T1 signal surrounding the margin of the lesion. There is no adjacent endosteal scalloping. There is no periosteal reaction or edema within the adjacent cortex. There is no apprecia ble marrow edema surrounding the lesion. No soft tissue mass or cortical breakthrough. Remaining right femur demonstrates no marrow signal abnormality. Soft tissues are normal within the r ight leg. 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 There are no aggressive features within the lesion. The lesion does not appear significantly changed from prior CT examination dating back to 2012. A one yaer MRI follow-up can be obtained as clinically warranted particularly if patient develops new onset pain in this location. Reported By:
== END | disposition home or self-care (01) | DRG 566 ==
LOC: RAD 08:58
PROVIDERS: ATTEND Nurse Practitioner Family
DX: D16.21 Benign neoplasm of long bones of right lower limb (principal)
CPT/HCPCS: 73721

== ENCOUNTER → 2017-02-19 | Outpatient (CLI) | payer OTHER ==
[2017-02-16 08:32] VITALS: BP 154/67
[2017-02-19 09:29] LABS: ALANINE AMINOTRANSFERASE 48 Units/L (12-78); ASPARTATE AMINO TRANSFERASE 43 Units/L (15-37)
== END ==
LOC: LAB 08:57
PROVIDERS: ATTEND Nurse Practitioner Family
DX: R74.8 Abnormal levels of other serum enzymes (principal)
CPT/HCPCS: 36415; 84450; 84460

== ENCOUNTER 2017-03-18 12:51 | Inpatient (IN) | payer OTHER ==
[2017-03-18] MEDS ORDERED: NS 1000 ML 1,000 ML IV ONE (14:40)
[2017-03-18] MEDS ORDERED: TORADOL 30 MG VIAL IVP ONE (14:41)
--- NOTE | 2017-03-18 14:44 | DR.GENAD ---
HPI - PCP Primary Care Physician: GRACE - Complaint/Symptoms Chief Complaint Doctors Comments: Patient presents with complaint of not feeling well, muscle aches, headache decrease appetite for a few days. Chief Complaint:: SICK. CAN'T HARDLY BREATH, EARS HURT, HAVEN'T BEEN ABLE TO EAT OR DRINK. - Source History Provided: Patient - Mode of Arrival Mode of Arrival: Ambulatory - Timing Onset of Chief Complaint: 03/16/17 PMH - PMH Past Medical History: Yes Past Medical History: Anxiety, Depression, Hypertension Past Surgical History: Yes Surgical History: Other Past Surgical History Comment: GREEN FILTER - Family History History of Family Medical Conditions: Yes Family Medical History: Hypertension - Social History Does any household member use tobacco: No Alcohol Use: DAILY Do you use any recreational Drugs:: No Lives With: Alone Lives Where: Home - infectious screening In the last 2 months have you had wt loss of >10#?: NO Have you had fever, night sweats or hemotysis?: No Have you traveled outside the country in the last 6 months?: No Isolation: Standard ROS - Review of Systems Constitutional: Chills, Weakness, Loss of Appetite Eyes: No Symptoms Reported ENTM: No Symptoms Reported Respiratoy: No Symptoms Reported Cardiovascular: No Symptoms Reported Gastrointestinal/Abdominal: No Symptoms Reported Genitourinary: No Symptoms Reported Neurological: No Symptoms Reported Musculoskeletal: No Symptoms Reported Integumentary: No Symptoms Reported Hematologic/Lymphatic: No Symptoms Reported Endocrine: No Symptoms Reported Psychiatric: No Symptoms Reported All Other Systems: Reviewed and Negative PE - Vital Signs Vitals: Temperature 100.1 F Pulse Rate 110 Respiratory Rate 18 Blood Pressure [Left Arm] 154/67 Blood Pressure [Right Arm] 137/77 Blood Pressure 104/57 O2 Sat by Pulse Oximetry 97 - General Limitations: No Limitations General Appearance: Alert, In No Apparent Distress - Head Head Exam: Normal Inspection, Atraumatic - Eyes Eye exam: Normal Appearance, PERRL, EOMI - ENT ENT Exam: Normal Exam External Ear Exam: Normal External Inspection TM/Canal Exam: Bilateral Normal Nose Exam: Normal Nose Exam, Sinus Tenderness Mouth Exam: Normal Inspection Throat Exam: Normal Inspection - Neck Neck Exam: Normal Inspection, Full ROM - Chest Chest Inspection: Normal Inspection - Respiratory Respiratory Exam: Normal Lung Sounds Bilat Respiratory Exam: Bilateral Clear to Auscultation - Cardiovascular Cardiovascular Exam: Regular Rate, Normal Rhythm - Abdominal Exam Abdominal Exam: Normal Inspection, Normal Bowel Sounds Abdominal Tenderness: negative: RUQ, RLQ, LUQ, LLQ, Epigastrium, Suprapubic, Diffuse, Mild, Moderate, Severe, Other - Extremities Extremities Exam: Normal Inspection, Full ROM - Back Back Exam: Normal Inspection, Full ROM - Neurologic Neurological Exam: Alert, Oriented X3, CN II-XII Intact - Psychiatric Psychiatric Exam: Normal Affect - Skin Skin Exam: Warm, Dry, Intact Course - Reevaluation 1st: Unchanged - Consultation Called: 19:20 (Dr Whitlock agreed to admit for further treatment) ROR - Labs Reviewed Result Diagrams: 03/18/17 14:48 03/18/17 14:48 Laboratory: 03/18/17 16:48 Sputum - Expectorated Sputum - Final WBC 12.4 X10^3/uL (3.6-10.0) H 03/18/17 14:48 RBC 3.99 X10^6/uL (4.7-6.0) L 03/18/17 14:48 Hgb 13.1 g/dL (13.5-18.0) L 03/18/17 14:48 Hct 37.4 % (42.0-54.0) L 03/18/17 14:48 MCV 93.8 fL (80.0-100.0) 03/18/17 14:48 MCH 32.7 pg (27.0-34.0) 03/18/17 14:48 MCHC 34.9 g/dL (33.0-35.0) 03/18/17 14:48 RDW 14.3 % (11.6-16.5) 03/18/17 14:48 Plt Count 381 X10^3/uL (150.0-450.0) 03/18/17 14:48 MPV 8.4 fL (7.4-11.0) 03/18/17 14:48 Neut % 93.0 % (42.0-75.0) H 03/18/17 14:48 Lymph % 4.0 % (21.0-51.0) L 03/18/17 14:48 [place] % 2.9 % (0.0-13.0) 03/18/17 14:48 Eos % 0.0 % (0.9-2.9) L 03/18/17 14:48 Baso % 0.1 % (0.2-1.0) L 03/18/17 14:48 Neut # 11.5 x10^3/uL (2.2-4.8) H 03/18/17 14:48 Lymph # 0.5 X10^3/uL (1.3-2.9) L 03/18/17 14:48 [place] # 0.4 x10^3/uL (0.3-0.8) 03/18/17 14:48 Eos # 0.0 x10^3/uL (0.0-0.2) 03/18/17 14:48 Baso # 0.0 X10^3/uL (0.0-0.1) 03/18/17 14:48 Absolute Nucleated RBC 0.1 /100WBC 03/18/17 14:48 Sodium 134 mmol/L (136-145) L 03/18/17 14:48 Corrected Sodium 134 mmol/L (136-145) L 03/18/17 14:48 Potassium 2.7 mmol/L (3.5-5.1) L* 03/18/17 14:48 Chloride 97 mmol/L (98-107) L 03/18/17 14:48 Carbon Dioxide 23.4 mmol/L (21-32) 03/18/17 14:48 BUN 24 mg/dL (7-18) H 03/18/17 14:48 Creatinine 1.24 mg/dL (0.70-1.30) 03/18/17 14:48 Est GFR (MDRD) Af Amer > 60 (>60) 03/18/17 14:48 Est GFR (MDRD) Non-Af > 60 (>60) 03/18/17 14:48 Glucose 113 mg/dL (65-99) H 03/18/17 14:48 Calcium 9.9 mg/dL (8.5-10.1) 03/18/17 14:48 Corrected Calcium 11.3 mg/dL (8.5-10.1) H 03/18/17 14:48 Total Bilirubin 0.70 mg/dL (0.2-1.0) 03/18/17 14:48 AST 24 Units/L (15-37) 03/18/17 14:48 ALT 21 Units/L (12-78) 03/18/17 14:48 Alkaline Phosphatase 84 Units/L (46-116) 03/18/17 14:48 Total Protein 8.1 g/dL (6.4-8.2) 03/18/17 14:48 Albumin 2.3 g/dL (3.4-5.0) L 03/18/17 14:48 Globulin 5.8 g/dL (2.5-4.5) H 03/18/17 14:48 Albumin/Globulin Ratio 0.4 Ratio (1.1-2.1) L 03/18/17 14:48 Influenza Type A (PCR) Negative (NEGATIVE) 03/18/17 15:29 Influenza Type B (PCR) Negative (NEGATIVE) 03/18/17 15:29 - XRAY XRAY Interpreted by: Radiologist (Chest: New patchy right upper lobe peripheral pneumonia) - Diagnosis Discharge Problem: Hypokalemia Right upper lobe pneumonia Qualifiers: Pneumonia type: due to unspecified organism Qualified Code(s): J18.1 - Lobar pneumonia, unspecified organism - Discharge Plan Condition: Stable - Follow ups/Referrals Follow ups/Referrals: Chivo Arreguin [Primary Care Provider] - 3 days - Instructions
[2017-03-18] MEDS ORDERED: NS 1000 ML 1,000 ML ONE (14:47)
[2017-03-18] MEDS ORDERED: TORADOL 30 MG VIAL ONE (14:49)
[2017-03-18 15:07] LABS: BASOPHILS % (AUTO) 0.1 % (0.2-1.0); HEMATOCRIT 37.4 % (42.0-54.0); HEMOGLOBIN 13.1 g/dL (13.5-18.0); LYMPHOCYTES # (AUTO) 0.5 X10^3/uL (1.3-2.9); MEAN CORPUSCULAR HEMOGLOBIN 32.7 pg (27.0-34.0); MEAN CORPUSCULAR HGB CONC 34.9 g/dL (33.0-35.0); MEAN CORPUSCULAR VOLUME 93.8 fL (80.0-100.0); MEAN PLATELET VOLUME 8.4 fL (7.4-11.0); MONOCYTES # (AUTO) 0.4 x10^3/uL (0.3-0.8); MONOCYTES % (AUTO) 2.9 % (0.0-13.0); NEUTROPHILS # (AUTO) 11.5 x10^3/uL (2.2-4.8); PLATELET COUNT 381 X10^3/uL (150.0-450.0); RED BLOOD COUNT 3.99 X10^6/uL (4.7-6.0); RED CELL DISTRIBUTION WIDTH 14.3 % (11.6-16.5); WHITE BLOOD COUNT 12.4 X10^3/uL (3.6-10.0)
--- NOTE | 2017-03-18 15:12 | RAD ---
History: Fever Study: Portable AP chest Comparison: CT chest performed today at 6:16 a.m. Findings: There is new patchy airspace disease peripherally in the right upper lobe. The left lung is clear and the heart size is normal. Impression: New patchy right upper lobe peripheral pneumonia Reported By:
[2017-03-18 15:14] LABS: BLOOD UREA NITROGEN 24 mg/dL (7-18); CALCIUM 9.9 mg/dL (8.5-10.1); CARBON DIOXIDE 23.4 mmol/L (21-32); CHLORIDE 97 mmol/L (98-107); COR NA(FOR HYPERGLY) 134 mmol/L (136-145); CREATININE 1.24 mg/dL (0.70-1.30); SODIUM 134 mmol/L (136-145); eGFR BLACK RACES > 60 (>60); eGFR NON BLACK RACES > 60 (>60)
[2017-03-18 15:20] LABS: ALANINE AMINOTRANSFERASE 21 Units/L (12-78); ALBUMIN 2.3 g/dL (3.4-5.0); ALKALINE PHOSPHATASE 84 Units/L (46-116); ASPARTATE AMINO TRANSFERASE 24 Units/L (15-37); COR CA(FOR HYPOALB) 11.3 mg/dL (8.5-10.1); TOTAL PROTEIN 8.1 g/dL (6.4-8.2)
[2017-03-18] MEDS ORDERED: K-LYTE EFFERVESCENT PO STA (15:23)
[2017-03-18] MEDS ORDERED: K-LYTE EFFERVESCENT ONE (15:27)
[2017-03-18] MEDS ORDERED: ROCEPHIN VIAL 1 GM ONE (19:57)
[2017-03-18] MEDS ORDERED: NS 100 ML IV + SPIKE MINIBAG* 100 ML IV ONE (19:57)
[2017-03-18] MEDS ORDERED: NS 1/2 1000 ML IV 1,000 ML IV ONE (19:59)
[2017-03-18] MEDS ORDERED: LEVAQUIN PREMIX IV 750 MG 750 MG/150 ML BAG IV SCH (20:00)
[2017-03-18] MEDS ORDERED: ROCEPHIN VIAL 1 GM 1 GM in NS 100 ML IV + SPIKE MINIBAG* 100 ML IV SCH (20:15)
[2017-03-18] MEDS: POTASSIUM CHLORIDE IV SCH ×2 (20:22)
[2017-03-18] MEDS: NS IV SCH ×2 (20:22)
[2017-03-18] MEDS ORDERED: VIBRAMYCIN 100 MG in NS 100 ML IV + SPIKE MINIBAG* 100 ML IV SCH (21:00)
[2017-03-18 21:01] VITALS: BMI 23.2
[2017-03-18] MEDS: ROBITUSSIN DM PO SCH (21:25)
[2017-03-18] MEDS: TUSSIONEX PENNKINETIC SUSP PO PRN (21:25)
[2017-03-19] MEDS: DUONEB 0.5 MG/3 MG NEB SCH ×6 (01:35→21:36)
[2017-03-19 06:11] LABS: BASOPHILS % (AUTO) 0.1 % (0.2-1.0); EOSINOPHILS % (AUTO) 0.4 % (0.9-2.9); HEMATOCRIT 32.5 % (42.0-54.0); HEMOGLOBIN 11.3 g/dL (13.5-18.0); LYMPHOCYTES # (AUTO) 0.4 X10^3/uL (1.3-2.9); LYMPHOCYTES % (AUTO) 4.3 % (21.0-51.0); MEAN CORPUSCULAR HEMOGLOBIN 32.6 pg (27.0-34.0); MEAN CORPUSCULAR HGB CONC 34.7 g/dL (33.0-35.0); MEAN CORPUSCULAR VOLUME 93.8 fL (80.0-100.0); MEAN PLATELET VOLUME 8.3 fL (7.4-11.0); MONOCYTES # (AUTO) 0.4 x10^3/uL (0.3-0.8); MONOCYTES % (AUTO) 3.8 % (0.0-13.0); NEUTROPHILS # (AUTO) 9.3 x10^3/uL (2.2-4.8); NEUTROPHILS % (AUTO) 91.4 % (42.0-75.0); PLATELET COUNT 330 X10^3/uL (150.0-450.0); RED BLOOD COUNT 3.46 X10^6/uL (4.7-6.0); WHITE BLOOD COUNT 10.2 X10^3/uL (3.6-10.0)
[2017-03-19 06:47] LABS: ALANINE AMINOTRANSFERASE 30 Units/L (12-78); ALBUMIN 1.9 g/dL (3.4-5.0); ALKALINE PHOSPHATASE 65 Units/L (46-116); ASPARTATE AMINO TRANSFERASE 46 Units/L (15-37); BLOOD UREA NITROGEN 23 mg/dL (7-18); CALCIUM 8.6 mg/dL (8.5-10.1); CARBON DIOXIDE 22.1 mmol/L (21-32); CHLORIDE 101 mmol/L (98-107); COR CA(FOR HYPOALB) 10.3 mg/dL (8.5-10.1); SODIUM 135 mmol/L (136-145); TOTAL PROTEIN 6.8 g/dL (6.4-8.2); eGFR BLACK RACES > 60 (>60); eGFR NON BLACK RACES > 60 (>60)
[2017-03-19 07:09] LABS: BAND NEUTROPHILS % 4 % (0-10)
[2017-03-19 07:10] LABS: PLATELET MORPHOLOGY COMMENT NORMAL (NORMAL)
--- NOTE | 2017-03-19 07:16 | RAD ---
HISTORY: Follow-up pneumonia Study: Chest AP portable Comparison: 03/18/2017 Findings: The heart is within normal limits in size. The jie are normal. Peripheral right upper lobe pneumonia is unchanged. The remainder of the lung noeill are free of acute alveolar infiltrates. No pleural ef fusions are identified. The bony thorax is unremarkable. IMPRESSION: No change right upper lobe pneumonia Reported By:
[2017-03-19] MEDS ORDERED: POTASSIUM CHLORIDE LIQ 20 MEQ UDC PO PRN (07:39)
[2017-03-19] MEDS ORDERED: K-LYTE EFFERVESCENT PO PRN (07:39)
[2017-03-19] MEDS ORDERED: POTASSIUM CHL 40 MEQ/NS 0.45% 500 ML IV PRN (07:39)
[2017-03-19] MEDS ORDERED: POTASSIUM CHL 60 MEQ/NS 0.45% 500 ML IV PRN (07:39)
[2017-03-19] MEDS: VIBRAMYCIN 100 MG in NS 100 ML IV 100 ML IV SCH ×2 (08:58→20:33)
[2017-03-19] MEDS ORDERED: COUMADIN TAB 10 MG PO SCH (09:00)
[2017-03-19] MEDS ORDERED: ROCEPHIN VIAL 1 GM ONE (09:17)
[2017-03-19] MEDS: ROBITUSSIN DM PO SCH ×4 (09:35→20:41)
[2017-03-19] MEDS: COZAAR PO SCH (09:35)
[2017-03-19] MEDS: POTASSIUM CHLORIDE IV SCH ×2 (09:45)
[2017-03-19] MEDS: NS IV SCH ×2 (09:45)
[2017-03-19] MEDS ORDERED: NORCO 5/325 MG TAB ONE (10:03)
[2017-03-19] MEDS: ROCEPHIN VIAL 1 GM 1 GM in NS 100 ML IV 100 ML IV SCH (10:49)
[2017-03-19] MEDS: NORCO 5/325 MG TAB PO PRN ×2 (11:06→16:03)
[2017-03-19] MEDS: MAGNESIUM SULFATE 1 GM/100 mL PREMIX 1 GM/100 ML BAG IV PRN ×3 (11:30→14:03)
--- NOTE | 2017-03-19 12:43 | DR.H&P ---
H&P - History & Physical for Day of: H&P Date: 03/18/17 - Chief Complaint Chief Complaint: SHORT OF BREATH, HEADACHE, BODY ACHES, LOSS OF APPETITIE - Allergies Allergies/Adverse Reactions: Allergies Allergy/AdvReac Type Severity Reaction Status Date / Time No Known Drug Allergies Allergy Verified 02/05/17 10:49 - History of Present Illness History of Present Illness: IS A 66 YEAR OLD PATIENT OF [facility] WHO PRESENTED TO THE EMERGENCY ROOM WITH COMPLAINTS OF SHONTNESS OF BREATH, GENERALIZED MUSCLE ACHES, HEADACE, AND DECREASED APPETITITE FOR TWO DAYS. HE REPORTS HAVING CHILLS BUT IS NOT CERTAIN TO WHETHER HE HAS RAN A FEVER OR NOT. ON EXAMINATION, HEART IS REGULAR IN RATE AND RHYTHM. LUNG SOUNDS ARE DIMINISHED THROUGHOUT. ABDOMEN IS ROUND, SOFT, AND NON-TENDER WITH NORMAL BOWEL SOUNDS NOTED IN ALL QUADRANTS. THERE IS NORMAL RANGE OF MOTION NOTED IN ALL EXTREMITIES. ON ARRIVAL TO THE ER, HIS VITAL SIGNS WERE 100.1-111-18-95%-104/ 57. LABS AND CHEST XRAY WERE OBTAINED. ABNORMAL LAB VALUES INCLUDE THE FOLLOWING : WBC 12.4, RBC 3.99, HGB 13.1, HCT 37.4, SODIUM 134, POTASSIUM 2.7, CHLORIDE 97 , BUN 24, GLUCOSE 113, ALBUMIN 2.3, GLOBULIN 5.8. CHEST XRAY REPORTED NEW PATCHY RIGHT UPPER LOBE PERIPHERAL PNEUMONIA. PATIENT WAS GIVEN A BOLUS OF NORMAL SALINE, TORADOL 30MG IV X 1, ROCEPHIN 1GM IV X 1, AND VIBRAMYCIN 100MG IV X 1 IN THE ER. HE WAS PLACED ON OXYGEN VIA NASAL CANNULA AT 2L/MIN. SLIGHT IMPROVEMENT IN SYMPTOMS NOTED. WE ADMITTED PATIENT FOR FURTHER TREATMENT AND EVALUATION. HE WAS STARTED ON THE PNEUMONIA PROTOCOL. WE PLAN TO FOLLOW UP WITH AM LABS AND CHEST XRAY AND CONTINUE TO MONITOR PATIENT. - Past Medical History Past Medical History: Anxiety, Depression, Hypertension Additional Medical History: Hx Umbilical Hernia, DVTs. - Past Surgical History Surgical History: Other - Family History Family Medical History: Hypertension - Social History Does patient currently use any type of tobacco product: No Have you used tobacco products in the last 12 months: No Type of Tobacco Use: None Does any household member use tobacco: No Alcohol Use: DAILY Drug Use: None - Review of Systems Constitutional: See HPI, Chills, Malaise Eyes: No Symptoms Reported. denies: See HPI, Pain, Vision Change, Conjunctivae Inflammation, Eyelid Inflammation, Redness, Other ENT: Ear Pain (BILATERAL EAR PAIN ) Respiratory: Shortness of Breath Cardiovascular: No Symptoms Reported Gastrointestinal: No Symptoms Reported Genitourinary: No Symptoms Reported Musculoskeletal: Other (GENERALIZED BODY/MUSCLE ACHES ) Skin: No Symptoms Reported Neurological: No Symptoms Reported - Physical Exam Vital Signs: Temperature 98.6 F Pulse Rate [Right Radial] 82 Pulse Rate 75 Respiratory Rate 20 Blood Pressure [Left Arm] 113/60 Blood Pressure [Right Arm] 105/57 Blood Pressure 104/57 O2 Sat by Pulse Oximetry 99 Oriented: Normal Eyes: Normal Ear: Normal Nose: Normal Throat: Normal Respiratory: Diminished Throughout Cardiovascular: Normal. negative: S3, S4, Murmur : Normal Auscultation: Bowel Sounds: Normal Palpation: Normal Tenderness: Normal Skin: Normal Musculoskeletal: Normal Psychiatric: Normal Mood Description: Calm Affect: Normal Speech Pattern: Clear - Assessment/Plan (1) Right upper lobe pneumonia Qualifiers: Pneumonia type: due to unspecified organism Qualified Code(s): J18.1 - Lobar pneumonia, unspecified organism Status: Acute Plan: PNEUMONIA PROTOCOL, ROCEPHIN 1GM IV DAILY, DOXYCYCLINE 100MG IV Q12H, SUPPLEMENTAL OXYGEN, RESPIRATORY TX, CONTINUE TO MONITOR
[2017-03-19] MEDS: COUMADIN TAB 10 MG PO SCH (20:12)
[2017-03-19] MEDS: TORADOL 15 MG VIAL IVP PRN (20:33)
[2017-03-19] MEDS: KLONOPIN TAB 1 MG PO SCH (20:34)
[2017-03-20] MEDS: DUONEB 0.5 MG/3 MG NEB SCH ×6 (01:57→20:16)
[2017-03-20] MEDS: TORADOL 15 MG VIAL IVP PRN ×3 (03:44→18:04)
[2017-03-20] MEDS: TUSSIONEX PENNKINETIC SUSP PO PRN ×2 (03:44→20:11)
[2017-03-20] MEDS: NS IV SCH ×4 (04:08→19:08)
[2017-03-20] MEDS: POTASSIUM CHLORIDE IV SCH ×4 (04:08→19:08)
[2017-03-20 06:22] LABS: BASOPHILS # (AUTO) 0.1 X10^3/uL (0.0-0.1); BASOPHILS % (AUTO) 0.7 % (0.2-1.0); EOSINOPHILS # (AUTO) 0.2 x10^3/uL (0.0-0.2); EOSINOPHILS % (AUTO) 2.4 % (0.9-2.9); HEMATOCRIT 31.4 % (42.0-54.0); HEMOGLOBIN 10.7 g/dL (13.5-18.0); LYMPHOCYTES # (AUTO) 0.5 X10^3/uL (1.3-2.9); LYMPHOCYTES % (AUTO) 6.2 % (21.0-51.0); MEAN CORPUSCULAR HEMOGLOBIN 32.5 pg (27.0-34.0); MEAN CORPUSCULAR HGB CONC 34.1 g/dL (33.0-35.0); MEAN CORPUSCULAR VOLUME 95.3 fL (80.0-100.0); MEAN PLATELET VOLUME 7.9 fL (7.4-11.0); MONOCYTES # (AUTO) 0.3 x10^3/uL (0.3-0.8); MONOCYTES % (AUTO) 4.2 % (0.0-13.0); NEUTROPHILS # (AUTO) 6.8 x10^3/uL (2.2-4.8); NEUTROPHILS % (AUTO) 86.5 % (42.0-75.0); PLATELET COUNT 352 X10^3/uL (150.0-450.0); RED BLOOD COUNT 3.29 X10^6/uL (4.7-6.0); RED CELL DISTRIBUTION WIDTH 14.1 % (11.6-16.5); WHITE BLOOD COUNT 7.8 X10^3/uL (3.6-10.0)
[2017-03-20 06:36] LABS: ALANINE AMINOTRANSFERASE 46 Units/L (12-78); ALBUMIN 1.6 g/dL (3.4-5.0); ALKALINE PHOSPHATASE 69 Units/L (46-116); ASPARTATE AMINO TRANSFERASE 62 Units/L (15-37); BLOOD UREA NITROGEN 13 mg/dL (7-18); CALCIUM 8.4 mg/dL (8.5-10.1); CARBON DIOXIDE 21.3 mmol/L (21-32); CHLORIDE 110 mmol/L (98-107); COR CA(FOR HYPOALB) 10.3 mg/dL (8.5-10.1); COR NA(FOR HYPERGLY) 141 mmol/L (136-145); CREATININE 0.82 mg/dL (0.70-1.30); MAGNESIUM 1.7 mg/dL (1.7-2.9); SODIUM 141 mmol/L (136-145); TOTAL PROTEIN 6.1 g/dL (6.4-8.2); eGFR BLACK RACES > 60 (>60); eGFR NON BLACK RACES > 60 (>60)
[2017-03-20] MEDS ORDERED: NS 100 ML IV 100 ML IV ONE (07:03)
--- NOTE | 2017-03-20 08:03 | CT ---
HISTORY: Shortness of breath Study: CT chest with contrast Comparison: 02/15/2017 Technique: Axial post-contrast images with coronal and sagittal reformats. Dose reduction procedures were used with mA/kv adjusted for body size. Findings: Examination of the mediastinum demonstrated no evidence for enlarged mediastinal or enlarged hilar ad enopathy. Nonenlarged mediastinal nodes are present no pleural effusions are identified. No chest wal l or axillary abnormality is identified. Those portions of the upper abdominal organs visualized were within normal limits. There is a caval filter present. Examination of the lung oneill demonstrate mu ltifocal patchy and confluent alveolar infiltrates throughout the right lung with some right basilar consolidation most consistent with multifocal pneumonia. There is a left basilar infiltrate also pres ent. No nodules or masses are present. Bilateral lower lobe bronchiectasis is present with peribronch ial thickening consistent with bronchitis which could be acute, chronic, or both. IMPRESSION: Patchy and confluent right lung infiltrates with some consolidating infiltrates in the lung bases molly aterally most consistent with multifocal pneumonia Bibasilar cylindrical bronchiectasis with peribronchial thickening consistent with bronchitis which c ould be acute, chronic, or both. Reported By:
[2017-03-20] MEDS: ROCEPHIN VIAL 1 GM 1 GM in NS 100 ML IV 100 ML IV SCH (08:41)
[2017-03-20] MEDS: COZAAR PO SCH (08:41)
[2017-03-20] MEDS: VIBRAMYCIN 100 MG in NS 100 ML IV 100 ML IV SCH ×2 (08:42→20:05)
[2017-03-20] MEDS: ROBITUSSIN DM PO SCH ×4 (08:42→20:05)
[2017-03-20 16:27] LABS: BASOPHILS % (AUTO) 0.4 % (0.2-1.0); EOSINOPHILS # (AUTO) 0.2 x10^3/uL (0.0-0.2); HEMATOCRIT 32.1 % (42.0-54.0); HEMOGLOBIN 10.9 g/dL (13.5-18.0); LYMPHOCYTES # (AUTO) 0.4 X10^3/uL (1.3-2.9); LYMPHOCYTES % (AUTO) 4.7 % (21.0-51.0); MEAN CORPUSCULAR HEMOGLOBIN 33.1 pg (27.0-34.0); MEAN CORPUSCULAR HGB CONC 34.1 g/dL (33.0-35.0); MEAN CORPUSCULAR VOLUME 97.1 fL (80.0-100.0); MEAN PLATELET VOLUME 7.9 fL (7.4-11.0); MONOCYTES # (AUTO) 0.4 x10^3/uL (0.3-0.8); NEUTROPHILS # (AUTO) 8.3 x10^3/uL (2.2-4.8); NEUTROPHILS % (AUTO) 88.9 % (42.0-75.0); PLATELET COUNT 450 X10^3/uL (150.0-450.0); RED CELL DISTRIBUTION WIDTH 14.6 % (11.6-16.5); WHITE BLOOD COUNT 9.3 X10^3/uL (3.6-10.0)
[2017-03-20 16:33] LABS: BLOOD UREA NITROGEN 12 mg/dL (7-18); CALCIUM 8.8 mg/dL (8.5-10.1); CARBON DIOXIDE 24.9 mmol/L (21-32); CHLORIDE 105 mmol/L (98-107); COR NA(FOR HYPERGLY) 139 mmol/L (136-145); CREATININE 1.02 mg/dL (0.70-1.30); MAGNESIUM 1.3 mg/dL (1.7-2.9); SODIUM 139 mmol/L (136-145); eGFR BLACK RACES > 60 (>60); eGFR NON BLACK RACES > 60 (>60)
[2017-03-20 16:53] LABS: BAND NEUTROPHILS % 2 % (0-10); PLATELET MORPHOLOGY COMMENT NORMAL (NORMAL)
[2017-03-20] MEDS: MAGNESIUM SULFATE 1 GM/100 mL PREMIX 1 GM/100 ML BAG IV PRN ×3 (18:05→18:28)
[2017-03-20] MEDS: MAG-OX TAB PO PRN (18:08)
[2017-03-20] MEDS: K-RIDER 10 MEQ/NS 100 ML 10 MEQ/100 ML BAG IV PRN ×4 (19:16→22:15)
--- NOTE | 2017-03-20 19:56 | PCM.PROG ---
Progress Note - Progress Note for Day of Date: 03/19/17 - Subjective Subjective: WAS ADMITTED FOR RIGHT UPPER LOBE PNEUMONIA. TODAY, HE IS ALERT AND ORIENTED, LYING IN BED ON MORNING ROUNDS. HE CONTINUES WITH COMPLAINTS OF SHORTNESS OF BREATH, PERSISTENT COUGH, AND CHEST AND RIB PAIN. HE ALSO REPORTS NOT BEING ABLE TO REST THROUGHOUT THE NIGHT. ON EXAMINATION, HEART IS REGULAR IN RATE AND RHYTHM. BILATERAL LUNGS CONTINUE WITH SCATTERED WHEEZING. HE IS CURRENTLY UTILIZING OXYGEN VIA NASAL CANNULA AT 2L/MIN. ABDOMEN IS ROUND, SOFT, AND NON-TENDER WITH NORMAL BOWEL SOUNDS NOTED IN ALL QUADRANTS. NORMAL RANGE OF MOTION NOTED IN ALL EXTREMITIES. HIS VITALS THIS MORNING ARE 99.0-78-18-98%-105/57. LABS WERE OBTAINED THIS MORNING. ABNORMAL LAB VALUES INCLUDE THE FOLLOWING: WBC 10.2, RBC 3.46, HGB 11.3, HCT 32.5, SODIUM 135, POTASSIUM 2.7, BUN 23, GLUCOSE 106, AST 46, ALBUMIN 1.9. A CHEST XRAY WAS OBTAINED THIS MORNING AND REPORTS PERIPHERAL RIGHT UPPER LOBE PNEUMONIA UNCHANED. TODAY, WE WILL START TORADOL 15MG IV Q6H PRN FOR CHEST DISCOMFORT DUE TO PLEURISY. WE WILL ALSO START KLONOPIN 1MG AT BEDTIME. A CHEST CT WITH CONTRAST WILL BE ORDER FOR IN THE MORNING DUE TO PERSISTENT SHORNTESS OF BREATH AND HISTORY OF PUMONARY EMBOLISMS. OTHERWISE, WE WILL CONTINUE IV ANTIBIOTICS AND RESPIRATORY TX. WE WILL FOLLOW UP WITH AM LABS AND CONTINUE TO MONITOR PATIENT. - Past Medical Family Social History Past Med/Fam/Surg Hx: No changes since H&P Allergies: Allergies No Known Drug Allergies Allergy (Verified 02/05/17 10:49) - Review of Systems ROS: No change since H&P - Vital Signs and I&O's Vital Signs: Temperature 101.4 F Pulse Rate [Apical] 80 Pulse Rate [Right Radial] 80 Pulse Rate 63 Respiratory Rate 22 Blood Pressure [Left Arm] 105/66 Blood Pressure [Right Arm] 130/69 Blood Pressure 104/57 O2 Sat by Pulse Oximetry 100 Intake and Output: Intake & Output 03/18/17 03/19/17 03/20/17 03/21/17 11:59 11:59 11:59 11:59 Intake Total 2140 4508 1275 Output Total 402 1900 1075 Balance 1738 2608 200 - Physical Exam Oriented: Normal Eyes: Normal Ear: Normal Nose: Normal Throat: Normal Respiratory: Right, Left, Generalized, Wheezes Cardiovascular: Normal. negative: S3, S4, Murmur : Normal Auscultation: Bowel Sounds: Normal Palpation: Normal Tenderness: Normal Skin: Normal Musculoskeletal: Normal Psychiatric: Normal Mood Description: Calm Affect: Normal Speech Pattern: Clear, Appropriate - Laboratory and Diagnostics Result Diagrams: 03/20/17 16:16 03/20/17 16:16 Labs: 03/18/17 15:47 Blood Blood Culture - Preliminary 03/18/17 15:41 Blood Blood Culture - Preliminary 03/18/17 16:48 Sputum - Expectorated Sputum Sputum Culture - Final 03/18/17 16:48 Sputum - Expectorated Sputum - Final Laboratory WBC 9.3 X10^3/uL (3.6-10.0) 03/20/17 16:16 RBC 3.30 X10^6/uL (4.7-6.0) L 03/20/17 16:16 Hgb 10.9 g/dL (13.5-18.0) L 03/20/17 16:16 Hct 32.1 % (42.0-54.0) L 03/20/17 16:16 MCV 97.1 fL (80.0-100.0) 03/20/17 16:16 MCH 33.1 pg (27.0-34.0) 03/20/17 16:16 MCHC 34.1 g/dL (33.0-35.0) 03/20/17 16:16 RDW 14.6 % (11.6-16.5) 03/20/17 16:16 Plt Count 450 X10^3/uL (150.0-450.0) 03/20/17 16:16 Plt Count Comment Adequate (ADEQUATE) 03/20/17 16:16 MPV 7.9 fL (7.4-11.0) 03/20/17 16:16 Neut % 88.9 % (42.0-75.0) H 03/20/17 16:16 Lymph % 4.7 % (21.0-51.0) L 03/20/17 16:16 [place] % 4.0 % (0.0-13.0) 03/20/17 16:16 Eos % 2.0 % (0.9-2.9) 03/20/17 16:16 Baso % 0.4 % (0.2-1.0) 03/20/17 16:16 Neut # 8.3 x10^3/uL (2.2-4.8) H 03/20/17 16:16 Lymph # 0.4 X10^3/uL (1.3-2.9) L 03/20/17 16:16 [place] # 0.4 x10^3/uL (0.3-0.8) 03/20/17 16:16 Eos # 0.2 x10^3/uL (0.0-0.2) 03/20/17 16:16 Baso # 0.0 X10^3/uL (0.0-0.1) 03/20/17 16:16 Absolute Nucleated RBC 0.0 /100WBC 03/20/17 16:16 Total Counted 100 03/20/17 16:16 Neutrophils % (Manual) 84 % (39-76) H 03/20/17 16:16 Band Neutrophils % 2 % (0-10) 03/20/17 16:16 Lymphocytes % (Manual) 7 % (13-43) L 03/20/17 16:16 Monocytes % (Manual) 5 % (4-9) 03/20/17 16:16 Eosinophils % (Manual) 2 % (0-6) 03/20/17 16:16 Plt Morphology Comment Normal (NORMAL) 03/20/17 16:16 RBC Morphology Normal (NORMAL) 03/20/17 16:16 INR Target Range - 03/19/17 05:30 INR 1.27 (0.8-1.3) 03/19/17 05:30 Sodium 139 mmol/L (136-145) 03/20/17 16:16 Corrected Sodium 139 mmol/L (136-145) 03/20/17 16:16 Potassium 3.3 mmol/L (3.5-5.1) L 03/20/17 16:16 Chloride 105 mmol/L (98-107) 03/20/17 16:16 Carbon Dioxide 24.9 mmol/L (21-32) 03/20/17 16:16 BUN 12 mg/dL (7-18) 03/20/17 16:16 Creatinine 1.02 mg/dL (0.70-1.30) 03/20/17 16:16 Est GFR (MDRD) Af Amer > 60 (>60) 03/20/17 16:16 Est GFR (MDRD) Non-Af > 60 (>60) 03/20/17 16:16 Glucose 112 mg/dL (65-99) H 03/20/17 16:16 Calcium 8.8 mg/dL (8.5-10.1) 03/20/17 16:16 Corrected Calcium 10.3 mg/dL (8.5-10.1) H 03/20/17 05:55 Magnesium 1.3 mg/dL (1.7-2.9) L 03/20/17 16:16 Total Bilirubin 0.20 mg/dL (0.2-1.0) 03/20/17 05:55 AST 62 Units/L (15-37) H 03/20/17 05:55 ALT 46 Units/L (12-78) 03/20/17 05:55 Alkaline Phosphatase 69 Units/L (46-116) 03/20/17 05:55 Total Protein 6.1 g/dL (6.4-8.2) L 03/20/17 05:55 Albumin 1.6 g/dL (3.4-5.0) L 03/20/17 05:55 Globulin 4.5 g/dL (2.5-4.5) 03/20/17 05:55 Albumin/Globulin Ratio 0.4 Ratio (1.1-2.1) L 03/20/17 05:55 Influenza Type A (PCR) Negative (NEGATIVE) 03/18/17 15:29 Influenza Type B (PCR) Negative (NEGATIVE) 03/18/17 15:29 - Plan (1) Right upper lobe pneumonia Status: Acute Qualifiers: Pneumonia type: due to unspecified organism Qualified Code(s): J18.1 - Lobar pneumonia, unspecified organism Plan: PNEUMONIA PROTOCOL, ROCEPHIN 1GM IV DAILY, DOXYCYCLINE 100MG IV Q12H, SUPPLEMENTAL OXYGEN, RESPIRATORY TX, CONTINUE TO MONITOR (2) History of DVT of lower extremity Status: Chronic Plan: continue waarfarin 10mg po hs, monitor inr, continue to monitor
[2017-03-20] MEDS: KLONOPIN TAB 1 MG PO SCH (20:04)
[2017-03-20] MEDS: COUMADIN TAB 10 MG PO SCH (20:04)
[2017-03-20] MEDS: NORCO 5/325 MG TAB PO PRN (20:15)
[2017-03-21] MEDS: TORADOL 15 MG VIAL IVP PRN ×4 (00:32→20:31)
[2017-03-21] MEDS: DUONEB 0.5 MG/3 MG NEB SCH ×6 (01:00→20:10)
[2017-03-21] MEDS: POTASSIUM CHLORIDE IV SCH ×4 (05:37→10:43)
[2017-03-21] MEDS: NS IV SCH ×4 (05:37→10:43)
[2017-03-21 06:08] LABS: BASOPHILS % (AUTO) 0.4 % (0.2-1.0); EOSINOPHILS # (AUTO) 0.2 x10^3/uL (0.0-0.2); EOSINOPHILS % (AUTO) 2.2 % (0.9-2.9); HEMATOCRIT 30.7 % (42.0-54.0); HEMOGLOBIN 10.5 g/dL (13.5-18.0); LYMPHOCYTES # (AUTO) 0.7 X10^3/uL (1.3-2.9); LYMPHOCYTES % (AUTO) 7.1 % (21.0-51.0); MEAN CORPUSCULAR HEMOGLOBIN 32.7 pg (27.0-34.0); MEAN CORPUSCULAR HGB CONC 34.2 g/dL (33.0-35.0); MEAN CORPUSCULAR VOLUME 95.7 fL (80.0-100.0); MEAN PLATELET VOLUME 8.2 fL (7.4-11.0); MONOCYTES # (AUTO) 0.5 x10^3/uL (0.3-0.8); MONOCYTES % (AUTO) 4.7 % (0.0-13.0); NEUTROPHILS # (AUTO) 8.7 x10^3/uL (2.2-4.8); NEUTROPHILS % (AUTO) 85.6 % (42.0-75.0); PLATELET COUNT 419 X10^3/uL (150.0-450.0); RED BLOOD COUNT 3.21 X10^6/uL (4.7-6.0); RED CELL DISTRIBUTION WIDTH 14.4 % (11.6-16.5); WHITE BLOOD COUNT 10.2 X10^3/uL (3.6-10.0)
[2017-03-21 06:24] LABS: ALANINE AMINOTRANSFERASE 45 Units/L (12-78); ALBUMIN 1.8 g/dL (3.4-5.0); ALKALINE PHOSPHATASE 71 Units/L (46-116); ASPARTATE AMINO TRANSFERASE 40 Units/L (15-37); BLOOD UREA NITROGEN 10 mg/dL (7-18); CALCIUM 8.8 mg/dL (8.5-10.1); CARBON DIOXIDE 24.9 mmol/L (21-32); CHLORIDE 107 mmol/L (98-107); COR CA(FOR HYPOALB) 10.6 mg/dL (8.5-10.1); CREATININE 0.82 mg/dL (0.70-1.30); SODIUM 140 mmol/L (136-145); TOTAL PROTEIN 6.6 g/dL (6.4-8.2); eGFR BLACK RACES > 60 (>60); eGFR NON BLACK RACES > 60 (>60)
[2017-03-21] MEDS: MAG-OX TAB PO PRN (06:30)
--- NOTE | 2017-03-21 07:17 | RAD ---
Examination: Portable AP chest History: Body ache and fever Comparison 03/19/2017 Findings: Continued normal heart size, grossly clear left lung. Persistent infiltrates in right upper and right lower lobes. No developing pleural fluid or pneumothorax. Impression: Findings remain consistent with pneumonia. No interval change. Reported By:
[2017-03-21] MEDS: COZAAR PO SCH (08:27)
[2017-03-21] MEDS: ROCEPHIN VIAL 1 GM 1 GM in NS 100 ML IV 100 ML IV SCH (08:27)
[2017-03-21] MEDS: ROBITUSSIN DM PO SCH ×4 (08:28→20:28)
[2017-03-21] MEDS: VIBRAMYCIN 100 MG in NS 100 ML IV 100 ML IV SCH ×2 (08:29→21:30)
[2017-03-21] MEDS: NORCO 5/325 MG TAB PO PRN ×3 (08:30→21:34)
--- NOTE | 2017-03-21 16:58 | PCM.PROG ---
Progress Note - Progress Note for Day of Date: 03/20/17 - Subjective Subjective: WAS ADMITTED FOR RIGHT UPPER LOBE PNEUMONIA. TODAY, HE IS ALERT AND ORIENTED, LYING IN BED ON MORNING ROUNDS. HE CONTINUES WITH COMPLAINTS OF SHORTNESS OF BREATH, PERSISTENT COUGH, AND CHEST AND RIB PAIN. ON EXAMINATION, HEART IS REGULAR IN RATE AND RHYTHM. BILATERAL LUNGS CONTINUE WITH SCATTERED WHEEZING. HE IS CURRENTLY UTILIZING OXYGEN VIA NASAL CANNULA AT 2L/ MIN. ABDOMEN IS ROUND, SOFT, AND NON-TENDER WITH NORMAL BOWEL SOUNDS NOTED IN ALL QUADRANTS. NORMAL RANGE OF MOTION NOTED IN ALL EXTREMITIES. HIS VITALS THIS MORNING ARE 98.9-63-22-96%-131/66. LABS WERE OBTAINED THIS MORNING. ABNORMAL LAB VALUES INCLUDE THE FOLLOWING: WBC 10.2, RBC 3.21, HGB 10.5, HCT 30.7, MAGNESIUM 1.5, AST 40, ALBUMIN 1.8, GLOBULIN 4.8. PRELIMINARY BLOOD CULTURES CONTINUE TO REPORT NO GROWTH. A CHEST CT WAS OBTAINED THIS MORNING AND REPORTED PATCHY AND CONFLUENT RIGHT LUNG INFILTRATES WITH SOME CONSOLIDATING INFILTRATES IN THE LUNG BASES BILATERALLY MOST CONSISTENT WITH MULTIFOCAL PNEUMONIA. 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 TODAY, WE PLAN TO CONTINUE IV ANTIBIOTICS AND RESPIRATORY TREATMENTS. WE WILL REPLACE MAGNESIUM PER MAGNESIUM PROTOCOL. OTHERWISE, WE PLAN TO FOLLOW UP WITH AM LABS AND CONTINUE TO MONITOR PATIENT. - Past Medical Family Social History Past Med/Fam/Surg Hx: No changes since H&P Allergies: Allergies No Known Drug Allergies Allergy (Verified 02/05/17 10:49) - Review of Systems ROS: No change since H&P - Vital Signs and I&O's Vital Signs: Temperature 98.7 F Pulse Rate [Apical] 80 Pulse Rate [Right Radial] 80 Pulse Rate 78 Respiratory Rate 22 Blood Pressure [Left Arm] 105/66 Blood Pressure [Right Arm] 115/77 Blood Pressure 104/57 O2 Sat by Pulse Oximetry 95 Intake and Output: Intake & Output 03/19/17 03/20/17 03/21/17 03/22/17 11:59 11:59 11:59 11:59 Intake Total 2140 4508 4695 1120 Output Total 402 1900 4525 1050 Balance 1738 2608 170 70 - Physical Exam Oriented: Normal Eyes: Normal Ear: Normal Nose: Normal Throat: Normal Respiratory: Right, Left, Generalized, Wheezes Cardiovascular: Normal. negative: S3, S4, Murmur : Normal Auscultation: Bowel Sounds: Normal Palpation: Normal Tenderness: Normal Skin: Normal Musculoskeletal: Normal Psychiatric: Normal Mood Description: Calm Affect: Normal Speech Pattern: Clear, Appropriate - Laboratory and Diagnostics Result Diagrams: 03/21/17 05:31 03/21/17 05:31 Labs: 03/18/17 15:47 Blood Blood Culture - Preliminary 03/18/17 15:41 Blood Blood Culture - Preliminary 03/18/17 16:48 Sputum - Expectorated Sputum Sputum Culture - Final 03/18/17 16:48 Sputum - Expectorated Sputum - Final Laboratory WBC 10.2 X10^3/uL (3.6-10.0) H 03/21/17 05:31 RBC 3.21 X10^6/uL (4.7-6.0) L 03/21/17 05:31 Hgb 10.5 g/dL (13.5-18.0) L 03/21/17 05:31 Hct 30.7 % (42.0-54.0) L 03/21/17 05:31 MCV 95.7 fL (80.0-100.0) 03/21/17 05:31 MCH 32.7 pg (27.0-34.0) 03/21/17 05:31 MCHC 34.2 g/dL (33.0-35.0) 03/21/17 05:31 RDW 14.4 % (11.6-16.5) 03/21/17 05:31 Plt Count 419 X10^3/uL (150.0-450.0) 03/21/17 05:31 Plt Count Comment Adequate (ADEQUATE) 03/20/17 16:16 MPV 8.2 fL (7.4-11.0) 03/21/17 05:31 Neut % 85.6 % (42.0-75.0) H 03/21/17 05:31 Lymph % 7.1 % (21.0-51.0) L 03/21/17 05:31 [place] % 4.7 % (0.0-13.0) 03/21/17 05:31 Eos % 2.2 % (0.9-2.9) 03/21/17 05:31 Baso % 0.4 % (0.2-1.0) 03/21/17 05:31 Neut # 8.7 x10^3/uL (2.2-4.8) H 03/21/17 05:31 Lymph # 0.7 X10^3/uL (1.3-2.9) L 03/21/17 05:31 [place] # 0.5 x10^3/uL (0.3-0.8) 03/21/17 05:31 Eos # 0.2 x10^3/uL (0.0-0.2) 03/21/17 05:31 Baso # 0.0 X10^3/uL (0.0-0.1) 03/21/17 05:31 Absolute Nucleated RBC 0.0 /100WBC 03/21/17 05:31 Total Counted 100 03/20/17 16:16 Neutrophils % (Manual) 84 % (39-76) H 03/20/17 16:16 Band Neutrophils % 2 % (0-10) 03/20/17 16:16 Lymphocytes % (Manual) 7 % (13-43) L 03/20/17 16:16 Monocytes % (Manual) 5 % (4-9) 03/20/17 16:16 Eosinophils % (Manual) 2 % (0-6) 03/20/17 16:16 Plt Morphology Comment Normal (NORMAL) 03/20/17 16:16 RBC Morphology Normal (NORMAL) 03/20/17 16:16 INR Target Range - 03/21/17 05:31 INR 1.08 (0.8-1.3) 03/21/17 05:31 Sodium 140 mmol/L (136-145) 03/21/17 05:31 Corrected Sodium TNP 03/21/17 05:31 Potassium 4.0 mmol/L (3.5-5.1) 03/21/17 05:31 Chloride 107 mmol/L (98-107) 03/21/17 05:31 Carbon Dioxide 24.9 mmol/L (21-32) 03/21/17 05:31 BUN 10 mg/dL (7-18) 03/21/17 05:31 Creatinine 0.82 mg/dL (0.70-1.30) 03/21/17 05:31 Est GFR (MDRD) Af Amer > 60 (>60) 03/21/17 05:31 Est GFR (MDRD) Non-Af > 60 (>60) 03/21/17 05:31 Glucose 98 mg/dL (65-99) 03/21/17 05:31 Calcium 8.8 mg/dL (8.5-10.1) 03/21/17 05:31 Corrected Calcium 10.6 mg/dL (8.5-10.1) H 03/21/17 05:31 Magnesium 1.5 mg/dL (1.7-2.9) L 03/21/17 05:31 Total Bilirubin 0.20 mg/dL (0.2-1.0) 03/21/17 05:31 AST 40 Units/L (15-37) H 03/21/17 05:31 ALT 45 Units/L (12-78) 03/21/17 05:31 Alkaline Phosphatase 71 Units/L (46-116) 03/21/17 05:31 Total Protein 6.6 g/dL (6.4-8.2) 03/21/17 05:31 Albumin 1.8 g/dL (3.4-5.0) L 03/21/17 05:31 Globulin 4.8 g/dL (2.5-4.5) H 03/21/17 05:31 Albumin/Globulin Ratio 0.4 Ratio (1.1-2.1) L 03/21/17 05:31 Influenza Type A (PCR) Negative (NEGATIVE) 03/18/17 15:29 Influenza Type B (PCR) Negative (NEGATIVE) 03/18/17 15:29 - Plan (1) Right upper lobe pneumonia Status: Acute Qualifiers: Pneumonia type: due to unspecified organism Qualified Code(s): J18.1 - Lobar pneumonia, unspecified organism Plan: PNEUMONIA PROTOCOL, ROCEPHIN 1GM IV DAILY, DOXYCYCLINE 100MG IV Q12H, SUPPLEMENTAL OXYGEN, RESPIRATORY TX, CONTINUE TO MONITOR (2) Pleurisy Status: Acute Plan: TORADOL 15MG IV Q6H, CONTINUE TO MONTITOR (3) Hypomagnesemia Status: Acute Plan: REPLACEMENT WITH MAGNESIUM PROTOCOL, CONTINUE TO MONITOR (4) History of DVT of lower extremity Status: Chronic Plan: continue warfarin 10mg po hs, monitor inr, continue to monitor
[2017-03-21] MEDS: KLONOPIN TAB 1 MG PO SCH (20:28)
[2017-03-21] MEDS: COUMADIN TAB 10 MG PO SCH (20:29)
--- NOTE | 2017-03-21 21:09 | PCM.PROG ---
Progress Note - Progress Note for Day of Date: 03/21/17 - Subjective Subjective: WAS ADMITTED FOR RIGHT UPPER LOBE PNEUMONIA. TODAY, HE IS LYING IN BED WITH EYES CLOSED ON MORNING ROUNDS. HE IS DROWSY THIS MORNING COMPARED TO OUR VISIT YESTERDAY. HE CONTINUES WITH COMPLAINTS OF SHORTNESS OF BREATH, PERSISTENT COUGH, AND CHEST PAIN. ON EXAMINATION, HEART IS REGULAR IN RATE AND RHYTHM. BILATERAL LUNGS CONTINUE WITH SCATTERED WHEEZING. HE IS CURRENTLY UTILIZING OXYGEN VIA NASAL CANNULA AT 2L/MIN. ABDOMEN IS ROUND, SOFT, AND NON-TENDER WITH NORMAL BOWEL SOUNDS NOTED IN ALL QUADRANTS. NORMAL RANGE OF MOTION NOTED IN ALL EXTREMITIES. HIS VITALS THIS MORNING ARE 98.9-71-22-100%-127 /73. LABS WERE OBTAINED THIS MORNING. ABNORMAL LAB VALUES INCLUDE THE FOLLOWING : WBC 10.2, RBC 3.21, HGB 10.5, HCT 30.7, MAGNESIUM 1.5, AST 40, ALBUMIN 1.8, GLOBULIN 4.8. PRELIMINARY BLOOD CULTURES CONTINUE TO REPORT NO GROWTH. SPUTUM CULTURE REPORTS NORMAL LILO. A CHEST XRAY WAS OBTAINED TODAY AND REPORTS PERSISTENT INFILTRATES IN RIGHT UPPER AND RIGHT LOWER LOBES. TODAY, WE PLAN TO CONTINUE IV ANTIBIOTICS AND RESPIRATORY TREATMENTS. WE WILL REPLACE MAGNESIUM PER MAGNESIUM PROTOCOL AND CONTINUE ALBUMIN. OTHERWISE, WE PLAN TO FOLLOW UP WITH AM LABS AND CONTINUE TO MONITOR PATIENT. - Past Medical Family Social History Past Med/Fam/Surg Hx: No changes since H&P Allergies: Allergies No Known Drug Allergies Allergy (Verified 02/05/17 10:49) - Review of Systems ROS: No change since H&P - Vital Signs and I&O's Vital Signs: Temperature 98.7 F Pulse Rate [Apical] 80 Pulse Rate [Right Radial] 80 Pulse Rate 86 Respiratory Rate 22 Blood Pressure [Left Arm] 105/66 Blood Pressure [Right Arm] 115/77 Blood Pressure 104/57 O2 Sat by Pulse Oximetry 96 Intake and Output: Intake & Output 03/19/17 03/20/17 03/21/17 03/22/17 11:59 11:59 11:59 11:59 Intake Total 2140 4508 4695 1370 Output Total 402 1900 4525 1050 Balance 1738 2608 170 320 - Physical Exam Oriented: Normal Eyes: Normal Ear: Normal Nose: Normal Throat: Normal Respiratory: Right, Left, Generalized, Wheezes Cardiovascular: Normal. negative: S3, S4, Murmur : Normal Auscultation: Bowel Sounds: Normal Palpation: Normal Tenderness: Normal Skin: Normal Musculoskeletal: Normal Psychiatric: Normal Mood Description: Calm Affect: Normal Speech Pattern: Clear, Appropriate - Laboratory and Diagnostics Result Diagrams: 03/21/17 05:31 03/21/17 05:31 Labs: 03/18/17 15:47 Blood Blood Culture - Preliminary 03/18/17 15:41 Blood Blood Culture - Preliminary 03/18/17 16:48 Sputum - Expectorated Sputum Sputum Culture - Final 03/18/17 16:48 Sputum - Expectorated Sputum - Final Laboratory WBC 10.2 X10^3/uL (3.6-10.0) H 03/21/17 05:31 RBC 3.21 X10^6/uL (4.7-6.0) L 03/21/17 05:31 Hgb 10.5 g/dL (13.5-18.0) L 03/21/17 05:31 Hct 30.7 % (42.0-54.0) L 03/21/17 05:31 MCV 95.7 fL (80.0-100.0) 03/21/17 05:31 MCH 32.7 pg (27.0-34.0) 03/21/17 05:31 MCHC 34.2 g/dL (33.0-35.0) 03/21/17 05:31 RDW 14.4 % (11.6-16.5) 03/21/17 05:31 Plt Count 419 X10^3/uL (150.0-450.0) 03/21/17 05:31 Plt Count Comment Adequate (ADEQUATE) 03/20/17 16:16 MPV 8.2 fL (7.4-11.0) 03/21/17 05:31 Neut % 85.6 % (42.0-75.0) H 03/21/17 05:31 Lymph % 7.1 % (21.0-51.0) L 03/21/17 05:31 [place] % 4.7 % (0.0-13.0) 03/21/17 05:31 Eos % 2.2 % (0.9-2.9) 03/21/17 05:31 Baso % 0.4 % (0.2-1.0) 03/21/17 05:31 Neut # 8.7 x10^3/uL (2.2-4.8) H 03/21/17 05:31 Lymph # 0.7 X10^3/uL (1.3-2.9) L 03/21/17 05:31 [place] # 0.5 x10^3/uL (0.3-0.8) 03/21/17 05:31 Eos # 0.2 x10^3/uL (0.0-0.2) 03/21/17 05:31 Baso # 0.0 X10^3/uL (0.0-0.1) 03/21/17 05:31 Absolute Nucleated RBC 0.0 /100WBC 03/21/17 05:31 Total Counted 100 03/20/17 16:16 Neutrophils % (Manual) 84 % (39-76) H 03/20/17 16:16 Band Neutrophils % 2 % (0-10) 03/20/17 16:16 Lymphocytes % (Manual) 7 % (13-43) L 03/20/17 16:16 Monocytes % (Manual) 5 % (4-9) 03/20/17 16:16 Eosinophils % (Manual) 2 % (0-6) 03/20/17 16:16 Plt Morphology Comment Normal (NORMAL) 03/20/17 16:16 RBC Morphology Normal (NORMAL) 03/20/17 16:16 INR Target Range - 03/21/17 05:31 INR 1.08 (0.8-1.3) 03/21/17 05:31 Sodium 140 mmol/L (136-145) 03/21/17 05:31 Corrected Sodium TNP 03/21/17 05:31 Potassium 4.0 mmol/L (3.5-5.1) 03/21/17 05:31 Chloride 107 mmol/L (98-107) 03/21/17 05:31 Carbon Dioxide 24.9 mmol/L (21-32) 03/21/17 05:31 BUN 10 mg/dL (7-18) 03/21/17 05:31 Creatinine 0.82 mg/dL (0.70-1.30) 03/21/17 05:31 Est GFR (MDRD) Af Amer > 60 (>60) 03/21/17 05:31 Est GFR (MDRD) Non-Af > 60 (>60) 03/21/17 05:31 Glucose 98 mg/dL (65-99) 03/21/17 05:31 Calcium 8.8 mg/dL (8.5-10.1) 03/21/17 05:31 Corrected Calcium 10.6 mg/dL (8.5-10.1) H 03/21/17 05:31 Magnesium 1.5 mg/dL (1.7-2.9) L 03/21/17 05:31 Total Bilirubin 0.20 mg/dL (0.2-1.0) 03/21/17 05:31 AST 40 Units/L (15-37) H 03/21/17 05:31 ALT 45 Units/L (12-78) 03/21/17 05:31 Alkaline Phosphatase 71 Units/L (46-116) 03/21/17 05:31 Total Protein 6.6 g/dL (6.4-8.2) 03/21/17 05:31 Albumin 1.8 g/dL (3.4-5.0) L 03/21/17 05:31 Globulin 4.8 g/dL (2.5-4.5) H 03/21/17 05:31 Albumin/Globulin Ratio 0.4 Ratio (1.1-2.1) L 03/21/17 05:31 Influenza Type A (PCR) Negative (NEGATIVE) 03/18/17 15:29 Influenza Type B (PCR) Negative (NEGATIVE) 03/18/17 15:29 - Plan (1) Right upper lobe pneumonia Status: Acute Qualifiers: Pneumonia type: due to unspecified organism Qualified Code(s): J18.1 - Lobar pneumonia, unspecified organism Plan: PNEUMONIA PROTOCOL, ROCEPHIN 1GM IV DAILY, DOXYCYCLINE 100MG IV Q12H, SUPPLEMENTAL OXYGEN, RESPIRATORY TX, CONTINUE TO MONITOR (2) Pleurisy Status: Acute Plan: TORADOL 15MG IV Q6H, CONTINUE TO MONTITOR (3) Hypomagnesemia Status: Acute Plan: REPLACEMENT WITH MAGNESIUM PROTOCOL, CONTINUE TO MONITOR (4) History of DVT of lower extremity Status: Chronic Plan: continue warfarin 10mg po hs, monitor inr, continue to monitor (5) Hypoalbuminemia Status: Acute Plan: ALBUMIN 25% IV DAILY, CONTINUE TO MONITOR
[2017-03-22] MEDS: DUONEB 0.5 MG/3 MG NEB SCH ×6 (00:06→20:42)
[2017-03-22] MEDS: POTASSIUM CHLORIDE IV SCH ×4 (03:33→20:11)
[2017-03-22] MEDS: NS IV SCH ×4 (03:33→20:11)
[2017-03-22] MEDS: TORADOL 15 MG VIAL IVP PRN ×3 (04:35→19:55)
[2017-03-22] MEDS: TUSSIONEX PENNKINETIC SUSP PO PRN (05:00)
[2017-03-22 06:17] LABS: BASOPHILS % (AUTO) 0.3 % (0.2-1.0); EOSINOPHILS # (AUTO) 0.2 x10^3/uL (0.0-0.2); EOSINOPHILS % (AUTO) 2.5 % (0.9-2.9); HEMATOCRIT 30.8 % (42.0-54.0); HEMOGLOBIN 10.4 g/dL (13.5-18.0); LYMPHOCYTES # (AUTO) 0.7 X10^3/uL (1.3-2.9); LYMPHOCYTES % (AUTO) 7.5 % (21.0-51.0); MEAN CORPUSCULAR HEMOGLOBIN 32.3 pg (27.0-34.0); MEAN CORPUSCULAR HGB CONC 33.7 g/dL (33.0-35.0); MEAN CORPUSCULAR VOLUME 95.7 fL (80.0-100.0); MEAN PLATELET VOLUME 7.8 fL (7.4-11.0); MONOCYTES # (AUTO) 0.4 x10^3/uL (0.3-0.8); MONOCYTES % (AUTO) 4.8 % (0.0-13.0); NEUTROPHILS # (AUTO) 7.6 x10^3/uL (2.2-4.8); NEUTROPHILS % (AUTO) 84.9 % (42.0-75.0); PLATELET COUNT 514 X10^3/uL (150.0-450.0); RED BLOOD COUNT 3.22 X10^6/uL (4.7-6.0); RED CELL DISTRIBUTION WIDTH 14.3 % (11.6-16.5); WHITE BLOOD COUNT 8.9 X10^3/uL (3.6-10.0)
[2017-03-22 06:35] LABS: ALANINE AMINOTRANSFERASE 38 Units/L (12-78); ALBUMIN 1.8 g/dL (3.4-5.0); ALKALINE PHOSPHATASE 65 Units/L (46-116); ASPARTATE AMINO TRANSFERASE 29 Units/L (15-37); BLOOD UREA NITROGEN 10 mg/dL (7-18); CALCIUM 8.6 mg/dL (8.5-10.1); CARBON DIOXIDE 25.2 mmol/L (21-32); CHLORIDE 107 mmol/L (98-107); COR CA(FOR HYPOALB) 10.4 mg/dL (8.5-10.1); CREATININE 0.71 mg/dL (0.70-1.30); SODIUM 141 mmol/L (136-145); TOTAL PROTEIN 6.7 g/dL (6.4-8.2); eGFR BLACK RACES > 60 (>60); eGFR NON BLACK RACES > 60 (>60)
[2017-03-22 07:04] LABS: BAND NEUTROPHILS % 1 % (0-10)
[2017-03-22 07:05] LABS: PLATELET MORPHOLOGY COMMENT NORMAL (NORMAL)
--- NOTE | 2017-03-22 07:23 | RAD ---
HISTORY: Shortness of breath Study: Single view of the chest. Comparison: 03/21/2017 Findings: The cardiomediastinal silhouette is normal. No significant change in the right upper lobe opacity. Os seous structures demonstrate no acute abnormality. IMPRESSION: 1. No significant change in right upper lobe opacity. Reported By:
[2017-03-22] MEDS: NORCO 5/325 MG TAB PO PRN (08:37)
[2017-03-22] MEDS: MAG-OX TAB PO PRN ×2 (08:37→12:58)
[2017-03-22] MEDS: VIBRAMYCIN 100 MG in NS 100 ML IV 100 ML IV SCH ×3 (08:38→20:14)
[2017-03-22] MEDS: ROBITUSSIN DM PO SCH ×4 (08:38→20:06)
[2017-03-22] MEDS: ROCEPHIN VIAL 1 GM 1 GM in NS 100 ML IV 100 ML IV SCH (08:38)
[2017-03-22] MEDS: COZAAR PO SCH (08:38)
--- NOTE | 2017-03-22 15:19 | PCM.PROG ---
Progress Note - Progress Note for Day of Date: 03/22/17 - Subjective Subjective: WAS ADMITTED FOR PNEUMONIA. CHEST XRAY AND CT REVEALS MULTIFOCAL PNEUMONIA, MOSTLY IN THE RIGHT LUNG. TODAY, HE IS ALERT AND ORIENTED , SITTING UP IN BED ON MORNING ROUNDS. HE CONTINUES WITH PRODUCTIVE COUGH AND SHORTNESS OF BREATH. SPUTUM AT BEDSIDE IS THICK, YELLOW. ON EXAMINATION, HEART IS REGULAR IN RATE AND RHYTHM. BILATERAL LUNGS ARE NOTED WITH SCATTERED WHEEZING , SLIGHTLY IMPROVED SINCE YESTERDAY. HE IS UTILIZING OXYGEN VIA NASAL CANNULA AT 2L/MIN. ABDOMEN IS ROUND, SOFT, AND NON-TENDER WITH NORMAL BOWEL SOUNDS NOTED IN ALL QUADRANTS. HIS VITALS THIS MORNING ARE 98.9-78-25-97%-159/79. LABS WERE OBTAINED. ABNORMAL LAB VALUES INCLUDE THE FOLLOWING: RBC 3.22, HGB 10.4, HCT 30.8, PLT COUNT 514, GLUCOSE 100, ALBUMIN 1.8, GLOBULIN 4.9. SPUTUM CULTURE REPORTS NORMAL LILO. PRELIMINARY BLOOD CULTURES CONTINUE TO REPORT NO GROWTH. TODAYS CHEST XRAY REPORTS NO SIGNIFICANT CHANGE IN THE RIGHT UPPER LOBE OPACITY. PATIENT COULD BENEFIT FROM ANOTHER DAY OF IV ANTIBIOTICS AND BREATHING TX. WE WILL CONTINUE WITH CURRENT PLAN OF CARE TODAY. WE PLAN TO FOLLOW UP WITH AM LABS AND CHEST XRAY AND CONTINUE TO MONITOR PATIENT. - Past Medical Family Social History Past Med/Fam/Surg Hx: No changes since H&P Allergies: Allergies No Known Drug Allergies Allergy (Verified 02/05/17 10:49) - Review of Systems ROS: No change since H&P - Vital Signs and I&O's Vital Signs: Temperature 98 F Pulse Rate [Apical] 75 Pulse Rate [Right Radial] 80 Pulse Rate 73 Respiratory Rate 24 Blood Pressure [Left Arm] 105/66 Blood Pressure [Right Arm] 138/81 Blood Pressure 104/57 O2 Sat by Pulse Oximetry 100 Intake and Output: Intake & Output 03/20/17 03/21/17 03/22/17 03/23/17 11:59 11:59 11:59 11:59 Intake Total 4508 4695 3830 1702 Output Total 1900 4525 2550 1800 Balance 2608 170 1280 -98 - Physical Exam Oriented: Normal Eyes: Normal Ear: Normal Nose: Normal Throat: Normal Respiratory: Right, Left, Generalized, Wheezes Cardiovascular: Normal. negative: S3, S4, Murmur : Normal Auscultation: Bowel Sounds: Normal Palpation: Normal Tenderness: Normal Skin: Normal Musculoskeletal: Normal Psychiatric: Normal Mood Description: Calm Affect: Normal Speech Pattern: Clear, Appropriate - Laboratory and Diagnostics Result Diagrams: 03/22/17 05:40 03/22/17 05:40 Labs: 03/18/17 15:47 Blood Blood Culture - Preliminary 03/18/17 15:41 Blood Blood Culture - Preliminary 03/18/17 16:48 Sputum - Expectorated Sputum Sputum Culture - Final 03/18/17 16:48 Sputum - Expectorated Sputum - Final Laboratory WBC 8.9 X10^3/uL (3.6-10.0) 03/22/17 05:40 RBC 3.22 X10^6/uL (4.7-6.0) L 03/22/17 05:40 Hgb 10.4 g/dL (13.5-18.0) L 03/22/17 05:40 Hct 30.8 % (42.0-54.0) L 03/22/17 05:40 MCV 95.7 fL (80.0-100.0) 03/22/17 05:40 MCH 32.3 pg (27.0-34.0) 03/22/17 05:40 MCHC 33.7 g/dL (33.0-35.0) 03/22/17 05:40 RDW 14.3 % (11.6-16.5) 03/22/17 05:40 Plt Count 514 X10^3/uL (150.0-450.0) H 03/22/17 05:40 Plt Count Comment Adequate (ADEQUATE) 03/22/17 05:40 MPV 7.8 fL (7.4-11.0) 03/22/17 05:40 Neut % 84.9 % (42.0-75.0) H 03/22/17 05:40 Lymph % 7.5 % (21.0-51.0) L 03/22/17 05:40 [place] % 4.8 % (0.0-13.0) 03/22/17 05:40 Eos % 2.5 % (0.9-2.9) 03/22/17 05:40 Baso % 0.3 % (0.2-1.0) 03/22/17 05:40 Neut # 7.6 x10^3/uL (2.2-4.8) H 03/22/17 05:40 Lymph # 0.7 X10^3/uL (1.3-2.9) L 03/22/17 05:40 [place] # 0.4 x10^3/uL (0.3-0.8) 03/22/17 05:40 Eos # 0.2 x10^3/uL (0.0-0.2) 03/22/17 05:40 Baso # 0.0 X10^3/uL (0.0-0.1) 03/22/17 05:40 Absolute Nucleated RBC 0.0 /100WBC 03/22/17 05:40 Total Counted 100 03/22/17 05:40 Neutrophils % (Manual) 79 % (39-76) H 03/22/17 05:40 Band Neutrophils % 1 % (0-10) 03/22/17 05:40 Lymphocytes % (Manual) 18 % (13-43) 03/22/17 05:40 Monocytes % (Manual) 5 % (4-9) 03/20/17 16:16 Eosinophils % (Manual) 2 % (0-6) 03/22/17 05:40 Plt Morphology Comment Normal (NORMAL) 03/22/17 05:40 RBC Morphology Normal (NORMAL) 03/22/17 05:40 INR Target Range - 03/22/17 05:40 INR 1.16 (0.8-1.3) 03/22/17 05:40 Sodium 141 mmol/L (136-145) 03/22/17 05:40 Corrected Sodium TNP 03/22/17 05:40 Potassium 4.0 mmol/L (3.5-5.1) 03/22/17 05:40 Chloride 107 mmol/L (98-107) 03/22/17 05:40 Carbon Dioxide 25.2 mmol/L (21-32) 03/22/17 05:40 BUN 10 mg/dL (7-18) 03/22/17 05:40 Creatinine 0.71 mg/dL (0.70-1.30) 03/22/17 05:40 Est GFR (MDRD) Af Amer > 60 (>60) 03/22/17 05:40 Est GFR (MDRD) Non-Af > 60 (>60) 03/22/17 05:40 Glucose 100 mg/dL (65-99) H 03/22/17 05:40 Calcium 8.6 mg/dL (8.5-10.1) 03/22/17 05:40 Corrected Calcium 10.4 mg/dL (8.5-10.1) H 03/22/17 05:40 Magnesium 1.2 mg/dL (1.7-2.9) L 03/22/17 05:00 Total Bilirubin 0.20 mg/dL (0.2-1.0) 03/22/17 05:40 AST 29 Units/L (15-37) 03/22/17 05:40 ALT 38 Units/L (12-78) 03/22/17 05:40 Alkaline Phosphatase 65 Units/L (46-116) 03/22/17 05:40 Total Protein 6.7 g/dL (6.4-8.2) 03/22/17 05:40 Albumin 1.8 g/dL (3.4-5.0) L 03/22/17 05:40 Globulin 4.9 g/dL (2.5-4.5) H 03/22/17 05:40 Albumin/Globulin Ratio 0.4 Ratio (1.1-2.1) L 03/22/17 05:40 Influenza Type A (PCR) Negative (NEGATIVE) 03/18/17 15:29 Influenza Type B (PCR) Negative (NEGATIVE) 03/18/17 15:29 - Plan (1) Right upper lobe pneumonia Status: Acute Qualifiers: Pneumonia type: due to unspecified organism Qualified Code(s): J18.1 - Lobar pneumonia, unspecified organism Plan: PNEUMONIA PROTOCOL, ROCEPHIN 1GM IV DAILY, DOXYCYCLINE 100MG IV Q12H, SUPPLEMENTAL OXYGEN, RESPIRATORY TX, CONTINUE TO MONITOR (2) Pleurisy Status: Acute Plan: TORADOL 15MG IV Q6H, CONTINUE TO MONTITOR (3) Hypomagnesemia Status: Acute Plan: REPLACEMENT WITH MAGNESIUM PROTOCOL, CONTINUE TO MONITOR (4) History of DVT of lower extremity Status: Chronic Plan: continue warfarin 10mg po hs, monitor inr, continue to monitor (5) Hypoalbuminemia Status: Acute Plan: ALBUMIN 25% IV DAILY, CONTINUE TO MONITOR
[2017-03-22] MEDS: ALBUMIN HUMAN 25%- 100ML 200 ML IV SCH (17:00)
[2017-03-22] MEDS: KLONOPIN TAB 1 MG PO SCH (20:06)
[2017-03-22] MEDS: COUMADIN TAB 10 MG PO SCH (20:07)
[2017-03-23] MEDS: DUONEB 0.5 MG/3 MG NEB SCH ×6 (00:22→21:47)
[2017-03-23] MEDS: NORCO 5/325 MG TAB PO PRN ×3 (00:26→20:08)
[2017-03-23] MEDS: TORADOL 15 MG VIAL IVP PRN ×3 (05:09→22:21)
[2017-03-23] MEDS: TUSSIONEX PENNKINETIC SUSP PO PRN (05:09)
[2017-03-23 06:19] LABS: BASOPHILS % (AUTO) 0.4 % (0.2-1.0); EOSINOPHILS # (AUTO) 0.2 x10^3/uL (0.0-0.2); EOSINOPHILS % (AUTO) 2.9 % (0.9-2.9); HEMATOCRIT 29.6 % (42.0-54.0); HEMOGLOBIN 10.2 g/dL (13.5-18.0); LYMPHOCYTES # (AUTO) 0.8 X10^3/uL (1.3-2.9); LYMPHOCYTES % (AUTO) 9.1 % (21.0-51.0); MEAN CORPUSCULAR HEMOGLOBIN 32.7 pg (27.0-34.0); MEAN CORPUSCULAR HGB CONC 34.4 g/dL (33.0-35.0); MEAN PLATELET VOLUME 7.6 fL (7.4-11.0); MONOCYTES # (AUTO) 0.4 x10^3/uL (0.3-0.8); MONOCYTES % (AUTO) 5.1 % (0.0-13.0); NEUTROPHILS # (AUTO) 6.9 x10^3/uL (2.2-4.8); NEUTROPHILS % (AUTO) 82.5 % (42.0-75.0); PLATELET COUNT 521 X10^3/uL (150.0-450.0); RED BLOOD COUNT 3.11 X10^6/uL (4.7-6.0); RED CELL DISTRIBUTION WIDTH 14.3 % (11.6-16.5); WHITE BLOOD COUNT 8.4 X10^3/uL (3.6-10.0)
[2017-03-23] MEDS: MAG-OX TAB PO PRN ×2 (06:49→11:47)
[2017-03-23 06:54] LABS: PLATELET MORPHOLOGY COMMENT NORMAL (NORMAL)
[2017-03-23 07:48] LABS: ALANINE AMINOTRANSFERASE 32 Units/L (12-78); ALBUMIN 2.5 g/dL (3.4-5.0); ALKALINE PHOSPHATASE 60 Units/L (46-116); ASPARTATE AMINO TRANSFERASE 23 Units/L (15-37); BLOOD UREA NITROGEN 10 mg/dL (7-18); CALCIUM 8.7 mg/dL (8.5-10.1); CARBON DIOXIDE 27.9 mmol/L (21-32); CHLORIDE 106 mmol/L (98-107); COR CA(FOR HYPOALB) 9.9 mg/dL (8.5-10.1); CREATININE 0.68 mg/dL (0.70-1.30); SODIUM 142 mmol/L (136-145); TOTAL PROTEIN 6.3 g/dL (6.4-8.2); eGFR BLACK RACES > 60 (>60); eGFR NON BLACK RACES > 60 (>60)
[2017-03-23] MEDS: COZAAR PO SCH (08:43)
[2017-03-23] MEDS: ROBITUSSIN DM PO SCH ×4 (08:43→20:08)
[2017-03-23] MEDS: ROCEPHIN VIAL 1 GM 1 GM in NS 100 ML IV 100 ML IV SCH (08:43)
[2017-03-23] MEDS: ALBUMIN HUMAN 25%- 100ML 200 ML IV SCH (08:44)
[2017-03-23] MEDS: VIBRAMYCIN 100 MG in NS 100 ML IV 100 ML IV SCH ×2 (08:58→20:09)
--- NOTE | 2017-03-23 10:40 | RAD ---
HISTORY: Pneumonia Study: Single view of the chest. Comparison: 03/22/2017 Findings: The cardiomediastinal silhouette is normal. Similar appearance to mild improvement of right upper lob e airspace opacity as compared to prior. Osseous structures demonstrate no acute abnormality. IMPRESSION: 1. Similar to mildly improved right upper airspace opacity. Reported By:
[2017-03-23] MEDS: COUMADIN TAB 10 MG PO SCH (20:07)
[2017-03-23] MEDS: KLONOPIN TAB 1 MG PO SCH (20:07)
[2017-03-24] MEDS: DUONEB 0.5 MG/3 MG NEB SCH ×3 (01:07→09:35)
[2017-03-24] MEDS: TORADOL 15 MG VIAL IVP PRN (05:55)
[2017-03-24 06:25] LABS: BASOPHILS % (AUTO) 0.6 % (0.2-1.0); EOSINOPHILS # (AUTO) 0.2 x10^3/uL (0.0-0.2); EOSINOPHILS % (AUTO) 3.8 % (0.9-2.9); HEMATOCRIT 32.5 % (42.0-54.0); HEMOGLOBIN 11.1 g/dL (13.5-18.0); LYMPHOCYTES # (AUTO) 0.8 X10^3/uL (1.3-2.9); LYMPHOCYTES % (AUTO) 13.4 % (21.0-51.0); MEAN CORPUSCULAR HEMOGLOBIN 32.6 pg (27.0-34.0); MEAN CORPUSCULAR HGB CONC 34.1 g/dL (33.0-35.0); MEAN CORPUSCULAR VOLUME 95.5 fL (80.0-100.0); MEAN PLATELET VOLUME 7.5 fL (7.4-11.0); MONOCYTES # (AUTO) 0.3 x10^3/uL (0.3-0.8); MONOCYTES % (AUTO) 5.5 % (0.0-13.0); NEUTROPHILS # (AUTO) 4.8 x10^3/uL (2.2-4.8); NEUTROPHILS % (AUTO) 76.7 % (42.0-75.0); PLATELET COUNT 616 X10^3/uL (150.0-450.0); RED CELL DISTRIBUTION WIDTH 14.4 % (11.6-16.5); WHITE BLOOD COUNT 6.2 X10^3/uL (3.6-10.0)
[2017-03-24 06:33] LABS: ALANINE AMINOTRANSFERASE 31 Units/L (12-78); ALBUMIN 2.6 g/dL (3.4-5.0); ALKALINE PHOSPHATASE 57 Units/L (46-116); ASPARTATE AMINO TRANSFERASE 23 Units/L (15-37); BLOOD UREA NITROGEN 11 mg/dL (7-18); CALCIUM 9.1 mg/dL (8.5-10.1); CARBON DIOXIDE 30.1 mmol/L (21-32); CHLORIDE 104 mmol/L (98-107); COR CA(FOR HYPOALB) 10.2 mg/dL (8.5-10.1); CREATININE 0.74 mg/dL (0.70-1.30); MAGNESIUM 1.3 mg/dL (1.7-2.9); SODIUM 142 mmol/L (136-145); TOTAL PROTEIN 7.4 g/dL (6.4-8.2); eGFR BLACK RACES > 60 (>60); eGFR NON BLACK RACES > 60 (>60)
[2017-03-24] MEDS: MAG-OX TAB PO PRN (06:48)
[2017-03-24 07:03] LABS: PLATELET MORPHOLOGY COMMENT NORMAL (NORMAL)
--- NOTE | 2017-03-24 07:20 | RAD ---
Examination: Portable AP chest History: Pneumonia Comparison 03/23/2017 Findings: Stable normal heart size and essentially clear left lung. Increasing infiltrate in the righ t upper lobe. No evidence for pleural fluid or pneumothorax. Impression: Increasing right upper lobe pneumonia. Reported By:
[2017-03-24] MEDS: NORCO 5/325 MG TAB PO PRN (07:55)
[2017-03-24] MEDS: ROCEPHIN VIAL 1 GM 1 GM in NS 100 ML IV 100 ML IV SCH (08:00)
[2017-03-24] MEDS: ROBITUSSIN DM PO SCH (08:00)
[2017-03-24 08:31] VITALS: BP 169/83
[2017-03-24] MEDS: ALBUMIN HUMAN 25%- 100ML 200 ML IV SCH (09:16)
[2017-03-24] MEDS: COZAAR PO SCH (09:17)
[2017-03-24] MEDS: TUSSIONEX PENNKINETIC SUSP PO PRN (09:19)
[2017-03-24] MEDS: VIBRAMYCIN 100 MG in NS 100 ML IV 100 ML IV SCH (10:45)
[2017-03-24] MEDS: NS IV SCH ×2 (10:46)
[2017-03-24] MEDS: POTASSIUM CHLORIDE IV SCH ×2 (10:46)
--- NOTE | 2017-03-24 11:04 | PCM.PROG ---
Progress Note - Progress Note for Day of Date: 03/23/17 - Subjective Subjective: WAS ADMITTED FOR PNEUMONIA. CHEST XRAY AND CT REVEALS MULTIFOCAL PNEUMONIA, MOSTLY IN THE RIGHT LUNG. TODAY, HE IS ALERT AND ORIENTED , LYING IN BED ON MORNING ROUNDS. HE CONTINUES TO COMPLAIN OF MODERATE SHORNTESS OF BREATH WITH A PERSISTENT, PRODUCTIVE COUGH. ON EXAMINATION, HEART IS REGULAR IN RATE AND RHYTHM. BILATERAL LUNGS CONTINUE WITH SCATTERED WHEEZING , SLIGHTLY IMPROVED SINCE YESTERDAY. HE IS UTILIZING OXYGEN VIA NASAL CANNULA AT 2L/MIN. ABDOMEN IS ROUND, SOFT, AND NON-TENDER WITH NORMAL BOWEL SOUNDS NOTED IN ALL QUADRANTS. HIS VITALS THIS MORNING ARE 98.5-82-24-95%-125/64. LABS WERE OBTAINED. ABNORMAL LAB VALUES INCLUDE THE FOLLOWING: RBC 3.11, HGB 10.2, HCT 29.6, PLT COUNT 521, INR 124, CREATININE 0.68, TOTAL PROTEIN 6.3, ALBUMIN 2.5. SPUTUM CULTURE REPORTS NORMAL LILO. PRELIMINARY BLOOD CULTURES CONTINUE TO REPORT NO GROWTH. TODAYS CHEST XRAY REPORTS SIMILAR TO MILDLY IMPROVED RIGHT UPPER AIRSPACE DISEASE. WE WILL CONTINUE WITH CURRENT PLAN OF CARE TODAY. WE PLAN TO FOLLOW UP WITH AM LABS AND CHEST XRAY AND CONTINUE TO MONITOR PATIENT. IF PATIENT SHOWS IMPROVEMENT TOMORROW, WE WILL PLAN FOR DISCHARGE. - Past Medical Family Social History Past Med/Fam/Surg Hx: No changes since H&P Allergies: Allergies No Known Drug Allergies Allergy (Verified 02/05/17 10:49) - Review of Systems ROS: No change since H&P - Vital Signs and I&O's Vital Signs: Temperature 98.7 F Pulse Rate [Apical] 85 Pulse Rate [Right Radial] 80 Pulse Rate 93 Respiratory Rate 21 Blood Pressure [Left Arm] 105/66 Blood Pressure [Right Arm] 169/83 Blood Pressure 104/57 O2 Sat by Pulse Oximetry 94 Intake and Output: Intake & Output 03/21/17 03/22/17 03/23/17 03/24/17 11:59 11:59 11:59 11:59 Intake Total 4695 3830 4041 4304 Output Total 4525 2550 4200 3150 Balance 170 1280 -159 1154 - Physical Exam Oriented: Normal Eyes: Normal Ear: Normal Nose: Normal Throat: Normal Respiratory: Right, Left, Generalized, Wheezes Cardiovascular: Normal. negative: S3, S4, Murmur : Normal Auscultation: Bowel Sounds: Normal Palpation: Normal Tenderness: Normal Skin: Normal Musculoskeletal: Normal Psychiatric: Normal Mood Description: Calm Affect: Normal Speech Pattern: Clear, Appropriate - Laboratory and Diagnostics Result Diagrams: 03/24/17 05:38 03/24/17 05:38 Labs: 03/18/17 15:47 Blood Blood Culture - Final 03/18/17 15:41 Blood Blood Culture - Final 03/18/17 16:48 Sputum - Expectorated Sputum Sputum Culture - Final 03/18/17 16:48 Sputum - Expectorated Sputum - Final Laboratory WBC 6.2 X10^3/uL (3.6-10.0) 03/24/17 05:38 RBC 3.40 X10^6/uL (4.7-6.0) L 03/24/17 05:38 Hgb 11.1 g/dL (13.5-18.0) L 03/24/17 05:38 Hct 32.5 % (42.0-54.0) L 03/24/17 05:38 MCV 95.5 fL (80.0-100.0) 03/24/17 05:38 MCH 32.6 pg (27.0-34.0) 03/24/17 05:38 MCHC 34.1 g/dL (33.0-35.0) 03/24/17 05:38 RDW 14.4 % (11.6-16.5) 03/24/17 05:38 Plt Count 616 X10^3/uL (150.0-450.0) H 03/24/17 05:38 Plt Count Comment Increased (ADEQUATE) 03/24/17 05:38 MPV 7.5 fL (7.4-11.0) 03/24/17 05:38 Neut % 76.7 % (42.0-75.0) H 03/24/17 05:38 Lymph % 13.4 % (21.0-51.0) L 03/24/17 05:38 [place] % 5.5 % (0.0-13.0) 03/24/17 05:38 Eos % 3.8 % (0.9-2.9) H 03/24/17 05:38 Baso % 0.6 % (0.2-1.0) 03/24/17 05:38 Neut # 4.8 x10^3/uL (2.2-4.8) 03/24/17 05:38 Lymph # 0.8 X10^3/uL (1.3-2.9) L 03/24/17 05:38 [place] # 0.3 x10^3/uL (0.3-0.8) 03/24/17 05:38 Eos # 0.2 x10^3/uL (0.0-0.2) 03/24/17 05:38 Baso # 0.0 X10^3/uL (0.0-0.1) 03/24/17 05:38 Absolute Nucleated RBC 0.0 /100WBC 03/24/17 05:38 Total Counted 100 03/24/17 05:38 Neutrophils % (Manual) 75 % (39-76) 03/24/17 05:38 Band Neutrophils % 1 % (0-10) 03/22/17 05:40 Lymphocytes % (Manual) 19 % (13-43) 03/24/17 05:38 Monocytes % (Manual) 4 % (4-9) 03/24/17 05:38 Eosinophils % (Manual) 2 % (0-6) 03/24/17 05:38 Plt Morphology Comment Normal (NORMAL) 03/24/17 05:38 RBC Morphology Normal (NORMAL) 03/24/17 05:38 INR Target Range - 03/24/17 05:38 INR 1.31 (0.8-1.3) H 03/24/17 05:38 Sodium 142 mmol/L (136-145) 03/24/17 05:38 Corrected Sodium TNP 03/24/17 05:38 Potassium 4.1 mmol/L (3.5-5.1) 03/24/17 05:38 Chloride 104 mmol/L (98-107) 03/24/17 05:38 Carbon Dioxide 30.1 mmol/L (21-32) 03/24/17 05:38 BUN 11 mg/dL (7-18) 03/24/17 05:38 Creatinine 0.74 mg/dL (0.70-1.30) 03/24/17 05:38 Est GFR (MDRD) Af Amer > 60 (>60) 03/24/17 05:38 Est GFR (MDRD) Non-Af > 60 (>60) 03/24/17 05:38 Glucose 87 mg/dL (65-99) 03/24/17 05:38 Calcium 9.1 mg/dL (8.5-10.1) 03/24/17 05:38 Corrected Calcium 10.2 mg/dL (8.5-10.1) H 03/24/17 05:38 Magnesium 1.3 mg/dL (1.7-2.9) L 03/24/17 05:38 Total Bilirubin 0.20 mg/dL (0.2-1.0) 03/24/17 05:38 AST 23 Units/L (15-37) 03/24/17 05:38 ALT 31 Units/L (12-78) 03/24/17 05:38 Alkaline Phosphatase 57 Units/L (46-116) 03/24/17 05:38 Total Protein 7.4 g/dL (6.4-8.2) 03/24/17 05:38 Albumin 2.6 g/dL (3.4-5.0) L 03/24/17 05:38 Globulin 4.8 g/dL (2.5-4.5) H 03/24/17 05:38 Albumin/Globulin Ratio 0.5 Ratio (1.1-2.1) L 03/24/17 05:38 Influenza Type A (PCR) Negative (NEGATIVE) 03/18/17 15:29 Influenza Type B (PCR) Negative (NEGATIVE) 03/18/17 15:29 - Plan (1) Right upper lobe pneumonia Status: Acute Qualifiers: Pneumonia type: due to unspecified organism Qualified Code(s): J18.1 - Lobar pneumonia, unspecified organism Plan: PNEUMONIA PROTOCOL, ROCEPHIN 1GM IV DAILY, DOXYCYCLINE 100MG IV Q12H, SUPPLEMENTAL OXYGEN, RESPIRATORY TX, CONTINUE TO MONITOR (2) Pleurisy Status: Acute Plan: TORADOL 15MG IV Q6H, CONTINUE TO MONTITOR (3) Hypomagnesemia Status: Acute Plan: REPLACEMENT WITH MAGNESIUM PROTOCOL, CONTINUE TO MONITOR (4) History of DVT of lower extremity Status: Chronic Plan: continue warfarin 10mg po hs, monitor inr, continue to monitor (5) Hypoalbuminemia Status: Acute Plan: ALBUMIN 25% IV DAILY, CONTINUE TO MONITOR
== END 2017-03-24 11:54 | disposition home or self-care (01) | DRG 195 ==
LOC: ER 13:05 → ICU 19:44 → OBSVTOIN 19:45
PROVIDERS: ADMIT Internal Medicine; ATTEND Internal Medicine
DX: J18.8 Other pneumonia, unspecified organism (principal); E87.6 Hypokalemia; R51 Headache; I10 Essential (primary) hypertension; F41.8 Other specified anxiety disorders; R06.02 Shortness of breath; R63.0 Anorexia; R07.89 Other chest pain; Z86.718 Personal history of other venous thrombosis and embolism; R09.1 Pleurisy
CPT/HCPCS: 36415; 71045; 71260; 80048; 80053; 82040; 83735; 84132; 85025; 85610; 87040; 87070; 87205; 87502; 94640; 96365; 96367; 96374; 96375; 99283; 99284; A4222; G8978; G8979; P9047; G0378; J0696; J1885; J3480; J3490; J7620

== ENCOUNTER 2017-04-11 11:14 | Inpatient (IN) | payer OTHER ==
[2017-04-11 11:20] VITALS: BMI 23.0
--- NOTE | 2017-04-11 12:23 | DR.GENAD ---
HPI - PCP Primary Care Physician: AMY - HPI Comment HPI Comment: HISTORY BELOW. - Complaint/Symptoms Chief Complaint Doctors Comments: LEFT LOWER EXTREMITY PAIN AND SWELLING FOR SEVERAL DAYS. LOWER RT LEG ALSO HURTING NOW. PATIENT HAVE SOB AND SLIGHT CONGESTION. HISTORY BLOOD CLOTS. RAN OUT OF HIS BLOOD THINNING MED FOR SOME TIME NOW. NO FEVER. COUGHING. Chief Complaint:: PT C/O DIFFICULTY BREATHING ON EXERTION, NASAL CONGESTION AND LT LEG PAIN. PT STATES HE HAS A HISTORY OF BLOOD CLOTS. - Nurses notes reviewed Nurses Notes Review: Yes - Source History Provided: Patient - Mode of Arrival Mode of Arrival: Ambulatory - Timing Onset of Chief Complaint: 04/07/17 Came on: Suddenly - Duration Duration: Constant Duration: Days - Severity Severity: Severe PMH - PMH Past Medical History: Yes Past Medical History: Anxiety, Depression, Hypertension Past Medical History Comment: BLOOD CLOTS Past Surgical History: Yes Surgical History: Other - Family History History of Family Medical Conditions: Yes Family Medical History: Hypertension - Social History Does any household member use tobacco: No Alcohol Use: Occasionally Do you use any recreational Drugs:: No Lives With: Family Lives Where: Home - infectious screening In the last 2 months have you had wt loss of >10#?: NO Have you had fever, night sweats or hemotysis?: No Have you traveled outside the country in the last 6 months?: No Isolation: Standard ROS - Review of Systems Constitutional: No Symptoms Reported Eyes: No Symptoms Reported ENTM: No Symptoms Reported PE - Vital Signs Vitals: Temperature 99.1 F Pulse Rate 100 Respiratory Rate 20 Blood Pressure [Left Arm] 105/66 Blood Pressure [Right Arm] 169/83 Blood Pressure 102/55 O2 Sat by Pulse Oximetry 95 ROR - Labs Reviewed Result Diagrams: 04/11/17 12:38 04/11/17 12:38 Laboratory: WBC 11.4 X10^3/uL (3.6-10.0) H 04/11/17 12:38 RBC 4.05 X10^6/uL (4.7-6.0) L 04/11/17 12:38 Hgb 12.4 g/dL (13.5-18.0) L 04/11/17 12:38 Hct 36.4 % (42.0-54.0) L 04/11/17 12:38 MCV 90.1 fL (80.0-100.0) 04/11/17 12:38 MCH 30.6 pg (27.0-34.0) 04/11/17 12:38 MCHC 33.9 g/dL (33.0-35.0) 04/11/17 12:38 RDW 14.9 % (11.6-16.5) 04/11/17 12:38 Plt Count 440 X10^3/uL (150.0-450.0) 04/11/17 12:38 MPV 7.7 fL (7.4-11.0) 04/11/17 12:38 Neut % 86.4 % (42.0-75.0) H 04/11/17 12:38 Lymph % 5.8 % (21.0-51.0) L 04/11/17 12:38 [place] % 6.8 % (0.0-13.0) 04/11/17 12:38 Eos % 0.5 % (0.9-2.9) L 04/11/17 12:38 Baso % 0.5 % (0.2-1.0) 04/11/17 12:38 Neut # 9.8 x10^3/uL (2.2-4.8) H 04/11/17 12:38 Lymph # 0.7 X10^3/uL (1.3-2.9) L 04/11/17 12:38 [place] # 0.8 x10^3/uL (0.3-0.8) 04/11/17 12:38 Eos # 0.1 x10^3/uL (0.0-0.2) 04/11/17 12:38 Baso # 0.1 X10^3/uL (0.0-0.1) 04/11/17 12:38 Absolute Nucleated RBC 0.0 /100WBC 04/11/17 12:38 Sodium 130 mmol/L (136-145) L 04/11/17 12:38 Corrected Sodium 130 mmol/L (136-145) L 04/11/17 12:38 Potassium 3.5 mmol/L (3.5-5.1) 04/11/17 12:38 Chloride 93 mmol/L (98-107) L 04/11/17 12:38 Carbon Dioxide 24.6 mmol/L (21-32) 04/11/17 12:38 BUN 16 mg/dL (7-18) 04/11/17 12:38 Creatinine 1.27 mg/dL (0.70-1.30) 04/11/17 12:38 Est GFR (MDRD) Af Amer > 60 (>60) 04/11/17 12:38 Est GFR (MDRD) Non-Af > 60 (>60) 04/11/17 12:38 Glucose 114 mg/dL (65-99) H 04/11/17 12:38 Calcium 9.0 mg/dL (8.5-10.1) 04/11/17 12:38 Corrected Calcium 10.0 mg/dL (8.5-10.1) 04/11/17 12:38 Total Bilirubin 0.60 mg/dL (0.2-1.0) 04/11/17 12:38 AST 19 Units/L (15-37) 04/11/17 12:38 ALT 10 Units/L (12-78) L 04/11/17 12:38 Alkaline Phosphatase 76 Units/L (46-116) 04/11/17 12:38 Creatine Kinase 24 Units/L (39-308) L 04/11/17 12:38 CK-MB (CK-2) 0.3 ng/mL (0-4.0) 04/11/17 12:38 CK/CKMB % Calc 1.3 % (<4) 04/11/17 12:38 Troponin I < 0.02 ng/mL (0-1.5) 04/11/17 12:38 Total Protein 8.4 g/dL (6.4-8.2) H 04/11/17 12:38 Albumin 2.7 g/dL (3.4-5.0) L 04/11/17 12:38 Globulin 5.7 g/dL (2.5-4.5) H 04/11/17 12:38 Albumin/Globulin Ratio 0.5 Ratio (1.1-2.1) L 04/11/17 12:38 - Discharge Plan Disposition: ADMITTED INPATIENT Condition: Stable - Follow ups/Referrals - Instructions
[2017-04-11 12:44] LABS: BASOPHILS # (AUTO) 0.1 X10^3/uL (0.0-0.1); BASOPHILS % (AUTO) 0.5 % (0.2-1.0); EOSINOPHILS # (AUTO) 0.1 x10^3/uL (0.0-0.2); EOSINOPHILS % (AUTO) 0.5 % (0.9-2.9); HEMATOCRIT 36.4 % (42.0-54.0); HEMOGLOBIN 12.4 g/dL (13.5-18.0); LYMPHOCYTES # (AUTO) 0.7 X10^3/uL (1.3-2.9); LYMPHOCYTES % (AUTO) 5.8 % (21.0-51.0); MEAN CORPUSCULAR HEMOGLOBIN 30.6 pg (27.0-34.0); MEAN CORPUSCULAR HGB CONC 33.9 g/dL (33.0-35.0); MEAN CORPUSCULAR VOLUME 90.1 fL (80.0-100.0); MEAN PLATELET VOLUME 7.7 fL (7.4-11.0); MONOCYTES # (AUTO) 0.8 x10^3/uL (0.3-0.8); MONOCYTES % (AUTO) 6.8 % (0.0-13.0); NEUTROPHILS # (AUTO) 9.8 x10^3/uL (2.2-4.8); NEUTROPHILS % (AUTO) 86.4 % (42.0-75.0); PLATELET COUNT 440 X10^3/uL (150.0-450.0); RED BLOOD COUNT 4.05 X10^6/uL (4.7-6.0); RED CELL DISTRIBUTION WIDTH 14.9 % (11.6-16.5); WHITE BLOOD COUNT 11.4 X10^3/uL (3.6-10.0)
[2017-04-11 13:01] LABS: BLOOD UREA NITROGEN 16 mg/dL (7-18); CARBON DIOXIDE 24.6 mmol/L (21-32); CHLORIDE 93 mmol/L (98-107); COR NA(FOR HYPERGLY) 130 mmol/L (136-145); CREATININE 1.27 mg/dL (0.70-1.30); SODIUM 130 mmol/L (136-145); TROPONIN I < 0.02 ng/mL (0-1.5); eGFR BLACK RACES > 60 (>60); eGFR NON BLACK RACES > 60 (>60)
--- NOTE | 2017-04-11 13:01 | RAD ---
HISTORY: Chest pain. Difficulty breathing Study: AP portable chest Comparison: 03/24/2017 Findings: Near complete clearing of the right upper lobe infiltrate has occurred. There are findings suggestin g minimal interstitial scarring. The heart size is normal. Degenerative changes present in the shou lders. IMPRESSION: 1. Near complete clearing of the right upper lobe infiltrate. Only minimal residual infiltrate/atel ectasis remains. 2. Findings of minimal interstitial fibrosis. Reported By:
[2017-04-11 13:16] LABS: ALANINE AMINOTRANSFERASE 10 Units/L (12-78); ALBUMIN 2.7 g/dL (3.4-5.0); ALKALINE PHOSPHATASE 76 Units/L (46-116); ASPARTATE AMINO TRANSFERASE 19 Units/L (15-37); CREATINE KINASE 24 Units/L (39-308); TOTAL PROTEIN 8.4 g/dL (6.4-8.2)
[2017-04-11 13:37] LABS: CKMB % 1.3 % (<4); CREATINE KINASE MB 0.3 ng/mL (0-4.0)
--- NOTE | 2017-04-11 14:37 | VAS ---
HISTORY: 66-year-old male with left lower extremity pain. History of blood clots. Study: Venous duplex Doppler. Comparison: None. TECHNIQUE: Multiple minor scale and color flow Doppler images of the deep venous system were obtained of the left lower extremity. FINDINGS: The deep venous system of the left lower extremity was evaluated from the level of the common femoral vein through the popliteal vein. No abnormal color flow or augmentation can be observed, with incom pressibility seen throughout the deep venous system. IMPRESSION: 1. Diffuse occlusive thrombus throughout the deep venous system of the left lower extremity. Reported By:
--- NOTE | 2017-04-11 15:39 | CT ---
HISTORY: Difficulty breathing with left lower extremity DVT. Study: CT chest with contrast Comparison: Left lower extremity ultrasound and chest x-ray dated same day. CT chest dated March. Technique: Multiple axial images of the chest were obtained from the thoracic inlet to the upper abdo men after the administration of IV contrast. MIP images were obtained. Dose reduction techniques incl uding Automated Exposure Control (AEC) and adjustment of mA and kV were utilized. Findings: The mediastinum does not demonstrate significant pathological lymphadenopathy. There is no paracardi al effusion observed. The thoracic aorta is normal in its contour without evidence for aneurysmal di latation. The central pulmonary arterial system does not demonstrate central filling defects to sugg est pulmonary emboli. Biapical scarring. Scattered tree-in-bud opacities are seen bilaterally, but more prominent within th e right lung. Bibasilar scarring versus atelectasis. Persistent mild bilateral bronchiectasis. No ema picious pulmonary nodule, mass, pleural effusion, focal consolidation, or pneumothorax. Stable appear ing IVC filter. Remaining upper abdominal structures appear unchanged. The osseous structures appear unchanged. IMPRESSION: 1. No CT evidence of acute pulmonary embolus. 2. Scattered tree-in-bud opacities of the lungs, likely representing an atypical pneumonia. 3. Other chronic findings as above. Reported By:
[2017-04-11] MEDS ORDERED: TORADOL 30 MG VIAL IVP ONE (16:53)
[2017-04-11 19:47] LABS: CKMB % 3.9 % (<4); CREATINE KINASE 26 Units/L (39-308); CREATINE KINASE MB < 1.0 ng/mL (0-4.0); TROPONIN I < 0.02 ng/mL (0-1.5)
[2017-04-11] MEDS: LOVENOX INJ 80 MG SYR SC SCH (20:45)
[2017-04-12 01:48] LABS: CKMB % 4.2 % (<4); CREATINE KINASE 24 Units/L (39-308); CREATINE KINASE MB < 1.0 ng/mL (0-4.0); TROPONIN I < 0.02 ng/mL (0-1.5)
[2017-04-12] MEDS: TORADOL 15 MG VIAL IVP PRN ×3 (05:31→18:23)
[2017-04-12 06:07] LABS: BASOPHILS % (AUTO) 0.3 % (0.2-1.0); EOSINOPHILS # (AUTO) 0.6 x10^3/uL (0.0-0.2); EOSINOPHILS % (AUTO) 10.2 % (0.9-2.9); HEMATOCRIT 32.9 % (42.0-54.0); HEMOGLOBIN 11.3 g/dL (13.5-18.0); LYMPHOCYTES # (AUTO) 0.7 X10^3/uL (1.3-2.9); LYMPHOCYTES % (AUTO) 10.7 % (21.0-51.0); MEAN CORPUSCULAR HEMOGLOBIN 30.4 pg (27.0-34.0); MEAN CORPUSCULAR HGB CONC 34.2 g/dL (33.0-35.0); MEAN CORPUSCULAR VOLUME 88.9 fL (80.0-100.0); MEAN PLATELET VOLUME 8.7 fL (7.4-11.0); MONOCYTES # (AUTO) 0.7 x10^3/uL (0.3-0.8); MONOCYTES % (AUTO) 11.3 % (0.0-13.0); NEUTROPHILS # (AUTO) 4.2 x10^3/uL (2.2-4.8); NEUTROPHILS % (AUTO) 67.5 % (42.0-75.0); PLATELET COUNT 391 X10^3/uL (150.0-450.0); RED CELL DISTRIBUTION WIDTH 15.4 % (11.6-16.5); WHITE BLOOD COUNT 6.3 X10^3/uL (3.6-10.0)
[2017-04-12 06:12] LABS: ALANINE AMINOTRANSFERASE 10 Units/L (12-78); ALBUMIN 2.3 g/dL (3.4-5.0); ALKALINE PHOSPHATASE 68 Units/L (46-116); ASPARTATE AMINO TRANSFERASE 20 Units/L (15-37); BLOOD UREA NITROGEN 21 mg/dL (7-18); CALCIUM 8.5 mg/dL (8.5-10.1); CARBON DIOXIDE 29.6 mmol/L (21-32); CHLORIDE 99 mmol/L (98-107); CHOL/HDL RATIO 6.1 (0.0-5.0); CHOLESTEROL 159 mg/dL (0-200); COR CA(FOR HYPOALB) 9.9 mg/dL (8.5-10.1); CREATININE 1.25 mg/dL (0.70-1.30); HDL CHOLESTEROL 26 mg/dL (40-60); MAGNESIUM 1.9 mg/dL (1.7-2.9); SODIUM 137 mmol/L (136-145); TOTAL PROTEIN 7.2 g/dL (6.4-8.2); TRIGLYCERIDES 94 mg/dL (0-150); eGFR BLACK RACES > 60 (>60); eGFR NON BLACK RACES > 60 (>60)
[2017-04-12 06:32] LABS: CREATINE KINASE 24 Units/L (39-308); CREATINE KINASE MB < 1.0 ng/mL (0-4.0); TROPONIN I < 0.02 ng/mL (0-1.5)
[2017-04-12 06:53] LABS: CKMB % 4.2 % (<4)
[2017-04-12] MEDS: LOVENOX INJ 80 MG SYR SC SCH (08:50)
--- NOTE | 2017-04-12 11:23 | DR.H&P ---
H&P - History & Physical for Day of: H&P Date: 04/11/17 - Chief Complaint Chief Complaint: BILATERAL LOWER LEG PAIN, EDEMA - Allergies Allergies/Adverse Reactions: Allergies Allergy/AdvReac Type Severity Reaction Status Date / Time No Known Drug Allergies Allergy Verified 02/05/17 10:49 - History of Present Illness History of Present Illness: 66 WM ADMITTED FROM ER WITH BILATERAL LOWER EXT DVTS , PT STATES HE WAS PREVIOUSLY ON WARFARIN AND STOPPED TAKING IT. HAS HTN AND OCCASSIONALY ETOH USE. ADMIT FOR TREATMENT OF ACUTE DVT AND SOB. CTA OF CHEST PERFORMED IN ED, RESUME HOME BP MEDICAITON. LOVENOX SQ, RESP THERAPY IV ATBX AND SUPPLEMENTAL O2 - Past Medical History Past Medical History: Anxiety, Depression, Hypertension Additional Medical History: Hx Umbilical Hernia, DVTs. - Past Surgical History Surgical History: Other - Family History Family Medical History: Hypertension - Social History Does patient currently use any type of tobacco product: No Have you used tobacco products in the last 12 months: No Type of Tobacco Use: None Does any household member use tobacco: No Alcohol Use: Occasionally Drug Use: None - Medications Home Medications: NK [NK] 04/11/17 [History Confirmed 04/11/17] - Review of Systems Constitutional: Weakness Eyes: No Symptoms Reported ENT: No Symptoms Reported Respiratory: SOB with Excertion Cardiovascular: No Symptoms Reported Gastrointestinal: No Symptoms Reported Genitourinary: No Symptoms Reported Musculoskeletal: Leg Pain Skin: No Symptoms Reported Neurological: No Symptoms Reported - Physical Exam Vital Signs: Temperature 97.6 F Pulse Rate [Right Brachial] 70 Pulse Rate 75 Respiratory Rate 20 Blood Pressure [Left Arm] 105/66 Blood Pressure [Right Arm] 121/65 Blood Pressure 102/55 O2 Sat by Pulse Oximetry 95 Oriented: Normal Eyes: Normal Ear: Normal Nose: Normal Throat: Normal Respiratory: RLL Diminished, LLL Diminished Cardiovascular: Normal, Edema : Normal Auscultation: Bowel Sounds: Normal Palpation: Normal Tenderness: Normal Skin: Normal Musculoskeletal: Leg, Tender Psychiatric: Anxiety Affect: Anxious Speech Pattern: Clear, Appropriate - Assessment/Plan (1) Acute DVT (deep venous thrombosis) Status: Acute Plan: ADMIT, LOVENOX. RESP THERAPY, SPUTUM CULTURE. IV ZITHROMAX, SUPPLEMENTAL O2. BP MONITORING, REPEAT AM LABS (2) SOB (shortness of breath) Status: Acute (3) Hypertension Qualifiers: Status: Chronic
[2017-04-12] MEDS ORDERED: SALINE 3% 15 ML NEB TX NEB ONE (11:30)
[2017-04-12] MEDS: DUONEB 0.5 MG/3 MG NEB SCH ×2 (12:00→16:30)
[2017-04-12] MEDS: ZITHROMAX INJ 500 MG VIAL 500 MG in NS 250 ML IV 250 ML IV SCH (12:12)
[2017-04-12] MEDS: LIBRIUM PO PRN ×2 (12:19→20:30)
[2017-04-12] MEDS: ELIQUIS PO SCH (20:30)
[2017-04-13] MEDS: DUONEB 0.5 MG/3 MG NEB SCH ×6 (00:23→20:46)
[2017-04-13] MEDS: TORADOL 15 MG VIAL IVP PRN ×4 (00:47→20:26)
[2017-04-13 05:33] LABS: BASOPHILS % (AUTO) 0.6 % (0.2-1.0); EOSINOPHILS # (AUTO) 0.8 x10^3/uL (0.0-0.2); EOSINOPHILS % (AUTO) 13.3 % (0.9-2.9); HEMATOCRIT 31.7 % (42.0-54.0); HEMOGLOBIN 10.7 g/dL (13.5-18.0); LYMPHOCYTES # (AUTO) 0.7 X10^3/uL (1.3-2.9); LYMPHOCYTES % (AUTO) 12.6 % (21.0-51.0); MEAN CORPUSCULAR HEMOGLOBIN 30.9 pg (27.0-34.0); MEAN CORPUSCULAR HGB CONC 33.8 g/dL (33.0-35.0); MEAN CORPUSCULAR VOLUME 91.4 fL (80.0-100.0); MEAN PLATELET VOLUME 8.4 fL (7.4-11.0); MONOCYTES # (AUTO) 0.5 x10^3/uL (0.3-0.8); MONOCYTES % (AUTO) 8.8 % (0.0-13.0); NEUTROPHILS # (AUTO) 3.7 x10^3/uL (2.2-4.8); NEUTROPHILS % (AUTO) 64.7 % (42.0-75.0); PLATELET COUNT 411 X10^3/uL (150.0-450.0); RED BLOOD COUNT 3.46 X10^6/uL (4.7-6.0); RED CELL DISTRIBUTION WIDTH 15.1 % (11.6-16.5); WHITE BLOOD COUNT 5.7 X10^3/uL (3.6-10.0)
[2017-04-13 05:43] LABS: ALANINE AMINOTRANSFERASE 10 Units/L (12-78); ALBUMIN 2.2 g/dL (3.4-5.0); ALKALINE PHOSPHATASE 65 Units/L (46-116); ASPARTATE AMINO TRANSFERASE 15 Units/L (15-37); BLOOD UREA NITROGEN 18 mg/dL (7-18); CALCIUM 8.4 mg/dL (8.5-10.1); CARBON DIOXIDE 29.4 mmol/L (21-32); CHLORIDE 102 mmol/L (98-107); COR CA(FOR HYPOALB) 9.8 mg/dL (8.5-10.1); COR NA(FOR HYPERGLY) 140 mmol/L (136-145); CREATININE 1.04 mg/dL (0.70-1.30); SODIUM 140 mmol/L (136-145); TOTAL PROTEIN 7.1 g/dL (6.4-8.2); eGFR BLACK RACES > 60 (>60); eGFR NON BLACK RACES > 60 (>60)
[2017-04-13] MEDS ORDERED: K-RIDER 10 MEQ/NS 100 ML 10 MEQ/100 ML BAG IV PRN (06:56)
[2017-04-13] MEDS ORDERED: MAGNESIUM SULFATE 1 GM/100 mL PREMIX 1 GM/100 ML BAG IV PRN (06:56)
[2017-04-13] MEDS ORDERED: POTASSIUM CHL 40 MEQ/NS 0.45% 500 ML IV PRN (06:56)
[2017-04-13] MEDS ORDERED: POTASSIUM CHL 60 MEQ/NS 0.45% 500 ML IV PRN (06:56)
[2017-04-13] MEDS ORDERED: K-LYTE EFFERVESCENT PO PRN (06:56)
[2017-04-13] MEDS ORDERED: POTASSIUM CHLORIDE LIQ 20 MEQ UDC PO PRN (06:56)
[2017-04-13] MEDS ORDERED: MAG-OX TAB PO PRN (06:56)
[2017-04-13] MEDS: LIBRIUM PO PRN ×2 (07:00→15:22)
[2017-04-13] MEDS: ELIQUIS PO SCH ×2 (09:13→20:26)
[2017-04-13] MEDS: ZITHROMAX INJ 500 MG VIAL 500 MG in NS 250 ML IV 250 ML IV SCH (09:13)
--- NOTE | 2017-04-13 09:36 | RAD ---
HISTORY: Congestion and cough. Dyspnea. Single-view of the chest. Comparison: Chest CT examination dated 04/11/2017. Findings: The trachea is midline. The cardiac silhouette is unremarkable. There are increased perihilar inter stitial opacities seen, compatible with a bronchiolitis/bronchitis. The lungs are otherwise clear wit hout focal infiltrate or effusion. The bony thorax is unremarkable. IMPRESSION: Radiographic findings compatible with a bronchiolitis/bronchitis. No lobar pneumonia or effusion seen. Reported By:
[2017-04-14] MEDS ORDERED: MILK OF MAGNESIA PO PRN (00:40)
[2017-04-14] MEDS: DUONEB 0.5 MG/3 MG NEB SCH ×6 (01:09→20:51)
[2017-04-14] MEDS: LIBRIUM PO PRN ×3 (01:27→20:49)
[2017-04-14] MEDS: TORADOL 15 MG VIAL IVP PRN ×3 (04:47→20:46)
[2017-04-14 06:30] LABS: BASOPHILS % (AUTO) 0.6 % (0.2-1.0); EOSINOPHILS # (AUTO) 0.8 x10^3/uL (0.0-0.2); EOSINOPHILS % (AUTO) 15.6 % (0.9-2.9); HEMATOCRIT 29.9 % (42.0-54.0); HEMOGLOBIN 10.1 g/dL (13.5-18.0); LYMPHOCYTES # (AUTO) 0.7 X10^3/uL (1.3-2.9); LYMPHOCYTES % (AUTO) 13.7 % (21.0-51.0); MEAN CORPUSCULAR HGB CONC 33.8 g/dL (33.0-35.0); MEAN CORPUSCULAR VOLUME 91.6 fL (80.0-100.0); MONOCYTES # (AUTO) 0.5 x10^3/uL (0.3-0.8); MONOCYTES % (AUTO) 9.4 % (0.0-13.0); NEUTROPHILS # (AUTO) 3.2 x10^3/uL (2.2-4.8); NEUTROPHILS % (AUTO) 60.7 % (42.0-75.0); PLATELET COUNT 446 X10^3/uL (150.0-450.0); RED BLOOD COUNT 3.27 X10^6/uL (4.7-6.0); RED CELL DISTRIBUTION WIDTH 15.5 % (11.6-16.5); WHITE BLOOD COUNT 5.3 X10^3/uL (3.6-10.0)
[2017-04-14 07:09] LABS: ALANINE AMINOTRANSFERASE 11 Units/L (12-78); ALBUMIN 2.1 g/dL (3.4-5.0); ALKALINE PHOSPHATASE 68 Units/L (46-116); ASPARTATE AMINO TRANSFERASE 15 Units/L (15-37); BLOOD UREA NITROGEN 12 mg/dL (7-18); CARBON DIOXIDE 28.1 mmol/L (21-32); CHLORIDE 105 mmol/L (98-107); COR CA(FOR HYPOALB) 9.5 mg/dL (8.5-10.1); CREATININE 0.87 mg/dL (0.70-1.30); SODIUM 142 mmol/L (136-145); TOTAL PROTEIN 6.7 g/dL (6.4-8.2); eGFR BLACK RACES > 60 (>60); eGFR NON BLACK RACES > 60 (>60)
[2017-04-14 07:19] LABS: BAND NEUTROPHILS % 3 % (0-10)
[2017-04-14 07:20] LABS: PLATELET MORPHOLOGY COMMENT NORMAL (NORMAL)
[2017-04-14] MEDS: ELIQUIS PO SCH ×2 (09:05→20:47)
[2017-04-14] MEDS: ZITHROMAX INJ 500 MG VIAL 500 MG in NS 250 ML IV 250 ML IV SCH (09:05)
[2017-04-14] MEDS: ROBITUSSIN CF SYRUP PO SCH ×3 (14:16→20:48)
[2017-04-14] MEDS: COLACE CAP 100 MG PO SCH ×2 (17:20→22:00)
[2017-04-14] MEDS: MIRALAX POWDER (1 DOSE 17GM) PO SCH ×2 (17:20→20:47)
[2017-04-14] MEDS: MILK OF MAGNESIA PO SCH ×2 (17:20→20:47)
[2017-04-15] MEDS: DUONEB 0.5 MG/3 MG NEB SCH ×6 (01:25→20:33)
[2017-04-15 05:25] LABS: BASOPHILS # (AUTO) 0.1 X10^3/uL (0.0-0.1); BASOPHILS % (AUTO) 0.9 % (0.2-1.0); EOSINOPHILS % (AUTO) 17.3 % (0.9-2.9); HEMATOCRIT 28.3 % (42.0-54.0); HEMOGLOBIN 9.5 g/dL (13.5-18.0); LYMPHOCYTES # (AUTO) 0.7 X10^3/uL (1.3-2.9); LYMPHOCYTES % (AUTO) 11.9 % (21.0-51.0); MEAN CORPUSCULAR HEMOGLOBIN 31.1 pg (27.0-34.0); MEAN CORPUSCULAR HGB CONC 33.5 g/dL (33.0-35.0); MEAN CORPUSCULAR VOLUME 92.8 fL (80.0-100.0); MEAN PLATELET VOLUME 7.7 fL (7.4-11.0); MONOCYTES # (AUTO) 0.6 x10^3/uL (0.3-0.8); MONOCYTES % (AUTO) 10.8 % (0.0-13.0); NEUTROPHILS # (AUTO) 3.3 x10^3/uL (2.2-4.8); NEUTROPHILS % (AUTO) 59.1 % (42.0-75.0); PLATELET COUNT 426 X10^3/uL (150.0-450.0); RED BLOOD COUNT 3.05 X10^6/uL (4.7-6.0); RED CELL DISTRIBUTION WIDTH 15.4 % (11.6-16.5); WHITE BLOOD COUNT 5.5 X10^3/uL (3.6-10.0)
[2017-04-15 05:42] LABS: ALANINE AMINOTRANSFERASE 8 Units/L (12-78); ALKALINE PHOSPHATASE 59 Units/L (46-116); ASPARTATE AMINO TRANSFERASE 13 Units/L (15-37); BLOOD UREA NITROGEN 11 mg/dL (7-18); CARBON DIOXIDE 30.3 mmol/L (21-32); CHLORIDE 108 mmol/L (98-107); COR CA(FOR HYPOALB) 9.6 mg/dL (8.5-10.1); CREATININE 0.75 mg/dL (0.70-1.30); SODIUM 143 mmol/L (136-145); TOTAL PROTEIN 6.2 g/dL (6.4-8.2); eGFR BLACK RACES > 60 (>60); eGFR NON BLACK RACES > 60 (>60)
[2017-04-15 05:49] LABS: BAND NEUTROPHILS % 4 % (0-10); PLATELET MORPHOLOGY COMMENT NORMAL (NORMAL)
[2017-04-15] MEDS: ZITHROMAX INJ 500 MG VIAL 500 MG in NS 250 ML IV 250 ML IV SCH (09:12)
[2017-04-15] MEDS: ELIQUIS PO SCH ×2 (09:13→21:52)
[2017-04-15] MEDS: MILK OF MAGNESIA PO SCH ×2 (09:13→21:53)
[2017-04-15] MEDS: ROBITUSSIN CF SYRUP PO SCH ×4 (09:13→21:54)
[2017-04-15] MEDS: LIBRIUM PO PRN ×2 (09:21→17:26)
--- NOTE | 2017-04-15 11:08 | RAD ---
History: Shortness of breath and cough Study: PA and lateral chest Comparison: April 13 Findings: The lungs are grossly clear. There is no pleural effusion or consolidation or atelectasis. The heart size is normal and the aorta is unremarkable. Impression: No evidence for acute cardiopulmonary disease Reported By:
[2017-04-15] MEDS: TORADOL 15 MG VIAL IVP PRN ×2 (14:55→21:52)
[2017-04-15] MEDS: COLACE CAP 100 MG PO SCH (21:53)
[2017-04-15] MEDS: MIRALAX POWDER (1 DOSE 17GM) PO SCH (21:53)
[2017-04-16] MEDS: DUONEB 0.5 MG/3 MG NEB SCH ×3 (01:25→08:54)
[2017-04-16] MEDS: LIBRIUM PO PRN ×2 (02:55→10:41)
[2017-04-16] MEDS: TORADOL 15 MG VIAL IVP PRN ×2 (04:45→10:42)
[2017-04-16 06:12] LABS: BASOPHILS % (AUTO) 0.8 % (0.2-1.0); EOSINOPHILS % (AUTO) 17.6 % (0.9-2.9); HEMATOCRIT 27.6 % (42.0-54.0); HEMOGLOBIN 9.2 g/dL (13.5-18.0); LYMPHOCYTES # (AUTO) 0.8 X10^3/uL (1.3-2.9); LYMPHOCYTES % (AUTO) 15.2 % (21.0-51.0); MEAN CORPUSCULAR HEMOGLOBIN 30.6 pg (27.0-34.0); MEAN CORPUSCULAR HGB CONC 33.5 g/dL (33.0-35.0); MEAN CORPUSCULAR VOLUME 91.4 fL (80.0-100.0); MEAN PLATELET VOLUME 7.8 fL (7.4-11.0); MONOCYTES # (AUTO) 0.6 x10^3/uL (0.3-0.8); MONOCYTES % (AUTO) 10.9 % (0.0-13.0); NEUTROPHILS # (AUTO) 3.1 x10^3/uL (2.2-4.8); NEUTROPHILS % (AUTO) 55.5 % (42.0-75.0); PLATELET COUNT 457 X10^3/uL (150.0-450.0); RED BLOOD COUNT 3.02 X10^6/uL (4.7-6.0); RED CELL DISTRIBUTION WIDTH 16.1 % (11.6-16.5); WHITE BLOOD COUNT 5.5 X10^3/uL (3.6-10.0)
[2017-04-16 06:40] LABS: ALANINE AMINOTRANSFERASE 8 Units/L (12-78); ALBUMIN 2.1 g/dL (3.4-5.0); ALKALINE PHOSPHATASE 60 Units/L (46-116); ASPARTATE AMINO TRANSFERASE 11 Units/L (15-37); BAND NEUTROPHILS % 3 % (0-10); BLOOD UREA NITROGEN 11 mg/dL (7-18); CALCIUM 8.3 mg/dL (8.5-10.1); CARBON DIOXIDE 29.4 mmol/L (21-32); CHLORIDE 108 mmol/L (98-107); COR CA(FOR HYPOALB) 9.8 mg/dL (8.5-10.1); CREATININE 0.81 mg/dL (0.70-1.30); PLATELET MORPHOLOGY COMMENT NORMAL (NORMAL); SODIUM 144 mmol/L (136-145); TOTAL PROTEIN 6.2 g/dL (6.4-8.2); eGFR BLACK RACES > 60 (>60); eGFR NON BLACK RACES > 60 (>60)
[2017-04-16] MEDS: ELIQUIS PO SCH (08:30)
[2017-04-16] MEDS: ZITHROMAX INJ 500 MG VIAL 500 MG in NS 250 ML IV 250 ML IV SCH (08:31)
[2017-04-16] MEDS: ROBITUSSIN CF SYRUP PO SCH ×2 (08:31→13:32)
[2017-04-16] MEDS: MILK OF MAGNESIA PO SCH (08:31)
--- NOTE | 2017-04-16 13:17 | PCM.PROG ---
Progress Note - Progress Note for Day of Date: 04/15/17 - Subjective Subjective: lower extremity pain and swelling, improved since admission. continues with mild cough, no increased sob or wheezing. discussed d/c home on Friday - Past Medical Family Social History Past Med/Fam/Surg Hx: No changes since H&P Allergies: Allergies No Known Drug Allergies Allergy (Verified 02/05/17 10:49) - Review of Systems ROS: No change since H&P - Vital Signs and I&O's Vital Signs: Temperature 97.5 F Pulse Rate [Right Brachial] 75 Pulse Rate 79 Respiratory Rate 18 Blood Pressure [Left Arm] 105/66 Blood Pressure [Right Arm] 95/55 Blood Pressure 102/55 O2 Sat by Pulse Oximetry 96 Intake and Output: Intake & Output 04/14/17 04/15/17 04/16/17 04/17/17 11:59 11:59 11:59 11:59 Intake Total 3360 2160 1610 Output Total 1625 1350 1750 Balance 1735 810 -140 - Physical Exam Oriented: Normal Eyes: Normal Ear: Normal Nose: Normal Throat: Normal Respiratory: Diminished (mildly diminished lung bases) Cardiovascular: Normal, Edema : Normal Auscultation: Bowel Sounds: Normal Tenderness: Normal Skin: Normal Musculoskeletal: Leg, Tender Psychiatric: Anxiety Affect: Anxious Speech Pattern: Clear, Appropriate - Laboratory and Diagnostics Result Diagrams: 04/16/17 04:20 04/16/17 04:20 Labs: 04/12/17 12:32 Sputum - Expectorated Sputum Sputum Culture - Final 04/12/17 12:32 Sputum - Expectorated Sputum - Final 04/11/17 18:40 Sputum - Expectorated Sputum Sputum Culture - Final 04/11/17 18:40 Sputum - Expectorated Sputum - Final Laboratory WBC 5.5 X10^3/uL (3.6-10.0) 04/16/17 04:20 RBC 3.02 X10^6/uL (4.7-6.0) L 04/16/17 04:20 Hgb 9.2 g/dL (13.5-18.0) L 04/16/17 04:20 Hct 27.6 % (42.0-54.0) L 04/16/17 04:20 MCV 91.4 fL (80.0-100.0) 04/16/17 04:20 MCH 30.6 pg (27.0-34.0) 04/16/17 04:20 MCHC 33.5 g/dL (33.0-35.0) 04/16/17 04:20 RDW 16.1 % (11.6-16.5) 04/16/17 04:20 Plt Count 457 X10^3/uL (150.0-450.0) H 04/16/17 04:20 Plt Count Comment Adequate (ADEQUATE) 04/16/17 04:20 MPV 7.8 fL (7.4-11.0) 04/16/17 04:20 Neut % 55.5 % (42.0-75.0) 04/16/17 04:20 Lymph % 15.2 % (21.0-51.0) L 04/16/17 04:20 [place] % 10.9 % (0.0-13.0) 04/16/17 04:20 Eos % 17.6 % (0.9-2.9) H 04/16/17 04:20 Baso % 0.8 % (0.2-1.0) 04/16/17 04:20 Neut # 3.1 x10^3/uL (2.2-4.8) 04/16/17 04:20 Lymph # 0.8 X10^3/uL (1.3-2.9) L 04/16/17 04:20 [place] # 0.6 x10^3/uL (0.3-0.8) 04/16/17 04:20 Eos # 1.0 x10^3/uL (0.0-0.2) H 04/16/17 04:20 Baso # 0.0 X10^3/uL (0.0-0.1) 04/16/17 04:20 Absolute Nucleated RBC 0.1 /100WBC 04/16/17 04:20 Total Counted 100 04/16/17 04:20 Neutrophils % (Manual) 60 % (39-76) 04/16/17 04:20 Band Neutrophils % 3 % (0-10) 04/16/17 04:20 Lymphocytes % (Manual) 19 % (13-43) 04/16/17 04:20 Monocytes % (Manual) 12 % (4-9) H 04/16/17 04:20 Eosinophils % (Manual) 17 % (0-6) H 04/15/17 04:40 Plt Morphology Comment Normal (NORMAL) 04/16/17 04:20 RBC Morphology Normal (NORMAL) 04/16/17 04:20 INR Target Range - 04/12/17 04:40 INR 1.19 (0.8-1.3) 04/12/17 04:40 PTT 55.3 SECONDS (22.9-36.5) H 04/12/17 04:40 PTT Comment - 04/12/17 04:40 Sodium 144 mmol/L (136-145) 04/16/17 04:20 Corrected Sodium TNP 04/16/17 04:20 Potassium 3.9 mmol/L (3.5-5.1) 04/16/17 04:20 Chloride 108 mmol/L (98-107) H 04/16/17 04:20 Carbon Dioxide 29.4 mmol/L (21-32) 04/16/17 04:20 BUN 11 mg/dL (7-18) 04/16/17 04:20 Creatinine 0.81 mg/dL (0.70-1.30) 04/16/17 04:20 Est GFR (MDRD) Af Amer > 60 (>60) 04/16/17 04:20 Est GFR (MDRD) Non-Af > 60 (>60) 04/16/17 04:20 Glucose 96 mg/dL (65-99) 04/16/17 04:20 Calcium 8.3 mg/dL (8.5-10.1) L 04/16/17 04:20 Corrected Calcium 9.8 mg/dL (8.5-10.1) 04/16/17 04:20 Magnesium 1.9 mg/dL (1.7-2.9) 04/12/17 04:40 Total Bilirubin 0.10 mg/dL (0.2-1.0) L 04/16/17 04:20 AST 11 Units/L (15-37) L 04/16/17 04:20 ALT 8 Units/L (12-78) L 04/16/17 04:20 Alkaline Phosphatase 60 Units/L (46-116) 04/16/17 04:20 Creatine Kinase 24 Units/L (39-308) L 04/12/17 04:40 CK-MB (CK-2) < 1.0 ng/mL (0-4.0) 04/12/17 04:40 CK/CKMB % Calc 4.2 % (<4) 04/12/17 04:40 Troponin I < 0.02 ng/mL (0-1.5) 04/12/17 04:40 Total Protein 6.2 g/dL (6.4-8.2) L 04/16/17 04:20 Albumin 2.1 g/dL (3.4-5.0) L 04/16/17 04:20 Globulin 4.1 g/dL (2.5-4.5) 04/16/17 04:20 Albumin/Globulin Ratio 0.5 Ratio (1.1-2.1) L 04/16/17 04:20 Triglycerides 94 mg/dL (0-150) 04/12/17 04:40 Cholesterol 159 mg/dL (0-200) 04/12/17 04:40 LDL Cholesterol, Calc 114 mg/dL (0-100) H 04/12/17 04:40 HDL Cholesterol 26 mg/dL (40-60) L 04/12/17 04:40 Cholesterol/HDL Ratio 6.1 (0.0-5.0) H 04/12/17 04:40 - Plan (1) Acute DVT (deep venous thrombosis) Status: Acute Plan: CONTINUE ELIQUIS PO. RESP THERAPY,. IV ZITHROMAX, SUPPLEMENTAL O2. BP MONITORING, REPEAT AM LABS (2) SOB (shortness of breath) Status: Acute (3) Hypertension Status: Chronic Qualifiers:
[2017-04-16 13:36] VITALS: BP 109/60
== END 2017-04-16 16:20 | disposition home or self-care (01) | DRG 301 ==
LOC: ER 11:26 → MED/SURG 16:15
PROVIDERS: ADMIT Internal Medicine; ATTEND Internal Medicine
DX: I82.493 Acute embolism and thrombosis of other specified deep vein of lower extremity, bilateral (principal); M79.661 Pain in right lower leg; M79.662 Pain in left lower leg; R06.03 Acute respiratory distress; R07.89 Other chest pain; R60.1 Generalized edema; I10 Essential (primary) hypertension; R06.02 Shortness of breath; R94.31 Abnormal electrocardiogram [ECG] [EKG]
CPT/HCPCS: 36415; 71045; 71046; 71275; 80053; 80061; 82550; 82553; 83735; 84132; 84484; 85025; 85610; 85730; 87205; 93005; 93010; 93971; 94640; 94760; 96365; 99231; 99282; 99284; A4222; J0456; J1650; J1885; J7620

== ENCOUNTER 2017-06-26 08:10 | Emergency (ER) | payer OTHER ==
[2017-06-26 08:33] VITALS: BMI 23.6
--- NOTE | 2017-06-26 08:38 | DR.AMS ---
HPI - Time Seen Time seen: 08:25 - HPI Comment HPI Comment: PATIENT HAVING ATAXIA, AMS AND FREQUENT FALL. PATIENT ALSO COUGHING , PRODUCTIVE, YELLOW SPUTUM. FEVER PRESENT. DENIES DYSURIA. POST NASAL DRIP AND CONGESTION FOR FEW DAYS. - Complaint Cheif Complaint Doctors Comments: AMS. - Reviewed Nurses Notes Reviewed: Yes - Source History Provided: Patient, EMS - Mode of Arrival Mode of Arrival: Stretcher - Timing Came On: Suddenly Symptoms: Unchanged - Duration Duration: Constant Duration: Days - Quality Quality: Change in Behavior, Confusion - Severity Severity: Moderate - Context Recent: Fever, Cough History Of: None - Associated Signs and Symptoms Associated Signs and Symptoms: Generalized Weakness, Confusion PMH - PMH Past Medical History: Anxiety, Depression, Hypertension Past Surgical History: Yes Surgical History: Other - Family History Family Medical History: Hypertension - Social History Do you use any recreational Drugs:: No ROS - Review of Systems Constitutional: Fever, Weakness, Fatigue. negative: Chills Eyes: negative: Eye Pain, Blurred Vision, Discharge ENTM: Nose Congestion. negative: Ear Pain, Nose Discharge, Throat Pain Respiratoy: Productive Cough. negative: Short of Breath, Wheezing, Hemoptysis Cardiovascular: Chest Pain (CHEST WALL.) Gastrointestinal/Abdominal: No Symptoms Reported Genitourinary: negative: Dysuria, Hematuria Neurological: Other (ATAXIA, CONFUSE) Musculoskeletal: Back Pain Integumentary: Change in Color, Lesions Hematologic/Lymphatic: Easy Bleeding, Easy Bruising Endocrine: No Symptoms Reported All Other Systems: Reviewed and Negative PE - Vitals Vital Signs: Temp Pulse Pulse Resp BP BP BP 06/26/17 10:56 97.6 F 06/26/17 10:44 66 18 144/76 06/26/17 10:00 67 18 162/83 06/26/17 09:52 65 18 147/71 06/26/17 09:10 66 18 134/66 06/26/17 08:10 100.4 F H 70 66 18 132/85 136/64 04/16/17 12:00 109/60 109/60 03/19/17 16:00 105/66 Pulse Ox 06/26/17 10:56 06/26/17 10:44 100 06/26/17 10:00 100 06/26/17 09:52 98 06/26/17 09:10 100 06/26/17 08:10 98 04/16/17 12:00 03/19/17 16:00 - General Limitations: Altered Mental Status General Appearance: Alert - Head Head Exam: Normal Inspection Head Exam Physical: Other (NONE) - Eyes Eye exam: PERRL, EOMI. negative: Scleral Icterus, Conjunctival Injection, Periorbital Swelling, Periorbital Tenderness Pupils: Regular, Round: Bilateral, Reactive: Bilateral - ENT ENT Exam: Normal External Ear Exam TM/Canal Exam: Bilateral Normal Nose Exam: Normal Nose Exam Mouth Exam: Normal Inspection Throat Exam: Normal Inspection - Neck Neck Exam: Trachea Midline. negative: Tenderness, Meningismus, Lymphadenopathy - Chest Chest Inspection: Symmetric Chest Wall Rise - Respiratory Respiratory Exam: Normal Lung Sounds Bilat Respiratory Exam: Bilateral Clear to Auscultation - Cardiovascular Cardiovascular Exam: Regular Rate, Normal Rhythm, Normal Heart Sounds - Abdominal Exam Abdominal Exam: Normal Bowel Sounds, Soft. negative: Tenderness - Extremities Extremities Exam: Normal Inspection - Back Back Exam: Normal Inspection - Neurological Neurological Exam: Alert, CN II-XII Intact. negative: Motor Sensory Deficit Cranial Nerve Exam: EOM Function (II, III, IV, ): Normal, Facial Sensation (V) : Normal, Facial Palsy (VII): Normal, Gag reflex (XI): Normal, Spinal Accessory Function (XI): Normal, Tongue Deviation: Normal Motor Strength - LUE: 5/5 Motor Strength - RUE: 5/5 Motor Strength - LLE: 5/5 Motor Strength - RLE: 5/5 Upper Motor Neuron Exam: Babinski Sign: Normal - Psychological Psychiatric Exam: Flat Affect - Skin Skin Exam: Rash MDM - Differential Diagnosis Metabolic: Dehydration, Hypercalcemia, Hypernatremia, Hypoglycemia, Hyponatremia Structural: CVA, Mass Lesion Infectious: UTI Course - Treatment Treatment: SEE ORDERS. - Reevaluation 1st: Improved - Education/Counseling Education/Counseling: Patient, Education Educated On: Diagnosis, Needs for Follow Up ROR - Labs Reviewed Laboratory Results Reviewed?: Yes Result Diagrams: 06/26/17 08:50 06/26/17 08:50 Laboratory: 06/26/17 09:32 Sputum - Expectorated Sputum - Final WBC 8.9 X10^3/uL (3.6-10.0) 06/26/17 08:50 RBC 3.62 X10^6/uL (4.7-6.0) L 06/26/17 08:50 Hgb 12.2 g/dL (13.5-18.0) L 06/26/17 08:50 Hct 35.1 % (42.0-54.0) L 06/26/17 08:50 MCV 96.9 fL (80.0-100.0) 06/26/17 08:50 MCH 33.7 pg (27.0-34.0) 06/26/17 08:50 MCHC 34.7 g/dL (33.0-35.0) 06/26/17 08:50 RDW 17.2 % (11.6-16.5) H 06/26/17 08:50 Plt Count 142 X10^3/uL (150.0-450.0) L 06/26/17 08:50 Plt Count Comment Adequate (ADEQUATE) 06/26/17 08:50 MPV 7.3 fL (7.4-11.0) L 06/26/17 08:50 Neut % (Auto) 91.1 % (42.0-75.0) H 06/26/17 08:50 Lymph % (Auto) 3.9 % (21.0-51.0) L 06/26/17 08:50 [place] % (Auto) 4.2 % (0.0-13.0) 06/26/17 08:50 Eos % (Auto) 0.6 % (0.9-2.9) L 06/26/17 08:50 Baso % (Auto) 0.2 % (0.2-1.0) 06/26/17 08:50 Neut # (Auto) 8.1 x10^3/uL (2.2-4.8) H 06/26/17 08:50 Lymph # (Auto) 0.3 X10^3/uL (1.3-2.9) L 06/26/17 08:50 [place] # (Auto) 0.4 x10^3/uL (0.3-0.8) 06/26/17 08:50 Eos # (Auto) 0.1 x10^3/uL (0.0-0.2) 06/26/17 08:50 Baso # (Auto) 0.0 X10^3/uL (0.0-0.1) 06/26/17 08:50 Absolute Nucleated RBC 0.0 /100WBC 06/26/17 08:50 Total Counted 100 06/26/17 08:50 Neutrophils % (Manual) 88 % (39-76) H 06/26/17 08:50 Lymphocytes % (Manual) 8 % (13-43) L 06/26/17 08:50 Monocytes % (Manual) 2 % (4-9) L 06/26/17 08:50 Eosinophils % (Manual) 2 % (0-6) 06/26/17 08:50 Plt Morphology Comment Normal (NORMAL) 06/26/17 08:50 RBC Morphology Normal (NORMAL) 06/26/17 08:50 Sodium 133 mmol/L (136-145) L 06/26/17 08:50 Corrected Sodium TNP 06/26/17 08:50 Potassium 4.4 mmol/L (3.5-5.1) 06/26/17 08:50 Chloride 97 mmol/L (98-107) L 06/26/17 08:50 Carbon Dioxide 23.1 mmol/L (21-32) 06/26/17 08:50 BUN 25 mg/dL (7-18) H 06/26/17 08:50 Creatinine 1.93 mg/dL (0.70-1.30) H 06/26/17 08:50 Est GFR (MDRD) Af Amer 45 (>60) L 06/26/17 08:50 Est GFR (MDRD) Non-Af 37 (>60) L 06/26/17 08:50 Glucose 70 mg/dL (65-99) 06/26/17 08:50 Calcium 8.2 mg/dL (8.5-10.1) L 06/26/17 08:50 Corrected Calcium 8.8 mg/dL (8.5-10.1) 06/26/17 08:50 Magnesium 2.0 mg/dL (1.7-2.9) 06/26/17 12:00 Total Bilirubin 0.70 mg/dL (0.2-1.0) 06/26/17 08:50 AST 81 Units/L (15-37) H 06/26/17 08:50 ALT 39 Units/L (12-78) 06/26/17 08:50 Alkaline Phosphatase 74 Units/L (46-116) 06/26/17 08:50 Creatine Kinase 3212 Units/L (39-308) H 06/26/17 08:50 CK-MB (CK-2) 2.0 ng/mL (0-4.0) 06/26/17 08:50 CK/CKMB % Calc 0.1 % (<4) 06/26/17 08:50 Troponin I 0.02 ng/mL (0-1.5) 06/26/17 08:50 Total Protein 6.9 g/dL (6.4-8.2) 06/26/17 08:50 Albumin 3.3 g/dL (3.4-5.0) L 06/26/17 08:50 Globulin 3.6 g/dL (2.5-4.5) 06/26/17 08:50 Albumin/Globulin Ratio 0.9 Ratio (1.1-2.1) L 06/26/17 08:50 Vitamin B12 242 pg/mL (193-986) 06/26/17 12:00 Specimen Type Random urine 06/26/17 09:41 Urine Color Yellow (YELLOW) 06/26/17 09:41 Urine Appearance Slightly hazy (CLEAR) 06/26/17 09:41 Urine pH 5.0 (5.0 - 8.0) 06/26/17 09:41 Ur Specific [place] 1.015 (1.000-1.030) 06/26/17 09:41 Urine Protein 2+ (NEGATIVE) 06/26/17 09:41 Urine Glucose (UA) Negative (NEGATIVE) 06/26/17 09:41 Urine Ketones 1+ (NEGATIVE) 06/26/17 09:41 Urine Occult Blood 3+ (NEGATIVE) 06/26/17 09:41 Urine Nitrite Negative (NEGATIVE) 06/26/17 09:41 Urine Bilirubin Negative (NEGATIVE) 06/26/17 09:41 Urine Urobilinogen Normal (NORMAL) 06/26/17 09:41 Ur Leukocyte Esterase Negative (NEGATIVE) 06/26/17 09:41 Urine RBC 3-5 /HPF (NONE SEEN) 06/26/17 09:41 Urine WBC None seen /HPF (NONE SEEN) 06/26/17 09:41 Ur Squamous Epith Cells Negative /HPF (NEGATIVE) 06/26/17 09:41 Urine Bacteria Trace /HPF (NEGATIVE) 06/26/17 09:41 Hyaline Casts Few /LPF (NEGATIVE) 06/26/17 09:41 Urine Mucus Few /HPF (NEGATIVE) 06/26/17 09:41 Ur Culture Indicated? No/not indicated 06/26/17 09:41 - XRAY XRAY Interpreted by: Radiologist XRAY Findings: REPORT DISCUSS WITH PATIENT - EKG Rhythm: NSR (EKG SEEN.) - Diagnosis Discharge Problem: Dehydration Sinusitis Qualifiers: Sinusitis location: unspecified location Chronicity: acute Recurrence: not specified as recurrent Qualified Code(s): J01.90 - Acute sinusitis, unspecified Fever Qualifiers: Fever type: unspecified Qualified Code(s): R50.9 - Fever, unspecified Mental status alteration Qualifiers: Altered mental status type: transient alteration of awareness Qualified Code(s) : R40.4 - Transient alteration of awareness - Discharge Plan Disposition: 01 HOME, SELF-CARE Condition: Stable Prescriptions: Amoxicillin & Pot Clavulanate [AUGMENTIN TAB 875 mg/125 mg *] 1 tab PO BID #20 tab Cetirizine HCl [Zyrtec Tab 10 mg] 10 mg PO DAILY #10 tab - Follow ups/Referrals Follow ups/Referrals: JANES KERR [STAFF PHYSICIAN] - 1 day - Instructions Instructions: Sinusitis, Adult, Dehydration, Adult, [id number], Fever, Adult , [id number] Additional Instructions: RETURN TO ED IF WORSE.
[2017-06-26 09:02] LABS: BASOPHILS % (AUTO) 0.2 % (0.2-1.0); EOSINOPHILS # (AUTO) 0.1 x10^3/uL (0.0-0.2); EOSINOPHILS % (AUTO) 0.6 % (0.9-2.9); HEMATOCRIT 35.1 % (42.0-54.0); HEMOGLOBIN 12.2 g/dL (13.5-18.0); LYMPHOCYTES # (AUTO) 0.3 X10^3/uL (1.3-2.9); LYMPHOCYTES % (AUTO) 3.9 % (21.0-51.0); MEAN CORPUSCULAR HEMOGLOBIN 33.7 pg (27.0-34.0); MEAN CORPUSCULAR HGB CONC 34.7 g/dL (33.0-35.0); MEAN CORPUSCULAR VOLUME 96.9 fL (80.0-100.0); MEAN PLATELET VOLUME 7.3 fL (7.4-11.0); MONOCYTES # (AUTO) 0.4 x10^3/uL (0.3-0.8); MONOCYTES % (AUTO) 4.2 % (0.0-13.0); NEUTROPHILS # (AUTO) 8.1 x10^3/uL (2.2-4.8); NEUTROPHILS % (AUTO) 91.1 % (42.0-75.0); PLATELET COUNT 142 X10^3/uL (150.0-450.0); RED BLOOD COUNT 3.62 X10^6/uL (4.7-6.0); RED CELL DISTRIBUTION WIDTH 17.2 % (11.6-16.5); WHITE BLOOD COUNT 8.9 X10^3/uL (3.6-10.0)
--- NOTE | 2017-06-26 09:07 | RAD ---
HISTORY: Altered mental status. Frequent falls. Study: AP portable chest Comparison: 04/15/2017 Findings: The lungs are clear. The heart size is borderline enlarged. Mild tortuosity of the aorta is noted. Widening of the mediastinum is present, felt to be due to the AP technique of the film. It is uncha nged. No acute bony abnormalities are identified. IMPRESSION: 1. Borderline cardiomegaly without evidence of failure. 2. No radiographic evidence of acute cardiopulmonary disease or significant change is noted when com pared to the prior examination. Reported By:
[2017-06-26 09:18] LABS: BLOOD UREA NITROGEN 25 mg/dL (7-18); CALCIUM 8.2 mg/dL (8.5-10.1); CARBON DIOXIDE 23.1 mmol/L (21-32); CHLORIDE 97 mmol/L (98-107); CREATININE 1.93 mg/dL (0.70-1.30); SODIUM 133 mmol/L (136-145); TROPONIN I 0.02 ng/mL (0-1.5); eGFR BLACK RACES 45 (>60); eGFR NON BLACK RACES 37 (>60)
[2017-06-26 09:23] LABS: ALANINE AMINOTRANSFERASE 39 Units/L (12-78); ALBUMIN 3.3 g/dL (3.4-5.0); ALKALINE PHOSPHATASE 74 Units/L (46-116); ASPARTATE AMINO TRANSFERASE 81 Units/L (15-37); COR CA(FOR HYPOALB) 8.8 mg/dL (8.5-10.1); TOTAL PROTEIN 6.9 g/dL (6.4-8.2)
[2017-06-26 09:25] LABS: CKMB % 0.1 % (<4)
[2017-06-26 09:26] LABS: CREATINE KINASE 3212 Units/L (39-308)
[2017-06-26] MEDS ORDERED: NS 1000 ML 1,000 ML IV ONE (09:28)
[2017-06-26] MEDS ORDERED: NS 1000 ML 1,000 ML ONE (09:28)
--- NOTE | 2017-06-26 09:35 | CT ---
HISTORY: Falling down, slurred speech Study: CT head without contrast Comparison: 02/05/2017 Technique: Axial noncontrast images with coronal and sagittal reformats. Dose reduction procedures we re used with mA/kv adjusted for body size. Findings: The ventricles are normal in size, shape, and position. There is slight decreased attenuation in the periventricular white matter suggestive of small vessel vascular disease. There is no definite eviden ce for visible recent or remote CVA, hemorrhage, mass lesion, or extra-axial fluid collection. Mucosa l inflammatory changes are present in the ethmoid and maxillary sinuses bilaterally. The calvarium is intact. IMPRESSION: No definite acute intracranial abnormality Small vessel disease Mild mucosal inflammatory changes in the ethmoid and maxillary sinuses bilaterally Reported By:
[2017-06-26 09:39] LABS: PLATELET MORPHOLOGY COMMENT NORMAL (NORMAL)
[2017-06-26] MEDS ORDERED: PEPCID 20 MG IV PREMIX* 20 MG/50 ML BAG IV ONE ×2 (09:50→09:53)
[2017-06-26] MEDS ORDERED: TORADOL 30 MG VIAL IVP ONE (09:50)
[2017-06-26] MEDS ORDERED: TORADOL 30 MG VIAL ONE (09:53)
[2017-06-26 09:55] LABS: BILIRUBIN,URINE NEGATIVE (NEGATIVE); BLOOD/HEMOGLOBIN,URINE 3+ (NEGATIVE); GLUCOSE, URINE NEGATIVE (NEGATIVE); KETONES,URINE 1+ (NEGATIVE); LEUKOCYTE ESTERASE ,URINE NEGATIVE (NEGATIVE); NITRITES,URINE NEGATIVE (NEGATIVE); PROTEIN,URINE 2+ (NEGATIVE); UROBILINOGEN,URINE NORMAL (NORMAL)
[2017-06-26 09:56] LABS: APPEARANCE,URINE SLIGHTLY HAZY (CLEAR); COLOR,URINE YELLOW (YELLOW)
[2017-06-26 10:05] LABS: BACTERIA,URINE TRACE /HPF (NEGATIVE); HYALINE CASTS, URINE FEW /LPF (NEGATIVE); SQUAMOUS EPITHELIAL CELL,UR NEGATIVE /HPF (NEGATIVE)
[2017-06-26 10:06] LABS: MUCUS,URINE FEW /HPF (NEGATIVE)
[2017-06-26] MEDS ORDERED: ZOSYN VIAL 3.375 GM 3.375 GM in NS 100 ML IV + SPIKE MINIBAG* 100 ML IV ONE (10:09)
[2017-06-26] MEDS ORDERED: NS 100 ML IV + SPIKE MINIBAG* 100 ML IV ONE (10:11)
[2017-06-26] MEDS ORDERED: ZOSYN VIAL 3.375 GM IV ONE (10:11)
[2017-06-26 10:44] VITALS: BP 144/76
[2017-06-26] MEDS ORDERED: THIAMINE HCL INJ IM ONE (13:13)
== END 2017-06-26 13:23 | disposition home or self-care (01) ==
LOC: SUPCPDRO 08:22 → ER 08:22
DX: E86.0 Dehydration (principal); R40.4 Transient alteration of awareness; J01.80 Other acute sinusitis; R50.9 Fever, unspecified
CPT/HCPCS: 36415; 70450; 71045; 80053; 81001; 82550; 82553; 82607; 83735; 84425; 84484; 85025; 87070; 87205; 93005; 93010; 96365; 96372; 96374; 96375; 99283; 99284; A4222; S0028; J1885; J2543

== ENCOUNTER 2017-07-08 18:38 | Observation (INO) | payer OTHER ==
--- NOTE | 2017-07-08 18:51 | DR.CP ---
HPI - Time Seen Time seen: 18:40 - Complaint Chief Complaint Doctor Comments: Patient presented with complaint of chest pain , he reports that he had chest pain s/p getting into argument with significant other. He reports that the pain is mid-sternal, 8/10, non radiating, he is not on NTG. PMH of depression anxiety and HTN. PMH - PMH Past Medical History: Anxiety, Depression, Hypertension Past Surgical History: Yes Surgical History: Other - Family History Family Medical History: Hypertension - Social History Do you use any recreational Drugs:: No ROS - Review of Systems Eyes: No Symptoms Reported ENTM: No Symptoms Reported Respiratoy: No Symptoms Reported Cardiovascular: No Symptoms Reported Gastrointestinal/Abdominal: No Symptoms Reported Genitourinary: No Symptoms Reported Neurological: No Symptoms Reported Musculoskeletal: No Symptoms Reported Integumentary: No Symptoms Reported Hematologic/Lymphatic: No Symptoms Reported Endocrine: No Symptoms Reported Psychiatric: No Symptoms Reported All Other Systems: Reviewed and Negative PE - Vitals Vitals: Temperature 99.9 F Pulse Rate [Left Brachial] 81 Pulse Rate 82 Respiratory Rate 25 Blood Pressure [Left Arm] 105/66 Blood Pressure [Right Arm] 116/77 Blood Pressure 116/77 O2 Sat by Pulse Oximetry 97 - General Limitations: No Limitations General Appearance: Alert, In No Apparent Distress - Head Head Exam: Normal Inspection, Atraumatic - Eyes Eye exam: Normal Appearance, PERRL, EOMI - ENT ENT Exam: Normal Exam - Chest Chest Inspection: Normal Inspection - Respiratory Respiratory Exam: Normal Lung Sounds Bilat Respiratory Exam: Bilateral Clear to Auscultation - Cardiovascular Cardiovascular Exam: Regular Rate, Normal Rhythm Pulse: Normal, Radial, Femoral Edema: Normal - Abdominal Exam Abdominal Exam: Normal Inspection, Normal Bowel Sounds Abdominal Tenderness: negative: RUQ, RLQ, LUQ, LLQ, Epigastrium, Suprapubic, Diffuse, Mild, Moderate, Severe, Other - Extremities Extremities Exam: Normal Inspection, Full ROM - Back Back Exam: Normal Inspection, Full ROM - Neurologic Neurological Exam: Alert, Oriented X3, CN II-XII Intact - Psychiatric Psychiatric Exam: Normal Affect, Normal Mood Course - Reevaluation 1st: Unchanged - Consultation Called: 22:50 (Dr Whitlock agreed to admit for chest pain protocol) ROR - Labs Reviewed Result Diagrams: 07/08/17 18:50 07/08/17 18:50 Laboratory: WBC 11.3 X10^3/uL (3.6-10.0) H 07/08/17 18:50 RBC 3.61 X10^6/uL (4.7-6.0) L 07/08/17 18:50 Hgb 12.0 g/dL (13.5-18.0) L 07/08/17 18:50 Hct 34.7 % (42.0-54.0) L 07/08/17 18:50 MCV 96.1 fL (80.0-100.0) 07/08/17 18:50 MCH 33.3 pg (27.0-34.0) 07/08/17 18:50 MCHC 34.6 g/dL (33.0-35.0) 07/08/17 18:50 RDW 16.3 % (11.6-16.5) 07/08/17 18:50 Plt Count 273 X10^3/uL (150.0-450.0) 07/08/17 18:50 Plt Count Comment Adequate (ADEQUATE) 07/08/17 18:50 MPV 7.3 fL (7.4-11.0) L 07/08/17 18:50 Neut % (Auto) 92.8 % (42.0-75.0) H 07/08/17 18:50 Lymph % (Auto) 3.6 % (21.0-51.0) L 07/08/17 18:50 [place] % (Auto) 2.6 % (0.0-13.0) 07/08/17 18:50 Eos % (Auto) 0.6 % (0.9-2.9) L 07/08/17 18:50 Baso % (Auto) 0.4 % (0.2-1.0) 07/08/17 18:50 Neut # (Auto) 10.5 x10^3/uL (2.2-4.8) H 07/08/17 18:50 Lymph # (Auto) 0.4 X10^3/uL (1.3-2.9) L 07/08/17 18:50 [place] # (Auto) 0.3 x10^3/uL (0.3-0.8) 07/08/17 18:50 Eos # (Auto) 0.1 x10^3/uL (0.0-0.2) 07/08/17 18:50 Baso # (Auto) 0.0 X10^3/uL (0.0-0.1) 07/08/17 18:50 Absolute Nucleated RBC 0.0 /100WBC 07/08/17 18:50 Total Counted 100 07/08/17 18:50 Neutrophils % (Manual) 93 % (39-76) H 07/08/17 18:50 Band Neutrophils % 1 % (0-10) 07/08/17 18:50 Lymphocytes % (Manual) 4 % (13-43) L 07/08/17 18:50 Monocytes % (Manual) 1 % (4-9) L 07/08/17 18:50 Eosinophils % (Manual) 1 % (0-6) 07/08/17 18:50 Plt Morphology Comment Normal (NORMAL) 07/08/17 18:50 RBC Morphology Normal (NORMAL) 07/08/17 18:50 INR Target Range - 07/08/17 18:50 INR 0.98 (0.8-1.3) 07/08/17 18:50 APTT 35.3 SECONDS (22.9-36.5) 07/08/17 18:50 PTT Comment - 07/08/17 18:50 Sodium 135 mmol/L (136-145) L 07/08/17 18:50 Corrected Sodium TNP 07/08/17 18:50 Potassium 4.5 mmol/L (3.5-5.1) 07/08/17 18:50 Chloride 100 mmol/L (98-107) 07/08/17 18:50 Carbon Dioxide 26.3 mmol/L (21-32) 07/08/17 18:50 BUN 21 mg/dL (7-18) H 07/08/17 18:50 Creatinine 2.12 mg/dL (0.70-1.30) H 07/08/17 18:50 Est GFR (MDRD) Af Amer 40 (>60) L 07/08/17 18:50 Est GFR (MDRD) Non-Af 33 (>60) L 07/08/17 18:50 Glucose 105 mg/dL (65-99) H 07/08/17 18:50 Calcium 8.1 mg/dL (8.5-10.1) L 07/08/17 18:50 Corrected Calcium TNP 07/08/17 18:50 Magnesium 1.4 mg/dL (1.7-2.9) L 07/08/17 18:50 Total Bilirubin 0.30 mg/dL (0.2-1.0) 07/08/17 18:50 AST 15 Units/L (15-37) 07/08/17 18:50 ALT 22 Units/L (12-78) 07/08/17 18:50 Alkaline Phosphatase 89 Units/L (46-116) 07/08/17 18:50 Creatine Kinase 49 Units/L (39-308) 07/08/17 18:50 CK-MB (CK-2) < 1.0 ng/mL (0-4.0) 07/08/17 18:50 CK/CKMB % Calc 2.0 % (<4) 07/08/17 18:50 Troponin I < 0.02 ng/mL (0-1.5) 07/08/17 18:50 Total Protein 7.3 g/dL (6.4-8.2) 07/08/17 18:50 Albumin 3.4 g/dL (3.4-5.0) 07/08/17 18:50 Globulin 3.9 g/dL (2.5-4.5) 07/08/17 18:50 Albumin/Globulin Ratio 0.9 Ratio (1.1-2.1) L 07/08/17 18:50 - XRAY XRAY Interpreted by: Radiologist (Chest: No acute abnormality) - EKG Rhythm: NSR Hypertrophy: LAE - Diagnosis Discharge Problem: Dehydration, mild Chest pain Qualifiers: Chest pain type: unspecified Qualified Code(s): R07.9 - Chest pain, unspecified - Discharge Plan Condition: Stable - Follow ups/Referrals Follow ups/Referrals: VICTORIA CLEMENS [Primary Care Provider] - 3 days - Instructions
[2017-07-08] MEDS: LR 1000 ML IV 1,000 ML IV SCH (19:01)
[2017-07-08 19:05] LABS: BASOPHILS % (AUTO) 0.4 % (0.2-1.0); EOSINOPHILS # (AUTO) 0.1 x10^3/uL (0.0-0.2); EOSINOPHILS % (AUTO) 0.6 % (0.9-2.9); HEMATOCRIT 34.7 % (42.0-54.0); LYMPHOCYTES # (AUTO) 0.4 X10^3/uL (1.3-2.9); LYMPHOCYTES % (AUTO) 3.6 % (21.0-51.0); MEAN CORPUSCULAR HEMOGLOBIN 33.3 pg (27.0-34.0); MEAN CORPUSCULAR HGB CONC 34.6 g/dL (33.0-35.0); MEAN CORPUSCULAR VOLUME 96.1 fL (80.0-100.0); MEAN PLATELET VOLUME 7.3 fL (7.4-11.0); MONOCYTES # (AUTO) 0.3 x10^3/uL (0.3-0.8); MONOCYTES % (AUTO) 2.6 % (0.0-13.0); NEUTROPHILS # (AUTO) 10.5 x10^3/uL (2.2-4.8); NEUTROPHILS % (AUTO) 92.8 % (42.0-75.0); PLATELET COUNT 273 X10^3/uL (150.0-450.0); RED BLOOD COUNT 3.61 X10^6/uL (4.7-6.0); RED CELL DISTRIBUTION WIDTH 16.3 % (11.6-16.5); WHITE BLOOD COUNT 11.3 X10^3/uL (3.6-10.0)
[2017-07-08] MEDS: TYLENOL 325 MG TAB PO PRN (19:05)
--- NOTE | 2017-07-08 19:16 | RAD ---
Chest, one view Indication: Chest pain Comparison: 06/26/2017 Findings: The heart is normal in size. No focal consolidation, significant pleural effusion or pneumo thorax is identified. There is no acute osseous abnormality. Impression: No acute cardiopulmonary abnormality. Reported By:
[2017-07-08 19:18] LABS: BAND NEUTROPHILS % 1 % (0-10)
[2017-07-08 19:19] LABS: PLATELET MORPHOLOGY COMMENT NORMAL (NORMAL)
[2017-07-08 19:21] LABS: BLOOD UREA NITROGEN 21 mg/dL (7-18); CALCIUM 8.1 mg/dL (8.5-10.1); CARBON DIOXIDE 26.3 mmol/L (21-32); CHLORIDE 100 mmol/L (98-107); CREATININE 2.12 mg/dL (0.70-1.30); SODIUM 135 mmol/L (136-145); TROPONIN I < 0.02 ng/mL (0-1.5); eGFR BLACK RACES 40 (>60); eGFR NON BLACK RACES 33 (>60)
[2017-07-08 19:25] LABS: ALANINE AMINOTRANSFERASE 22 Units/L (12-78); ALBUMIN 3.4 g/dL (3.4-5.0); ALKALINE PHOSPHATASE 89 Units/L (46-116); ASPARTATE AMINO TRANSFERASE 15 Units/L (15-37); CREATINE KINASE 49 Units/L (39-308); CREATINE KINASE MB < 1.0 ng/mL (0-4.0); MAGNESIUM 1.4 mg/dL (1.7-2.9); TOTAL PROTEIN 7.3 g/dL (6.4-8.2)
[2017-07-08] MEDS ORDERED: LASIX IVP ONE (19:49)
[2017-07-08] MEDS: LASIX IVP ONE (19:50)
[2017-07-08] MEDS ORDERED: MORPHINE SULFATE INJ 2 MG INJ IVP ONE (20:23)
[2017-07-08] MEDS ORDERED: MORPHINE SULFATE INJ 2 MG INJ ONE (20:35)
[2017-07-09] MEDS ORDERED: MAGNESIUM SULFATE 1 GM/100 mL PREMIX 1 GM/100 ML BAG IV ONE (01:37)
[2017-07-09] MEDS: LR 1000 ML IV 1,000 ML IV SCH ×5 (01:39→19:15)
[2017-07-09 01:47] VITALS: BMI 25.2
[2017-07-09 03:44] LABS: CKMB % 2.8 % (<4); CREATINE KINASE 36 Units/L (39-308); CREATINE KINASE MB < 1.0 ng/mL (0-4.0); TROPONIN I < 0.02 ng/mL (0-1.5)
[2017-07-09 05:57] LABS: CHOL/HDL RATIO 1.9 (0.0-5.0)
[2017-07-09 06:03] LABS: ALANINE AMINOTRANSFERASE 17 Units/L (12-78); ALBUMIN 2.7 g/dL (3.4-5.0); ALKALINE PHOSPHATASE 69 Units/L (46-116); ASPARTATE AMINO TRANSFERASE 13 Units/L (15-37); BLOOD UREA NITROGEN 20 mg/dL (7-18); CALCIUM 7.9 mg/dL (8.5-10.1); CARBON DIOXIDE 28.9 mmol/L (21-32); CHLORIDE 104 mmol/L (98-107); COR CA(FOR HYPOALB) 8.9 mg/dL (8.5-10.1); CREATININE 1.73 mg/dL (0.70-1.30); SODIUM 139 mmol/L (136-145); eGFR BLACK RACES 51 (>60); eGFR NON BLACK RACES 42 (>60)
[2017-07-09 06:15] LABS: BASOPHILS % (AUTO) 0.2 % (0.2-1.0); EOSINOPHILS # (AUTO) 0.1 x10^3/uL (0.0-0.2); EOSINOPHILS % (AUTO) 0.8 % (0.9-2.9); HEMATOCRIT 30.8 % (42.0-54.0); HEMOGLOBIN 10.7 g/dL (13.5-18.0); LYMPHOCYTES # (AUTO) 1.1 X10^3/uL (1.3-2.9); LYMPHOCYTES % (AUTO) 8.3 % (21.0-51.0); MEAN CORPUSCULAR HEMOGLOBIN 33.5 pg (27.0-34.0); MEAN CORPUSCULAR HGB CONC 34.8 g/dL (33.0-35.0); MEAN CORPUSCULAR VOLUME 96.2 fL (80.0-100.0); MEAN PLATELET VOLUME 7.7 fL (7.4-11.0); MONOCYTES # (AUTO) 0.5 x10^3/uL (0.3-0.8); NEUTROPHILS # (AUTO) 11.5 x10^3/uL (2.2-4.8); NEUTROPHILS % (AUTO) 86.7 % (42.0-75.0); PLATELET COUNT 204 X10^3/uL (150.0-450.0); WHITE BLOOD COUNT 13.3 X10^3/uL (3.6-10.0)
[2017-07-09 06:42] LABS: PLATELET MORPHOLOGY COMMENT NORMAL (NORMAL)
[2017-07-09 09:14] LABS: CKMB % 2.9 % (<4); CREATINE KINASE 35 Units/L (39-308); CREATINE KINASE MB < 1.0 ng/mL (0-4.0); TROPONIN I < 0.02 ng/mL (0-1.5)
[2017-07-09] MEDS: LOVENOX INJ 80 MG SYR SC SCH ×2 (10:36→20:20)
[2017-07-09] MEDS: TYLENOL 325 MG TAB PO PRN ×2 (15:51→21:04)
--- NOTE | 2017-07-09 18:24 | RAD ---
HISTORY: Chest pain Study: Single view of the chest. Comparison: None. Findings: The cardiomediastinal silhouette is normal. Streaky opacity at the left lung base. Osseous structures demonstrate no acute abnormality. IMPRESSION: 1. Streaky opacity left lung base may represent acute infection. Reported By:
[2017-07-09 19:49] LABS: BILIRUBIN,URINE NEGATIVE (NEGATIVE); BLOOD/HEMOGLOBIN,URINE 2+ (NEGATIVE); GLUCOSE, URINE NEGATIVE (NEGATIVE); KETONES,URINE NEGATIVE (NEGATIVE); LEUKOCYTE ESTERASE ,URINE NEGATIVE (NEGATIVE); NITRITES,URINE NEGATIVE (NEGATIVE); PROTEIN,URINE NEGATIVE (NEGATIVE); UROBILINOGEN,URINE NORMAL (NORMAL)
[2017-07-09 20:00] LABS: APPEARANCE,URINE CLEAR (CLEAR); BACTERIA,URINE TRACE /HPF (NEGATIVE); COLOR,URINE YELLOW (YELLOW); RBC,URINE 0-2 /HPF (NONE SEEN); SQUAMOUS EPITHELIAL CELL,UR RARE /HPF (NEGATIVE)
[2017-07-09] MEDS: LASIX IVP ONE (20:20)
[2017-07-09] MEDS ORDERED: LEVAQUIN PREMIX IV 750 MG 750 MG/150 ML BAG IV SCH (21:00)
[2017-07-09] MEDS: DUONEB 0.5 MG/3 MG NEB SCH (21:55)
[2017-07-09] MEDS ORDERED: FORTAZ or TAZICEF INJ 2 GM in NS 100 ML IV + SPIKE MINIBAG* 100 ML IV SCH (22:00)
[2017-07-09] MEDS ORDERED: SALINE 3% 15 ML NEB TX ONE (22:09)
[2017-07-09] MEDS: FORTAZ or TAZICEF INJ 1 GM in NS 100 ML IV + SPIKE MINIBAG* 100 ML IV SCH (22:12)
[2017-07-10] MEDS: LR 1000 ML IV 1,000 ML IV SCH ×4 (04:16→22:30)
--- NOTE | 2017-07-10 06:01 | RAD ---
HISTORY: Shortness of breath Study: Chest AP portable Comparison: 07/09/2017 Findings: The heart is within normal limits in size. The jie are normal. The right lung and left upper lung fi elds are clear. There remains a small infiltrate in the left lung base. No pleural effusions are iden tified. The bony thorax is unremarkable. IMPRESSION: No change small left basilar lung infiltrate Reported By:
[2017-07-10 06:36] LABS: BASOPHILS % (AUTO) 0.1 % (0.2-1.0); EOSINOPHILS # (AUTO) 0.1 x10^3/uL (0.0-0.2); EOSINOPHILS % (AUTO) 0.8 % (0.9-2.9); HEMATOCRIT 33.3 % (42.0-54.0); HEMOGLOBIN 11.5 g/dL (13.5-18.0); LYMPHOCYTES # (AUTO) 0.9 X10^3/uL (1.3-2.9); LYMPHOCYTES % (AUTO) 7.7 % (21.0-51.0); MEAN CORPUSCULAR HEMOGLOBIN 33.6 pg (27.0-34.0); MEAN CORPUSCULAR HGB CONC 34.5 g/dL (33.0-35.0); MEAN CORPUSCULAR VOLUME 97.2 fL (80.0-100.0); MONOCYTES # (AUTO) 0.5 x10^3/uL (0.3-0.8); MONOCYTES % (AUTO) 4.6 % (0.0-13.0); NEUTROPHILS # (AUTO) 9.9 x10^3/uL (2.2-4.8); NEUTROPHILS % (AUTO) 86.8 % (42.0-75.0); PLATELET COUNT 190 X10^3/uL (150.0-450.0); RED BLOOD COUNT 3.43 X10^6/uL (4.7-6.0); RED CELL DISTRIBUTION WIDTH 16.2 % (11.6-16.5); WHITE BLOOD COUNT 11.4 X10^3/uL (3.6-10.0)
[2017-07-10 07:16] LABS: ALANINE AMINOTRANSFERASE 17 Units/L (12-78); ALBUMIN 2.6 g/dL (3.4-5.0); ALKALINE PHOSPHATASE 72 Units/L (46-116); ASPARTATE AMINO TRANSFERASE 13 Units/L (15-37); BLOOD UREA NITROGEN 13 mg/dL (7-18); CALCIUM 8.4 mg/dL (8.5-10.1); CARBON DIOXIDE 28.9 mmol/L (21-32); CHLORIDE 102 mmol/L (98-107); COR CA(FOR HYPOALB) 9.5 mg/dL (8.5-10.1); CREATININE 1.39 mg/dL (0.70-1.30); SODIUM 140 mmol/L (136-145); TOTAL PROTEIN 6.7 g/dL (6.4-8.2); eGFR BLACK RACES > 60 (>60); eGFR NON BLACK RACES 54 (>60)
[2017-07-10] MEDS: DUONEB 0.5 MG/3 MG NEB SCH ×4 (08:40→21:20)
[2017-07-10] MEDS: FORTAZ or TAZICEF INJ 1 GM in NS 100 ML IV + SPIKE MINIBAG* 100 ML IV SCH ×2 (09:18→21:13)
[2017-07-10] MEDS: LOVENOX INJ 80 MG SYR SC SCH (09:18)
[2017-07-10] MEDS: NIZORAL CREAM TOP SCH ×2 (10:27→21:17)
--- NOTE | 2017-07-10 10:34 | DR.H&P ---
H&P - History & Physical for Day of: H&P Date: 07/09/17 - Chief Complaint Chief Complaint: chest pain - Allergies Allergies/Adverse Reactions: Allergies Allergy/AdvReac Type Severity Reaction Status Date / Time No Known Drug Allergies Allergy Verified 02/05/17 10:49 - History of Present Illness History of Present Illness: is a 67 year old patient of [facility] who presented to the emergency room with reports of chest pain. Patient states pain started after getting into an argument with his significant other. Pain is described as a mid-sternal pain rated as an 8/10. Patient has a past medical history of anxiety and hypertension. On arrival, vitals were 99.4, 68, 14, 98% RA, 88/49. Abnormal Labs include the following: WBC 13.3, RBC 3.20, Hgb 10.7, Hct 30.8, BUN 20, Creatinine 1.73, GFR af 51, GFR non 42, Calcium 7.9, AST 13, Creatine Kinase 35, Total Protein 6.0, Albumin 2.7, A/G Ratio 0.8, HDL 89. Cardiac enzymes within normal limits. EKG revealed: Sinus Rhythm. Rate=83. Chest X-Ray obtained and revealed: No acute cardiopulmonary abnormality. Patient admitted to the hosptial as observation and will obtain serial cardiac enzymes and EKG's. He was started on LR at 125ml/hr and lovenox 80mg sq bid. Patient placed on continuous teletypesetter monitor and will follow up with labs in the morning. - Past Medical History Past Medical History: Anxiety, Depression, Hypertension Additional Medical History: Hx Umbilical Hernia, DVTs. - Past Surgical History Surgical History: Other - Family History Family Medical History: Hypertension - Social History Does patient currently use any type of tobacco product: No Have you used tobacco products in the last 12 months: No Type of Tobacco Use: None Alcohol Use: Occasionally Drug Use: None - Medications Home Medications: Amlodipine Besylate [NORVASC 5 MG *] 5 mg PO DAILY 07/09/17 [History Confirmed 07/09/17] Apixaban [Eliquis] 1 tab PO BID 07/09/17 [History Confirmed 07/09/17] - Review of Systems Constitutional: No Symptoms Reported Eyes: No Symptoms Reported ENT: No Symptoms Reported Respiratory: No Symptoms Reported Cardiovascular: Chest Pain Gastrointestinal: No Symptoms Reported Genitourinary: No Symptoms Reported Musculoskeletal: No Symptoms Reported Skin: No Symptoms Reported Neurological: No Symptoms Reported - Physical Exam Vital Signs: Temperature 99.9 F Pulse Rate [Left Brachial] 92 Pulse Rate 82 Respiratory Rate 20 Blood Pressure [Left Arm] 126/78 Blood Pressure [Right Arm] 136/67 Blood Pressure 116/77 O2 Sat by Pulse Oximetry 95 Oriented: Normal Eyes: Normal Ear: Normal Nose: Normal Throat: Normal Respiratory: Diminished Throughout Cardiovascular: Normal. negative: S3, S4, Murmur, Edema : Normal Auscultation: Bowel Sounds: Normal Palpation: Normal Tenderness: Normal Skin: Normal Musculoskeletal: Normal Psychiatric: Anxiety Mood Description: Calm, Anxious Affect: Anxious Speech Pattern: Clear - Assessment/Plan (1) Chest pain Qualifiers: Chest pain type: unspecified Qualified Code(s): R07.9 - Chest pain, unspecified Status: Acute Plan: admit, telemetry, supplemental oxygen, serial cardiac enzymes and ekg, continue to monitor (2) Dehydration, mild Status: Acute Plan: LR at 125ml/hr, continue to monitor
[2017-07-10] MEDS: ELIQUIS PO SCH ×2 (12:01→21:13)
[2017-07-10] MEDS: NORVASC TAB 5 MG PO SCH (12:01)
[2017-07-10] MEDS ORDERED: ROBITUSSIN DM PO PRN (16:34)
[2017-07-10] MEDS ORDERED: COUMADIN TAB 5 MG PO SCH (21:00)
[2017-07-10] MEDS ORDERED: AMBIEN PO PRN (21:18)
[2017-07-11] MEDS: LR 1000 ML IV 1,000 ML IV SCH (00:42)
--- NOTE | 2017-07-11 05:51 | RAD ---
Examination: AP chest History: SOB Comparison reference 07/10/2017 Findings: Continued normal heart size. Persistent but improving left lower lung infiltrate. No new ab normality. Impression: Slight interval improvement with incomplete clearing of left lower lobe infiltrate. Reported By:
[2017-07-11 06:09] LABS: BASOPHILS % (AUTO) 0.2 % (0.2-1.0); EOSINOPHILS # (AUTO) 0.2 x10^3/uL (0.0-0.2); HEMATOCRIT 31.6 % (42.0-54.0); HEMOGLOBIN 10.9 g/dL (13.5-18.0); LYMPHOCYTES # (AUTO) 0.8 X10^3/uL (1.3-2.9); LYMPHOCYTES % (AUTO) 14.4 % (21.0-51.0); MEAN CORPUSCULAR HEMOGLOBIN 33.4 pg (27.0-34.0); MEAN CORPUSCULAR HGB CONC 34.5 g/dL (33.0-35.0); MEAN CORPUSCULAR VOLUME 96.9 fL (80.0-100.0); MONOCYTES # (AUTO) 0.4 x10^3/uL (0.3-0.8); MONOCYTES % (AUTO) 7.4 % (0.0-13.0); PLATELET COUNT 185 X10^3/uL (150.0-450.0); RED BLOOD COUNT 3.26 X10^6/uL (4.7-6.0); WHITE BLOOD COUNT 5.4 X10^3/uL (3.6-10.0)
[2017-07-11 06:49] LABS: ALANINE AMINOTRANSFERASE 13 Units/L (12-78); ALBUMIN 2.4 g/dL (3.4-5.0); ALKALINE PHOSPHATASE 64 Units/L (46-116); ASPARTATE AMINO TRANSFERASE 10 Units/L (15-37); BLOOD UREA NITROGEN 9 mg/dL (7-18); CARBON DIOXIDE 29.7 mmol/L (21-32); CHLORIDE 103 mmol/L (98-107); COR CA(FOR HYPOALB) 9.3 mg/dL (8.5-10.1); CREATININE 1.15 mg/dL (0.70-1.30); SODIUM 141 mmol/L (136-145); TOTAL PROTEIN 6.2 g/dL (6.4-8.2); eGFR BLACK RACES > 60 (>60); eGFR NON BLACK RACES > 60 (>60)
[2017-07-11] MEDS ORDERED: FORTAZ or TAZICEF INJ 1 GM in NS 100 ML IV + SPIKE MINIBAG* 100 ML IV SCH (08:00)
[2017-07-11] MEDS: DUONEB 0.5 MG/3 MG NEB SCH ×2 (08:15→12:48)
[2017-07-11] MEDS: NIZORAL CREAM TOP SCH (08:30)
[2017-07-11] MEDS: NORVASC TAB 5 MG PO SCH (08:30)
[2017-07-11] MEDS ORDERED: LEVAQUIN PREMIX IV 750 MG 750 MG/150 ML BAG IV SCH (09:00)
[2017-07-11 13:27] VITALS: BP 158/72
[2017-07-11] MEDS ORDERED: COUMADIN TAB 5 MG PO SCH (21:00)
== END 2017-07-11 13:05 | disposition home or self-care (01) ==
LOC: ER 18:40 → MED/SURG 07-09 00:27
PROVIDERS: ADMIT Internal Medicine; ATTEND Internal Medicine
DX: R07.89 Other chest pain (principal); E86.0 Dehydration; F15.10 Other stimulant abuse, uncomplicated; F14.10 Cocaine abuse, uncomplicated; F41.8 Other specified anxiety disorders; I10 Essential (primary) hypertension; R06.02 Shortness of breath; R94.4 Abnormal results of kidney function studies; R26.89 Other abnormalities of gait and mobility; Z79.01 Long term (current) use of anticoagulants; Z79.899 Other long term (current) drug therapy
CPT/HCPCS: 36415; 71045; 80053; 80061; 80307; 81001; 82550; 82553; 83735; 84484; 85025; 85610; 85730; 87040; 93005; 93010; 94640; 94760; 96365; 96367; 96374; 96375; 99284; A4216; A4222; G0378; G0434; J0713; J1650; J1940; J1956; J2270; J7120; J7620

== ENCOUNTER 2017-08-17 02:39 | Observation (INO) ==
[2017-08-17 02:48] VITALS: BMI 23.6
[2017-08-17] MEDS ORDERED: ROCEPHIN 1 GRAM IV PREMIX 1 G/50 ML IV.SOLN. IV ONE ×2 (03:05→03:37)
[2017-08-17] MEDS ORDERED: TORADOL 30 MG VIAL IVP STA (03:05)
--- NOTE | 2017-08-17 03:07 | DR.GENAD ---
HPI - PCP Primary Care Physician: MICAH - Complaint/Symptoms Chief Complaint Doctors Comments: Patient is complaining of lower leg pain for the past 4-5 weeks getting worst with fever, chills today. States he has had blood clots in his legs and in his chest and is suppose to be on warfin 10mg daily but he ran out two months ago and has not gotten anymore because he did not have the money for the coumadin. He denies chest pain, nausea or vomiting but is complaining of SOB. States he is a patient of Dr. Lofton. States he drinks a 12 pack daily but denies tobacco or drug usage. Chief Complaint:: LEG PAIN FOR 5 WEEKS RATES 11/17 , ALCOHOL ON [employer]. PT VERY ANXIOUS AND CANT SIT STILL. Self Treatment fo Chief Complaint: ALCOHOL - Nurses notes reviewed Nurses Notes Review: Yes - Source History Provided: Patient - Mode of Arrival Mode of Arrival: EMS - Timing Onset of Chief Complaint: 07/13/17 Came on: Gradually - Duration Duration: Constant How lon Duration: Weeks - Location Location: lower leg pain and swelling - Severity Severity: Moderate - Modifying Factors Worsens:: nothing Improves:: nothing PMH - PMH Past Medical History: Yes Past Medical History: Anxiety, Depression, Hypertension Past Medical History Comment: BLOOD CLOTS(LEGS/LUNGS). SOB Past Surgical History: Yes Surgical History: Other Past Surgical History Comment: IVC FILTER - Family History History of Family Medical Conditions: Yes Family Medical History: Hypertension - Social History Does patient currently use any type of tobacco product: No Have you used tobacco products in the last 12 months: No Type of Tobacco Use: None Does any household member use tobacco: No Alcohol Use: DAILY Do you use any recreational Drugs:: No Lives With: Other Lives Where: Home - infectious screening In the last 2 months have you had wt loss of >10#?: NO Have you had fever, night sweats or hemotysis?: No Have you traveled outside the country in the last 6 months?: No Isolation: Standard ROS - Review of Systems Constitutional: No Symptoms Reported Eyes: No Symptoms Reported ENTM: No Symptoms Reported Respiratoy: No Symptoms Reported, Short of Breath Cardiovascular: No Symptoms Reported. negative: See HPI, Chest Pain, Edema, Palpitations, Syncope, Cyanosis, Skin Mottling, Other Gastrointestinal/Abdominal: No Symptoms Reported. negative: See HPI, Abdominal Pain, Constipation, Diarrhea, Nausea, Vomiting, Food Intolerance, Other Genitourinary: No Symptoms Reported Neurological: No Symptoms Reported Musculoskeletal: No Symptoms Reported, Right, Leg (swelling with redness back of leg) Integumentary: No Symptoms Reported, Rash Hematologic/Lymphatic: No Symptoms Reported. negative: See HPI, Anemia, Blood Clots, Easy Bleeding, Easy Bruising, Swollen Glands, Lymphadenopathy, Other Endocrine: No Symptoms Reported Psychiatric: No Symptoms Reported. negative: See HPI, Anxiety, Depression, Hallucinations, Excessive crying, Suicidal, Other PE - General Limitations: No Limitations General Appearance: Alert, In Distress (slight) - Head Head Exam: Normal Inspection, Atraumatic, Normocephalic - Eyes Eye exam: Normal Appearance, PERRL, EOMI. negative: Scleral Icterus, Conjunctival Injection, Nystagmus, Miosis, Mydrasis, Periorbital Swelling, Periorbital Tenderness, Other - ENT ENT Exam: Normal Exam, Normal Oropharynx, Normal External Ear Exam, Mucous Membranes Moist, TM's Normal Bilaterally External Ear Exam: Normal External Inspection TM/Canal Exam: Bilateral Normal Nose Exam: Normal Nose Exam Mouth Exam: Normal Inspection Throat Exam: Normal Inspection - Neck Neck Exam: Normal Inspection, Full ROM, Trachea Midline - Chest Chest Inspection: Normal Inspection, Symmetric Chest Wall Rise - Respiratory Respiratory Exam: Normal Lung Sounds Bilat Respiratory Exam: Bilateral Clear to Auscultation - Cardiovascular Cardiovascular Exam: Regular Rate, Normal Rhythm, Normal Heart Sounds - Abdominal Exam Abdominal Exam: Normal Inspection, Normal Bowel Sounds, Soft. negative: Distention, Tenderness, Guarding, Rebound, Rigidity, Dimnished Bowel Sounds, Hyperactive Bowel Sounds, Hypoactive Bowel Sounds, Organomegaly, Trauma, Incision, Ascites, Mass, Bruit, Pulsatile Mass, Hernia, Other Abdominal Tenderness: negative: RUQ, RLQ, LUQ, LLQ, Epigastrium, Suprapubic, Diffuse, Mild, Moderate, Severe, Other - Extremities Extremities Exam: Normal Inspection, Full ROM, Tenderness (right lower thigh and lower leg with erythema, swelling; thick cord posterior right leg; moderate swelling), Normal Capillary Refill, Edema, Calf Tenderness - Back Back Exam: Normal Inspection, Full ROM - Neurologic Neurological Exam: Alert, Oriented X3, CN II-XII Intact, Reflexes Normal. negative: Normal Gait (gait not tested) - Psychiatric Psychiatric Exam: Normal Affect, Normal Mood - Skin Skin Exam: Warm, Dry, Intact, Normal Color - Vital Signs Vitals: Temperature 98.9 F Pulse Rate 86 Respiratory Rate 20 Blood Pressure [Left Arm] 158/72 Blood Pressure [Right Arm] 136/67 Blood Pressure 168/81 O2 Sat by Pulse Oximetry 98 Course - Consultation Called: 04:50 Call Returned: 04:50 (Dr. Arreguin to admit) - Education/Counseling Education/Counseling: Patient, Family Educated On: Treatment, Diagnosis, Needs for Follow Up ROR - Labs Reviewed Laboratory Results Reviewed?: Yes (All labs and x-ray results reviewed and discussed with patient) Result Diagrams: 08/17/17 03:17 08/17/17 03:17 - XRAY XRAY Interpreted by: Radiologist (Doppler venous studies: Occlusive thrombus from left common femoral to the foot femoral vein with nonocclusive thrombus in left popliteal.) - Labs Reviewed Laboratory: WBC 6.3 X10^3/uL (3.6-10.0) 08/17/17 03:17 RBC 3.67 X10^6/uL (4.7-6.0) L 08/17/17 03:17 Hgb 11.9 g/dL (13.5-18.0) L 08/17/17 03:17 Hct 35.1 % (42.0-54.0) L 08/17/17 03:17 MCV 95.7 fL (80.0-100.0) 08/17/17 03:17 MCH 32.5 pg (27.0-34.0) 08/17/17 03:17 MCHC 33.9 g/dL (33.0-35.0) 08/17/17 03:17 RDW 14.8 % (11.6-16.5) 08/17/17 03:17 Plt Count 234 X10^3/uL (150.0-450.0) 08/17/17 03:17 MPV 7.2 fL (7.4-11.0) L 08/17/17 03:17 Neut % (Auto) 75.3 % (42.0-75.0) H 08/17/17 03:17 Lymph % (Auto) 9.6 % (21.0-51.0) L 08/17/17 03:17 [place] % (Auto) 8.7 % (0.0-13.0) 08/17/17 03:17 Eos % (Auto) 5.9 % (0.9-2.9) H 08/17/17 03:17 Baso % (Auto) 0.5 % (0.2-1.0) 08/17/17 03:17 Neut # (Auto) 4.7 x10^3/uL (2.2-4.8) 08/17/17 03:17 Lymph # (Auto) 0.6 X10^3/uL (1.3-2.9) L 08/17/17 03:17 [place] # (Auto) 0.5 x10^3/uL (0.3-0.8) 08/17/17 03:17 Eos # (Auto) 0.4 x10^3/uL (0.0-0.2) H 08/17/17 03:17 Baso # (Auto) 0.0 X10^3/uL (0.0-0.1) 08/17/17 03:17 Absolute Nucleated RBC 0.0 /100WBC 08/17/17 03:17 INR Target Range - 08/17/17 03:17 INR 1.03 (0.8-1.3) 08/17/17 03:17 APTT 39.5 SECONDS (22.9-36.5) H 08/17/17 03:17 PTT Comment - 08/17/17 03:17 Sodium 139 mmol/L (136-145) 08/17/17 03:17 Corrected Sodium TNP 08/17/17 03:17 Potassium 3.5 mmol/L (3.5-5.1) 08/17/17 03:17 Chloride 103 mmol/L (98-107) 08/17/17 03:17 Carbon Dioxide 23.0 mmol/L (21-32) 08/17/17 03:17 BUN 14 mg/dL (7-18) 08/17/17 03:17 Creatinine 1.22 mg/dL (0.70-1.30) 08/17/17 03:17 Est GFR (MDRD) Af Amer > 60 (>60) 08/17/17 03:17 Est GFR (MDRD) Non-Af > 60 (>60) 08/17/17 03:17 Glucose 70 mg/dL (65-99) 08/17/17 03:17 Lactic Acid 1.8 mmol/L (0.4-2.0) 08/17/17 03:17 Calcium 8.3 mg/dL (8.5-10.1) L 08/17/17 03:17 Corrected Calcium TNP 08/17/17 03:17 Total Bilirubin 0.70 mg/dL (0.2-1.0) 08/17/17 03:17 AST 29 Units/L (15-37) 08/17/17 03:17 ALT 21 Units/L (12-78) 08/17/17 03:17 Alkaline Phosphatase 94 Units/L (46-116) 08/17/17 03:17 Total Protein 7.1 g/dL (6.4-8.2) 08/17/17 03:17 Albumin 3.6 g/dL (3.4-5.0) 08/17/17 03:17 Globulin 3.5 g/dL (2.5-4.5) 08/17/17 03:17 Albumin/Globulin Ratio 1.0 Ratio (1.1-2.1) L 08/17/17 03:17 Amylase 48 Units/L (25-115) 08/17/17 03:17 Lipase 71 Units/L (73-393) L 08/17/17 03:17 Specimen Type Clean catch urine 08/17/17 04:06 Urine Color Yellow (YELLOW) 08/17/17 04:06 Urine Appearance Clear (CLEAR) 08/17/17 04:06 Urine pH 5.0 (5.0 - 8.0) 08/17/17 04:06 Ur Specific [place] 1.020 (1.000-1.030) 08/17/17 04:06 Urine Protein 2+ (NEGATIVE) 08/17/17 04:06 Urine Glucose (UA) Negative (NEGATIVE) 08/17/17 04:06 Urine Ketones Negative (NEGATIVE) 08/17/17 04:06 Urine Occult Blood 1+ (NEGATIVE) 08/17/17 04:06 Urine Nitrite Negative (NEGATIVE) 08/17/17 04:06 Urine Bilirubin Negative (NEGATIVE) 08/17/17 04:06 Urine Urobilinogen Normal (NORMAL) 08/17/17 04:06 Ur Leukocyte Esterase Negative (NEGATIVE) 08/17/17 04:06 Urine RBC None seen /HPF (NONE SEEN) 08/17/17 04:06 Urine WBC None seen /HPF (NONE SEEN) 08/17/17 04:06 Ur Squamous Epith Cells Rare /HPF (NEGATIVE) 08/17/17 04:06 Urine Bacteria Negative /HPF (NEGATIVE) 08/17/17 04:06 Ur Culture Indicated? No/not indicated 08/17/17 04:06 Urine Opiates Screen Negative (NEG=<300) 08/17/17 04:06 Urine Methadone Screen Negative (NEG=<300) 08/17/17 04:06 Ur Barbiturates Screen Negative (NEG=<200) 08/17/17 04:06 Ur Phencyclidine Scrn Negative (NEG=<25) 08/17/17 04:06 Ur Amphetamines Screen Positive (NEG=<1000) 08/17/17 04:06 U Benzodiazepines Scrn Negative (NEG=<200) 08/17/17 04:06 Urine Cocaine Screen Positive (NEG=<300) 08/17/17 04:06 U Marijuana (THC) Screen Negative (NEG=<50) 08/17/17 04:06 Ethyl Alcohol mg/dL 105 mg/dL (0-19.9) H 08/17/17 03:17 - Diagnosis Discharge Problem: Cellulitis of right leg, Alcohol intoxication Deep vein thrombosis (DVT) of left lower extremity Qualifiers: Affected thrombotic vein of extremity: femoral Chronicity: unspecified Qualified Code(s): I82.412 - Acute embolism and thrombosis of left femoral vein - Discharge Plan Disposition: ADMITTED INPATIENT Condition: Stable - Follow ups/Referrals Follow ups/Referrals: NFD,None [Primary Care Provider] - 3 days - Instructions
[2017-08-17] MEDS ORDERED: TORADOL 30 MG VIAL ONE (03:37)
[2017-08-17 03:54] LABS: BASOPHILS % (AUTO) 0.5 % (0.2-1.0); EOSINOPHILS # (AUTO) 0.4 x10^3/uL (0.0-0.2); EOSINOPHILS % (AUTO) 5.9 % (0.9-2.9); HEMATOCRIT 35.1 % (42.0-54.0); HEMOGLOBIN 11.9 g/dL (13.5-18.0); LYMPHOCYTES # (AUTO) 0.6 X10^3/uL (1.3-2.9); LYMPHOCYTES % (AUTO) 9.6 % (21.0-51.0); MEAN CORPUSCULAR HEMOGLOBIN 32.5 pg (27.0-34.0); MEAN CORPUSCULAR HGB CONC 33.9 g/dL (33.0-35.0); MEAN CORPUSCULAR VOLUME 95.7 fL (80.0-100.0); MEAN PLATELET VOLUME 7.2 fL (7.4-11.0); MONOCYTES # (AUTO) 0.5 x10^3/uL (0.3-0.8); MONOCYTES % (AUTO) 8.7 % (0.0-13.0); NEUTROPHILS # (AUTO) 4.7 x10^3/uL (2.2-4.8); NEUTROPHILS % (AUTO) 75.3 % (42.0-75.0); PLATELET COUNT 234 X10^3/uL (150.0-450.0); RED BLOOD COUNT 3.67 X10^6/uL (4.7-6.0); RED CELL DISTRIBUTION WIDTH 14.8 % (11.6-16.5); WHITE BLOOD COUNT 6.3 X10^3/uL (3.6-10.0)
[2017-08-17 04:01] LABS: ALANINE AMINOTRANSFERASE 21 Units/L (12-78); ALBUMIN 3.6 g/dL (3.4-5.0); ALKALINE PHOSPHATASE 94 Units/L (46-116); AMYLASE 48 Units/L (25-115); ASPARTATE AMINO TRANSFERASE 29 Units/L (15-37); BLOOD UREA NITROGEN 14 mg/dL (7-18); CALCIUM 8.3 mg/dL (8.5-10.1); CHLORIDE 103 mmol/L (98-107); CREATININE 1.22 mg/dL (0.70-1.30); LIPASE 71 Units/L (73-393); SODIUM 139 mmol/L (136-145); TOTAL PROTEIN 7.1 g/dL (6.4-8.2); eGFR NON BLACK RACES > 60 (>60)
--- NOTE | 2017-08-17 04:04 | RAD ---
CHEST RADIOGRAPHS PA AND LATERAL VIEWS CLINICAL HISTORY: 67-year-old male with pneumonia. COMPARISON: Chest radiograph 07/11/2017. FINDINGS: Interval clearing of left lower lobe airspace opacities. The cardiopericardial silhouette i s normal. There is no focal consolidation, pleural effusion or pneumothorax. The lungs are well infla erich. Pulmonary vascularity is normal. Imaged osseous structures are intact. Soft tissues are unremark able. IMPRESSION: No acute cardiopulmonary process with resolution of left lower lobe airspace opacities. Reported By:
--- NOTE | 2017-08-17 04:11 | VAS ---
HISTORY: 67-year-old male with bilateral lower extremity pain for 5 weeks. History of IVC filter. Study: Venous duplex Doppler bilateral lower extremities. Comparison: Venous Doppler left lower extremity 04/11/2017. TECHNIQUE: Multiple minor scale and color flow Doppler images of the deep venous system were obtained of the right and left lower extremity. FINDINGS: The deep venous system of the right and left lower extremities were evaluated from the level of the c ommon femoral vein through the popliteal vein. Normal color flow and augmentation can be observed th roughout the right lower extremity. In addition, normal compression is seen throughout the deep veno us system of the right lower extremity. Occlusive thrombus throughout the left lower extremity from the femoral vein to the common femoral ve in with nonocclusive thrombus within the popliteal vein, not significantly changed from prior. IMPRESSION: 1. Occlusive thrombus from the left common femoral to the foot femoral vein with nonocclusive thromb us in the left popliteal vein, not significantly changed from prior. Reported By:
[2017-08-17 04:26] LABS: BILIRUBIN,URINE NEGATIVE (NEGATIVE); BLOOD/HEMOGLOBIN,URINE 1+ (NEGATIVE); GLUCOSE, URINE NEGATIVE (NEGATIVE); KETONES,URINE NEGATIVE (NEGATIVE); LEUKOCYTE ESTERASE ,URINE NEGATIVE (NEGATIVE); NITRITES,URINE NEGATIVE (NEGATIVE); PROTEIN,URINE 2+ (NEGATIVE); UROBILINOGEN,URINE NORMAL (NORMAL)
[2017-08-17 04:44] LABS: APPEARANCE,URINE CLEAR (CLEAR); COLOR,URINE YELLOW (YELLOW)
[2017-08-17 04:45] LABS: BACTERIA,URINE NEGATIVE /HPF (NEGATIVE); RBC,URINE NONE SEEN /HPF (NONE SEEN); SQUAMOUS EPITHELIAL CELL,UR RARE /HPF (NEGATIVE)
[2017-08-17] MEDS ORDERED: VANCOMYCIN HCL 1 GM VIAL 1 G in D5W 250 ML IV 250 ML IV ONE (04:51)
[2017-08-17] MEDS ORDERED: MOTRIN TAB 600 MG PO PRN (04:52)
[2017-08-17] MEDS ORDERED: PHENERGAN TAB 25 MG PO PRN (04:52)
[2017-08-17] MEDS: LOVENOX INJ 80 MG SYR SC SCH ×2 (05:13→09:39)
[2017-08-17] MEDS ORDERED: POTASSIUM CHL 40 MEQ/NS 0.45% 500 ML IV PRN (05:21)
[2017-08-17] MEDS ORDERED: POTASSIUM CHLORIDE LIQ 20 MEQ UDC PO PRN (05:21)
[2017-08-17] MEDS ORDERED: K-LYTE EFFERVESCENT PO PRN (05:21)
[2017-08-17] MEDS ORDERED: K-RIDER 10 MEQ/NS 100 ML 10 MEQ/100 ML BAG IV PRN (05:21)
[2017-08-17] MEDS ORDERED: POTASSIUM CHL 60 MEQ/NS 0.45% 500 ML IV PRN (05:21)
[2017-08-17] MEDS ORDERED: MAGNESIUM SULFATE 1 GRAM/100 mL PREMIX 1 GM/100 ML BAG IV PRN (05:21)
[2017-08-17 05:42] LABS: BASOPHILS % (AUTO) 0.7 % (0.2-1.0); EOSINOPHILS # (AUTO) 0.4 x10^3/uL (0.0-0.2); EOSINOPHILS % (AUTO) 7.4 % (0.9-2.9); HEMATOCRIT 32.3 % (42.0-54.0); HEMOGLOBIN 11.1 g/dL (13.5-18.0); LYMPHOCYTES # (AUTO) 0.7 X10^3/uL (1.3-2.9); LYMPHOCYTES % (AUTO) 12.5 % (21.0-51.0); MEAN CORPUSCULAR HGB CONC 34.4 g/dL (33.0-35.0); MEAN CORPUSCULAR VOLUME 95.8 fL (80.0-100.0); MEAN PLATELET VOLUME 7.2 fL (7.4-11.0); MONOCYTES # (AUTO) 0.6 x10^3/uL (0.3-0.8); MONOCYTES % (AUTO) 10.9 % (0.0-13.0); NEUTROPHILS # (AUTO) 3.9 x10^3/uL (2.2-4.8); NEUTROPHILS % (AUTO) 68.5 % (42.0-75.0); PLATELET COUNT 207 X10^3/uL (150.0-450.0); RED BLOOD COUNT 3.37 X10^6/uL (4.7-6.0); RED CELL DISTRIBUTION WIDTH 14.9 % (11.6-16.5); WHITE BLOOD COUNT 5.6 X10^3/uL (3.6-10.0)
[2017-08-17] MEDS: NS 1000 ML 1,000 ML IV SCH ×4 (06:21→22:27)
[2017-08-17] MEDS ORDERED: VANCOMYCIN HCL 1 GM VIAL 1 G in D5W 250 ML IV 250 ML IV SCH (09:00)
[2017-08-17] MEDS: ZOSYN VIAL 3.375 GRAMS 3.375 G in NS 100 ML IV + SPIKE MINIBAG* 100 ML IV SCH ×3 (09:39→22:38)
[2017-08-17] MEDS: NORCO 5/325 MG TAB PO PRN ×3 (10:47→22:38)
[2017-08-17] MEDS: VANCOMYCIN HCL 500 MG VIAL 750 MG in NS 250 ML IV 250 ML IV SCH (20:45)
[2017-08-18] MEDS: NORCO 5/325 MG TAB PO PRN (04:33)
[2017-08-18] MEDS: NS 1000 ML 1,000 ML IV SCH ×2 (04:33→14:34)
[2017-08-18 05:15] LABS: BASOPHILS % (AUTO) 0.5 % (0.2-1.0); EOSINOPHILS # (AUTO) 0.4 x10^3/uL (0.0-0.2); EOSINOPHILS % (AUTO) 9.2 % (0.9-2.9); HEMATOCRIT 31.1 % (42.0-54.0); HEMOGLOBIN 10.8 g/dL (13.5-18.0); LYMPHOCYTES # (AUTO) 0.4 X10^3/uL (1.3-2.9); LYMPHOCYTES % (AUTO) 11.8 % (21.0-51.0); MEAN CORPUSCULAR HEMOGLOBIN 33.6 pg (27.0-34.0); MEAN CORPUSCULAR HGB CONC 34.7 g/dL (33.0-35.0); MEAN PLATELET VOLUME 7.7 fL (7.4-11.0); MONOCYTES # (AUTO) 0.3 x10^3/uL (0.3-0.8); MONOCYTES % (AUTO) 7.9 % (0.0-13.0); NEUTROPHILS # (AUTO) 2.7 x10^3/uL (2.2-4.8); NEUTROPHILS % (AUTO) 70.6 % (42.0-75.0); PLATELET COUNT 175 X10^3/uL (150.0-450.0); RED BLOOD COUNT 3.21 X10^6/uL (4.7-6.0); RED CELL DISTRIBUTION WIDTH 14.6 % (11.6-16.5); WHITE BLOOD COUNT 3.8 X10^3/uL (3.6-10.0)
[2017-08-18] MEDS: ZOSYN VIAL 3.375 GRAMS 3.375 G in NS 100 ML IV + SPIKE MINIBAG* 100 ML IV SCH ×3 (05:18→21:45)
[2017-08-18 05:33] LABS: ALANINE AMINOTRANSFERASE 15 Units/L (12-78); ALBUMIN 2.5 g/dL (3.4-5.0); ALKALINE PHOSPHATASE 77 Units/L (46-116); ASPARTATE AMINO TRANSFERASE 19 Units/L (15-37); BLOOD UREA NITROGEN 12 mg/dL (7-18); CALCIUM 7.6 mg/dL (8.5-10.1); CARBON DIOXIDE 28.1 mmol/L (21-32); CHLORIDE 108 mmol/L (98-107); COR CA(FOR HYPOALB) 8.8 mg/dL (8.5-10.1); CREATININE 1.24 mg/dL (0.70-1.30); SODIUM 141 mmol/L (136-145); TOTAL PROTEIN 5.6 g/dL (6.4-8.2); eGFR NON BLACK RACES > 60 (>60)
--- NOTE | 2017-08-18 06:56 | RAD ---
HISTORY: Pneumonia Study: Chest AP portable Comparison: 08/17/2017 Findings: The heart is within normal limits in size. The jie are normal. The lungs are well inflated and free of acute alveolar infiltrates. No pleural effusions are identified. The bony thorax is unremarkable. 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 IMPRESSION: Lungs remain clear Reported By:
[2017-08-18] MEDS: LOVENOX INJ 80 MG SYR SC SCH ×3 (09:18→21:49)
[2017-08-18] MEDS: VANCOMYCIN HCL 500 MG VIAL 750 MG in NS 250 ML IV 250 ML IV SCH ×2 (09:19→21:52)
[2017-08-18] MEDS ORDERED: KLONOPIN TAB 0.5 MG PO PRN (09:51)
[2017-08-18] MEDS: NORCO 10/325 TAB PO PRN ×2 (11:27→17:21)
[2017-08-18] MEDS ORDERED: PHARMACY COMMENT IV SCH (20:45)
[2017-08-18] MEDS ORDERED: COUMADIN TAB 5 MG PO SCH (21:00)
[2017-08-18 21:20] LABS: CREATININE 1.12 mg/dL (0.70-1.30); VANCOMYCIN,TROUGH 8.2 ug/mL (15-20)
--- NOTE | 2017-08-18 21:37 | DR.H&P ---
H&P - History & Physical for Day of: H&P Date: 08/18/17 - Chief Complaint Chief Complaint: bilateral leg pain - History of Present Illness History of Present Illness: is a 67 year old patient of ours who presented to the Emergency Room with complaints of leg pain for the past 5 weeks. He reports fever, chills today. Patient reports a history of DVT and pulmonary embolisms for which he is prescribed Coumadin 10mg daily. He reports that he has not been able to obtain the medicine for the past two months because he didnt have enough money. He denies chest pain, nausea or vomiting but is complaining of SOB. States he is a patient of Dolly Trivedi. States he drinks a 12 pack daily but denies tobacco or drug usage. On arrival, vitals were 98.5, 78, 20, 96% RA, 133/65. Labs were obtained. Abnormal Labs include the following: RBC 3.67, HGB 11.9, HCT 35.1, MPV 7.2, APPT 39.5, Calcium 8.3, A/ G ratio 1.0, Lipase 71, Ethyl Alcohol 105. Urinalysis: Protein 2+, Occult Blood 1+, Squamous Epith Cells Rare. A chest x-rays revealed: no acute cardiopulmonary process with resolution of left lower lobe airspace opacities. A venous doppler study revealed: Occlusive thrombus from the left common femoral to the foot femoral vein with nonocclusive thrombus in the left popliteal vein, not significantly changed from prior. Redness with 3+ pitting edema noted to bilateral lower extremities. Patient given Rocephin 1 GM IV once and Vancomycin 1 GM once in the emergency room. Patient admitted to the hospital as an observation patient for further evaluation of DVT and cellulitis. Patient placed on NS 1000 ML IV @ 125 MLS/HR for IV hydration and Vancomycin 750 MG IV Q12H and Zosyn 3.375 GM IV TID for antibiotic therapy. Lovenox 80 MG SC BID given for anticoagulation therapy. We planned continue to monitor patient and repeat labs in the am. - Past Medical History Past Medical History: Anxiety, Depression, Hypertension Additional Medical History: Hx Umbilical Hernia, DVTs. - Past Surgical History Surgical History: Other - Family History Family Medical History: Hypertension - Social History Does patient currently use any type of tobacco product: No Have you used tobacco products in the last 12 months: No Type of Tobacco Use: None Does any household member use tobacco: No Alcohol Use: Occasionally Drug Use: Cocaine, Methamphetamine - Medications Home Medications: No Known Drug Allergies Allergy (Verified 08/17/17 05:10) - Review of Systems Constitutional: Fever, Chills. denies: Weakness Eyes: No Symptoms Reported ENT: No Symptoms Reported Respiratory: Shortness of Breath. denies: Cough, Sputum, Wheezing Cardiovascular: No Symptoms Reported Gastrointestinal: No Symptoms Reported Genitourinary: No Symptoms Reported Musculoskeletal: See HPI, Leg Pain Skin: No Symptoms Reported Neurological: No Symptoms Reported - Physical Exam Vital Signs: Temperature 98.1 F Pulse Rate [Left] 66 Pulse Rate 86 Respiratory Rate 20 Blood Pressure [Left Arm] 133/69 Blood Pressure [Right Arm] 147/70 Blood Pressure 168/81 O2 Sat by Pulse Oximetry 98 Oriented: Normal Eyes: Normal Ear: Normal Nose: Normal Throat: Normal Respiratory: Diminished Throughout Cardiovascular: Normal : Normal Auscultation: Bowel Sounds: Normal Palpation: Normal Skin: Normal Musculoskeletal: Right, Left, Leg, Swelling, Tender Psychiatric: Normal Mood Description: Calm Affect: Normal Speech Pattern: Clear - Assessment/Plan (1) Acute DVT (deep venous thrombosis) Qualifiers: DVT location: lower extremity Affected thrombotic vein of extremity: other lower extremity vein Laterality: left Qualified Code(s): I82.492 - Acute embolism and thrombosis of other specified deep vein of left lower extremity Status: Acute Plan: admit, lovenox 80mg sc bid, continue to monitor (2) Cellulitis of right leg Status: Acute Plan: vancomycin 750mg iv q12h, zosyn 3.375gm iv tid, continue to monitor - Allergies Allergies/Adverse Reactions: Allergies Allergy/AdvReac Type Severity Reaction Status Date / Time No Known Drug Allergies Allergy Verified 08/17/17 05:10
[2017-08-19] MEDS: NORCO 10/325 TAB PO PRN ×2 (00:10→06:16)
[2017-08-19] MEDS: NS 1000 ML 1,000 ML IV SCH ×2 (01:40→09:11)
[2017-08-19 05:27] LABS: BASOPHILS % (AUTO) 0.2 % (0.2-1.0); EOSINOPHILS % (AUTO) 0.1 % (0.9-2.9); HEMATOCRIT 31.9 % (42.0-54.0); HEMOGLOBIN 10.7 g/dL (13.5-18.0); LYMPHOCYTES # (AUTO) 0.2 X10^3/uL (1.3-2.9); LYMPHOCYTES % (AUTO) 8.7 % (21.0-51.0); MEAN CORPUSCULAR HGB CONC 33.7 g/dL (33.0-35.0); MEAN CORPUSCULAR VOLUME 98.1 fL (80.0-100.0); MEAN PLATELET VOLUME 8.3 fL (7.4-11.0); MONOCYTES # (AUTO) 0.1 x10^3/uL (0.3-0.8); MONOCYTES % (AUTO) 2.3 % (0.0-13.0); NEUTROPHILS # (AUTO) 2.1 x10^3/uL (2.2-4.8); NEUTROPHILS % (AUTO) 88.7 % (42.0-75.0); PLATELET COUNT 192 X10^3/uL (150.0-450.0); RED BLOOD COUNT 3.25 X10^6/uL (4.7-6.0); RED CELL DISTRIBUTION WIDTH 15.2 % (11.6-16.5); WHITE BLOOD COUNT 2.3 X10^3/uL (3.6-10.0)
[2017-08-19 05:40] LABS: ALANINE AMINOTRANSFERASE 15 Units/L (12-78); ALBUMIN 2.4 g/dL (3.4-5.0); ALKALINE PHOSPHATASE 86 Units/L (46-116); ASPARTATE AMINO TRANSFERASE 12 Units/L (15-37); BLOOD UREA NITROGEN 7 mg/dL (7-18); CALCIUM 7.8 mg/dL (8.5-10.1); CARBON DIOXIDE 27.5 mmol/L (21-32); CHLORIDE 111 mmol/L (98-107); COR CA(FOR HYPOALB) 9.1 mg/dL (8.5-10.1); COR NA(FOR HYPERGLY) 147 mmol/L (136-145); SODIUM 144 mmol/L (136-145); TOTAL PROTEIN 5.6 g/dL (6.4-8.2); eGFR NON BLACK RACES > 60 (>60)
[2017-08-19] MEDS: ZOSYN VIAL 3.375 GRAMS 3.375 G in NS 100 ML IV + SPIKE MINIBAG* 100 ML IV SCH (05:47)
[2017-08-19 06:09] LABS: PLATELET MORPHOLOGY COMMENT NORMAL (NORMAL)
--- NOTE | 2017-08-19 07:28 | RAD ---
History: Pneumonia Study: Portable AP chest Comparison: Yesterday Findings: There is a new thinned obliquely oriented density in the right lung below the minor fissure . The left lung remains clear. There is no effusion. The heart size is normal. Impression: New plate atelectasis in the right lower lobe Reported By:
[2017-08-19] MEDS: LOVENOX INJ 80 MG SYR SC SCH (09:10)
[2017-08-19] MEDS: VANCOMYCIN HCL 500 MG VIAL 750 MG in NS 250 ML IV 250 ML IV SCH (09:10)
[2017-08-19 12:06] VITALS: BP 154/72
[2017-08-19] MEDS: NORCO 5/325 MG TAB PO PRN (12:23)
--- NOTE | 2017-09-10 00:17 | DR.CARTERD ---
- Discharge Summary for: Discharge Summary for Date of:: 08/19/17 - Admission Date Date of Admission: 08/17/17 - Admission Diagnoses Admission Diagnosis: (1) Acute DVT (deep venous thrombosis) (2) Cellulitis of right leg - Discharge Date Discharge Date: 08/19/17 - Discharge Diagnoses Discharge Diagnosis: (1) Acute DVT (deep venous thrombosis) (2) Cellulitis of right leg - Hospital Course Hospital Course: Mr. Arreguin is a 67 year old patient of GERMAN Barba, who presented to the Emergency Room with complaints of leg pain for the past 5 weeks. He reported fever, chills. Patient reported a history of DVT and pulmonary embolisms for which he was prescribed Coumadin 10mg daily. He reported that he had not been able to obtain the medicine for the past two months because he didnt have enough money. He denied chest pain, nausea or vomiting but reported shortness of breath. He stated that he drank a 12 pack daily but denied tobacco or drug usage. On arrival, vitals were 98.5, 78, 20, 96% RA, 133/65. Labs were obtained. Abnormal Labs included the following: RBC 3.67, HGB 11.9, HCT 35.1, MPV 7.2, APPT 39.5, Calcium 8.3, A/G ratio 1.0, Lipase 71, Ethyl Alcohol 105. Urinalysis: Protein 2+, Occult Blood 1+, Squamous Epith Cells Rare. A chest x- rays revealed: no acute cardiopulmonary process with resolution of left lower lobe airspace opacities. A venous doppler study revealed: Occlusive thrombus from the left common femoral to the foot femoral vein with nonocclusive thrombus in the left popliteal vein, not significantly changed from prior. Redness with 3+ pitting edema noted to bilateral lower extremities. Patient given Rocephin 1 GM IV once and Vancomycin 1 GM once in the emergency room. Patient admitted to the hospital as an observation patient for further evaluation of DVT and cellulitis. Patient placed on NS 1000 ML IV @ 125 MLS/HR for IV hydration and Vancomycin 750 MG IV Q12H and Zosyn 3.375 GM IV TID for antibiotic therapy. Lovenox 80 MG SC BID given for anticoagulation therapy. Day two, patient continued treatment for DVT of leg leg and cellulitis of right leg. We continued with Lovenox sc bid, IV fluids, and IV Vancomycin. Redness of right lower extremity was improving with antibiotics. Patient started on Coumadin 5mg HS. We continued to monitor. Day three, patient reported he felt better. He denied pain to lower extremities. Redness to right lower extremity was greatly improved with only trace, light pink coloring to right lower leg. Vital signs stable. Labs wnl. We planned for discharge with Coumadin and Augmentin. Instructions for medications and follow up were discussed with patient and family, both voiced understanding. Patient discharged home in stable condition with family. - Discharge Medications Discharge Medications: Home Medication List NK 08/19/17 [History] amoxicillin-pot clavulanate [Augmentin] 1 tab PO BID #20 tab 08/19/17 [Rx] warfarin [Coumadin] 5 mg PO HS #30 tab 08/19/17 [Rx] Prescriptions: amoxicillin-pot clavulanate [Augmentin] Chivo Arreguin warfarin [Coumadin] Chivo Arreguin - Discharge Disposition Discharge Disposition: Patient is to follow up with GERMAN Barba in three days.
--- NOTE | 2017-10-05 18:30 | PCM.PROG ---
Progress Note - Progress Note for Day of Date of Exam: 08/18/17 - Subjective Subjective: WAS ADMITTED FOR LEFT LEG DVT AND CELLULITIS OF THE RIGHT LEG. TODAY, HE CONTINUES WITH PAIN TO BILATERAL LOWER EXTREMITIES. HE CONTINUES WITH EDEMA TO LEFT LOWER LEG AND REDNESS AND EDEMA TO RIGHT GROIN. PATIENT ALSO REPORTS ANXIETY AND DIFFICULTY SLEEPING. HIS VITALS THIS MORNING ARE 98.1-67-22- 98%-127/74. LABS WERE OBTAINED. ABNORMAL LAB VALUES INCLUDE THE FOLLOWING: RBC 3.21, HGB 10.8, HCT 31.1, CHLORIDE 108, CALCIUM 7.6, TOTAL PROTEIN 5.6, ALBUMIN 2.5. TODAY, WE WILL RESTART COUMADIN 5MG PO HS, KLONOPIN 0.5MG PO TID, AND NORCO FOR PAIN. OTHERWISE, WE WILL FOLLOW UP WITH AM LABS AND CONTINUE TO MONITOR PATIENT. - Past Medical Family Social History Past Med/Fam/Surg Hx: No changes since H&P Allergies: Allergies No Known Drug Allergies Allergy (Verified 09/30/17 16:51) - Review of Systems ROS: No change since H&P - Vital Signs and I&O's Vital Signs: Temperature 98.5 F Pulse Rate [Right Brachial] 76 Pulse Rate [Left] 80 Pulse Rate 86 Respiratory Rate 18 Blood Pressure [Left Arm] 133/69 Blood Pressure [Right Arm] 154/72 Blood Pressure 168/81 O2 Sat by Pulse Oximetry 97 - Physical Exam Oriented: Normal Eyes: Normal Ear: Normal Nose: Normal Throat: Normal Cardiovascular: Normal : Normal Auscultation: Bowel Sounds: Normal Palpation: Normal Tenderness: Normal Skin: Normal Musculoskeletal: Right, Left, Leg, Swelling, Tender Psychiatric: Normal Mood Description: Calm Affect: Normal Speech Pattern: Clear, Appropriate - Laboratory and Diagnostics Result Diagrams: 08/19/17 04:55 08/19/17 04:55 Labs: 08/17/17 03:17 Blood Blood Culture - Final 08/17/17 03:21 Blood Blood Culture - Final Laboratory WBC 2.3 X10^3/uL (3.6-10.0) L 08/19/17 04:55 RBC 3.25 X10^6/uL (4.7-6.0) L 08/19/17 04:55 Hgb 10.7 g/dL (13.5-18.0) L 08/19/17 04:55 Hct 31.9 % (42.0-54.0) L 08/19/17 04:55 MCV 98.1 fL (80.0-100.0) 08/19/17 04:55 MCH 33.0 pg (27.0-34.0) 08/19/17 04:55 MCHC 33.7 g/dL (33.0-35.0) 08/19/17 04:55 RDW 15.2 % (11.6-16.5) 08/19/17 04:55 Plt Count 192 X10^3/uL (150.0-450.0) 08/19/17 04:55 Plt Count Comment Adequate (ADEQUATE) 08/19/17 04:55 MPV 8.3 fL (7.4-11.0) 08/19/17 04:55 Neut % (Auto) 88.7 % (42.0-75.0) H 08/19/17 04:55 Lymph % (Auto) 8.7 % (21.0-51.0) L 08/19/17 04:55 [place] % (Auto) 2.3 % (0.0-13.0) 08/19/17 04:55 Eos % (Auto) 0.1 % (0.9-2.9) L 08/19/17 04:55 Baso % (Auto) 0.2 % (0.2-1.0) 08/19/17 04:55 Neut # (Auto) 2.1 x10^3/uL (2.2-4.8) L 08/19/17 04:55 Lymph # (Auto) 0.2 X10^3/uL (1.3-2.9) L 08/19/17 04:55 [place] # (Auto) 0.1 x10^3/uL (0.3-0.8) L 08/19/17 04:55 Eos # (Auto) 0.0 x10^3/uL (0.0-0.2) 08/19/17 04:55 Baso # (Auto) 0.0 X10^3/uL (0.0-0.1) 08/19/17 04:55 Absolute Nucleated RBC 0.1 /100WBC 08/19/17 04:55 Total Counted 100 08/19/17 04:55 Neutrophils % (Manual) 90 % (39-76) H 08/19/17 04:55 Lymphocytes % (Manual) 9 % (13-43) L 08/19/17 04:55 Monocytes % (Manual) 1 % (4-9) L 08/19/17 04:55 Plt Morphology Comment Normal (NORMAL) 08/19/17 04:55 RBC Morphology Normal (NORMAL) 08/19/17 04:55 INR Target Range - 08/19/17 04:55 INR 0.95 (0.8-1.3) 08/19/17 04:55 APTT 39.5 SECONDS (22.9-36.5) H 08/17/17 03:17 PTT Comment - 08/17/17 03:17 Sodium 144 mmol/L (136-145) 08/19/17 04:55 Corrected Sodium 147 mmol/L (136-145) H 08/19/17 04:55 Potassium 3.5 mmol/L (3.5-5.1) 08/19/17 04:55 Chloride 111 mmol/L (98-107) H 08/19/17 04:55 Carbon Dioxide 27.5 mmol/L (21-32) 08/19/17 04:55 BUN 7 mg/dL (7-18) 08/19/17 04:55 Creatinine 1.00 mg/dL (0.70-1.30) 08/19/17 04:55 Est GFR (MDRD) Af Amer > 60 (>60) 08/19/17 04:55 Est GFR (MDRD) Non-Af > 60 (>60) 08/19/17 04:55 Glucose 206 mg/dL (65-99) H 08/19/17 04:55 Lactic Acid 1.8 mmol/L (0.4-2.0) 08/17/17 03:17 Calcium 7.8 mg/dL (8.5-10.1) L 08/19/17 04:55 Corrected Calcium 9.1 mg/dL (8.5-10.1) 08/19/17 04:55 Magnesium 1.9 mg/dL (1.7-2.9) 08/17/17 05:10 Total Bilirubin 0.20 mg/dL (0.2-1.0) 08/19/17 04:55 AST 12 Units/L (15-37) L 08/19/17 04:55 ALT 15 Units/L (12-78) 08/19/17 04:55 Alkaline Phosphatase 86 Units/L (46-116) 08/19/17 04:55 Total Protein 5.6 g/dL (6.4-8.2) L 08/19/17 04:55 Albumin 2.4 g/dL (3.4-5.0) L 08/19/17 04:55 Globulin 3.2 g/dL (2.5-4.5) 08/19/17 04:55 Albumin/Globulin Ratio 0.8 Ratio (1.1-2.1) L 08/19/17 04:55 Amylase 48 Units/L (25-115) 08/17/17 03:17 Lipase 71 Units/L (73-393) L 08/17/17 03:17 Specimen Type Clean catch urine 08/17/17 04:06 Urine Color Yellow (YELLOW) 08/17/17 04:06 Urine Appearance Clear (CLEAR) 08/17/17 04:06 Urine pH 5.0 (5.0 - 8.0) 08/17/17 04:06 Ur Specific [place] 1.020 (1.000-1.030) 08/17/17 04:06 Urine Protein 2+ (NEGATIVE) 08/17/17 04:06 Urine Glucose (UA) Negative (NEGATIVE) 08/17/17 04:06 Urine Ketones Negative (NEGATIVE) 08/17/17 04:06 Urine Occult Blood 1+ (NEGATIVE) 08/17/17 04:06 Urine Nitrite Negative (NEGATIVE) 08/17/17 04:06 Urine Bilirubin Negative (NEGATIVE) 08/17/17 04:06 Urine Urobilinogen Normal (NORMAL) 08/17/17 04:06 Ur Leukocyte Esterase Negative (NEGATIVE) 08/17/17 04:06 Urine RBC None seen /HPF (NONE SEEN) 08/17/17 04:06 Urine WBC None seen /HPF (NONE SEEN) 08/17/17 04:06 Ur Squamous Epith Cells Rare /HPF (NEGATIVE) 08/17/17 04:06 Urine Bacteria Negative /HPF (NEGATIVE) 08/17/17 04:06 Ur Culture Indicated? No/not indicated 08/17/17 04:06 Vancomycin Trough 8.2 ug/mL (15-20) L 08/18/17 20:45 Urine Opiates Screen Negative (NEG=<300) 08/17/17 04:06 Urine Methadone Screen Negative (NEG=<300) 08/17/17 04:06 Ur Barbiturates Screen Negative (NEG=<200) 08/17/17 04:06 Ur Phencyclidine Scrn Negative (NEG=<25) 08/17/17 04:06 Ur Amphetamines Screen Positive (NEG=<1000) 08/17/17 04:06 U Benzodiazepines Scrn Negative (NEG=<200) 08/17/17 04:06 Urine Cocaine Screen Positive (NEG=<300) 08/17/17 04:06 U Marijuana (THC) Screen Negative (NEG=<50) 08/17/17 04:06 Ethyl Alcohol mg/dL 105 mg/dL (0-19.9) H 08/17/17 03:17 - Plan (1) Acute DVT (deep venous thrombosis) Status: Acute Qualifiers: DVT location: lower extremity Affected thrombotic vein of extremity: other lower extremity vein Laterality: left Qualified Code(s): I82.492 - Acute embolism and thrombosis of other specified deep vein of left lower extremity Plan: admit, lovenox 80mg sc bid, continue to monitor, COUMADIN 5MG PO HS (2) Cellulitis of right leg Status: Acute Plan: vancomycin 750mg iv q12h, zosyn 3.375gm iv tid, continue to monitor
== END 2017-08-19 13:30 | disposition home or self-care (01) ==
LOC: ER 02:39 → MED/SURG 02:39
PROVIDERS: ADMIT Internal Medicine; ATTEND Internal Medicine
DX: L03.115 Cellulitis of right lower limb; Z79.1 Long term (current) use of non-steroidal anti-inflammatories (NSAID); R06.02 Shortness of breath; I82.412 Acute embolism and thrombosis of left femoral vein; F15.90 Other stimulant use, unspecified, uncomplicated; M25.561 Pain in right knee; F14.90 Cocaine use, unspecified, uncomplicated; M25.562 Pain in left knee; R26.89 Other abnormalities of gait and mobility; F10.929 Alcohol use, unspecified with intoxication, unspecified; F41.8 Other specified anxiety disorders
CPT/HCPCS: 36415; 71010; 71020; 71045; 71046; 80053; 80202; 80307; 80320; 81001; 82150; 82565; 83605; 83690; 83735; 85025; 85610; 85730; 87040; 93970; 96365; 96374; 97161; 99283; 99284; A4216; A4222; G0378; G0434; G6040; J0696; J1650; J1885; J2543; J3370; J7030; J7050; J7060